=== PATIENT | female | born 1945 | race Caucasian/White ===

== ENCOUNTER 2016-12-23 10:34 | Outpatient (CLI) | payer MEDICARE, BC | END 2016-12-23 10:35 | disposition home or self-care (01) | DX: E03.9 Hypothyroidism, unspecified (principal) ==

== ENCOUNTER 2017-04-18 20:40 | Inpatient (IN) | payer MEDICARE, BC ==
[2017-04-18] MEDS ORDERED: SODIUM CHLORIDE 0.9% 1,000 ML IV ONE (21:04)
[2017-04-18] MEDS ORDERED: MORPHINE 2 MG/ML SYRINGE IVP STA ×2 (21:04→22:16)
[2017-04-18] MEDS ORDERED: ONDANSETRON 4 MG/2 ML VIAL IVP STA (21:04)
[2017-04-18 21:11] LABS: BASOPHILS % (AUTO) 0.2 %; EOSINOPHILS % (AUTO) 0.1 %; HCT - HEMATOCRIT 42.2 % (37.0-47.0); HGB - HEMOGLOBIN 14.3 g/dL (12.0-16.0); LYMPHOCYTES # (AUTO) 1.2 10^3/uL (1.5-3.5); LYMPHOCYTES % (AUTO) 11.3 %; MEAN CORPUSCULAR HEMOGLOBIN 30.5 pg (27.0-31.0); MEAN CORPUSCULAR HGB CONC 33.9 g/dL (32.0-36.0); MEAN PLATELET VOLUME 6.4 fL (7.9-10.8); MONOCYTES # (AUTO) 0.2 10^3/uL (0.0-1.0); MONOCYTES % (AUTO) 2.4 %; NEUTROPHILS # (AUTO) 8.8 10^3/uL (1.5-6.6); RED BLOOD COUNT 4.69 10^6/uL (4.20-5.40); RED CELL DISTRIBUTION WIDTH 13.2 % (12.0-15.0); UNCORRECTED WHITE BLOOD COUNT 10.2 x10^3/uL; WHITE BLOOD COUNT 10.2 x10^3/uL (4.8-10.8)
--- NOTE | 2017-04-18 21:13 | ED Physician Documentation ---
PD HPI ABD PAIN - Stated complaint Stated Complaint: AB PX/VOMITING - Chief complaint Chief Complaint: Abd Pain - History obtained from History obtained from: Patient, Family - History of Present Illness Timing - onset: Today Timing - details: Gradual onset, Still present Quality: Aching, Sharp Location: LUQ, RLQ, Suprapubic Worsened by: Position, Palpation Associated symptoms: Nausea, Vomiting. No: Fever, Hematemesis, Diarrhea, Constipation, Melena, Hematochezia Similar symptoms before: Work up / diagnostics, Treatment Recently seen: Not recently seen - Additional information Additional information: Patient is a 71 year old female status post partial bowel resection who is presenting to the emergency department for abdominal pain. Patient states that she had a dull pain and she thought that it was just gas and that it would go away on its own. Patient states that the pain got progressively worse throughout the day. Patient had a small bowel movement today. Patient had one episode of vomiting this evening. Review of Systems Constitutional: denies: Fever, Chills Eyes: denies: Decreased vision, Photophobia Ears: denies: Ear pain, Drainage/discharge Nose: denies: Rhinorrhea / runny nose Throat: denies: Sore throat Cardiac: denies: Palpitations PD PAST MEDICAL HISTORY - Past Medical History Past Medical History: Yes Cardiovascular: Hypertension Respiratory: None Neuro: Seizure disorder Endocrine/Autoimmune: HyPOthyroidism GI: GERD, Colon polyps, Diverticulitis, Other : Incontinence, Nocturia, Other HEENT: None Psych: None Musculoskeletal: Osteoarthritis Derm: Other - Past Surgical History Past Surgical History: Yes General: Bowel surgery, Colonoscopy HEENT: Tonsil/Adenoidectomy - Present Medications Home Medications: Ambulatory Orders Medication Instructions Recorded Confirmed Levothyroxine [Synthroid] 1.5 tab PO DAILY 06/13/13 02/16/17 Losartan [Cozaar] 25 mg PO BID 06/13/13 02/16/17 carBAMazepine ER [TEGretol XR] 400 mg PO BID 06/13/13 02/16/17 Atorvastatin Calcium [Lipitor] 20 mg PO DAILY 01/21/16 02/16/17 Calcium Carbonate/Vitamin D3 1 tab PO BID 01/21/16 02/16/17 [Calcium 600 + Vit D3 800 Tab] Cholecalciferol (Vitamin D3) 2,000 unit PO BID 01/21/16 02/16/17 [Vitamin D3] Multivitamin [Multi-Delyn] 1 tbs PO DAILY 02/18/16 02/16/17 Ondansetron Odt [Zofran Odt] 4 mg PO Q4H PRN 03/06/16 02/16/17 Prochlorperazine Maleate 10 mg PO Q6H PRN 03/06/16 02/16/17 [Compazine] Pantoprazole [Protonix] 40 mg PO DAILY 03/17/16 02/16/17 Saccharomyces Boulardii [Florastor] 250 mg PO BID 09/12/16 02/16/17 - Allergies Allergies/Adverse Reactions: Allergies Allergy/AdvReac Type Severity Reaction Status Date / Time No Known Drug Allergies Allergy Verified 04/18/17 20:50 - Social History Does the pt smoke?: No Smoking Status: Never smoker Does the pt drink ETOH?: No Does the pt have substance abuse?: No - Immunizations Immunizations are current?: Yes - POLST Patient has POLST: No PD ED PE NORMAL - Vitals Vital signs reviewed: Yes - General General: Alert and oriented X 3, Well developed/nourished - HEENT HEENT: Atraumatic, PERRL, Pharynx benign - Neck Neck: Supple, no meningeal sign, No JVD - Cardiac Cardiac: RRR, No murmur, No rub - Respiratory Respiratory: No respiratory distress, Clear bilaterally - Derm Derm: Normal color, Warm and dry, No rash - Extremities Extremities: No deformity, No edema - Neuro Neuro: Alert and oriented X 3, No motor deficit, No sensory deficit, Normal speech - Psych Psych: Normal mood, Normal affect PD ED PE EXPANDED - General General: Alert, In Pain - Abdomen Abdomen: Tender to palpation, RLQ, Suprapubic, LLQ. No: Rebound, Guarding Results - Vitals Vitals: Vital Signs - 24 hr 04/18/17 04/18/17 04/18/17 20:47 21:33 22:39 Temperature 36.7 C Heart Rate 79 81 85 Respiratory 18 18 16 Rate Blood Pressure 182/80 H 151/57 H O2 Saturation 99 100 95 04/19/17 00:30 Temperature Heart Rate 85 Respiratory 16 Rate Blood Pressure 145/71 H O2 Saturation 98 Oxygen O2 Source Room air - Labs Labs: Laboratory Tests 04/18/17 04/18/17 04/18/17 21:00 21:05 21:05 WBC 10.2 RBC 4.69 Hgb 14.3 Hct 42.2 MCV 90.0 MCH 30.5 MCHC 33.9 RDW 13.2 Plt Count 188 MPV 6.4 L Neut # 8.8 H Lymph # 1.2 L [place] # 0.2 Eos # 0.0 Baso # 0.0 Absolute Nucleated RBC 0.00 Nucleated RBCs 0.0 Sodium 134 L Potassium 4.0 Chloride 98 L Carbon Dioxide 26 Anion Gap 10.0 BUN 12 Creatinine 0.6 Estimated GFR (MDRD) 99 Glucose 138 H Lactic Acid Calcium 9.1 Phosphorus 3.5 Magnesium 1.8 Total Bilirubin 0.8 AST 43 H ALT 26 Alkaline Phosphatase 71 Total Protein 7.8 Albumin 4.8 Globulin 3.0 Albumin/Globulin Ratio 1.6 Lipase 19 L Urine Color YELLOW Urine Clarity HAZY Urine pH 7.5 Ur Specific [place] 1.015 Urine Protein TRACE Urine Glucose (UA) NEGATIVE Urine Ketones NEGATIVE Urine Occult Blood NEGATIVE Urine Nitrite NEGATIVE Urine Bilirubin NEGATIVE Urine Urobilinogen 0.2 (NORMAL) Ur Leukocyte Esterase NEGATIVE Urine RBC 0-5 Urine WBC 0-3 Ur Squamous Epith Cells RARE Squamous Amorphous Sediment Rare Urine Bacteria None Seen Ur Microscopic Review INDICATED Urine Culture Comments NOT INDICATED 04/18/17 21:20 WBC RBC Hgb Hct MCV MCH MCHC RDW Plt Count MPV Neut # Lymph # [place] # Eos # Baso # Absolute Nucleated RBC Nucleated RBCs Sodium Potassium Chloride Carbon Dioxide Anion Gap BUN Creatinine Estimated GFR (MDRD) Glucose Lactic Acid 1.2 Calcium Phosphorus Magnesium Total Bilirubin AST ALT Alkaline Phosphatase Total Protein Albumin Globulin Albumin/Globulin Ratio Lipase Urine Color Urine Clarity Urine pH Ur Specific [place] Urine Protein Urine Glucose (UA) Urine Ketones Urine Occult Blood Urine Nitrite Urine Bilirubin Urine Urobilinogen Ur Leukocyte Esterase Urine RBC Urine WBC Ur Squamous Epith Cells Amorphous Sediment Urine Bacteria Ur Microscopic Review Urine Culture Comments - Rads (name of study) ct abdomen/pelvis Radiology: Final report received (dilated loops of bowel and transition sight consistent with sbo) PD MEDICAL DECISION MAKING - ED course Complexity details: reviewed old records, reviewed results, re-evaluated patient , considered differential, d/w patient, d/w independent beauty consultant ED course: Patient was seen and examined at bedside. IV access was gained, labs were drawn. Patient was treated with a fluid bolus, morphine and zofran. Patient responded well to the therapy. When patient's labs came back she was sent for imaging. Imaging revealed a sbo. patient was treated with and additional 4mg of morphine. call box wirer surgeon, Dr. Galvez was contacted and he came to evaluate the patient. Hospitalist was contacted and the case was discussed with him. Patient was admitted under his service for further evaluation and care. Departure - Departure Disposition: ED Place in Observation Clinical Impression: Small bowel obstruction Condition: Good
[2017-04-18 21:14] LABS: BILIRUBIN,URINE NEGATIVE (NEGATIVE); PH,URINE 7.5 PH (5.0-7.5)
[2017-04-18] MEDS ORDERED: MORPHINE 2 MG/ML SYRINGE ONE ×2 (21:16→22:15)
[2017-04-18] MEDS ORDERED: ONDANSETRON 4 MG/2 ML VIAL ONE (21:16)
[2017-04-18 21:21] LABS: UA w/ MICROSCOPIC CHARGE YES
[2017-04-18 21:24] LABS: ALBUMIN/GLOBULIN RATIO 1.6 (1.0-2.2); BILIRUBIN,TOTAL 0.8 mg/dL (0.2-1.0); CALCIUM 9.1 mg/dL (8.5-10.3); CREATININE 0.6 mg/dL (0.4-1.0); MAGNESIUM 1.8 mg/dL (1.7-2.8); PHOSPHORUS 3.5 mg/dL (2.5-4.6); TOTAL PROTEIN 7.8 g/dL (6.7-8.2)
[2017-04-18 21:41] LABS: UR CULTURE IF IND NOT INDICATED; WBC,URINE 0-3 /HPF (0-5)
[2017-04-18] MEDS ORDERED: IOPAMIDOL-300 100 ML VIAL IVP ONE (22:39)
--- NOTE | 2017-04-18 23:09 | CT Report ---
EXAM: CT ABDOMEN AND PELVIS EXAM DATE: 04/18/2017 10:41 PM. CLINICAL HISTORY: Abdominal pain and vomiting. History of bowel resection. COMPARISONS: 09/12/2016. TECHNIQUE: Routine helical CT imaging was performed through the abdomen and pelvis. IV contrast: Danielle onic. Enteric contrast: No. Reconstructions: Coronal and sagittal. In accordance with CT protocol optimization, one or more of the following dose reduction techniques w ere utilized for this exam: automated exposure control, adjustment of mA and/or KV based on patient s ize, or use of iterative reconstructive technique. FINDINGS: Lung Bases: No focal consolidation. Small hiatal hernia. Liver: No focal abnormality seen. Possible fatty infiltration. Gallbladder/Bile Ducts: Unremarkable. Spleen: Normal. Pancreas: Normal. Adrenal Glands: Normal. Kidneys: Normal. No masses or hydronephrosis. Peritoneal Cavity/Bowel: Small amount of free fluid in the abdomen and pelvis. No free air. Dilated f luid-filled small bowel loops with air-fluid levels, consistent with small bowel obstruction. Segment al small bowel wall thickening proximal to the anastomosis in the right lower quadrant. This area of thickening and the adjacent anastomosis together constitute the transition zone. Rectosigmoid anastom osis also seen. No diverticulitis. No lymphadenopathy. Appendix is not seen. Pelvic Organs: Normal. The bladder and visualized pelvic organs are within normal limits. Vasculature: Moderate atherosclerosis. No aortic aneurysm. Bones: Degenerative changes in the spine. Moderate levoscoliosis. Other: Small ventral hernia containing fat to the right of midline. IMPRESSION: 1. Distal small bowel obstruction. There is wall thickening in the distal ileum and distal ileal anas tomosis. Together these appear to be the cause of obstruction. 2. Small amount of free fluid in the abdomen and pelvis. 3. Hiatal hernia. [facility] Referring Provider Line: [phone] SITE ID: [id number]
[2017-04-18] MEDS ORDERED: SODIUM CHLORIDE 0.9% 1,000 ML IV SCH (23:45)
[2017-04-18] MEDS ORDERED: PROCHLORPERAZINE 10 MG/2 ML VIAL IVP PRN (23:48)
[2017-04-18] MEDS ORDERED: ONDANSETRON 4 MG/2 ML VIAL IVP PRN (23:48)
[2017-04-18] MEDS ORDERED: oxyCODONE 5 MG TABLET PO PRN ×4 (23:48→23:59)
[2017-04-18] MEDS ORDERED: ACETAMINOPHEN 325 MG TABLET PO PRN ×2 (23:48→23:59)
[2017-04-18] MEDS ORDERED: MORPHINE 2 MG/ML SYRINGE IVP PRN ×2 (23:48→23:59)
[2017-04-18] MEDS ORDERED: ZOLPIDEM 5 MG TABLET PO PRN (23:48)
[2017-04-18] MEDS ORDERED: SODIUM CHLORIDE FLUSH 0.9% 10 ML SYRINGE IVP PRN (23:48)
[2017-04-19] MEDS ORDERED: MORPHINE 2 MG/ML SYRINGE ONE (00:28)
[2017-04-19] MEDS ORDERED: LIDOCAINE JELLY 2% 5 ML TUBE TOP ONE (00:36)
[2017-04-19] MEDS ORDERED: MORPHINE 2 MG/ML SYRINGE IVP STA (00:41)
[2017-04-19] MEDS ORDERED: MORPHINE 2 MG/ML SYRINGE IVP PRN ×2 (00:46→01:28)
[2017-04-19] MEDS ORDERED: ZOLPIDEM 5 MG TABLET PO PRN (01:28)
[2017-04-19] MEDS ORDERED: oxyCODONE 5 MG TABLET PO PRN ×4 (01:28)
[2017-04-19] MEDS ORDERED: ONDANSETRON 4 MG/2 ML VIAL IVP PRN (01:28)
[2017-04-19] MEDS ORDERED: ACETAMINOPHEN 325 MG TABLET PO PRN ×2 (01:28)
[2017-04-19] MEDS ORDERED: PROCHLORPERAZINE 10 MG/2 ML VIAL IVP PRN (01:28)
[2017-04-19] MEDS ORDERED: SODIUM CHLORIDE FLUSH 0.9% 10 ML SYRINGE IVP PRN (01:28)
[2017-04-19] MEDS ORDERED: PHENOL THROAT SPRAY 177 ML MM PRN (01:46)
[2017-04-19] MEDS: SODIUM CHLORIDE 0.9% 1,000 ML IV SCH ×3 (01:54→19:10)
[2017-04-19] MEDS: MORPHINE 2 MG/ML SYRINGE IVP PRN ×2 (02:51→04:50)
--- NOTE | 2017-04-19 03:36 | XRAY Preliminary Report ---
Exam: XR Chest 1 View IMPRESSION: 1. Small left lung base patchy airspace disease may be due to atelectasis, aspiration, and/or pneumon ia. Mild left perihilar atelectasis is likely present. 2. Orogastric tube is present, with the sidehole projecting above the gastroesophageal junction. Rec ommend advancing the tube 8 cm. [facility] SITE ID: [id number]
--- NOTE | 2017-04-19 03:39 | XRAY Report ---
EXAM: CHEST RADIOGRAPHY EXAM DATE: 04/19/2017 03:09 AM. CLINICAL HISTORY: NG tube placement COMPARISON: None. TECHNIQUE: 1 view. FINDINGS: Lungs/Pleura: Small patchy left lateral lung base opacity. Small lung volumes. No effusion or pneumot horax. Mediastinum: Within exam limitations, cardiomediastinal contour is normal. Other: Orogastric tube is present, with the sidehole projecting above the gastroesophageal junction. Recommend advancing the tube 8 cm. Moderate left Scoliosis of the lumbar spine. IMPRESSION: 1. Small left lung base patchy airspace disease may be due to atelectasis, aspiration, and/or pneumon ia. Mild left perihilar atelectasis is likely present. 2. Orogastric tube is present, with the sidehole projecting above the gastroesophageal junction. Rec ommend advancing the tube 8 cm. [facility] Referring Provider Line: [phone] SITE ID: [id number]
--- NOTE | 2017-04-19 04:46 | HISTORY & PHYSICAL EXAMINATION ---
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 The patient states that she was in her normal state of health until this morning when she states that she began to feel as though she was having a stomach ache. She thought it was secondary to eating a lot of fiber the day before. She states that the pain was located in the lower abdomen just below the umbilicus she states that the pain went across the midline and heard on both sides of the abdomen. She states that the pain was a cramping pain initially it was aching and then later in the day became severe up to 9/10. She states that she felt nauseated and did vomit but it was just clear fluid that came out. She states that she was feeling chills and when the chills broke she would get diaphoretic. She denied having had any fevers. She states that she did have a small bowel movement at around 4 PM today. She denies having had any constipation she states that her bowel movement was normal and there was no diarrhea. The patient denies any recent blood in her stools. She denies any headaches, blurred vision, runny nose, sore throat, chest pain, shortness of air , orthopnea, increased lower extremity swelling, urinary urgency frequency or dysuria, focal neurologic deficits. The patient states that she had similar symptoms about a year ago and came in to the ER at that time she was found to have enteritis and was placed on antibiotics with which the symptoms resolved. The patient states that the pain has remained constant. On presentation to the emergency department the patient was afebrile she is slightly hypertensive but vital signs were otherwise stable. Patient's lab work did not reveal any leukocytosis but there was elevated neutrophils and mild lymphopenia. The patient's electrolytes showed slight hyponatremia but otherwise were within normal limits. Patient's UA was negative. The patient underwent a CT of her abdomen and pelvis which showed distal small bowel obstruction with wall thickening in the distal ileum and distal ileum anastomosis. The emergency room physician contacted the surgeon environmental compliance officer Dr. Rosario who felt the patient likely had a small bowel obstruction and asked the patient to be admitted by the hospitalist service. He recommended NG tube to suction and medical management with pain control IV fluids and nothing by mouth. Review of Systems - Constitutional Constitutional: reports: Chills, Poor appetite. denies: Fatigue, Fever, Malaise , Weakness, Diaphoresis, Night sweats, Weight gain, Weight loss - Eyes Eyes: denies: Pain, Irritation, Amaurosis, Blurred vision, Spots in vision, Field loss, Vision loss, Dipolpia - Ears, Nose & Throat Ears, Nose & Throat: denies: Ear pain, Hearing loss, Hearing aids, Tinnitus, Vertigo, Nasal pain, Nasal discharge, Nasal obstruction, Nasal congestion, Sore throat, Hoarseness, Mouth lesions - Cardiovascular Cariovascular: denies: Irregular heart rate, Palpitations, Chest pain, Edema, Lightheadedness, Syncope, Exertional dyspnea, Decr. exercise tolerance, Orthopnea - Respiratory Respiratory: denies: Cough, Sputum production, Wheezing, Hemoptysis, Orthopnea, SOB at rest, SOB with exertion, Pleuritic pain - Gastrointestinal Gastrointestinal: reports: Abdominal pain, Abdominal distention, Nausea, Vomiting, Bloating, Poor appetite. denies: Constipation, Diarrhea, Change in bowel habits, Black stools, Bloody stools, Bile emesis, Coffee grounds emesis - Genitourinary Genitourinary: denies: Dysuria, Frequency, Urgency, Hematuria, Flank pain, Nocturia - Musculoskeletal Musculoskeletal: denies: Muscle pain, Back pain, Muscle aches, Stiffness, Limited range of motion, Muscle weakness, Joint pain, Joint swelling - Integumentary Integumentary: denies: Rash, Pruritis, Lesions, Dryness - Neurological Neurological: denies: General weakness, Focal weakness, Headache, Dizziness, Numbness, Abnormal gait, Seizures, Slurred speech - Psychiatric Psychiatric: denies: Depression, Anxiety - Endocrine Endocrine: denies: Polyuria, Polydypsia, Polyphagia, Intolerance to cold, Intolerance to heat - Hematologic/Lymphatic Hematologic/Lymphatic: denies: Anemia, Petechiae History - Past Medical History Cardiovascular: reports: Hypertension, High cholesterol Respiratory: reports: None Neuro: reports: Seizure disorder Endocrine/Autoimmune: reports: HyPOthyroidism GI: reports: GERD, Colon polyps, Diverticulitis (With divertiuclar perforation s /p hemicolectomy ), Other : reports: Incontinence, Nocturia, Other HEENT: reports: None Psych: reports: None Musculoskeletal: reports: Osteoarthritis Derm: reports: Other MRSA Hx?: No Other Past Medical History: Eneteritis, CML on Gleevac in cytological remission - Past Surgical History General: reports: Bowel surgery (Hemicolectomy ), Colonoscopy HEENT: reports: Tonsil/Adenoidectomy - Family & Social History Family History: Mother: Cancer (Colon Cancer) Family History Comment/Other: Brother had diverticulitis Living arrangement: At home Living Situation: With spouse/s.o. Social History Notes: The patient lives in [facility] with her . They have been living there for over 40 years. They do not have any children. 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 She has a history of tobacco use smoked one pack a day for about 10 years but quit over 30 years ago. She does not drink alcohol and denies any illicit drug use. - Substance History Use: Uses substance without health or social issues: NONE Abuse: Recurrent use of substance despite neg consequences: NONE Dependence: Experiences withdrawal or developed tolerances: NONE - POLST Patient has POLST: No POLST Status: Full Code Meds/Allgy - Home Medications Home Medications: Ambulatory Orders Medication Instructions Recorded Confirmed Levothyroxine [Synthroid] 1.5 tab PO DAILY 06/13/13 02/16/17 Losartan [Cozaar] 25 mg PO BID 06/13/13 02/16/17 carBAMazepine ER [TEGretol XR] 400 mg PO BID 06/13/13 02/16/17 Atorvastatin Calcium [Lipitor] 20 mg PO DAILY 01/21/16 02/16/17 Calcium Carbonate/Vitamin D3 1 tab PO BID 01/21/16 02/16/17 [Calcium 600 + Vit D3 800 Tab] Cholecalciferol (Vitamin D3) 2,000 unit PO BID 01/21/16 02/16/17 [Vitamin D3] Multivitamin [Multi-Delyn] 1 tbs PO DAILY 02/18/16 02/16/17 Ondansetron Odt [Zofran Odt] 4 mg PO Q4H PRN 03/06/16 02/16/17 Prochlorperazine Maleate 10 mg PO Q6H PRN 03/06/16 02/16/17 [Compazine] Pantoprazole [Protonix] 40 mg PO DAILY 03/17/16 02/16/17 Saccharomyces Boulardii [Florastor] 250 mg PO BID 09/12/16 02/16/17 - Allergies Allergies/Adverse Reactions: Allergies Allergy/AdvReac Type Severity Reaction Status Date / Time No Known Drug Allergies Allergy Verified 04/18/17 20:50 Exam - Vital Signs Reviewed Vital Signs: Yes Vital Signs: Vital Signs x48h Temp Pulse Pulse Resp BP BP Pulse Ox 04/19/17 02:23 36.7 C 79 16 141/78 H 95 04/19/17 01:45 36.7 C 73 16 141/78 H 95 04/19/17 00:54 77 16 127/79 97 04/19/17 00:45 36.4 C L 80 17 121/57 L 97 04/19/17 00:30 85 16 145/71 H 98 - Physical Exam General Appearance: positive: Alert, Moderate distress (Has waves of abdominal pain during exam as pain meds were wearing off) Eyes Bilateral: positive: Normal inspection, PERRL, EOMI, No lid inflammation, Conjunctivae nml, No scleral icterus ENT: positive: ENT inspection nml, Pharynx nml, Dry mucous membranes. negative : Purulent nasal drainage, Pharyngeal erythema, Oral lesions Neck: positive: Nml inspection, Thyroid nml, No JVD, Trachea midline. negative : Thyromegaly, Lymphadenopathy (R), Lymphadenopathy (L) Respiratory: positive: Chest non-tender, No respiratory distress, Breath sounds nml. negative: Wheezes, Rales, Rhonchi Cardiovascular: positive: Regular rate & rhythm, No murmur, No gallop Peripheral Pulses: positive: 2+ Abdomen: positive: Tenderness (Below the umbilicus patient has tenderness bilaterally but no guarding of peritoneal sign, Abd is distended slightly.), Abnml bowel sounds (decreased). negative: Guarding, Hepatomegaly, Splenomegaly , Mass Back: positive: Nml inspection. negative: CVA tenderness (R), CVA tenderness (L ) Skin: positive: Color nml, No rash, Warm. negative: Dry, Diaphoresis, Pallor, Skin rash Extremities: positive: Non-tender, Full ROM, Nml appearance, No pedal edema Neurologic/Psychiatric: positive: Oriented x3, CN's nml (2-12), Motor nml, Sensation nml, Other (Anxious) Conclusion/Plan - Problem List (1) Small bowel obstruction Conclusion/Plan: Patient presented to the emergency department with abdominal pain, nausea and vomiting since this morning. Patient has history of hemicolectomy for diverticular perforation. Patient's CT scan showed distal bowel obstruction. This is likely an early bowel obstruction given that she did have a normal bowel movement earlier in the day. The patient's pain was severe and difficult to control in the emergency department despite morphine every 2 hours. Patient had persistent nausea. Surgery was consult in the ER and asked that the hospitalist admit the patient for medical management of small bowel obstruction. Plan IV fluids Encourage mobility Pain control with IV morphine NG tube to low intermittent suction IV anti-emetics Monitor closely if symptoms persist may need surgical intervention Surgery on board (2) Hypertension Conclusion/Plan: Patient has history of hypertension Blood pressure elevated on presentation likely secondary to pain We'll control pain and monitor blood pressure If patient's obstruction persists may need IV antihypertensives when necessary Qualifiers: Hypertension type: essential hypertension Qualified Code(s): I10 - Essential (primary) hypertension (3) Hyperlipidemia Conclusion/Plan: On statin at home N.p.o. for small bowel obstruction (4) CML (chronic myelocytic leukemia) Conclusion/Plan: Patient on Gleevec daily cytological remission We'll continue Gleevec once patient is able to tolerate For now patient is n.p.o. for small bowel obstruction. (5) Hypothyroidism Conclusion/Plan: The patient on Synthroid at home Check TSH N.p.o. for small bowel obstruction Will restart Synthroid once able to tolerate by mouth intake otherwise we'll start IV Synthroid (6) Prophylactic use of low molecular weight heparin for venous thromboembolism Conclusion/Plan: placed on Lovenox while hospitalized - Lab Results Lab results reviewed: Yes Milton Bones: 04/18/17 21:05 04/18/17 21:05 - Diagnostic Imaging Results Diagnostic Imaging Results: positive: Final report reviewed - EKG Results EKG Interpreted Independently: Yes Issues/Core Measures - Anticipated LOS Anticipated Stay Length: 2 or more midnights - DVT/VTE - Prophylaxis VTE/DVT Prophylaxis med ordered at admit?: Yes
[2017-04-19 05:52] LABS: BASOPHILS % (AUTO) 0.4 %; EOSINOPHILS % (AUTO) 0.2 %; HGB - HEMOGLOBIN 13.1 g/dL (12.0-16.0); NEUTROPHILS # (AUTO) 7.7 10^3/uL (1.5-6.6)
[2017-04-19 05:56] LABS: HCT - HEMATOCRIT 37.7 % (37.0-47.0); LYMPHOCYTES # (AUTO) 1.3 10^3/uL (1.5-3.5); MEAN CORPUSCULAR HEMOGLOBIN 31.4 pg (27.0-31.0); MEAN CORPUSCULAR HGB CONC 34.8 g/dL (32.0-36.0); MEAN CORPUSCULAR VOLUME 90.2 fL (81.0-99.0); MEAN PLATELET VOLUME 6.3 fL (7.9-10.8); MONOCYTES # (AUTO) 0.6 10^3/uL (0.0-1.0); MONOCYTES % (AUTO) 6.1 %; NEUTROPHILS % (AUTO) 80.3 %; RED BLOOD COUNT 4.17 10^6/uL (4.20-5.40); RED CELL DISTRIBUTION WIDTH 13.4 % (12.0-15.0); UNCORRECTED WHITE BLOOD COUNT 9.6 x10^3/uL; WHITE BLOOD COUNT 9.6 x10^3/uL (4.8-10.8)
[2017-04-19] MEDS ORDERED: SODIUM CHLORIDE FLUSH 0.9% 10 ML SYRINGE IVP SCH (06:00)
[2017-04-19 06:02] LABS: INR 1.2 (0.8-1.2); PT - PROTHROMBIN TIME 13.2 secs (9.9-12.6)
[2017-04-19] MEDS: SODIUM CHLORIDE FLUSH 0.9% 10 ML SYRINGE IVP SCH ×3 (06:14→21:21)
[2017-04-19] MEDS: PANTOPRAZOLE 40 MG VIAL IVP SCH (06:14)
[2017-04-19 06:18] LABS: ALBUMIN/GLOBULIN RATIO 1.7 (1.0-2.2); BILIRUBIN,TOTAL 0.4 mg/dL (0.2-1.0); CALCIUM 8.3 mg/dL (8.5-10.3); CREATININE 0.5 mg/dL (0.4-1.0); MAGNESIUM 1.8 mg/dL (1.7-2.8); PHOSPHORUS 4.5 mg/dL (2.5-4.6); POTASSIUM 3.8 mmol/L (3.5-5.0); TOTAL PROTEIN 6.4 g/dL (6.7-8.2)
[2017-04-19] MEDS ORDERED: PANTOPRAZOLE 40 MG VIAL IVP SCH (07:00)
[2017-04-19] MEDS ORDERED: CHOLECALCIFEROL 1,000 UNIT TABLET PO SCH (09:00)
[2017-04-19] MEDS ORDERED: ENOXAPARIN 40 MG/0.4 ML SYRINGE SUBQ SCH (09:00)
[2017-04-19] MEDS ORDERED: VITAMIN D3 PO SCH (09:00)
[2017-04-19] MEDS ORDERED: MULTIVITAMIN PO SCH (09:00)
[2017-04-19] MEDS ORDERED: ATORVASTATIN CALCIUM 20 MG PO SCH (09:00)
[2017-04-19] MEDS ORDERED: CHOLECALCIFEROL 400 UNIT TABLET PO SCH (09:00)
[2017-04-19] MEDS ORDERED: POLYETHYLENE GLYCOL 3350 17 GM PACKET PO SCH (09:00)
[2017-04-19] MEDS ORDERED: carBAMazepine ER 200 MG TABLET PO SCH (09:00)
[2017-04-19] MEDS ORDERED: LOSARTAN 50 MG TABLET PO SCH (09:00)
[2017-04-19] MEDS ORDERED: CHOLECALCIFEROL 5,000 UNIT CAPSULE PO SCH (09:00)
[2017-04-19] MEDS ORDERED: SACCHAROMYCES BOULARDII 250 MG CAPSULE PO SCH (09:00)
[2017-04-19] MEDS ORDERED: CALCIUM CARBONATE CHEW 500 MG TABLET PO SCH (09:00)
[2017-04-19] MEDS ORDERED: ATORVASTATIN 10 MG TABLET PO SCH (09:00)
[2017-04-19] MEDS ORDERED: CALCIUM CARBONATE PO SCH (09:00)
[2017-04-19] MEDS: ENOXAPARIN 40 MG/0.4 ML SYRINGE SUBQ SCH (09:53)
[2017-04-19] MEDS: LEVOTHYROXINE 88 MCG TABLET PO SCH (11:20)
[2017-04-19] MEDS: carBAMazepine ER 200 MG TABLET PO SCH ×2 (11:25→21:14)
[2017-04-19] MEDS: MULTIVITAMIN TABLET PO SCH (11:26)
[2017-04-19] MEDS: LOSARTAN 50 MG TABLET PO SCH ×2 (11:26→21:15)
[2017-04-19] MEDS: SACCHAROMYCES BOULARDII 250 MG CAPSULE PO SCH ×2 (11:27→21:15)
--- NOTE | 2017-04-19 12:09 | PROVIDER PROGRESS NOTE ---
Assessment/Plan - Problem List (1) Small bowel obstruction Assessment/Plan: A/P 71 yo female with multiple medical problems including CML on Gleevec, now with presumed small bowel obstruction at anastamosis vs stool impaction, lactic acid/CMP/CBC normal, benign abdominal exam. Recommend continued NPO IV fluids Recommend advancing NGT 8 cm, the contunie with LWS Serial exams Encourage ambulation UGI follow through in am. Primary medical team to manage Surgery will follow - Current Meds Current Meds: Current Medications Generic Name Dose Route Start Last Admin Trade Name Freq PRN Reason Stop Dose Admin Carbamazepine 400 mg 04/19/17 09:00 04/19/17 11:25 Tegretol Xr PO 400 mg BID MICHELLE Administration Cholecalciferol 2,000 unit 04/19/17 09:00 04/19/17 11:27 Vitamin D3 PO 1,000 unit BID MICHELLE Administration Cholecalciferol 800 unit 04/19/17 09:00 04/19/17 11:27 Vitamin D3 PO 400 unit BID MICHELLE Administration Sodium Chloride 1,000 mls @ 125 mls/hr 04/19/17 01:00 04/19/17 01:54 Normal Saline 0.9% IV 125 mls/hr .Q8H MICHELLE Administration Levothyroxine Sodium 132 mcg 04/19/17 07:30 04/19/17 11:20 Synthroid PO 132 mcg QDAC MICHELLE Administration Losartan Potassium 25 mg 04/19/17 09:00 04/19/17 11:26 Cozaar PO 25 mg BID MICHELLE Administration Morphine Sulfate 2 mg 04/19/17 01:28 04/19/17 04:50 Morphine IVP 2 mg Q2HR PRN Administration Pain 8 to 10 Multivitamins 1 tab 04/19/17 09:00 04/19/17 11:26 Theragran PO 1 tab DAILY MICHELLE Administration Ondansetron HCl 4 mg 04/19/17 01:28 04/19/17 01:54 Zofran Inj IVP 4 mg Q6HR PRN Administration Nausea / Vomiting Pantoprazole Sodium 40 mg 04/19/17 07:00 04/19/17 06:14 Protonix IVP 40 mg QDAC MICHELLE Administration Saccharomyces Boulardii 250 mg 04/19/17 09:00 04/19/17 11:27 Florastor PO 250 mg BID MICHELLE Administration Sodium Chloride 10 ml 04/19/17 01:28 04/19/17 01:54 Normal Saline Flush 0.9% IVP 10 ml PRN PRN Administration NEEDED PER PROVIDER ORDERS Sodium Chloride 10 ml 04/19/17 06:00 04/19/17 06:14 Normal Saline Flush 0.9% IVP 10 ml Q8HR MICHELLE Administration - Lab Result Lab results reviewed: Yes Fish Bone Diagrams: 04/19/17 05:45 04/19/17 05:45 Subjective - Subjective Patient Reports: Feeling Better (Patient seen at bedside. She states she feels somewhat better with some mild pain. She denies any vomiting or Nausea. No BM or Flatus. She would like to start ambulating.) Nursing Reports: No Complaints Objective Vital Signs: Vital Signs - 24 hr 04/19/17 04/19/17 04/19/17 00:30 00:45 00:54 Temperature 36.4 C L Heart Rate 85 80 77 Heart Rate [ Brachial] Respiratory 16 17 16 Rate Blood Pressure 145/71 H 121/57 L 127/79 Blood Pressure [Left Brachial artery] O2 Saturation 98 97 97 04/19/17 04/19/17 04/19/17 01:45 02:23 08:45 Temperature 36.7 C 36.7 C 37.1 C Heart Rate Heart Rate [ 73 79 71 Brachial] Respiratory 16 16 18 Rate Blood Pressure Blood Pressure 141/78 H 141/78 H 108/64 [Left Brachial artery] O2 Saturation 95 95 94 Oxygen O2 Source Room air I&O (Last 24 Hrs): Intake and Output Totals x24h 04/17/17 04/18/17 04/19/17 23:59 23:59 23:59 Intake Total 535 Output Total 250 Balance 285 General: Alert, Oriented x3 HEENT: EOMI Neuro: Alert Cardiovascular: Regular rate Respiratory: Breath sounds nml Abdomen: Normal bowel sounds (+Bs, soft,ND, mild TTP right flank. No rebound or guarding.), Soft Extremities: No tenderness/swelling - Results Results: Laboratory Results WBC 9.6 x10^3/uL (4.8-10.8) 04/19/17 05:45 RBC 4.17 10^6/uL (4.20-5.40) L 04/19/17 05:45 Hgb 13.1 g/dL (12.0-16.0) 04/19/17 05:45 Hct 37.7 % (37.0-47.0) 04/19/17 05:45 MCV 90.2 fL (81.0-99.0) 04/19/17 05:45 MCH 31.4 pg (27.0-31.0) H 04/19/17 05:45 MCHC 34.8 g/dL (32.0-36.0) 04/19/17 05:45 RDW 13.4 % (12.0-15.0) 04/19/17 05:45 Plt Count 171 10^3/uL (130-450) 04/19/17 05:45 MPV 6.3 fL (7.9-10.8) L 04/19/17 05:45 Neut # 7.7 10^3/uL (1.5-6.6) H 04/19/17 05:45 Lymph # 1.3 10^3/uL (1.5-3.5) L 04/19/17 05:45 [place] # 0.6 10^3/uL (0.0-1.0) 04/19/17 05:45 Eos # 0.0 10^3/uL (0.0-0.7) 04/19/17 05:45 Baso # 0.0 10^3/uL (0.0-0.1) 04/19/17 05:45 Absolute Nucleated RBC 0.00 x10^3/uL 04/19/17 05:45 Nucleated RBCs 0.0 /100WBC 04/19/17 05:45 PT 13.2 secs (9.9-12.6) H 04/19/17 05:45 INR 1.2 (0.8-1.2) 04/19/17 05:45 Sodium 135 mmol/L (135-145) 04/19/17 05:45 Potassium 3.8 mmol/L (3.5-5.0) 04/19/17 05:45 Chloride 103 mmol/L (101-111) 04/19/17 05:45 Carbon Dioxide 25 mmol/L (21-32) 04/19/17 05:45 Anion Gap 7.0 (6-13) 04/19/17 05:45 BUN 10 mg/dL (6-20) 04/19/17 05:45 Creatinine 0.5 mg/dL (0.4-1.0) 04/19/17 05:45 Estimated GFR (MDRD) 122 (>89) 04/19/17 05:45 Glucose 118 mg/dL (70-100) H 04/19/17 05:45 Lactic Acid 0.8 mmol/L (0.5-2.2) 04/19/17 05:45 Calcium 8.3 mg/dL (8.5-10.3) L 04/19/17 05:45 Phosphorus 4.5 mg/dL (2.5-4.6) 04/19/17 05:45 Magnesium 1.8 mg/dL (1.7-2.8) 04/19/17 05:45 Total Bilirubin 0.4 mg/dL (0.2-1.0) 04/19/17 05:45 AST 32 IU/L (10-42) 04/19/17 05:45 ALT 21 IU/L (10-60) 04/19/17 05:45 Alkaline Phosphatase 57 IU/L (42-121) 04/19/17 05:45 Total Protein 6.4 g/dL (6.7-8.2) L 04/19/17 05:45 Albumin 4.0 g/dL (3.2-5.5) 04/19/17 05:45 Globulin 2.4 g/dL (2.1-4.2) 04/19/17 05:45 Albumin/Globulin Ratio 1.7 (1.0-2.2) 04/19/17 05:45 Lipase 19 U/L (22-51) L 04/18/17 21:05 Urine Color YELLOW 04/18/17 21:00 Urine Clarity HAZY (CLEAR) 04/18/17 21:00 Urine pH 7.5 PH (5.0-7.5) 04/18/17 21:00 Ur Specific Magnet 1.015 (1.002-1.030) 04/18/17 21:00 Urine Protein TRACE mg/dL (NEGATIVE) 04/18/17 21:00 Urine Glucose (UA) NEGATIVE mg/dL (NEGATIVE) 04/18/17 21:00 Urine Ketones NEGATIVE mg/dL (NEGATIVE) 04/18/17 21:00 Urine Occult Blood NEGATIVE (NEGATIVE) 04/18/17 21:00 Urine Nitrite NEGATIVE (NEGATIVE) 04/18/17 21:00 Urine Bilirubin NEGATIVE (NEGATIVE) 04/18/17 21:00 Urine Urobilinogen 0.2 (NORMAL) E.U./dL (NORMAL) 04/18/17 21:00 Ur Leukocyte Esterase NEGATIVE (NEGATIVE) 04/18/17 21:00 Urine RBC 0-5 /HPF (0-5) 04/18/17 21:00 Urine WBC 0-3 /HPF (0-5) 04/18/17 21:00 Ur Squamous Epith Cells RARE Squamous (<= Few) 04/18/17 21:00 Amorphous Sediment Rare /LPF 04/18/17 21:00 Urine Bacteria None Seen /HPF (None Seen) 04/18/17 21:00 Ur Microscopic Review INDICATED 04/18/17 21:00 Urine Culture Comments NOT INDICATED 04/18/17 21:00 - Procedures Procedures: Procedures CENTRAL VENOUS CATHETER PLACEMENT WITH GUIDANCE (06/13/13) 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) ILEOSTOMY NOS (06/13/13) LG-TO-LG BOWEL ANASTOM (06/13/13) OPEN AND OTHER SIGMOIDECTOMY (06/13/13) PACKED CELL TRANSFUSION (06/13/13) SM BOWEL STOMA CLOSURE (09/26/13) URETERAL CATHETERIZATION (06/13/13)
[2017-04-19] MEDS: POLYETHYLENE GLYCOL 3350 17 GM PACKET PO SCH (12:53)
--- NOTE | 2017-04-19 18:02 | PROVIDER PROGRESS NOTE ---
Subjective - Prog Note Date Prog Note Date: 04/19/17 Prog Note Time: 18:00 - Subjective Subjective: She's had the NG and hates it. General surgery will be taking it out. No emesis. Distention in her abdomen a little bit better. She has been diligently walking the hallways. So far no fever. Denies cp, cough. Current Medications - Current Medications Current Medications: Active Medications Acetaminophen (Tylenol) 650 mg PO Q4HR PRN PRN Reason: Pain 1 to 4 Acetaminophen (Tylenol) 650 mg PO Q4HR PRN PRN Reason: Pain 1 to 4 Atorvastatin Calcium (Lipitor) 20 mg PO QPM [facility] Calcium Carbonate/Glycine (Tums) 1,000 mg PO QPM [facility] Carbamazepine (Tegretol Xr) 400 mg PO BID [facility] Last Admin: 04/19/17 11:25 Dose: 400 mg Cholecalciferol (Vitamin D3) 1,000 unit PO BID [facility] Cholecalciferol (Vitamin D3) 400 unit PO BID [facility] Enoxaparin Sodium (Lovenox) 40 mg SUBQ DAILY [facility] Last Admin: 04/19/17 09:53 Dose: 40 mg Sodium Chloride (Normal Saline 0.9%) 1,000 mls @ 125 mls/hr IV .Q8H [facility] Last Admin: 04/19/17 17:57 Dose: 125 mls/hr Levothyroxine Sodium (Synthroid) 132 mcg PO QDAC [facility] Last Admin: 04/19/17 11:20 Dose: 132 mcg Losartan Potassium (Cozaar) 25 mg PO BID [facility] Last Admin: 04/19/17 11:26 Dose: 25 mg Morphine Sulfate (Morphine) 2 mg IVP Q2HR PRN PRN Reason: Pain 8 to 10 Last Admin: 04/19/17 04:50 Dose: 2 mg Morphine Sulfate (Morphine) 4 mg IVP Q2HR PRN PRN Reason: Pain 8 to 10 Multivitamins (Theragran) 1 tab PO DAILY [facility] Last Admin: 04/19/17 11:26 Dose: 1 tab Non-Formulary Medication (Imatinib Mesylate [Gleevec]) 400 mg PO 1730 [facility] Ondansetron HCl (Zofran Inj) 4 mg IVP Q6HR PRN PRN Reason: Nausea / Vomiting Last Admin: 04/19/17 01:54 Dose: 4 mg Oxycodone HCl (Roxicodone) 5 mg PO Q4HR PRN PRN Reason: Pain 5 to 7 Oxycodone HCl (Roxicodone) 10 mg PO Q4HR PRN PRN Reason: Pain 8 to 10 Pantoprazole Sodium (Protonix) 40 mg IVP QDAC [facility] Last Admin: 04/19/17 06:14 Dose: 40 mg Phenol/Menthol (Chloraseptic) 2 sprays MM Q2HR PRN PRN Reason: Throat Pain Polyethylene Glycol (Miralax) 17 gm PO DAILY [facility] Last Admin: 04/19/17 12:53 Dose: Not Given Prochlorperazine Edisylate (Compazine Inj) 10 mg IVP Q6HR PRN PRN Reason: Nausea / Vomiting Saccharomyces Boulardii (Florastor) 250 mg PO BID [facility] Last Admin: 04/19/17 11:27 Dose: 250 mg Sodium Chloride (Normal Saline Flush 0.9%) 10 ml IVP PRN PRN PRN Reason: NEEDED PER PROVIDER ORDERS Last Admin: 04/19/17 01:54 Dose: 10 ml Sodium Chloride (Normal Saline Flush 0.9%) 10 ml IVP Q8HR [facility] Last Admin: 04/19/17 14:51 Dose: Not Given Zolpidem Tartrate (Ambien) 5 mg PO QPM PRN PRN Reason: Insomnia Levothyroxine [Synthroid] 132 mcg PO DAILY 06/13/13 Losartan [Cozaar] 25 mg PO BID 06/13/13 Calcium Carbonate/Vitamin D3 [Calcium 600 + Vit D3 800 Tab] 1 tab PO BID Cholecalciferol (Vitamin D3) [Vitamin D3] 2,000 unit PO BID 01/21/16 Multivitamin [Multi-Delyn] 1 tbs PO DAILY 02/18/16 Ondansetron Odt [Zofran Odt] 4 mg PO Q4H PRN 03/06/16 Prochlorperazine Maleate [Compazine] 10 mg PO Q6H PRN 03/06/16 Pantoprazole [Protonix] 40 mg PO QDAC 03/17/16 Atorvastatin Calcium 20 mg PO QPM 04/19/17 Carbamazepine [Carbamazepine ER] 400 mg PO BID 04/19/17 Imatinib Mesylate [Gleevec] 400 mg PO 1730 04/19/17 Objective - Vital Signs/Intake & Output Reviewed Vital Signs: Yes Intake & Output: Intake & Output 04/16/17 04/17/17 04/18/17 04/19/17 23:59 23:59 23:59 23:59 Intake Total 1616 Output Total 250 Balance 1366 - Objective General Appearance: positive: No acute distress, Alert, Other (plesant white female looks stated age.) Eyes Bilateral: positive: PERRL, EOMI ENT: positive: Other (dry lips) Neck: positive: No JVD. negative: Lymphadenopathy (R), Lymphadenopathy (L), Stiff neck, Carotid bruit Respiratory: positive: Chest non-tender. negative: Wheezes, Rales, Rhonchi Cardiovascular: positive: Regular rate & rhythm. negative: Gallop/S4, Friction rub Abdomen: positive: Tenderness (mild), Abnml bowel sounds (faint, one tinkle), Other (distended). negative: Guarding, Rebound Skin: positive: Color nml, Warm, Dry. negative: Diaphoresis, Pallor Extremities: positive: Non-tender, No pedal edema Neurologic/Psychiatric: positive: Oriented x3, CN's nml (2-12), Motor nml - Lab Results Fish Bones: 04/19/17 05:45 04/19/17 05:45 Other Labs: Lab Results x24hrs 04/19/17 04/19/17 04/19/17 Range/Units 05:45 05:45 05:45 WBC (4.8-10.8) x10^3/uL RBC (4.20-5.40) 10^6/uL Hgb (12.0-16.0) g/dL Hct (37.0-47.0) % MCV (81.0-99.0) fL MCH (27.0-31.0) pg MCHC (32.0-36.0) g/dL RDW (12.0-15.0) % Plt Count (130-450) 10^3/uL MPV (7.9-10.8) fL Neut # (1.5-6.6) 10^3/uL Lymph # (1.5-3.5) 10^3/uL [place] # (0.0-1.0) 10^3/uL Eos # (0.0-0.7) 10^3/uL Baso # (0.0-0.1) 10^3/uL Absolute Nucleated RBC x10^3/uL Nucleated RBCs /100WBC PT 13.2 H (9.9-12.6) secs INR 1.2 (0.8-1.2) Sodium 135 (135-145) mmol/L Potassium 3.8 (3.5-5.0) mmol/L Chloride 103 (101-111) mmol/L Carbon Dioxide 25 (21-32) mmol/L Anion Gap 7.0 (6-13) BUN 10 (6-20) mg/dL Creatinine 0.5 (0.4-1.0) mg/dL Estimated GFR (MDRD) 122 (>89) Glucose 118 H (70-100) mg/dL Lactic Acid 0.8 (0.5-2.2) mmol/L Calcium 8.3 L (8.5-10.3) mg/dL Phosphorus 4.5 (2.5-4.6) mg/dL Magnesium 1.8 (1.7-2.8) mg/dL Total Bilirubin 0.4 (0.2-1.0) mg/dL AST 32 (10-42) IU/L ALT 21 (10-60) IU/L Alkaline Phosphatase 57 (42-121) IU/L Total Protein 6.4 L (6.7-8.2) g/dL Albumin 4.0 (3.2-5.5) g/dL Globulin 2.4 (2.1-4.2) g/dL Albumin/Globulin Ratio 1.7 (1.0-2.2) 04/19/17 Range/Units 05:45 WBC 9.6 (4.8-10.8) x10^3/uL RBC 4.17 L (4.20-5.40) 10^6/uL Hgb 13.1 (12.0-16.0) g/dL Hct 37.7 (37.0-47.0) % MCV 90.2 (81.0-99.0) fL MCH 31.4 H (27.0-31.0) pg MCHC 34.8 (32.0-36.0) g/dL RDW 13.4 (12.0-15.0) % Plt Count 171 (130-450) 10^3/uL MPV 6.3 L (7.9-10.8) fL Neut # 7.7 H (1.5-6.6) 10^3/uL Lymph # 1.3 L (1.5-3.5) 10^3/uL [place] # 0.6 (0.0-1.0) 10^3/uL Eos # 0.0 (0.0-0.7) 10^3/uL Baso # 0.0 (0.0-0.1) 10^3/uL Absolute Nucleated RBC 0.00 x10^3/uL Nucleated RBCs 0.0 /100WBC PT (9.9-12.6) secs INR (0.8-1.2) Sodium (135-145) mmol/L Potassium (3.5-5.0) mmol/L Chloride (101-111) mmol/L Carbon Dioxide (21-32) mmol/L Anion Gap (6-13) BUN (6-20) mg/dL Creatinine (0.4-1.0) mg/dL Estimated GFR (MDRD) (>89) Glucose (70-100) mg/dL Lactic Acid (0.5-2.2) mmol/L Calcium (8.5-10.3) mg/dL Phosphorus (2.5-4.6) mg/dL Magnesium (1.7-2.8) mg/dL Total Bilirubin (0.2-1.0) mg/dL AST (10-42) IU/L ALT (10-60) IU/L Alkaline Phosphatase (42-121) IU/L Total Protein (6.7-8.2) g/dL Albumin (3.2-5.5) g/dL Globulin (2.1-4.2) g/dL Albumin/Globulin Ratio (1.0-2.2) Assessment/Plan - Problem List (1) Small bowel obstruction Impression: Patient presented to the emergency department with abdominal pain, nausea and vomiting since morning of admission Patient has history of hemicolectomy for diverticular perforation. Patient's CT scan showed distal bowel obstruction. This is likely an early bowel obstruction given that she did have a normal bowel movement earlier in the day. The patient's pain was severe and difficult to control in the emergency department despite morphine every 2 hours. Patient had persistent nausea. Surgery was consult in the ER and asked that the hospitalist admit the patient for medical management of small bowel obstruction. Today, no emesis. Some output from NG. Less pain and it is controlled. Plan IV fluids Encouraged mobility Pain control with IV morphine NG tube to low intermittent suction IV anti-emetics Monitor closely if symptoms persist may need surgical intervention. So far none needed Surgery on board UGI with SBFT ordered for the am. (2) Hypertension Conclusion/Plan: Patient has history of hypertension Blood pressure elevated on presentation likely secondary to pain We'll control pain and monitor blood pressure and today systolic 120 to 140's. At goal If patient's obstruction persists may need IV antihypertensives when necessary Qualifiers: Hypertension type: essential hypertension Qualified Code(s): I10 - Essential (primary) hypertension (3) Hyperlipidemia Conclusion/Plan: On statin at home N.p.o. for small bowel obstruction (4) CML (chronic myelocytic leukemia) Conclusion/Plan: Patient on Gleevec daily cytological remission Gleevac resumed today. For now patient is n.p.o. for small bowel obstruction. (5) Hypothyroidism Conclusion/Plan: The patient on Synthroid at home Check TSH nd ordered for morning of 6 N.p.o. for small bowel obstruction Will restart Synthroid once able to tolerate by mouth intake otherwise we'll start IV Synthroid
[2017-04-19] MEDS ORDERED: CARBAMAZEPINE 400 MG PO SCH (21:00)
[2017-04-19] MEDS: CHOLECALCIFEROL 1,000 UNIT TABLET PO SCH (21:14)
[2017-04-19] MEDS: ATORVASTATIN 10 MG TABLET PO SCH (21:14)
[2017-04-19] MEDS: CHOLECALCIFEROL 400 UNIT TABLET PO SCH (21:15)
[2017-04-19] MEDS: CALCIUM CARBONATE CHEW 500 MG TABLET PO SCH (21:19)
[2017-04-20] MEDS: SODIUM CHLORIDE 0.9% 1,000 ML IV SCH ×3 (01:14→22:16)
[2017-04-20] MEDS: PANTOPRAZOLE 40 MG VIAL IVP SCH (06:19)
[2017-04-20] MEDS: SODIUM CHLORIDE FLUSH 0.9% 10 ML SYRINGE IVP SCH ×3 (06:19→22:16)
[2017-04-20 06:27] LABS: BASOPHILS % (AUTO) 0.5 %; EOSINOPHILS # (AUTO) 0.1 10^3/uL (0.0-0.7); EOSINOPHILS % (AUTO) 1.7 %; HCT - HEMATOCRIT 36.4 % (37.0-47.0); HGB - HEMOGLOBIN 12.4 g/dL (12.0-16.0); LYMPHOCYTES # (AUTO) 1.7 10^3/uL (1.5-3.5); LYMPHOCYTES % (AUTO) 24.5 %; MEAN CORPUSCULAR VOLUME 91.2 fL (81.0-99.0); MONOCYTES # (AUTO) 0.5 10^3/uL (0.0-1.0); NEUTROPHILS # (AUTO) 4.5 10^3/uL (1.5-6.6); NEUTROPHILS % (AUTO) 66.3 %; RED BLOOD COUNT 3.99 10^6/uL (4.20-5.40); RED CELL DISTRIBUTION WIDTH 13.3 % (12.0-15.0); UNCORRECTED WHITE BLOOD COUNT 6.8 x10^3/uL; WHITE BLOOD COUNT 6.8 x10^3/uL (4.8-10.8)
[2017-04-20 06:40] LABS: CALCIUM 8.1 mg/dL (8.5-10.3); CREATININE 0.5 mg/dL (0.4-1.0); POTASSIUM 3.3 mmol/L (3.5-5.0)
[2017-04-20] MEDS: MORPHINE 2 MG/ML SYRINGE IVP PRN ×2 (08:18→10:30)
[2017-04-20] MEDS ORDERED: BARIUM SULFATE 148 GM POWDER PO ONE (12:12)
--- NOTE | 2017-04-20 12:36 | XRAY Report ---
SMALL BOWEL FOLLOWTHROUGH: 04/20/2017 CLINICAL INDICATION: Small bowel obstruction. FINDINGS: Initial filter operator view of the abdomen demonstrates mildly prominent, gas-filled small bowel lo ops in the upper abdomen. The patient ingested barium. Oral contrast passes through normal caliber jejunum, dilated proximal a nd mid ileum, with an abrupt transition in the right mid abdomen at the level of the previous anastom osis warren to decompress distal and terminal ileal loops. No intraluminal filling defect is seen. IMPRESSION: PARTIAL SMALL BOWEL OBSTRUCTION, WITH THE LEVEL OF THE OBSTRUCTION AT THE PREVIOUS ANAST OMOSIS SITE IN THE RIGHT MID ABDOMEN. ORAL CONTRAST PASSED THROUGHOUT THE LEVEL OF PARTIAL OBSTRUCTI ON, AND REACHED THE COLON IN 30 MINUTES. FLUOROSCOPY TIME: 1 minute, 58 seconds; 6 spot images obtained. JOB #: [id number] EXT JOB #:[id number]
--- NOTE | 2017-04-20 12:46 | PROVIDER PROGRESS NOTE ---
Assessment/Plan - Problem List (1) Small bowel obstruction Assessment/Plan: Ros moved bowels several times. She was up and down all evening. Her small bowel follow through displayed open bowle with quick tansit time. narrowing was at the site of the ileostomy. She is having 8/10 pain now that she thinks is from the multriple movements. Will give IV tylenol. Long discussion with her and her about diet and issues around recurrence prevention. - Current Meds Current Meds: Current Medications Generic Name Dose Route Start Last Admin Trade Name Freq PRN Reason Stop Dose Admin Atorvastatin Calcium 20 mg 04/19/17 21:00 04/19/17 21:14 Lipitor PO 20 mg QPM MICHELLE Administration Calcium Carbonate/Glycine 1,000 mg 04/19/17 21:00 04/19/17 21:19 Tums PO 1,000 mg QPM MICHELLE Administration Carbamazepine 400 mg 04/19/17 09:00 04/19/17 21:14 Tegretol Xr PO 400 mg BID MICHELLE Administration Cholecalciferol 1,000 unit 04/19/17 21:00 04/19/17 21:14 Vitamin D3 PO 1,000 unit BID MICHELLE Administration Cholecalciferol 400 unit 04/19/17 21:00 04/19/17 21:15 Vitamin D3 PO 400 unit BID MICHELLE Administration Enoxaparin Sodium 40 mg 04/19/17 09:00 04/19/17 09:53 Lovenox SUBQ 40 mg DAILY MICHELLE Administration Sodium Chloride 1,000 mls @ 125 mls/hr 04/19/17 01:00 04/20/17 01:14 Normal Saline 0.9% IV 125 mls/hr .Q8H MICHELLE Administration Levothyroxine Sodium 132 mcg 04/19/17 07:30 04/19/17 11:20 Synthroid PO 132 mcg QDAC MICHELLE Administration Losartan Potassium 25 mg 04/19/17 09:00 04/19/17 21:15 Cozaar PO 25 mg BID MICHELLE Administration Morphine Sulfate 2 mg 04/19/17 01:28 04/20/17 10:30 Morphine IVP 2 mg Q2HR PRN Administration Pain 8 to 10 Multivitamins 1 tab 04/19/17 09:00 04/19/17 11:26 Theragran PO 1 tab DAILY MICHELLE Administration Ondansetron HCl 4 mg 04/19/17 01:28 04/19/17 01:54 Zofran Inj IVP 4 mg Q6HR PRN Administration Nausea / Vomiting Pantoprazole Sodium 40 mg 04/19/17 07:00 04/20/17 06:19 Protonix IVP 40 mg QDAC MICHELLE Administration Imatinib Mesylate [ 1 each 04/19/17 18:30 04/19/17 19:09 Gleevec] 400 Mg Tab PO 1 each 1730 MICHELLE Administration Polyethylene Glycol 17 gm 04/19/17 09:00 04/19/17 12:53 Miralax PO Not Given DAILY [facility]HELLE Saccharomyces Boulardii 250 mg 04/19/17 09:00 04/19/17 21:15 Florastor PO 250 mg BID MICHELLE Administration Sodium Chloride 10 ml 04/19/17 01:28 04/19/17 01:54 Normal Saline Flush 0.9% IVP 10 ml PRN PRN Administration NEEDED PER PROVIDER ORDERS Sodium Chloride 10 ml 04/19/17 06:00 04/20/17 06:19 Normal Saline Flush 0.9% IVP 10 ml Q8HR MICHELLE Administration - Lab Result Fish Bone Diagrams: 04/20/17 05:35 04/20/17 05:35 - Additional Planning My Orders: My Active Orders 04/20/17 13:00 Acetaminophen 1,000 mg/100 ml [Ofirmev] 100 ml IV Q6H 04/20/17 Lunch DIET [Soft (Low Fiber) Diet] [DIET] Subjective - Subjective Patient Reports: Abdominal Pain Nursing Reports: Pain Objective Vital Signs: Vital Signs - 24 hr 04/19/17 04/20/17 04/20/17 21:34 01:19 08:38 Temperature 37.3 C 37.3 C 37.2 C Heart Rate [ 72 78 72 Brachial] Respiratory 16 16 20 Rate Blood Pressure 136/70 H 135/80 H 158/80 H [Left Brachial artery] O2 Saturation 96 95 95 Oxygen O2 Source Room air I&O (Last 24 Hrs): Intake and Output Totals x24h 04/18/17 04/19/17 04/20/17 23:59 23:59 23:59 Intake Total 1616 630 Output Total 250 Balance 1366 630 General: Alert, Oriented x3, Cooperative HEENT: PERRLA, EOMI Neuro: Alert, Oriented Times 3 Cardiovascular: Regular rate, No murmurs Respiratory: No respiratory distress, Breath sounds nml Abdomen: Normal bowel sounds, Soft Extremities: No clubbing, No edema Skin: No rashes, No breakdown - Results Results: Laboratory Results WBC 6.8 x10^3/uL (4.8-10.8) 04/20/17 05:35 RBC 3.99 10^6/uL (4.20-5.40) L 04/20/17 05:35 Hgb 12.4 g/dL (12.0-16.0) 04/20/17 05:35 Hct 36.4 % (37.0-47.0) L 04/20/17 05:35 MCV 91.2 fL (81.0-99.0) 04/20/17 05:35 MCH 31.0 pg (27.0-31.0) 04/20/17 05:35 MCHC 34.0 g/dL (32.0-36.0) 04/20/17 05:35 RDW 13.3 % (12.0-15.0) 04/20/17 05:35 Plt Count 131 10^3/uL (130-450) 04/20/17 05:35 MPV 7.0 fL (7.9-10.8) L 04/20/17 05:35 Neut # 4.5 10^3/uL (1.5-6.6) 04/20/17 05:35 Lymph # 1.7 10^3/uL (1.5-3.5) 04/20/17 05:35 [place] # 0.5 10^3/uL (0.0-1.0) 04/20/17 05:35 Eos # 0.1 10^3/uL (0.0-0.7) 04/20/17 05:35 Baso # 0.0 10^3/uL (0.0-0.1) 04/20/17 05:35 Absolute Nucleated RBC 0.00 x10^3/uL 04/20/17 05:35 Nucleated RBCs 0.0 /100WBC 04/20/17 05:35 PT 13.2 secs (9.9-12.6) H 04/19/17 05:45 INR 1.2 (0.8-1.2) 04/19/17 05:45 Sodium 140 mmol/L (135-145) 04/20/17 05:35 Potassium 3.3 mmol/L (3.5-5.0) L 04/20/17 05:35 Chloride 109 mmol/L (101-111) 04/20/17 05:35 Carbon Dioxide 24 mmol/L (21-32) 04/20/17 05:35 Anion Gap 7.0 (6-13) 04/20/17 05:35 BUN 10 mg/dL (6-20) 04/20/17 05:35 Creatinine 0.5 mg/dL (0.4-1.0) 04/20/17 05:35 Estimated GFR (MDRD) 122 (>89) 04/20/17 05:35 Glucose 96 mg/dL (70-100) 04/20/17 05:35 Lactic Acid 0.8 mmol/L (0.5-2.2) 04/19/17 05:45 Calcium 8.1 mg/dL (8.5-10.3) L 04/20/17 05:35 Phosphorus 4.5 mg/dL (2.5-4.6) 04/19/17 05:45 Magnesium 1.8 mg/dL (1.7-2.8) 04/19/17 05:45 Total Bilirubin 0.4 mg/dL (0.2-1.0) 04/19/17 05:45 AST 32 IU/L (10-42) 04/19/17 05:45 ALT 21 IU/L (10-60) 04/19/17 05:45 Alkaline Phosphatase 57 IU/L (42-121) 04/19/17 05:45 Total Protein 6.4 g/dL (6.7-8.2) L 04/19/17 05:45 Albumin 4.0 g/dL (3.2-5.5) 04/19/17 05:45 Globulin 2.4 g/dL (2.1-4.2) 04/19/17 05:45 Albumin/Globulin Ratio 1.7 (1.0-2.2) 04/19/17 05:45 Lipase 19 U/L (22-51) L 04/18/17 21:05 TSH < 0.08 uIU/mL (0.34-5.60) L 04/20/17 05:35 Urine Color YELLOW 04/18/17 21:00 Urine Clarity HAZY (CLEAR) 04/18/17 21:00 Urine pH 7.5 PH (5.0-7.5) 04/18/17 21:00 Ur Specific [place] 1.015 (1.002-1.030) 04/18/17 21:00 Urine Protein TRACE mg/dL (NEGATIVE) 04/18/17 21:00 Urine Glucose (UA) NEGATIVE mg/dL (NEGATIVE) 04/18/17 21:00 Urine Ketones NEGATIVE mg/dL (NEGATIVE) 04/18/17 21:00 Urine Occult Blood NEGATIVE (NEGATIVE) 04/18/17 21:00 Urine Nitrite NEGATIVE (NEGATIVE) 04/18/17 21:00 Urine Bilirubin NEGATIVE (NEGATIVE) 04/18/17 21:00 Urine Urobilinogen 0.2 (NORMAL) E.U./dL (NORMAL) 04/18/17 21:00 Ur Leukocyte Esterase NEGATIVE (NEGATIVE) 04/18/17 21:00 Urine RBC 0-5 /HPF (0-5) 04/18/17 21:00 Urine WBC 0-3 /HPF (0-5) 04/18/17 21:00 Ur Squamous Epith Cells RARE Squamous (<= Few) 04/18/17 21:00 Amorphous Sediment Rare /LPF 04/18/17 21:00 Urine Bacteria None Seen /HPF (None Seen) 04/18/17 21:00 Ur Microscopic Review INDICATED 04/18/17 21:00 Urine Culture Comments NOT INDICATED 04/18/17 21:00 - Procedures Procedures: Procedures CENTRAL VENOUS CATHETER PLACEMENT WITH GUIDANCE (06/13/13) 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) ILEOSTOMY NOS (06/13/13) LG-TO-LG BOWEL ANASTOM (06/13/13) OPEN AND OTHER SIGMOIDECTOMY (06/13/13) PACKED CELL TRANSFUSION (06/13/13) SM BOWEL STOMA CLOSURE (09/26/13) URETERAL CATHETERIZATION (06/13/13)
[2017-04-20] MEDS: ACETAMINOPHEN 1,000 MG/100 ML 100 ML IV SCH ×2 (13:25→18:23)
[2017-04-20] MEDS: carBAMazepine ER 200 MG TABLET PO SCH ×3 (13:54→22:10)
[2017-04-20] MEDS: POLYETHYLENE GLYCOL 3350 17 GM PACKET PO SCH (13:57)
[2017-04-20] MEDS: CHOLECALCIFEROL 400 UNIT TABLET PO SCH ×2 (14:02→22:09)
[2017-04-20] MEDS: LEVOTHYROXINE 88 MCG TABLET PO SCH (14:02)
[2017-04-20] MEDS: LOSARTAN 50 MG TABLET PO SCH ×2 (14:02→22:09)
[2017-04-20] MEDS: SACCHAROMYCES BOULARDII 250 MG CAPSULE PO SCH ×2 (14:02→22:11)
[2017-04-20] MEDS: CHOLECALCIFEROL 1,000 UNIT TABLET PO SCH ×2 (14:02→22:11)
[2017-04-20] MEDS: MULTIVITAMIN TABLET PO SCH (14:03)
[2017-04-20] MEDS: ENOXAPARIN 40 MG/0.4 ML SYRINGE SUBQ SCH (14:03)
--- NOTE | 2017-04-20 17:02 | PROVIDER PROGRESS NOTE ---
Assessment/Plan - Problem List (1) Small bowel obstruction Assessment/Plan: 71 yo female with multiple medical problems Small bowel obstruction resolved - SBFT good transit time - Keep pt hydrated - replace electrolytes prn Primary medical team to manage - Can follow up in surgery clinic in two weeks with Dr. Garcia - Current Meds Current Meds: Current Medications Generic Name Dose Route Start Last Admin Trade Name Freq PRN Reason Stop Dose Admin Atorvastatin Calcium 20 mg 04/19/17 21:00 04/19/17 21:14 Lipitor PO 20 mg QPM MICHELLE Administration Calcium Carbonate/Glycine 1,000 mg 04/19/17 21:00 04/19/17 21:19 Tums PO 1,000 mg QPM MICHELLE Administration Carbamazepine 400 mg 04/19/17 09:00 04/20/17 14:03 Tegretol Xr PO 400 mg BID MICHELLE Administration Cholecalciferol 1,000 unit 04/19/17 21:00 04/20/17 14:02 Vitamin D3 PO 1,000 unit BID MICHELLE Administration Cholecalciferol 400 unit 04/19/17 21:00 04/20/17 14:02 Vitamin D3 PO 400 unit BID MICHELLE Administration Enoxaparin Sodium 40 mg 04/19/17 09:00 04/20/17 14:03 Lovenox SUBQ 40 mg DAILY MICHELLE Administration Sodium Chloride 1,000 mls @ 125 mls/hr 04/19/17 01:00 04/20/17 13:33 Normal Saline 0.9% IV 125 mls/hr .Q8H MICHELLE Administration Acetaminophen 100 mls @ 400 mls/hr 04/20/17 13:00 04/20/17 13:25 Ofirmev IV 400 mls/hr Q6H MICHELLE Administration Levothyroxine Sodium 132 mcg 04/19/17 07:30 04/20/17 14:02 Synthroid PO 132 mcg QDAC MICHELLE Administration Losartan Potassium 25 mg 04/19/17 09:00 04/20/17 14:02 Cozaar PO 25 mg BID MICHELLE Administration Morphine Sulfate 2 mg 04/19/17 01:28 04/20/17 10:30 Morphine IVP 2 mg Q2HR PRN Administration Pain 8 to 10 Multivitamins 1 tab 04/19/17 09:00 04/20/17 14:03 Theragran PO 1 tab DAILY MICHELLE Administration Ondansetron HCl 4 mg 04/19/17 01:28 04/19/17 01:54 Zofran Inj IVP 4 mg Q6HR PRN Administration Nausea / Vomiting Pantoprazole Sodium 40 mg 04/19/17 07:00 04/20/17 06:19 Protonix IVP 40 mg QDAC MICHELLE Administration Imatinib Mesylate [ 1 each 04/19/17 18:30 04/19/17 19:09 Gleevec] 400 Mg Tab PO 1 each 1730 MICHELLE Administration Polyethylene Glycol 17 gm 04/19/17 09:00 04/20/17 13:57 Miralax PO Not Given DAILY MICHELLE Saccharomyces Boulardii 250 mg 04/19/17 09:00 04/20/17 14:02 Florastor PO 250 mg BID MICHELLE Administration Sodium Chloride 10 ml 04/19/17 01:28 04/19/17 01:54 Normal Saline Flush 0.9% IVP 10 ml PRN PRN Administration NEEDED PER PROVIDER ORDERS Sodium Chloride 10 ml 04/19/17 06:00 04/20/17 13:58 Normal Saline Flush 0.9% IVP 10 ml Q8HR MICHELLE Administration - Lab Result Fish Bone Diagrams: 04/20/17 05:35 04/20/17 05:35 - Additional Planning Condition/Complexity: Stable Plan Discussed with:: Patient Subjective - Subjective Patient Reports: Feeling Better, Resting Comfortably (Pt states is having multiple bowel movements and feels good.) Nursing Reports: No Complaints Objective Vital Signs: Vital Signs - 24 hr 04/19/17 04/20/17 04/20/17 21:34 01:19 08:38 Temperature 37.3 C 37.3 C 37.2 C Heart Rate [ 72 78 72 Brachial] Respiratory 16 16 20 Rate Blood Pressure 136/70 H 135/80 H 158/80 H [Left Brachial artery] O2 Saturation 96 95 95 Oxygen O2 Source Room air I&O (Last 24 Hrs): Intake and Output Totals x24h 04/18/17 04/19/17 04/20/17 23:59 23:59 23:59 Intake Total 1616 1186 Output Total 250 Balance 1366 1186 General: Oriented x3 HEENT: EOMI Neuro: Alert Cardiovascular: Regular rate Respiratory: Breath sounds nml Abdomen: Normal bowel sounds - Results Results: Laboratory Results WBC 6.8 x10^3/uL (4.8-10.8) 04/20/17 05:35 RBC 3.99 10^6/uL (4.20-5.40) L 04/20/17 05:35 Hgb 12.4 g/dL (12.0-16.0) 04/20/17 05:35 Hct 36.4 % (37.0-47.0) L 04/20/17 05:35 MCV 91.2 fL (81.0-99.0) 04/20/17 05:35 MCH 31.0 pg (27.0-31.0) 04/20/17 05:35 MCHC 34.0 g/dL (32.0-36.0) 04/20/17 05:35 RDW 13.3 % (12.0-15.0) 04/20/17 05:35 Plt Count 131 10^3/uL (130-450) 04/20/17 05:35 MPV 7.0 fL (7.9-10.8) L 04/20/17 05:35 Neut # 4.5 10^3/uL (1.5-6.6) 04/20/17 05:35 Lymph # 1.7 10^3/uL (1.5-3.5) 04/20/17 05:35 Holmes # 0.5 10^3/uL (0.0-1.0) 04/20/17 05:35 Eos # 0.1 10^3/uL (0.0-0.7) 04/20/17 05:35 Baso # 0.0 10^3/uL (0.0-0.1) 04/20/17 05:35 Absolute Nucleated RBC 0.00 x10^3/uL 04/20/17 05:35 Nucleated RBCs 0.0 /100WBC 04/20/17 05:35 PT 13.2 secs (9.9-12.6) H 04/19/17 05:45 INR 1.2 (0.8-1.2) 04/19/17 05:45 Sodium 140 mmol/L (135-145) 04/20/17 05:35 Potassium 3.3 mmol/L (3.5-5.0) L 04/20/17 05:35 Chloride 109 mmol/L (101-111) 04/20/17 05:35 Carbon Dioxide 24 mmol/L (21-32) 04/20/17 05:35 Anion Gap 7.0 (6-13) 04/20/17 05:35 BUN 10 mg/dL (6-20) 04/20/17 05:35 Creatinine 0.5 mg/dL (0.4-1.0) 04/20/17 05:35 Estimated GFR (MDRD) 122 (>89) 04/20/17 05:35 Glucose 96 mg/dL (70-100) 04/20/17 05:35 Lactic Acid 0.8 mmol/L (0.5-2.2) 04/19/17 05:45 Calcium 8.1 mg/dL (8.5-10.3) L 04/20/17 05:35 Phosphorus 4.5 mg/dL (2.5-4.6) 04/19/17 05:45 Magnesium 1.8 mg/dL (1.7-2.8) 04/19/17 05:45 Total Bilirubin 0.4 mg/dL (0.2-1.0) 04/19/17 05:45 AST 32 IU/L (10-42) 04/19/17 05:45 ALT 21 IU/L (10-60) 04/19/17 05:45 Alkaline Phosphatase 57 IU/L (42-121) 04/19/17 05:45 Total Protein 6.4 g/dL (6.7-8.2) L 04/19/17 05:45 Albumin 4.0 g/dL (3.2-5.5) 04/19/17 05:45 Globulin 2.4 g/dL (2.1-4.2) 04/19/17 05:45 Albumin/Globulin Ratio 1.7 (1.0-2.2) 04/19/17 05:45 Lipase 19 U/L (22-51) L 04/18/17 21:05 TSH < 0.08 uIU/mL (0.34-5.60) L 04/20/17 05:35 Urine Color YELLOW 04/18/17 21:00 Urine Clarity HAZY (CLEAR) 04/18/17 21:00 Urine pH 7.5 PH (5.0-7.5) 04/18/17 21:00 Ur Specific [place] 1.015 (1.002-1.030) 04/18/17 21:00 Urine Protein TRACE mg/dL (NEGATIVE) 04/18/17 21:00 Urine Glucose (UA) NEGATIVE mg/dL (NEGATIVE) 04/18/17 21:00 Urine Ketones NEGATIVE mg/dL (NEGATIVE) 04/18/17 21:00 Urine Occult Blood NEGATIVE (NEGATIVE) 04/18/17 21:00 Urine Nitrite NEGATIVE (NEGATIVE) 04/18/17 21:00 Urine Bilirubin NEGATIVE (NEGATIVE) 04/18/17 21:00 Urine Urobilinogen 0.2 (NORMAL) E.U./dL (NORMAL) 04/18/17 21:00 Ur Leukocyte Esterase NEGATIVE (NEGATIVE) 04/18/17 21:00 Urine RBC 0-5 /HPF (0-5) 04/18/17 21:00 Urine WBC 0-3 /HPF (0-5) 04/18/17 21:00 Ur Squamous Epith Cells RARE Squamous (<= Few) 04/18/17 21:00 Amorphous Sediment Rare /LPF 04/18/17 21:00 Urine Bacteria None Seen /HPF (None Seen) 04/18/17 21:00 Ur Microscopic Review INDICATED 04/18/17 21:00 Urine Culture Comments NOT INDICATED 04/18/17 21:00 - Procedures Procedures: Procedures CENTRAL VENOUS CATHETER PLACEMENT WITH GUIDANCE (06/13/13) 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) ILEOSTOMY NOS (06/13/13) LG-TO-LG BOWEL ANASTOM (06/13/13) OPEN AND OTHER SIGMOIDECTOMY (06/13/13) PACKED CELL TRANSFUSION (06/13/13) SM BOWEL STOMA CLOSURE (09/26/13) URETERAL CATHETERIZATION (06/13/13)
[2017-04-20] MEDS: POTASSIUM CHLORIDE 20 MEQ TABLET PO SCH (22:10)
[2017-04-20] MEDS: ATORVASTATIN 10 MG TABLET PO SCH (22:10)
[2017-04-20] MEDS: CALCIUM CARBONATE CHEW 500 MG TABLET PO SCH (22:11)
[2017-04-21] MEDS: ACETAMINOPHEN 1,000 MG/100 ML 100 ML IV SCH ×2 (00:17→06:06)
[2017-04-21] MEDS: SODIUM CHLORIDE 0.9% 1,000 ML IV SCH (06:03)
[2017-04-21] MEDS: SODIUM CHLORIDE FLUSH 0.9% 10 ML SYRINGE IVP SCH (06:04)
[2017-04-21] MEDS: LEVOTHYROXINE 88 MCG TABLET PO SCH (06:04)
[2017-04-21] MEDS: PANTOPRAZOLE 40 MG VIAL IVP SCH (06:05)
[2017-04-21 08:41] VITALS: BP 155/81
[2017-04-21] MEDS: POLYETHYLENE GLYCOL 3350 17 GM PACKET PO SCH (08:43)
--- NOTE | 2017-04-21 09:11 | Discharge Plan ---
Discharge Plan Disposition: 01 Home, Self Care Condition: Good Diet: Soft Activity Restrictions: Activity as Tolerated Shower Restrictions: No Driving Restrictions: No Weight Bearing: Full Weight Additional Instructions or Follow Up instructions: Follow your low fiber diet. Follow up with your PCP Tiffany Vu in next 2 weeks Also make an appt with the Surgery clinic at [phone] No Smoking: If you smoke, Please STOP! Call for help. Follow-up with: Tiffany Vu PA-C [Primary Care Provider] - 1 Week
[2017-04-21] MEDS: LOSARTAN 50 MG TABLET PO SCH (10:00)
[2017-04-21] MEDS: POTASSIUM CHLORIDE 20 MEQ TABLET PO SCH (10:00)
[2017-04-21] MEDS: carBAMazepine ER 200 MG TABLET PO SCH (10:01)
[2017-04-21] MEDS: SACCHAROMYCES BOULARDII 250 MG CAPSULE PO SCH (10:02)
[2017-04-21] MEDS: CHOLECALCIFEROL 1,000 UNIT TABLET PO SCH (10:02)
[2017-04-21] MEDS: MULTIVITAMIN TABLET PO SCH (10:02)
[2017-04-21] MEDS: CHOLECALCIFEROL 400 UNIT TABLET PO SCH (10:02)
[2017-04-21] MEDS: ENOXAPARIN 40 MG/0.4 ML SYRINGE SUBQ SCH (10:02)
--- NOTE | 2017-04-22 07:39 | DISCHARGE SUMMARY ---
DATE OF ADMISSION: 04/18/2017 DATE OF DISCHARGE: 04/21/2017 PRIMARY CARE PHYSICIAN: Tiffany Vu PA-C ADMISSION DIAGNOSES 1. Small-bowel obstruction. 2. Hypertension. 3. Hyperlipidemia. 4. Chronic myelocytic leukemia (CML). 5. Hypothyroidism. DISCHARGE DIAGNOSES 1. Small-bowel obstruction, resolved. 2. Hypertension, controlled in hospital. 3. Hyperlipidemia, on statin. 4. Chronic myelocytic leukemia (CML). 5. Hypothyroidism, on thyroid medication. SPECIAL PROCEDURES 1. Abdominal pelvis CT, findings: 1) Distal small-bowel obstruction. There is wall thickening in the distal ileum and distal ileal anastomosis. I gather these appear to be the cause of obstruction. 2) S mall amount of free fluid in the abdomen and pelvis. 3) Hiatal hernia. 2. Small-bowel follow-through that showed transit through the area of narrowing. Impression: Partial small-bowel obstruction, with level of the obstruction at the previous anastomosis site of the right mid abdomen. Oral contrast passed through the area of the bowel obstruction and reached the colon in 30 minutes. HOSPITAL COURSE AND MANAGEMENT: Initial presentation, emergency department evaluation, and hospitalis t plan are well-described in history and physical by Dr. Benson, see copy of same. SUMMARY: The patient is a 71-year-old female with past history of CML diagnosed in 02/2016, hypertens ion, hyperlipidemia, hypothyroidism, and a perforated diverticulitis with a hemicolectomy and ileosto my status post reversal, who presented to the emergency department with chief complaint of abdominal pain. She was found on CT scan to have a small-bowel obstruction. She has had no fever or chills. The patient was placed in the hospital, NG tube n.p.o. The following night she had small bowel movement and repetitive bowel movements through the next day, which finally slowed that following night and th e next morning, on the day of discharge, she felt much improved, had some mild tenderness and pain in the abdomen, tolerated food without difficulty. PHYSICAL EXAMINATION VITAL SIGNS: On the day of discharge, she had a temperature of 36.8, pulse 67, blood pressure 135/81, respiratory rate 18, room air sat 96. EYES: EOMs within normal limits. PERRL, nonicteric. MOUTH AND THROAT: Moist mucous membranes. No other pathology. CONSTITUTIONAL: Well-developed, well-nourished female in no acute distress. NECK: Nontender. No lymphadenopathy. No thyromegaly. CHEST WALL: Nontender. Symmetric. No breast exam done. HEART: Sinus rhythm, no murmur, rubs, clicks. LUNGS: Clear, good air movement. ABDOMEN: All 4 quadrants palpated without tenderness. Bowel sounds present. EXTREMITIES: No edema, no cyanosis. VASCULAR: Capillary refill less than 2 seconds. NEUROLOGICAL: Cognitive intact. Cranial nerves intact. Motor intact. LABORATORY DATA: White count is 6.8, 12 and 36 hemoglobin and hematocrit, sodium 140, potassium 3.3, chloride 109, CO2 of 24, BUN 10, creatinine 0.5, glucose 96, and calcium 8.1. TSH is low at less than 0.08. Urine negative for infection. ALLERGIES: SHE HAS NO KNOWN DRUG ALLERGIES. MEDICATIONS TO GO HOME 1. Compazine 10 mg q.6h. p.r.n. 2. Zofran 4 mg q.4h. p.r.n. 3. Gleevec 400 mg once a day. 4. Multivitamin once a day. 5. Vitamin D3, 2000 units b.i.d. 6. Vitamin D3 and calcium 1 tab b.i.d. 7. Carbamazepine ER 400 mg b.i.d. 8. Cozaar 25 mg b.i.d. 9. Atorvastatin 20 mg in the evening. 10. Protonix 40 mg daily. 11. Levothyroxine 132 mg daily. 12. Tylenol 650 q.4h. p.r.n. DISCHARGE INSTRUCTIONS: Patient is to be on a low-fat diet. The patient is to follow up with her PC P , Tiffany Vu, and also Oncology. The patient's issues are the diet, activity, reducing the frequency of small-bowel obstructions, the patient's thyroid which needs a reduction in medication, and her bl ood pressure control chronically. The patient was examined on the day of discharge. Time spent in discharge activity with patient education, education of her , and collaboration with case management and nursing was 35 minutes. JOB #: [id number] EXT JOB #:[id number]
== END 2017-04-21 11:04 | disposition home or self-care (01) | DRG 389 ==
LOC: ED 20:40 → MS 23:49 → ED 04-19 00:55
PROVIDERS: ADMIT Internal Medicine; ATTEND Internal Medicine
DX: K56.60 Unspecified intestinal obstruction (principal); C92.10 Chronic myeloid leukemia, BCR/ABL-positive, not having achieved remission; E87.1 Hypo-osmolality and hyponatremia; I10 Essential (primary) hypertension; E78.5 Hyperlipidemia, unspecified; E03.9 Hypothyroidism, unspecified; K44.9 Diaphragmatic hernia without obstruction or gangrene; G40.909 Epilepsy, unspecified, not intractable, without status epilepticus; K21.9 Gastro-esophageal reflux disease without esophagitis; R26.9 Unspecified abnormalities of gait and mobility; R47.81 Slurred speech; Z90.49 Acquired absence of other specified parts of digestive tract; Z79.899 Other long term (current) drug therapy; Z87.891 Personal history of nicotine dependence; M19.90 Unspecified osteoarthritis, unspecified site
CPT/HCPCS: 36415; 71010; 74177; 74250; 80048; 80053; 81001; 81003; 83605; 83690; 83735; 84100; 84443; 85025; 85610; 87086; 96361; 96374; 96375; 96376; 99284

== ENCOUNTER 2017-05-31 08:52 | Outpatient (CLI) | payer MEDICARE, BC | END 2017-05-31 08:53 | disposition home or self-care (01) | LOC: LAB.F 08:52 | PROVIDERS: ATTEND Internal Medicine Hematology & Oncology | DX: R19.7 Diarrhea, unspecified (principal) | CPT/HCPCS: 87493 ==

== ENCOUNTER 2017-09-28 11:00 | Outpatient (CLI) | payer MEDICARE, BC | END 2017-09-28 11:01 | disposition critical access hospital (66) | LOC: EMS 11:00 | PROVIDERS: ATTEND Surgery | DX: R56.9 Unspecified convulsions (principal) | CPT/HCPCS: A0425; A0429 ==

== ENCOUNTER 2017-09-28 11:29 | Observation (INO) | payer MEDICARE, BC ==
[2017-09-28 12:13] LABS: BASOPHILS % (AUTO) 0.4 %; EOSINOPHILS # (AUTO) 0.1 10^3/uL (0.0-0.7); EOSINOPHILS % (AUTO) 1.1 %; HGB - HEMOGLOBIN 12.8 g/dL (12.0-16.0); LYMPHOCYTES # (AUTO) 0.9 10^3/uL (1.5-3.5); MEAN CORPUSCULAR HEMOGLOBIN 30.5 pg (27.0-31.0); MEAN CORPUSCULAR HGB CONC 34.7 g/dL (32.0-36.0); MEAN CORPUSCULAR VOLUME 88.1 fL (81.0-99.0); MEAN PLATELET VOLUME 6.3 fL (7.9-10.8); MONOCYTES # (AUTO) 0.2 10^3/uL (0.0-1.0); MONOCYTES % (AUTO) 4.2 %; NEUTROPHILS # (AUTO) 4.3 10^3/uL (1.5-6.6); NEUTROPHILS % (AUTO) 77.3 %; RED CELL DISTRIBUTION WIDTH 12.9 % (12.0-15.0); UNCORRECTED WHITE BLOOD COUNT 5.5 x10^3/uL; WHITE BLOOD COUNT 5.5 x10^3/uL (4.8-10.8)
[2017-09-28 12:26] LABS: ALBUMIN/GLOBULIN RATIO 1.4 (1.0-2.2); BILIRUBIN,TOTAL 0.6 mg/dL (0.2-1.0); CALCIUM 8.6 mg/dL (8.5-10.3); CREATININE 0.7 mg/dL (0.4-1.0); POTASSIUM 3.6 mmol/L (3.5-5.0); TOTAL PROTEIN 6.8 g/dL (6.7-8.2)
--- NOTE | 2017-09-28 12:57 | CT Preliminary Report ---
Exam: CT HEAD W/O IMPRESSION: Normal head CT for age. [facility] SITE ID: [id number]
--- NOTE | 2017-09-28 12:59 | CT Report ---
EXAM: CT HEAD EXAM DATE: 09/28/2017 12:30 PM. CLINICAL HISTORY: Seizure. COMPARISON: None. TECHNIQUE: Multiaxial CT images were obtained from the foramen magnum to the vertex. Reformats: Coron al. IV contrast: None. In accordance with CT protocol optimization, one or more of the following dose reduction techniques w ere utilized for this exam: automated exposure control, adjustment of mA and/or KV based on patient s ize, or use of iterative reconstructive technique. FINDINGS: Parenchyma: No intraparenchymal hemorrhage. No evidence of mass, midline shift, or CT findings of inf arction. Cook-white differentiation is distinct. Extraaxial Spaces: Normal for age. No subdural or epidural collections identified. Ventricles: Normal in size and position. Sinuses and Orbits: Imaged paranasal sinuses, orbits, and mastoids show no significant abnormality. Bones: No evidence of fracture or calvarial defect. Other: None. IMPRESSION: Normal head CT for age. [facility] Referring Provider Line: [phone] SITE ID: [id number]
[2017-09-28 13:12] LABS: BILIRUBIN,URINE NEGATIVE (NEGATIVE)
[2017-09-28 13:13] LABS: UA w/ MICROSCOPIC CHARGE YES
--- NOTE | 2017-09-28 13:22 | ED Physician Documentation ---
History of Present Illness - Stated complaint Stated Complaint: SYNCOPE - Chief complaint Chief Complaint: Neuro - Additonal information Additional information: hx from pt 72 f syncope today has been very fatigued for 2 weeks since increasing her oral chemo today was in her usual state of health, went for a 2 mile walk, worked on computer, made some calls, ate breakfast, was working in the kitchen she felt very hot and sweaty and diffusely weak sat down and had a syncopal episode witnessed by SO no seizure activity he is not sure if she was breathing or had a pulse but she did not change coor while he was with her - he had to leave room for a few min to call 911 though she recovered spont no post ictal period denies CP palp etc her LLE is swollen, not painful, has been for a few m Review of Systems Constitutional: denies: Fever, Chills Cardiac: denies: Chest pain / pressure, Palpitations Respiratory: denies: Dyspnea GI: denies: Abdominal Pain, Nausea, Vomiting, Diarrhea : denies: Dysuria Musculoskeletal: denies: Neck pain, Back pain Neurologic: reports: Syncope. denies: Focal weakness, Numbness, Seizure, Headache Endocrine: denies: Easy bruising / bleeding Immunocompromised: denies: Immunocompromised PD PAST MEDICAL HISTORY - Past Medical History Cardiovascular: Hypertension, High cholesterol Respiratory: None Neuro: Seizure disorder Endocrine/Autoimmune: HyPOthyroidism GI: GERD, Colon polyps, Diverticulitis, Other : Incontinence, Nocturia, Other HEENT: None Psych: None Musculoskeletal: Osteoarthritis Derm: Other Other Past Medical History: lukemia - Past Surgical History Past Surgical History: Yes General: Bowel surgery, Colonoscopy HEENT: Tonsil/Adenoidectomy - Present Medications Home Medications: Ambulatory Orders Medication Instructions Recorded Confirmed Levothyroxine [Synthroid] 132 mcg PO QDAC 06/13/13 09/28/17 Losartan [Cozaar] 25 mg PO BID 06/13/13 09/28/17 Pantoprazole [Protonix] 40 mg PO QPM 03/17/16 09/28/17 Atorvastatin Calcium 20 mg PO QPM 04/19/17 09/28/17 Carbamazepine [Carbamazepine ER] 400 mg PO BID 04/19/17 09/28/17 Imatinib Mesylate [Gleevec] 600 mg PO 1730 04/19/17 09/28/17 Calcium Carbonate/Vitamin D3 1 tab PO BID 09/28/17 09/28/17 [Calcium 600-Vit D3 400 Tablet] Cholecalciferol (Vitamin D3) 2,000 units PO DAILY 09/28/17 09/28/17 [Vitamin D3] Multivitamin [Theragran] 1 tab PO DAILY 09/28/17 09/28/17 - Allergies Allergies/Adverse Reactions: Allergies Allergy/AdvReac Type Severity Reaction Status Date / Time No Known Drug Allergies Allergy Verified 09/28/17 11:37 - Social History Does the pt smoke?: No Smoking Status: Never smoker Does the pt drink ETOH?: No Does the pt have substance abuse?: No - Immunizations Immunizations are current?: Yes - POLST Patient has POLST: No POLST Status: Full Code PD ED PE NORMAL - Vitals Vital signs reviewed: Yes - General General: Alert and oriented X 3 - HEENT HEENT: PERRL - Neck Neck: Supple, no meningeal sign - Cardiac Cardiac: RRR - Respiratory Respiratory: No respiratory distress, Clear bilaterally - Abdomen Abdomen: Soft, Non tender - Derm Derm: Normal color - Neuro Neuro: Alert and oriented X 3, chief informatics officer 2-12 intact, No motor deficit, No sensory deficit, Normal speech Results - Vitals Vitals: Vital Signs - 24 hr 09/28/17 09/28/17 09/28/17 11:28 13:04 13:06 Temperature 36.1 C L 36.3 C L 36.2 C L Heart Rate 62 72 69 Respiratory 15 14 14 Rate Blood Pressure 152/70 H 139/84 H 147/73 H O2 Saturation 96 100 09/28/17 09/28/17 14:15 15:15 Temperature 36.8 C Heart Rate 74 72 Respiratory 16 15 Rate Blood Pressure 127/78 147/71 H O2 Saturation 99 99 Oxygen O2 Source Room air - EKG (time done) 1141 Rate: Rate (enter#) Rhythm: NSR (59) Mills: LAD Intervals: Normal NH Ischemia: Normal ST segments - Labs Labs: Laboratory Tests 09/28/17 09/28/17 09/28/17 12:08 12:08 12:08 WBC 5.5 RBC 4.20 Hgb 12.8 Hct 37.0 MCV 88.1 MCH 30.5 MCHC 34.7 RDW 12.9 Plt Count 154 MPV 6.3 L Neut # 4.3 Lymph # 0.9 L Mccormick # 0.2 Eos # 0.1 Baso # 0.0 Absolute Nucleated RBC 0.00 Nucleated RBC % 0.0 Sodium 132 L Potassium 3.6 Chloride 96 L Carbon Dioxide 25 Anion Gap 11.0 BUN 7 Creatinine 0.7 Estimated GFR (MDRD) 83 L Glucose 109 H Lactic Acid Calcium 8.6 Total Bilirubin 0.6 AST 29 ALT 21 Alkaline Phosphatase 69 Troponin I < 0.04 Total Protein 6.8 Albumin 4.0 Globulin 2.8 Albumin/Globulin Ratio 1.4 Lipase 20 L Urine Color Urine Clarity Urine pH Ur Specific [place] Urine Protein Urine Glucose (UA) Urine Ketones Urine Occult Blood Urine Nitrite Urine Bilirubin Urine Urobilinogen Ur Leukocyte Esterase Urine RBC Urine WBC Ur Squamous Epith Cells Urine Bacteria Ur Microscopic Review Urine Culture Comments Last Dose Date Last Dose Time Carbamazepine 09/28/17 09/28/17 09/28/17 12:08 12:08 13:05 WBC RBC Hgb Hct MCV MCH MCHC RDW Plt Count MPV Neut # Lymph # Mccormick # Eos # Baso # Absolute Nucleated RBC Nucleated RBC % Sodium Potassium Chloride Carbon Dioxide Anion Gap BUN Creatinine Estimated GFR (MDRD) Glucose Lactic Acid 1.4 Calcium Total Bilirubin AST ALT Alkaline Phosphatase Troponin I Total Protein Albumin Globulin Albumin/Globulin Ratio Lipase Urine Color YELLOW Urine Clarity SL. CLOUDY Urine pH 7.0 Ur Specific [place] 1.015 Urine Protein NEGATIVE Urine Glucose (UA) NEGATIVE Urine Ketones NEGATIVE Urine Occult Blood NEGATIVE Urine Nitrite NEGATIVE Urine Bilirubin NEGATIVE Urine Urobilinogen 0.2 (NORMAL) Ur Leukocyte Esterase NEGATIVE Urine RBC 0-5 Urine WBC 0-3 Ur Squamous Epith Cells NONE SEEN Urine Bacteria Moderate H Ur Microscopic Review INDICATED Urine Culture Comments INDICATED Last Dose Date UNKNOWN Last Dose Time UNKNOWN Carbamazepine 10.5 - Rads (name of study) CTH Radiology: See rad report (neg) LLE doppler Radiology: See rad report (neg) PD MEDICAL DECISION MAKING - ED course ED course: does not sound like a seizure, more c/w full syncope, will admit for tele echo LLE doppler pending - if + need CTPA doppler neg u dip neg but micro later resulted showing bacteria Departure - Departure Disposition: ED Place in Observation Clinical Impression: UTI (urinary tract infection) Syncope Qualifiers: Syncope type: unspecified Qualified Code(s): R55 - Syncope and collapse Condition: Good Discharge Date/Time: 09/28/17 16:12
[2017-09-28 13:26] LABS: UR CULTURE IF IND INDICATED; WBC,URINE 0-3 /HPF (0-5)
[2017-09-28] MEDS ORDERED: ACETAMINOPHEN 325 MG TABLET PO PRN (15:55)
[2017-09-28] MEDS ORDERED: SODIUM CHLORIDE FLUSH 0.9% 10 ML SYRINGE IVP PRN (15:55)
[2017-09-28] MEDS ORDERED: ONDANSETRON 4 MG/2 ML VIAL IVP PRN (15:55)
--- NOTE | 2017-09-28 16:22 | HISTORY & PHYSICAL EXAMINATION ---
Chief Complaint - Chief Complaint Chief Complaint: syncope History of Present Illness - Admitted From Admitted From:: ER - History Obtained From History obtained from: pt - History of Present Illness HPI Comment/Other: This is 72-year-old female with a past medical history significance for HTN, HLP, seizure, hypothyroidism, diverticulitis, GERD, colon polyps, urinary incontinence, present ER for evaluation of one episode of syncope. Pt report when she was in the kitch, she felt very hot and prepared her food. After about two hours, she felt tired and attempted to remove to a chair. After she sit at the chair, she did lost of consciousness about 20 seconds, per pt's report. Pt was still sitting in the chair, no any fall, so there is no any injury. Pt report she always feel hot and frequently had hot flash. Pt denies fever, chill, cough, shortness of breathing, chest pain, headache, palpitation, abdominal pain, nausea, vomiting, diarrhea, vision changing. CT of head is unremarkable. The lab test was unremarkable at ER. Pt was admitted for evaluation of syncope. History - Past Medical History Cardiovascular: reports: Hypertension, High cholesterol Respiratory: reports: None Neuro: reports: Seizure disorder Endocrine/Autoimmune: reports: HyPOthyroidism GI: reports: GERD, Colon polyps, Diverticulitis, Other : reports: Incontinence, Nocturia, Other HEENT: reports: None Psych: reports: None Musculoskeletal: reports: Osteoarthritis Derm: reports: Other MRSA Hx?: No Other Past Medical History: lukemia - Past Surgical History General: reports: Bowel surgery, Colonoscopy HEENT: reports: Tonsil/Adenoidectomy - Family & Social History Social History Notes: The patient lives in [facility] with her . They have been living there for over 40 years. They do not have any children. 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 She has a history of tobacco use smoked one pack a day for about 10 years but quit over 30 years ago. She does not drink alcohol and denies any illicit drug use. - Substance History Use: Uses substance without health or social issues: NONE Abuse: Recurrent use of substance despite neg consequences: NONE - POLST Patient has POLST: No POLST Status: Full Code Meds/Allgy - Home Medications Home Medications: Ambulatory Orders Medication Instructions Recorded Confirmed Levothyroxine [Synthroid] 132 mcg PO QDAC 06/13/13 09/28/17 Losartan [Cozaar] 25 mg PO BID 06/13/13 09/28/17 Pantoprazole [Protonix] 40 mg PO QPM 03/17/16 09/28/17 Atorvastatin Calcium 20 mg PO QPM 04/19/17 09/28/17 Carbamazepine [Carbamazepine ER] 400 mg PO BID 04/19/17 09/28/17 Imatinib Mesylate [Gleevec] 600 mg PO 1730 04/19/17 09/28/17 Calcium Carbonate/Vitamin D3 1 tab PO BID 09/28/17 09/28/17 [Calcium 600-Vit D3 400 Tablet] Cholecalciferol (Vitamin D3) 2,000 units PO DAILY 09/28/17 09/28/17 [Vitamin D3] Multivitamin [Theragran] 1 tab PO DAILY 09/28/17 09/28/17 - Allergies Allergies/Adverse Reactions: Allergies Allergy/AdvReac Type Severity Reaction Status Date / Time No Known Drug Allergies Allergy Verified 09/28/17 11:37 Review of Systems - Constitutional Constitutional: reports: Diaphoresis. denies: Fatigue, Fever, Chills, Malaise, Weakness, Poor appetite, Night sweats, Weight gain, Weight loss - Eyes Eyes: denies: Pain, Irritation, Amaurosis, Blurred vision, Spots in vision, Field loss, Vision loss, Dipolpia - Ears, Nose & Throat Ears, Nose & Throat: denies: Ear pain, Hearing loss, Hearing aids, Tinnitus, Vertigo, Nasal pain, Nasal discharge, Nosebleeds, Nasal congestion, Postnasal drainage, Dentures, Sore throat, Hoarseness, Mouth lesions, Bleeding gums - Cardiovascular Cariovascular: reports: Syncope. denies: Irregular heart rate, Palpitations, Chest pain, Edema, Lightheadedness, Exertional dyspnea, Decr. exercise tolerance , Orthopnea - Respiratory Respiratory: denies: Cough, Sputum production, Wheezing, Snoring, Hemoptysis, Orthopnea, SOB at rest, SOB with exertion, Apnea - Gastrointestinal Gastrointestinal: denies: Abdominal pain, Abdominal distention, Constipation, Diarrhea, Change in bowel habits, Rectal bleeding, Black stools, Bloody stools, Nausea, Vomiting, Mark blood emesis, Coffee grounds emesis, Reflux/heartburn, Bloating, Poor appetite - Genitourinary Genitourinary: reports: Incontinence. denies: Dysuria, Frequency, Urgency, Hematuria, Flank pain, Nocturia, Urethral discharge - Musculoskeletal Musculoskeletal: denies: Muscle pain, Back pain, Muscle aches, Stiffness, Limited range of motion, Muscle weakness, Gout, Joint pain, Joint swelling - Integumentary Integumentary: denies: Rash, Pruritis, Lesions, Dryness, Lumps, Acne, Pigment changes, Nail changes, Hair changes - Neurological Neurological: denies: General weakness, Focal weakness, Headache, Dizziness, Numbness, Memory problems, Pre-existing deficit, Abnormal gait, Seizures, Incoordination, Slurred speech - Psychiatric Psychiatric: denies: Depression, Anxiety, Suicidal, Delusions, Hallucinations, Homicidal - Endocrine Endocrine: reports: Intolerance to heat. denies: Polyuria, Polydypsia, Polyphagia, Intolerance to cold - Hematologic/Lymphatic Hematologic/Lymphatic: denies: Anemia, Bruising, Petechiae, Blood clots, Lymphadenopathy, Bleeding tendencies, Recurrent infections Exam - Vital Signs Reviewed Vital Signs: Yes - Physical Exam General Appearance: positive: No acute distress, Alert. negative: Lethargic Eyes Bilateral: positive: Normal inspection, PERRL, No lid inflammation, Conjunctivae nml ENT: positive: ENT inspection nml, Pharynx nml, No signs of dehydration. negative: Purulent nasal drainage, Pharyngeal erythema, Oral lesions Neck: positive: Nml inspection, No JVD, Trachea midline. negative: Thyromegaly , Lymphadenopathy (R), Lymphadenopathy (L), Stiff neck, Carotid bruit, Swelling/ bruising, Tracheal deviation Respiratory: positive: Chest non-tender, No respiratory distress, Breath sounds nml. negative: Wheezes, Rales, Rhonchi Cardiovascular: positive: Regular rate & rhythm, No murmur, No gallop. negative : Irregularly irregular, Extrasystoles, Tachycardia, Bradycardia, Systolic murmur, Diastolic murmur Peripheral Pulses: positive: 2+ Abdomen: positive: Non-tender, No organomegaly, Nml bowel sounds, No distention. negative: Tenderness, Guarding, Rebound Back: positive: Nml inspection. negative: CVA tenderness (R), CVA tenderness (L ) Skin: positive: Color nml, No rash, Warm, Dry. negative: Cyanosis, Diaphoresis , Pallor, Skin rash Extremities: positive: Non-tender, Full ROM, Nml appearance. negative: Calf tenderness, Joint swelling, William's sign/cords Neurologic/Psychiatric: positive: Oriented x3, Motor nml, Sensation nml, Mood/ affect nml. negative: Weakness, Sensory loss, Facial droop, Slurred/abnml speech, Depressed mood/affect Conclusion/Plan - Problem List (1) Syncope Conclusion/Plan: evaluation of the reason for syncope, CT of head is unremarkable. pt does not have a significant cardiac history. pt is admitted for observation. ECHO, EKG, tele monitor vital monitor check TSH, pt took levothyoxine Qualifiers: Syncope type: unspecified Qualified Code(s): R55 - Syncope and collapse (2) Hypothyroid Conclusion/Plan: pt had a thyrorectomy since at her early age, and continue to take Levothyoxine but recently her PCP increase her dosage. chest TSH chest Free T3/T4, will follow tele, vital monitor (3) Hx of seizure disorder Conclusion/Plan: pt denies active seizure, and her family confirm pt did not have seizure at this time seizure precaution reconciliation of home seizure meds closely neuro monitor (4) HTN (hypertension) Conclusion/Plan: stable, resume of home meds vital monitor (5) DVT prophylaxis Conclusion/Plan: SCD and lovenox (6) Full code status Conclusion/Plan: pt state she need full code status - Lab Results Fish Bones: 09/29/17 05:57 09/29/17 05:57 Issues/Core Measures - Anticipated LOS Anticipated Stay Length: Less than 2 midnights (expected less than 2 midnights)
--- NOTE | 2017-09-28 19:36 | Ultrasound Report ---
LEFT LEG VENOUS DUPLEX: 09/28/2017 CLINICAL INDICATION: Pain, syncope. TECHNIQUE: Real-time sonographic vascular imaging was performed by the clinical tech through the left lower extremity utilizing both color flow and Doppler spectral analysis. Multiple medical billing representative sta tic images were saved for review. FINDINGS: A left lower extremity venous sonogram is performed revealing the common femoral, superfic ial femoral, profunda femoris, and popliteal veins to be adequately visualized without intraluminal d efects. There is normal venous compression, augmentation, phasicity, and spontaneity of venous flow. In the calf, the visualized more cephalad portions of posterior tibial and peroneal veins are gross ly compressible, without filling defects. IMPRESSION: NO EVIDENCE OF DEEP VENOUS THROMBOSIS. JOB #: [id number] EXT JOB #:[id number]
[2017-09-28] MEDS: CALCIUM CARBONATE CHEW 500 MG TABLET PO SCH (20:48)
[2017-09-28] MEDS: LOSARTAN 50 MG TABLET PO SCH (20:49)
[2017-09-28] MEDS: CHOLECALCIFEROL 400 UNIT TABLET PO SCH (20:49)
[2017-09-28] MEDS: SODIUM CHLORIDE FLUSH 0.9% 10 ML SYRINGE IVP SCH (20:50)
[2017-09-28] MEDS ORDERED: ATORVASTATIN 40 MG TABLET PO SCH (21:00)
[2017-09-29] MEDS: SODIUM CHLORIDE FLUSH 0.9% 10 ML SYRINGE IVP SCH (06:00)
[2017-09-29 06:10] LABS: BASOPHILS % (AUTO) 0.4 %; EOSINOPHILS # (AUTO) 0.1 10^3/uL (0.0-0.7); EOSINOPHILS % (AUTO) 1.4 %; HCT - HEMATOCRIT 37.8 % (37.0-47.0); HGB - HEMOGLOBIN 12.9 g/dL (12.0-16.0); LYMPHOCYTES # (AUTO) 1.5 10^3/uL (1.5-3.5); LYMPHOCYTES % (AUTO) 24.8 %; MEAN CORPUSCULAR HEMOGLOBIN 30.4 pg (27.0-31.0); MEAN CORPUSCULAR HGB CONC 34.2 g/dL (32.0-36.0); MEAN CORPUSCULAR VOLUME 88.7 fL (81.0-99.0); MEAN PLATELET VOLUME 6.2 fL (7.9-10.8); MONOCYTES # (AUTO) 0.4 10^3/uL (0.0-1.0); MONOCYTES % (AUTO) 6.8 %; NEUTROPHILS # (AUTO) 4.1 10^3/uL (1.5-6.6); NEUTROPHILS % (AUTO) 66.6 %; NUCLEATED RED BLOOD CELLS AUTO 0.1 /100WBC; RED BLOOD COUNT 4.25 10^6/uL (4.20-5.40); RED CELL DISTRIBUTION WIDTH 13.4 % (12.0-15.0); UNCORRECTED WHITE BLOOD COUNT 6.2 x10^3/uL; WHITE BLOOD COUNT 6.2 x10^3/uL (4.8-10.8)
[2017-09-29 06:25] LABS: ALBUMIN/GLOBULIN RATIO 1.4 (1.0-2.2); BILIRUBIN,TOTAL 0.6 mg/dL (0.2-1.0); CALCIUM 8.7 mg/dL (8.5-10.3); CREATININE 0.6 mg/dL (0.4-1.0); MAGNESIUM 1.8 mg/dL (1.7-2.8); POTASSIUM 3.7 mmol/L (3.5-5.0); TOTAL PROTEIN 6.6 g/dL (6.7-8.2)
[2017-09-29] MEDS ORDERED: LEVOTHYROXINE 88 MCG TABLET PO SCH (07:00)
[2017-09-29] MEDS: CALCIUM CARBONATE CHEW 500 MG TABLET PO SCH (08:47)
[2017-09-29] MEDS: LOSARTAN 50 MG TABLET PO SCH (08:48)
[2017-09-29] MEDS: CHOLECALCIFEROL 400 UNIT TABLET PO SCH (08:50)
[2017-09-29] MEDS ORDERED: POLYETHYLENE GLYCOL 3350 17 GM PACKET PO SCH (09:00)
[2017-09-29] MEDS ORDERED: ENOXAPARIN 40 MG/0.4 ML SYRINGE SUBQ SCH (09:00)
[2017-09-29] MEDS ORDERED: FAMOTIDINE 20 MG TABLET PO SCH (09:00)
[2017-09-29] MEDS ORDERED: CHOLECALCIFEROL 1,000 UNIT TABLET PO SCH (09:00)
[2017-09-29] MEDS ORDERED: MULTIVITAMIN TABLET PO SCH (09:00)
[2017-09-29] MEDS ORDERED: carBAMazepine ER 200 MG TABLET PO SCH (11:00)
[2017-09-29 11:20] VITALS: BP 129/59
--- NOTE | 2017-09-29 12:58 | Discharge Plan ---
Discharge Plan Disposition: 01 Home, Self Care Condition: Stable Diet: Regular Activity Restrictions: Activity as Tolerated Shower Restrictions: No Weight Bearing: Full Weight Additional Instructions or Follow Up instructions: May see PCP in one week. Patient's TSH level is less than 0.08 in the hospital. Patient's levothyroxine dosage is reduced. May recheck TSH level and adjust levothyroxine dosage as clinic needed. Follow-Up Care: [facility] [place] [facility] - Medical No Smoking: If you smoke, Please STOP! Call for help. Follow-up with: Tiffany Vu PA-C [Primary Care Provider] -
--- NOTE | 2017-09-29 13:29 | DISCHARGE SUMMARY ---
Discharge Summary Admit Date: 09/28/17 Discharge Date: 09/29/17 Discharging Provider: JACOBO Primary Care Provider: Tierra Shoemaker Condition at Discharge: Stable Discharge Disposition: 01 Home, Self Care Discharge Facility Name: home - DIAGNOSES Admission Diagnoses: (1) Syncope (2) Hypothyroid (3) Hx of seizure disorder (4) HTN (hypertension) Discharge Diagnoses with Status of Each Condition: (1) Syncope CT of head, ECHO, EKG reveals unremarkable. one episode of syncope may derive from pt standing too long, pt state she stand about 2 hours to make the food. pt also sweating, feel very hot. pt has hyperthyroid from her over therapeutic exogenic input of Levothyoxine. Test reveals pt's TSH is very lower but normal free T3/4 (2) Hypothyroid pt has hyperthyroid from her over taken levothyoxine (3) Hx of seizure disorder stable, continue home regime (4) HTN (hypertension) stable - HPI History of Present Illness: please refer from my HPI on 09/28/17 as the following: This is 72-year-old female with a past medical history significance for HTN, HLP, seizure, hypothyroidism, diverticulitis, GERD, colon polyps, urinary incontinence, present ER for evaluation of one episode of syncope. Pt report when she was in the kitch, she felt very hot and prepared her food. After about two hours, she felt tired and attempted to remove to a chair. After she sit at the chair, she did lost of consciousness about 20 seconds, per pt's report. Pt was still sitting in the chair, no any fall, so there is no any injury. Pt report she always feel hot and frequently had hot flash. Pt denies fever, chill, cough, shortness of breathing, chest pain, headache, palpitation, abdominal pain, nausea, vomiting, diarrhea, vision changing. CT of head is unremarkable. The lab test was unremarkable at ER. Pt was admitted for evaluation of syncope. - HOSPITAL COURSE Hospital Course: pt was admitted for evaluation of one episode of syncope. Ct of head, ECHO, EKG reveals unremarkable. But TSH test is very lower. Pt has symptoms feeling very hot, sweating before pt has syncope. It may be the cause the pt took significant over therapeutic level of levothyroxine. pt's Levothyroxine was cut to 50 mcg from previous 132 mcg to be discharged, follow up PCP closely - ALLERGIES Allergies/Adverse Reactions: Allergies Allergy/AdvReac Type Severity Reaction Status Date / Time No Known Drug Allergies Allergy Verified 09/28/17 11:37 - MEDICATIONS Home Medications: Ambulatory Orders Medication Instructions Recorded Confirmed Losartan [Cozaar] 25 mg PO BID 06/13/13 09/28/17 Pantoprazole [Protonix] 40 mg PO QPM 03/17/16 09/28/17 Atorvastatin Calcium 20 mg PO QPM 04/19/17 09/28/17 Carbamazepine [Carbamazepine ER] 400 mg PO BID 04/19/17 09/28/17 Imatinib Mesylate [Gleevec] 600 mg PO 1730 04/19/17 09/28/17 Calcium Carbonate/Vitamin D3 1 tab PO BID 09/28/17 09/28/17 [Calcium 600-Vit D3 400 Tablet] Cholecalciferol (Vitamin D3) 2,000 units PO DAILY 09/28/17 09/28/17 [Vitamin D3] Multivitamin [Theragran] 1 tab PO DAILY 09/28/17 09/28/17 Levothyroxine [Synthroid] 50 mcg PO QDAC #7 09/29/17 09/28/17 - PHYSICAL EXAM AT DISCHARGE General Appearance: positive: No acute distress, Alert. negative: Lethargic Eyes Bilateral: positive: Normal inspection, PERRL, EOMI, No lid inflammation, Conjunctivae nml ENT: positive: ENT inspection nml, Pharynx nml, No signs of dehydration. negative: Purulent nasal drainage, Pharyngeal erythema, Oral lesions Neck: positive: Nml inspection, Thyroid nml, Trachea midline. negative: Thyromegaly, Lymphadenopathy (R), Lymphadenopathy (L), Stiff neck, Carotid bruit , Swelling/bruising, Tracheal deviation Respiratory: positive: Chest non-tender, No respiratory distress, Breath sounds nml. negative: Wheezes, Rales, Rhonchi Cardiovascular: positive: Regular rate & rhythm, No murmur, No gallop. negative : Irregularly irregular, Extrasystoles, Tachycardia, Bradycardia, Systolic murmur, Diastolic murmur Peripheral Pulses: positive: 2+ Abdomen: positive: Non-tender, No organomegaly, Nml bowel sounds, No distention. negative: Tenderness, Guarding, Rebound Back: positive: Nml inspection. negative: CVA tenderness (R), CVA tenderness (L ) Skin: positive: Color nml, No rash, Warm, Dry. negative: Cyanosis, Diaphoresis , Pallor Extremities: positive: Non-tender, Full ROM, Nml appearance. negative: Pedal edema, Joint swelling, William's sign/cords Neurologic/Psychiatric: positive: Oriented x3, Motor nml, Sensation nml, Mood/ affect nml. negative: Weakness, Sensory loss, Facial droop, Slurred/abnml speech, Depressed mood/affect - LABS Result Diagrams: 09/29/17 05:57 09/29/17 05:57 - FOLLOW UP Follow Up: pt is advised to followup PCP in one week, have her oncologist schedule. Pt's levothyroxine is cut to 50 mcg. Pt is advised to follow up PCP closely to adjust the medication dosage.
== END 2017-09-29 14:08 | disposition home or self-care (01) ==
LOC: ED 11:29 → OBS 15:55
PROVIDERS: ADMIT Nurse Practitioner Gerontology; ATTEND Nurse Practitioner Gerontology
DX: R55 Syncope and collapse (principal); E05.80 Other thyrotoxicosis without thyrotoxic crisis or storm; T38.1X5A Adverse effect of thyroid hormones and substitutes, initial encounter; E89.0 Postprocedural hypothyroidism; G40.909 Epilepsy, unspecified, not intractable, without status epilepticus; I10 Essential (primary) hypertension; K21.9 Gastro-esophageal reflux disease without esophagitis; C95.90 Leukemia, unspecified not having achieved remission; E78.5 Hyperlipidemia, unspecified; Z79.899 Other long term (current) drug therapy; Z87.891 Personal history of nicotine dependence
CPT/HCPCS: 36415; 70450; 80053; 80156; 81001; 81003; 83605; 83690; 83735; 84439; 84443; 84481; 84484; 85025; 87086; 93005; 93306; 96372; 99284; 99285

== ENCOUNTER 2017-10-01 09:24 | Outpatient (CLI) | payer MEDICARE, BC ==
[2017-10-01 18:26] LABS: THYROID STIMULATING HORMONE < 0.08 uIU/mL (0.34-5.60)
== END 2017-10-01 09:25 | disposition home or self-care (01) ==
LOC: LAB.F 09:24
PROVIDERS: ATTEND Neurological Surgery
DX: E03.9 Hypothyroidism, unspecified (principal)
CPT/HCPCS: 36415; 84439; 84443; 84481

== ENCOUNTER 2017-10-18 10:52 | Outpatient (CLI) | payer MEDICARE, BC ==
--- NOTE | 2017-10-18 15:40 | XRAY Report ---
EXAM: ABDOMEN RADIOGRAPHY EXAM DATE: 10/18/2017 11:19 AM. CLINICAL HISTORY: CONSTIPATION. COMPARISON: None. TECHNIQUE: 2 views. FINDINGS: Lung Bases: Unremarkable. Bowel Gas Pattern: Nonspecific, nonobstructive bowel gas pattern. Staple anastomosis at the right low er quadrant. Free Air: None. Other: Moderate leftward convex mid lumbar scoliosis. Multilevel lumbar degeneration. IMPRESSION: Nonspecific, nonobstructive bowel gas pattern. [facility] Referring Provider Line: [phone] SITE ID: [id number]
== END 2017-10-18 10:53 | disposition home or self-care (01) ==
LOC: DI.S 10:52
PROVIDERS: ATTEND Nurse Practitioner Family
DX: K59.00 Constipation, unspecified (principal)
CPT/HCPCS: 74020

== ENCOUNTER 2017-10-18 10:57 | Outpatient (CLI) | payer MEDICARE, BC ==
--- NOTE | 2017-10-20 15:10 | Mammography Report ---
DIGITAL SCREENING MAMMOGRAM: 10/18/2017 COMPARISON: 09/24/2016, 08/05/2015, 05/01/2014, 04/28/2013, 11/25/2011, 07/15/2010. TECHNIQUE: Bilateral digital CC, exaggerated CC and MLO projections. FINDINGS: The breast tissue is heterogeneously dense. There is no dominant mass, architectural dist ortion, skin thickening, suspicious microcalcifications, or interval change. IMPRESSION: NEGATIVE. BIRADS CATEGORY: 1, NEGATIVE. SUGGEST RETURN TO ROUTINE SCREENING IN 12 MONTHS. STANDARD QUALIFYING STATEMENTS 1. This examination was reviewed with the aid of Computed-Aided Detection (CAD). 2. A negative or benign imaging report should not delay biopsy if clinically suspicious findings are present. Consider surgical consultation if warranted. More than 5% of cancers are not identified b y imaging. 3. Dense breasts may obscure an underlying neoplasm. JOB #: [id number] EXT JOB #:[id number]
== END 2017-10-18 10:58 | disposition home or self-care (01) ==
LOC: DI.S 10:57
PROVIDERS: ATTEND Nurse Practitioner Family
DX: Z12.31 Encounter for screening mammogram for malignant neoplasm of breast (principal)
CPT/HCPCS: 77067

== ENCOUNTER 2017-11-09 13:23 | Outpatient (CLI) | payer MEDICARE, BC ==
[2017-11-09 19:24] LABS: THYROID STIMULATING HORMONE 0.37 uIU/mL (0.34-5.60)
== END 2017-11-09 13:24 | disposition home or self-care (01) ==
LOC: LAB.F 13:23
PROVIDERS: ATTEND Nurse Practitioner Family
DX: E03.9 Hypothyroidism, unspecified (principal)
CPT/HCPCS: 84439; 84443

== ENCOUNTER 2018-10-10 10:58 | Outpatient (CLI) | payer MEDICARE, BC | END 2018-10-10 10:59 | disposition home or self-care (01) | LOC: LAB.F 10:58 | PROVIDERS: ATTEND Physician Assistant Medical | DX: E03.9 Hypothyroidism, unspecified (principal) | CPT/HCPCS: 36415; 84443 ==

== ENCOUNTER 2019-08-14 09:57 | Outpatient (CLI) | payer MEDICARE, BC ==
--- NOTE | 2019-08-15 14:27 | Mammography Report ---
Reason: SCREENING MAMMO Procedure Date: 08/14/2019 Accession Number: [id number] / [id number] Procedure: MGS - Screening Mammo Dig Bilat CPT Code: FULL RESULT: EXAM: Screening Mammo Dig Bilat DATE: 08/14/2019 10:20 AM CLINICAL HISTORY: Screening TECHNIQUE: (B) - Bilateral CC and MLO views were obtained. COMPARISON: 10/18/2017, 09/24/2016 PARENCHYMAL PATTERN: (D) - The breasts demonstrate heterogeneously dense fibroglandular parenchyma bilaterally. FINDINGS: Stable tiny left axillary tail intramammary lymph node of no significance. There are no suspicious masses, calcifications, or areas of distortion. IMPRESSION: Negative examination. BI-RADS category 1. RECOMMENDATION: (ANNUAL) - Recommend routine annual screening mammography. BI-RADS CATEGORY: (1) - Negative. STANDARD QUALIFYING STATEMENTS: 1. This examination was not reviewed with the aid of Computer-Aided Detection (CAD). 2. A negative or benign imaging report should not preclude biopsy if clinically suspicious findings are present. 3. Dense breasts may obscure an underlying neoplasm. 4. This examination was reviewed without the aid of 3D breast imaging (tomosynthesis).
== END 2019-08-14 09:58 | disposition home or self-care (01) ==
LOC: DI.S 09:57
DX: Z12.31 Encounter for screening mammogram for malignant neoplasm of breast (principal)
CPT/HCPCS: 77067

== ENCOUNTER 2019-10-23 09:03 | Outpatient (CLI) | payer MEDICARE, BC ==
[2019-10-23 18:04] LABS: CHOLESTEROL 156 mg/dL; HDL CHOLESTEROL 80 mg/dL; LDL CHOLESTEROL,CALCULATED 54 mg/dL; LDL/HDL RATIO 0.7 (<4.4); VLDL CHOLESTEROL 22 mg/dL
== END 2019-10-23 09:04 | disposition home or self-care (01) ==
LOC: LAB.S 09:03
PROVIDERS: ATTEND Physician Assistant Medical
DX: E78.1 Pure hyperglyceridemia (principal); E03.9 Hypothyroidism, unspecified; G40.909 Epilepsy, unspecified, not intractable, without status epilepticus; Z51.81 Encounter for therapeutic drug level monitoring; Z79.899 Other long term (current) drug therapy
CPT/HCPCS: 36415; 80061; 80156; 80157; 81599; 83721; 84443

== ENCOUNTER 2019-12-27 10:06 | Outpatient (CLI) | payer MEDICARE, BC ==
--- NOTE | 2020-01-02 12:29 | DEXA Report ---
Reason: MENOPAUSAL STATE Procedure Date: 12/27/2019 Accession Number: [id number] / [id number] Procedure: DEX - Dexa Spine and/or Hip CPT Code: Final Report FULL RESULT: EXAM: Dexa Spine and/or Hip DATE: 12/27/2019 4:11 PM CLINICAL HISTORY: MENOPAUSAL STATE TECHNIQUE: Dual energy x-ray absorptiometry (DXA) was performed on a Flaviar System. Regions measured are the AP Spine, femoral neck, and if needed forearm. COMPARISON: None. In accordance with the International Society for Clinical Densitometry (ISCD) guidelines, data from previous exams may be reanalyzed using current recommendations and techniques. This is done to allow a more accurate basis for comparison with the current study. FINDINGS: The data for the lumbar spine is as follows: BMD (g/cm/cm) T-SCORE Z-SCORE REGION L1 1.218 0.7 2.2 L2 1.059 -1.2 0.3 L3 1.174 -0.2 1.3 L4 1.208 0.1 1.6 TOTAL L2-4 1.152 -0.4 1.1 NOTE: All evaluable vertebrae are used for classification The data for the hip is as follows: BMD (g/cm/cm) T-SCORE Z-SCORE REGION Neck 0.854 -1.3 0.3 TOTAL 0.824 -1.5 0.0 NOTE: The femoral neck or total proximal femur, whichever is lowest, is used for classification. IMPRESSION: THE WHO CLASSIFICATION BASED ON THE INTERNATIONAL REFERENCE STANDARD IS OSTEOPENIA. THE FRACTURE RISK IS INCREASED. RECOMMENDATION: Patients with diagnosis of osteoporosis or osteopenia should have regular bone mineral density assessment. For those eligible for Medicare, routine testing is allowed once every 2 years. Testing frequency can be increased for patients who have rapidly progressing disease or for those who are receiving medical therapy to restore bone mass. COMMENT: World Health Organization (WHO) definitions for osteoporosis and osteopenia: NORMAL BMD: T-score at -1.0 or higher, fracture risk is low OSTEOPENIA BMD: T-score between -1.0 and -2.5, fracture risk is increased. OSTEOPOROSIS BMD: T-score at -2.5 or lower, fracture risk is high. National Osteoporosis Foundation recommends: 1. Obtain adequate dietary calcium (at least 1200 mg per day) and vitamin D (400-800 international units per day). 2. Participate, as appropriate, in regular weightbearing and muscle-strengthening exercise. 3. Avoid tobacco use and reduce alcohol and caffeine intake. 4. For more detailed information see the website at www.NOF.org.
== END 2019-12-27 10:07 | disposition home or self-care (01) ==
LOC: DI 10:06
PROVIDERS: ATTEND Physician Assistant Medical
DX: M85.88 Other specified disorders of bone density and structure, other site (principal)
CPT/HCPCS: 77080

== ENCOUNTER 2020-10-15 10:33 | Outpatient (CLI) | payer MEDICARE, BC ==
[2020-10-15 16:34] LABS: CHOL/HDL RATIO 2.4 (<4.4); CHOLESTEROL 160 mg/dL; HDL CHOLESTEROL 68 mg/dL; LDL CHOLESTEROL,CALCULATED 65 mg/dL; VLDL CHOLESTEROL 27 mg/dL
[2020-10-15 17:40] LABS: FREE T4 (FREE THYROXINE) 0.52 ng/dL (0.58-1.64)
== END 2020-10-15 10:34 | disposition home or self-care (01) ==
LOC: LAB.S 10:33
PROVIDERS: ATTEND Internal Medicine
DX: E78.1 Pure hyperglyceridemia (principal); E03.9 Hypothyroidism, unspecified; G40.909 Epilepsy, unspecified, not intractable, without status epilepticus
CPT/HCPCS: 36415; 80061; 80156; 81599; 83721; 84439; 84443

== ENCOUNTER 2020-12-05 09:52 | Inpatient (IN) | payer MEDICARE, BC ==
[2020-12-05] MEDS ORDERED: LACTATED RINGERS 1,000 ML IV ONE ×3 (09:59→15:14)
[2020-12-05] MEDS ORDERED: MIDAZOLAM 2 MG/2 ML VIAL ONE ×2 (11:49→11:51)
[2020-12-05] MEDS ORDERED: fentaNYL 250 MCG/5 ML VIAL ONE (11:49)
--- NOTE | 2020-12-05 12:27 | ANESTHESIA ---
Pre-Anesthesia VS, & Labs - Diagnosis Free air, fistula - Procedure diagnostic laparoscopy Height: 5 ft 3 in Weight (kg): 70.4 kg Body Mass Index: 27.5 BMI Classification: Overweight - NPO >8 hours - Is Patient ?: No Home Medications and Allergies Home Medications: Ambulatory Orders Cyanocobalamin (Vitamin B-12) [Vitamin B-12] 1,000 mcg PO DAILY 12/04/20 Lactobacillus Acidophilus [Probiotic Acidophilus] 1 each PO DAILY 12/04/20 Losartan [Cozaar] 25 mg PO BID 06/13/13 Pantoprazole [Protonix] 40 mg PO QPM 03/17/16 Atorvastatin Calcium 20 mg PO QPM 04/19/17 Carbamazepine [Carbamazepine ER] 400 mg PO BID 04/19/17 Imatinib Mesylate [Gleevec] 600 mg PO 1730 04/19/17 Calcium Carbonate/Vitamin D3 [Calcium 600-Vit D3 400 Tablet] 2 tab PO QPM 09/28/17 Cholecalciferol (Vitamin D3) [Vitamin D3] 1,000 units PO BID 09/28/17 Multivitamin [Theragran] 1 tab PO DAILY 09/28/17 Levothyroxine [Synthroid] 88 mcg PO DAILY 11/23/17 Cyanocobalamin (Vitamin B-12) [Vitamin B-12] 1,000 mcg PO DAILY 12/04/20 Lactobacillus Acidophilus [Probiotic Acidophilus] 1 each PO DAILY 12/04/20 Allergies/Adverse Reactions: Allergies Allergy/AdvReac Type Severity Reaction Status Date / Time tolterodine [From Detrol] Allergy Unknown Verified 12/05/20 10:34 Anes History & Medical History - Anesthetic History Anesthesia Complications: reports: No previous complications - Medical History Cardiovascular: reports: Hypertension, High cholesterol, Murmur Pulmonary: reports: Pneumonia Gastrointestinal: reports: GERD, Colon polyps, Diverticulitis Urinary: reports: Incontinence Musculoskeletal: reports: Osteoarthritis, Fatigue Endocrine/Autoimmune: reports: HyPOthyroidism Blood Disorders: reports: Anemia Skin: reports: None Smoking Status: Never smoker - Surgical History General: Bowel surgery Eyes Ears Nose Throat (EENT): Cataracts, Tonsil/Adenoidectomy Urologic: Bladder surgery Dermatologic: Skin cancer surgery Exam General: Oriented x3, Cooperative, Other (Patient sedated from colonoscopy. Had received 5mg versed and 150mcg fentanyl) Dental: WNL Mouth Openin Fingerbreadth Neck Mobility: Normal Mallampati classification: III Thyromental Distance: 4-6 cm Mental/Cognitive Status: Other (sedated) Plan Anesthesia Type: General (telephone consent obtained from patient's Ya Gorman) Consent for Procedure(s) Verified and Reviewed: Yes Code Status: Attempt Resuscitation ASA classification: 2-Mild systemic disease Is this case an emergency?: Yes
[2020-12-05] MEDS ORDERED: fentaNYL 100 MCG/2 ML VIAL ONE ×2 (12:45→15:32)
[2020-12-05] MEDS ORDERED: ePHEDrine 50 MG/ML VIAL IVP ONE (12:51)
[2020-12-05] MEDS ORDERED: ONDANSETRON 4 MG/2 ML VIAL ONE (12:51)
[2020-12-05] MEDS ORDERED: PROPOFOL 200 MG/20 ML VIAL IVP ONE (12:51)
[2020-12-05] MEDS ORDERED: SODIUM CHLORIDE 0.9% 10 ML ONE (12:51)
[2020-12-05] MEDS ORDERED: PHENYLEPHRINE 10 MG/ML VIAL ONE (12:51)
[2020-12-05] MEDS ORDERED: ROCURONIUM 50 MG/5 ML VIAL ONE (12:51)
[2020-12-05] MEDS ORDERED: LIDOCAINE-MPF 2% 5 ML VIAL ONE (12:51)
[2020-12-05] MEDS ORDERED: METOCLOPRAMIDE 10 MG/2 ML VIAL IVP PRN (12:53)
[2020-12-05] MEDS ORDERED: ePHEDrine 50 MG/ML VIAL IVP PRN (12:53)
[2020-12-05] MEDS ORDERED: NALOXONE 0.4 MG/ML VIAL IVP PRN (12:53)
[2020-12-05] MEDS ORDERED: MORPHINE 2 MG/ML CARPUJECT IVP PRN (12:53)
[2020-12-05] MEDS ORDERED: ONDANSETRON 4 MG/2 ML VIAL IVP PRN ×2 (12:53→14:50)
[2020-12-05] MEDS: fentaNYL 100 MCG/2 ML VIAL IVP PRN ×4 (12:57→15:40)
[2020-12-05] MEDS ORDERED: PIPERACILLIN/TAZOBACTAM 3.375 GM in SODIUM CHLORIDE 0.9% MINIBAG 100 ML IV SCH (13:00)
[2020-12-05] MEDS ORDERED: LACTATED RINGERS 1,000 ML IV SCH (13:00)
[2020-12-05] MEDS ORDERED: BUPIVACAINE 0.5% PF 30 ML VIAL ONE (13:04)
[2020-12-05] MEDS ORDERED: LIDOCAINE 2%-EPI 1:100000 20 ML MDV ONE (13:04)
[2020-12-05] MEDS ORDERED: LIDOCAINE 2%-EPI 1:100000 20 ML MDV SUBQ ONE ×2 (14:09)
[2020-12-05] MEDS ORDERED: BUPIVACAINE 0.5% PF 30 ML VIAL INFIL ONE ×2 (14:09)
[2020-12-05] MEDS ORDERED: DEXAMETHASONE 4 MG/ML VIAL ONE (14:29)
[2020-12-05] MEDS ORDERED: ROPIVACAINE 0.5% PF 20 ML AMPULE ONE (14:29)
[2020-12-05] MEDS ORDERED: SODIUM CHLORIDE 0.9% 20 ML ONE (14:31)
[2020-12-05] MEDS ORDERED: SUGAMMADEX 200 MG/2 ML VIAL IVP ONE (14:32)
[2020-12-05] MEDS ORDERED: SODIUM CHLORIDE FLUSH 0.9% 10 ML SYRINGE IVP PRN (14:45)
[2020-12-05] MEDS: HYDROmorphone 0.5 MG/0.5 ML SYRINGE IVP PRN ×5 (15:25→19:33)
[2020-12-05] MEDS ORDERED: HYDROmorphone 1 MG/ML CARPUJECT ONE (15:32)
[2020-12-05] MEDS: ACETAMINOPHEN 1,000 MG/100 ML 100 ML IV SCH ×3 (16:04→23:59)
[2020-12-05] MEDS ORDERED: ACETAMINOPHEN 1,000 MG/100 ML 100 ML IV ONE (16:05)
[2020-12-05] MEDS: KETOROLAC 15 MG/ML VIAL IVP SCH ×3 (16:46→23:59)
[2020-12-05] MEDS ORDERED: IMATINIB MESYLATE 400 MG PO SCH (17:30)
[2020-12-05] MEDS: SODIUM CHLORIDE 0.9% 1,000 ML IV SCH (17:34)
[2020-12-05] MEDS: SODIUM CHLORIDE FLUSH 0.9% 10 ML SYRINGE IVP SCH (17:35)
[2020-12-05] MEDS: PIPERACILLIN/TAZOBACTAM 3.375 GM in SODIUM CHLORIDE 0.9% MINIBAG 100 ML IV SCH (17:42)
--- NOTE | 2020-12-05 20:21 | OPERATIVE REPORT ---
Operative Report - General Admit Date: 12/05/20 Planned Procedure: Diagnostic laparoscopy with repair of perforated diverticulum Pre-Op Diagnosis: Perforated descending colon diverticulum Procedure Performed: Diagnostic laparoscopy converted to laparotomy with direct repair of perforated diverticulum Post Op Diagnosis: Perforated descending colon diverticulum - Procedure Note Primary Surgeon: Yosi Anesthesia Technique: General ET tube, Local, Regional block Pathology: None Estimated Blood Loss (mL): 50 Indications: Perforated diverticulum of the descending colon during colonoscopy Findings: 4-5 mm perforation distal to the splenic flexure in the descending colon. No gross spillage of intestinal contents. No associated bleeding or hematoma Complications: None apparent - Other Other Information/Narrative: After obtaining informed consent, the patient is brought to the operating room and placed in the supine position on the operating table. Following successful induction of general endotracheal anesthesia, appropriate padding of all bony prominences, and placement of appropriate monitors, the abdomen was prepped and draped in the standard surgical fashion. A timeout was held per scope protocol. All elements of the surgical safety checklist were followed before, during, and after the procedure. We began the procedure by infiltrating a mixture of local anesthetics superior to the umbilicus. An incision was created here and carried down through the skin and subcutaneous tissue to reveal the fascia below. 2-0 Vicryl retention sutures were placed on either side of the midline and the abdomen was entered under direct vision using a 15 blade scalpel. A 10 mm blunt Knox balloon trocar was placed in the abdominal cavity and it was insufflated to 15 mmHg pressure. The camera was placed in the abdominal cavity with visualization of fairly dense left upper and lower quadrant adhesions. A 5 mm trocar was placed in the lower midline and another in the left upper quadrant. Great pains were taken to divide the intra-abdominal adhesions and visualize the colon. Once this was done, I began at the sacral promontory and evaluated the colon in a retrograde fashion looking for the perforation. This was continued to the splenic flexure. I was unable to identify any injury. At this point the laparoscopic portion of the procedure was concluded and I elected to open the abdomen to get more complete and direct visualization of the colon. The existing healed incision in the midline was repeated to enter the abdomen directly. A large wound protector was placed in the incisions. The small bowel was gently packed into the right upper quadrant for better exposure and visualization of the colon. I once again began evaluating the colon in a circumferential fashion at the sacral promontory and proceeding toward the splenic flexure. Finally, a 4-5 mm injury was identified on the antimesenteric border of the descending colon midway between the splenic flexure and the descending-sigmoid junction. There was not bleeding, minimal bruised appearance, and no visible spillage. There was a well defined 1 cm diverticulum within which was the perforation. The remainder of the colon was evauated with no other injuries identified. It is notable that there was significant air remaining in the colon. As there was no evidence of ischemia, I elected to repair the perforation directly. This was done in two layers being sure to invaginate the edges of the diverticulum. The repair was check for water tightness and found to be without a leak. The abdomen was irrigated with warm saline solution and aspirated free of all fluid and particulate matter. The omentum was replaced over the bowel in preparation for closing. The incision was closed with a runn ing looped PDS suture and nylon sutures were placed in the skin. All sponge, needle and instrument counts were correct at the conclusion of the case. The patient was allowed to waken from anesthesia without difficulty and taken to the post anesthesia care unit in good condition.
[2020-12-05] MEDS: carBAMazepine ER 200 MG TABLET PO SCH (21:20)
[2020-12-05] MEDS: LOSARTAN 50 MG TABLET PO SCH (21:20)
[2020-12-05] MEDS: PANTOPRAZOLE 40 MG TABLET PO SCH (21:21)
[2020-12-05] MEDS: ATORVASTATIN 10 MG TABLET PO SCH (21:22)
[2020-12-06] MEDS: PIPERACILLIN/TAZOBACTAM 3.375 GM in SODIUM CHLORIDE 0.9% MINIBAG 100 ML IV SCH ×2 (00:31→06:34)
[2020-12-06] MEDS: SODIUM CHLORIDE FLUSH 0.9% 10 ML SYRINGE IVP SCH ×3 (02:03→15:38)
[2020-12-06 05:36] LABS: BASOPHILS % (AUTO) 0.4 %
[2020-12-06 05:38] LABS: EOSINOPHILS % (AUTO) 1.1 %; HGB - HEMOGLOBIN 10.9 g/dL (12.0-16.0); LYMPHOCYTES % (AUTO) 6.8 %; MEAN CORPUSCULAR HEMOGLOBIN 32.4 pg (27.0-31.0); MEAN CORPUSCULAR HGB CONC 32.8 g/dL (32.0-36.0); MEAN CORPUSCULAR VOLUME 98.8 fL (81.0-99.0); MEAN PLATELET VOLUME 8.9 fL (7.9-10.8); MONOCYTES % (AUTO) 4.6 %; PLT - PLATELET COUNT 119 10^3/uL (130-450); RED BLOOD COUNT 3.36 10^6/uL (4.20-5.40); RED CELL DISTRIBUTION WIDTH 13.3 % (12.0-15.0); WHITE BLOOD COUNT 7.5 x10^3/uL (4.8-10.8)
[2020-12-06 05:40] LABS: ABNORMAL LYMPHS % (MANUAL) 0 %
[2020-12-06 05:46] LABS: CALCIUM 7.8 mg/dL (8.5-10.3); CREATININE 0.9 mg/dL (0.4-1.0)
[2020-12-06 05:56] LABS: BAND NEUTROPHILS % (MANUAL) 10 %; DIFFERENTIAL COMMENT MANUAL DIFFERENTIAL; LYMPHOCYTES % (MANUAL) 13 %; METAMYELOCYTES % (MANUAL) 1 %; MONOCYTES # (MANUAL) 0.5 10^3/uL (0.0-1.0); PLATELET ESTIMATE, MANUAL DECREASED (<130,000) (NORMAL); PLATELET MORPHOLOGY NORMAL APPEARANCE (NORMAL); RBC MORPHOLOGY (MULTIPLE) NORMAL APPEARANCE (NORMAL)
[2020-12-06] MEDS: ACETAMINOPHEN 1,000 MG/100 ML 100 ML IV SCH ×2 (06:35→11:56)
[2020-12-06] MEDS: KETOROLAC 15 MG/ML VIAL IVP SCH ×2 (06:35→11:56)
[2020-12-06] MEDS: HYDROmorphone 0.5 MG/0.5 ML SYRINGE IVP PRN ×2 (07:26)
[2020-12-06] MEDS: SODIUM CHLORIDE 0.9% 1,000 ML IV SCH (07:27)
[2020-12-06] MEDS: SACCHAROMYCES BOULARDII 250 MG CAPSULE PO SCH (08:15)
[2020-12-06] MEDS: carBAMazepine ER 200 MG TABLET PO SCH ×2 (08:15→20:10)
[2020-12-06] MEDS: LOSARTAN 50 MG TABLET PO SCH ×2 (08:15→20:09)
[2020-12-06] MEDS ORDERED: LEVOTHYROXINE 88 MCG TABLET PO SCH (09:00)
[2020-12-06] MEDS: Imatinib Mesylate [Gleevec] 100 MG Tablet PO SCH (11:03)
[2020-12-06] MEDS: oxyCODONE 5 MG TABLET PO PRN ×2 (11:03→15:38)
[2020-12-06] MEDS ORDERED: ONDANSETRON ODT 4 MG TABLET TL PRN (11:18)
[2020-12-06] MEDS: AMOX/CLAV 875 MG/125 MG TABLET PO SCH ×2 (12:43→20:10)
--- NOTE | 2020-12-06 15:57 | PROVIDER PROGRESS NOTE ---
Subjective - General Admit Date: 12/05/20 Procedure Date: 12/05/20 Post Op Days: 1 Procedure Performed: Laparotomy with repair of diverticular perforation - Review of Systems Wound/Incisions: positive: Healing well General: positive: No symptoms, Fever, Weakness HEENT: positive: No symptoms Pulmonary: positive: No symptoms Cardiovascular: positive: No symptoms Gastrointestinal: positive: Other (Abdominal pain but no nausea or vomiting. Appropriately tender. Active bowel sounds) Genitourinary: positive: No symptoms Musculoskeletal: positive: No symptoms - Other Other Information/Narrative: Good spirits and feeling well considering the circumstances. Restarted [place]. Getting up and around to the bathroom without difficulty. Very much wants to plan to go home tomorrow. Objective - Patient Data Reviewed Vital Signs: Yes Vital Signs: Vital Signs x48h Temp Pulse Resp BP Pulse Ox 12/06/20 08:12 36.7 C 80 20 124/56 L 94 Weight: Weight 12/04/20 12/05/20 12/06/20 23:59 23:59 23:59 Weight (kg) 70.4 kg Intake & Output: Intake and Output Totals x24h 12/04/20 12/05/20 12/06/20 23:59 23:59 23:59 Intake Total 300 2241.25 Balance 300 2241.25 - Lab Results Lab Results: 12/06/20 05:27 12/06/20 05:27 Other Lab Results: Lab Results x24hrs 12/06/20 12/06/20 Range/Units 05:27 05:27 WBC 7.5 (4.8-10.8) x10^3/uL RBC 3.36 L (4.20-5.40) 10^6/uL Hgb 10.9 L (12.0-16.0) g/dL Hct 33.2 L (37.0-47.0) % MCV 98.8 (81.0-99.0) fL MCH 32.4 H (27.0-31.0) pg MCHC 32.8 (32.0-36.0) g/dL RDW 13.3 (12.0-15.0) % Plt Count 119 L (130-450) 10^3/uL MPV 8.9 (7.9-10.8) fL Neut # (Auto) Not Reportable Lymph # (Auto) Not Reportable [place] # (Auto) Not Reportable Eos # (Auto) Not Reportable Baso # (Auto) Not Reportable Absolute Nucleated RBC Not Reportable Total Counted 100 Band Neuts % (Manual) 10 (0 - 10) % Abnorm Lymph % (Manual) 0 % Metamyelocytes % 1 H ( - 0) % Nucleated RBC % Not Reportable Neutrophils # (Manual) 5.9 (1.5-6.6) 10^3/uL Lymphocytes # (Manual) 1.0 L (1.5-3.5) 10^3/uL Monocytes # (Manual) 0.5 (0.0-1.0) 10^3/uL Eosinophils # (Manual) 0.0 (0-0.7) 10^3/uL Basophils # (Manual) 0.0 (0-0.1) 10^3/uL Differential Comment MANUAL DIFFERENTIAL WBC Morphology NORMAL APPEARANCE (NORMAL) Platelet Estimate DECREASED (<130,000) (NORMAL) Platelet Morphology NORMAL APPEARANCE (NORMAL) RBC Morph Micro Appear NORMAL APPEARANCE (NORMAL) Sodium 138 (135-145) mmol/L Potassium 3.5 (3.5-5.0) mmol/L Chloride 106 (101-111) mmol/L Carbon Dioxide 21 (21-32) mmol/L Anion Gap 11.0 (6-13) BUN 13 (6-20) mg/dL Creatinine 0.9 (0.4-1.0) mg/dL Estimated GFR (MDRD) 61 L (>89) Glucose 131 H (70-100) mg/dL Calcium 7.8 L (8.5-10.3) mg/dL - Current Medications Current Medications: Current Medications Generic Name Dose Route Start Last Admin Trade Name Freq PRN Reason Stop Dose Admin Amoxicillin/Clavulanate Potassium 1 tab 12/06/20 12:00 12/06/20 12:43 Amox/Clav 875 Mg/125 Mg Tablet PO 1 tab BID MICHELLE Administration Atorvastatin Calcium 20 mg 12/05/20 21:00 12/05/20 21:22 Atorvastatin 10 Mg Tablet PO 20 mg QPM MICHELLE Administration Carbamazepine 400 mg 12/05/20 21:00 12/06/20 08:15 Carbamazepine Er 200 Mg Tablet PO 400 mg BID MICHELLE Administration Hydromorphone HCl 0.5 mg 12/05/20 14:50 12/06/20 07:26 Hydromorphone 0.5 Mg/0.5 Ml Syringe IVP 0.5 mg Q2H PRN Administration PAIN Acetaminophen 100 mls @ 400 mls/hr 12/05/20 15:00 12/06/20 15:28 Ofirmev IV Infused Q6HR MICHELLE Infusion Ketorolac Tromethamine 15 mg 12/05/20 15:00 12/06/20 11:56 Ketorolac 15 Mg/Ml Vial IVP 12/10/20 14:59 Not Given Q6HR [facility] Losartan Potassium 25 mg 12/05/20 21:00 12/06/20 08:15 Losartan 50 Mg Tablet PO 25 mg BID MICHELLE Administration Ondansetron HCl 4 mg 12/06/20 11:18 12/06/20 12:43 Ondansetron Odt 4 Mg Tablet TL 4 mg Q6HR PRN Administration Nausea / Vomiting Oxycodone HCl 5 mg 12/06/20 08:34 12/06/20 15:38 Oxycodone 5 Mg Tablet PO 5 mg Q4HR PRN Administration PAIN Pantoprazole Sodium 40 mg 12/05/20 21:00 12/05/20 21:21 Pantoprazole 40 Mg Tablet PO 40 mg QPM [facility] Administration Imatinib Mesylate [ 2 each 12/06/20 11:00 12/06/20 11:03 Gleevec] 100 Mg PO 2 each Tablet QDBREAKFAST [facility] Administration Saccharomyces Boulardii 250 mg 12/06/20 09:00 12/06/20 08:15 Saccharomyces Boulardii 250 Mg Capsule PO 250 mg DAILY MICHELLE Administration Sodium Chloride 10 ml 12/05/20 17:00 12/06/20 15:38 Sodium Chloride Flush 0.9% 10 Ml Syringe IVP Not Given 0100,0900,1700 [facility] - Physical Exam Wound/Incisions: positive: Healing well General Appearance: positive: No acute distress Eyes Bilateral: positive: Normal inspection ENT: positive: ENT inspection nml Neck: positive: Nml inspection Respiratory: positive: Chest non-tender Cardiovascular: positive: Regular rate & rhythm Abdomen: positive: Other (Appropriately tender to palpation. Active bowel sounds.) Neurologic/Psychiatric: positive: Oriented x3 Impression/Plan - Problem List Problem List: 1. IV is infiltrated so we will leave it out as long as she can take po 2. Will stop zosyn and give 2 more doses Augmentin. 3. Add oxycodone for pain 4. Change Zofran to PO. 5. Plan for home in the AM if all goes well.
[2020-12-06] MEDS ORDERED: ACETAMINOPHEN 325 MG TABLET PO PRN (17:59)
[2020-12-06] MEDS: IBUPROFEN 600 MG TABLET PO PRN (18:21)
[2020-12-06] MEDS: PANTOPRAZOLE 40 MG TABLET PO SCH (20:10)
[2020-12-06] MEDS: ATORVASTATIN 10 MG TABLET PO SCH (20:10)
[2020-12-07] MEDS ORDERED: SODIUM CHLORIDE 0.9% 500 ML IV ONE (01:37)
[2020-12-07] MEDS: IBUPROFEN 600 MG TABLET PO PRN (05:22)
[2020-12-07] MEDS: oxyCODONE 5 MG TABLET PO PRN (05:22)
[2020-12-07 05:29] LABS: BASOPHILS % (AUTO) 0.2 %; EOSINOPHILS % (AUTO) 0.1 %; HGB - HEMOGLOBIN 9.6 g/dL (12.0-16.0); LYMPHOCYTES # (AUTO) 0.9 10^3/uL (1.5-3.5); LYMPHOCYTES % (AUTO) 6.9 %; MEAN CORPUSCULAR HEMOGLOBIN 32.3 pg (27.0-31.0); MEAN CORPUSCULAR HGB CONC 32.5 g/dL (32.0-36.0); MEAN CORPUSCULAR VOLUME 99.3 fL (81.0-99.0); MEAN PLATELET VOLUME 9.2 fL (7.9-10.8); MONOCYTES # (AUTO) 0.4 10^3/uL (0.0-1.0); MONOCYTES % (AUTO) 3.3 %; NEUTROPHILS # (AUTO) 10.8 10^3/uL (1.5-6.6); NEUTROPHILS % (AUTO) 87.5 %; PLT - PLATELET COUNT 125 10^3/uL (130-450); RED BLOOD COUNT 2.97 10^6/uL (4.20-5.40); RED CELL DISTRIBUTION WIDTH 13.9 % (12.0-15.0); WHITE BLOOD COUNT 12.3 x10^3/uL (4.8-10.8)
[2020-12-07 05:34] LABS: CALCIUM 7.7 mg/dL (8.5-10.3); CREATININE 1.5 mg/dL (0.4-1.0)
[2020-12-07] MEDS ORDERED: LEVOTHYROXINE 100 MCG TABLET PO SCH (07:00)
[2020-12-07] MEDS: Imatinib Mesylate [Gleevec] 100 MG Tablet PO SCH (08:16)
[2020-12-07 08:23] VITALS: BP 112/64
[2020-12-07] MEDS: AMOX/CLAV 875 MG/125 MG TABLET PO SCH (08:42)
[2020-12-07] MEDS: LOSARTAN 50 MG TABLET PO SCH (08:43)
[2020-12-07] MEDS: SACCHAROMYCES BOULARDII 250 MG CAPSULE PO SCH (08:43)
[2020-12-07] MEDS: carBAMazepine ER 200 MG TABLET PO SCH (08:43)
[2020-12-07] MEDS ORDERED: polyethylene glycoL 3350 17 GM PACKET PO SCH (09:00)
--- NOTE | 2020-12-07 13:26 | Discharge Plan ---
Discharge Plan Problem Reviewed?: Yes Disposition: Home, Self Care Condition: Stable Prescriptions: oxyCODONE [Roxicodone] 5 mg PO Q4HR PRN #20 tablet PRN Reason: Pain Ondansetron HCl [Zofran] 4 mg PO Q6H PRN #20 tab PRN Reason: Nausea / Vomiting Diet: Regular Activity Restrictions: 5 pound lifting limit Shower Restrictions: No Driving Restrictions: Yes (Do not drive until after follow up) No Smoking: If you smoke, Please STOP! Call for help. Follow-up with: Ron Quigley MD [Primary Care Provider] - Ronaldo Deluca MD [Provider Admit Priv/Credential] -
--- NOTE | 2020-12-07 13:28 | DISCHARGE SUMMARY ---
"Discharge Summary Admit Date: 12/12/20 Discharge Date: 12/07/20 Discharging Provider: Yosi Primary Care Provider: Dann Code Status: Attempt Resuscitation Condition at Discharge: Stable Discharge Disposition: 01 Home, Self Care - DIAGNOSES Admission Diagnoses: Perforated diverticulum Discharge Diagnoses with Status of Each Condition: Resolved - HPI History of Present Illness: Ros is a pleasant lady well known to me from prior visits. She was admitted on for screening colonoscopy for significant history of diverticulitis and colon polyps. At the time of the procedure, she sustained a diverticular perforation and was taken immediately to the operating room for repair. - CONSULTS | PROCEDURES Consultations: None Procedures: Laparotomy with repair of perforated diverticulum - HOSPITAL COURSE Hospital Course: The operation was uneventful and the patient was taken to the [facility] surg floor for convalescence and supportive care. She was given 24 hours of antibiotics and restarted on her home medications. Today she is eating a regular diet and her pain is controlled with oral medications. She is discharged to her home in the care of her . She will follow up with me in 2-3 weeks. - ALLERGIES Allergies/Adverse Reactions: Allergies Allergy/AdvReac Type Severity Reaction Status Date / Time tolterodine [From Detrol] Allergy Unknown Verified 12/05/20 10:34 - MEDICATIONS Home Medications: Ambulatory Orders Medication Instructions Recorded Confirmed Losartan [Cozaar] 25 mg PO BID 06/13/13 12/05/20 Pantoprazole [Protonix] 40 mg PO QPM 03/17/16 12/04/20 Atorvastatin Calcium 20 mg PO QPM 04/19/17 12/04/20 Carbamazepine [Carbamazepine ER] 400 mg PO BID 04/19/17 12/04/20 Imatinib Mesylate [Gleevec] 600 mg PO 1730 04/19/17 12/04/20 Calcium Carbonate/Vitamin D3 2 tab PO QPM 09/28/17 12/04/20 [Calcium 600-Vit D3 400 Tablet] Cholecalciferol (Vitamin D3) 1,000 units PO BID 09/28/17 12/04/20 [Vitamin D3] Multivitamin [Theragran] 1 tab PO DAILY 09/28/17 12/04/20 Levothyroxine [Synthroid] 88 mcg PO DAILY 11/23/17 12/04/20 Cyanocobalamin (Vitamin B-12) 1,000 mcg PO DAILY 12/04/20 12/04/20 [Vitamin B-12] Lactobacillus Acidophilus 1 each PO DAILY 12/04/20 12/04/20 [Probiotic Acidophilus] Acetaminophen [Tylenol] 650 mg PO Q4HR PRN tablet 12/07/20 Ibuprofen [Motrin] 600 mg PO Q6HR PRN tablet 12/07/20 Levothyroxine [Synthroid] 100 mcg PO Sa tablet 12/07/20 Ondansetron HCl [Zofran] 4 mg PO Q6H PRN #20 tab 12/07/20 oxyCODONE [Roxicodone] 5 mg PO Q4HR PRN #20 tablet 12/07/20 - PHYSICAL EXAM AT DISCHARGE General Appearance: positive: No acute distress, Alert Eyes Bilateral: positive: Normal inspection, PERRL, EOMI ENT: positive: ENT inspection nml, Pharynx nml Neck: positive: Nml inspection, Thyroid nml, No JVD Respiratory: positive: Chest non-tender, No respiratory distress, Breath sounds nml Cardiovascular: positive: Regular rate & rhythm, No murmur Abdomen: positive: No distention, Tenderness, Other (Wound is clean and dry). negative: Guarding, Rebound Back: negative: CVA tenderness (R), CVA tenderness (L) Skin: positive: Color nml Neurologic/Psychiatric: positive: Oriented x3 - LABS Result Diagrams: 12/07/20 04:53 12/07/20 04:53 - QUALITY (Female Hip Fx Only) Was patient sent home on osteoporosis medication?: No - FOLLOW UP Follow Up: 2-[address] Deluca - TIME SPENT Time Spent in Discharge (Minutes): 20"
[2020-12-08] MEDS ORDERED: LEVOTHYROXINE 88 MCG TABLET PO SCH (07:00)
== END 2020-12-07 15:05 | disposition home or self-care (01) | DRG 392 ==
LOC: SDS 09:52 → MS3 14:45
PROVIDERS: ADMIT Surgery; ATTEND Surgery
PROC: 0DJD8ZZ Inspection of Lower Intestinal Tract, Via Natural or Artificial Opening Endoscopic (ICD-10-PCS; 2020-12-05)
PROC: 0DQM0ZZ Repair Descending Colon, Open Approach (ICD-10-PCS; principal; 2020-12-05 11:00)
DX: Z12.11 Encounter for screening for malignant neoplasm of colon (principal); K57.20 Diverticulitis of large intestine with perforation and abscess without bleeding; I10 Essential (primary) hypertension; E78.00 Pure hypercholesterolemia, unspecified; K21.9 Gastro-esophageal reflux disease without esophagitis; R32 Unspecified urinary incontinence; E89.0 Postprocedural hypothyroidism; E55.9 Vitamin D deficiency, unspecified; D64.9 Anemia, unspecified; R01.1 Cardiac murmur, unspecified; Z79.899 Other long term (current) drug therapy; Z87.01 Personal history of pneumonia (recurrent); Z86.010 Personal history of colon polyps; Z87.891 Personal history of nicotine dependence; Z98.0 Intestinal bypass and anastomosis status; Z90.49 Acquired absence of other specified parts of digestive tract
CPT/HCPCS: 36415; 44604; 45378; 80048; 85025; A9270; J0131; J1170; J3010; J7120; Q0162

== ENCOUNTER 2020-12-08 04:05 | Outpatient (CLI) | payer MEDICARE, BC | END 2020-12-08 04:06 | disposition critical access hospital (66) | LOC: EMS 04:05 | PROVIDERS: ATTEND Surgery | DX: R40.20 Unspecified coma (principal) | CPT/HCPCS: A0425; A0427 ==

== ENCOUNTER 2020-12-08 04:27 | Inpatient (IN) | payer MEDICARE, BC ==
--- NOTE | 2020-12-08 04:48 | ED Physician Documentation ---
PD HPI ALTERED MENTAL STATUS - Stated complaint Stated Complaint: ALOC - Chief complaint Chief Complaint: Neuro - History obtained from History obtained from: EMS - History of Present Illness Timing - onset: Today Timing - duration: Minutes Timing - details: Abrupt onset, Still present Quality / character: Less responsive, Unresponsive Associated symptoms: NVD, General weakness. No: Fever, Headache, Stiff neck, Dyspnea, Cough, Seizure activity Contributing factors: Recent illness, Other (surgery for perforated diverticula) Basline status: Alert and oriented X 3, Ambulatory, Independent Treatment CHIEF PHYSICAL THERAPIST: Accucheck (120) Similar symptoms before: Has not had sx before Recently seen: Admitted, Surgery - Additional information Additional information: 75-year-old female with a history of CML on Gleevec and extensive diverticular disease has recently had a colonoscopy and during the colonoscopy she had a perforation of a diverticulum which was repaired in the operating room. This apparently went well and the patient was discharged from the hospital yesterday afternoon. This evening she was laying next to her making sonorous respirations and she was not responsive. In route to the hospital patient has had undulating level of consciousness and she has vomited. Medics were concerned about the possibility of aspiration. She was 88% on room air at home. The patient is not able to provide history. Review of Systems Unable to obtain: Unresponsive PD PAST MEDICAL HISTORY - Past Medical History Cardiovascular: Hypertension, High cholesterol Respiratory: None Endocrine/Autoimmune: HyPOthyroidism GI: GERD, Colon polyps, Diverticulitis, Other : Incontinence, Nocturia, Other HEENT: None Psych: None Musculoskeletal: Osteoarthritis Derm: Other - Past Surgical History Past Surgical History: Yes General: Bowel surgery, Colonoscopy HEENT: Tonsil/Adenoidectomy Derm: Skin cancer surgery - Present Medications Home Medications: Ambulatory Orders Medication Instructions Recorded Confirmed Losartan [Cozaar] 25 mg PO BID 06/13/13 12/05/20 Pantoprazole [Protonix] 40 mg PO QPM 03/17/16 12/04/20 Atorvastatin Calcium 20 mg PO QPM 04/19/17 12/04/20 Carbamazepine [Carbamazepine ER] 400 mg PO BID 04/19/17 12/04/20 Imatinib Mesylate [Gleevec] 600 mg PO 1730 04/19/17 12/04/20 Calcium Carbonate/Vitamin D3 2 tab PO QPM 09/28/17 12/04/20 [Calcium 600-Vit D3 400 Tablet] Cholecalciferol (Vitamin D3) 1,000 units PO BID 09/28/17 12/04/20 [Vitamin D3] Multivitamin [Theragran] 1 tab PO DAILY 09/28/17 12/04/20 Levothyroxine [Synthroid] 88 mcg PO DAILY 11/23/17 12/04/20 Cyanocobalamin (Vitamin B-12) 1,000 mcg PO DAILY 12/04/20 12/04/20 [Vitamin B-12] Lactobacillus Acidophilus 1 each PO DAILY 12/04/20 12/04/20 [Probiotic Acidophilus] Acetaminophen [Tylenol] 650 mg PO Q4HR PRN tablet 12/07/20 Ibuprofen [Motrin] 600 mg PO Q6HR PRN tablet 12/07/20 Levothyroxine [Synthroid] 100 mcg PO Sa tablet 12/07/20 Ondansetron HCl [Zofran] 4 mg PO Q6H PRN #20 tab 12/07/20 oxyCODONE [Roxicodone] 5 mg PO Q4HR PRN #20 tablet 12/07/20 - Allergies Allergies/Adverse Reactions: Allergies Allergy/AdvReac Type Severity Reaction Status Date / Time tolterodine [From Detrol] Allergy Unknown Verified 12/05/20 10:34 - Social History Does the pt smoke?: No Smoking Status: Never smoker Does the pt drink ETOH?: No Does the pt have substance abuse?: No - Immunizations Immunizations are current?: Yes - POLST Patient has POLST: No POLST Status: Full Code PD ED PE NORMAL - Vitals Vital signs reviewed: Yes (tachy ) - General General: Other (wilcox appearing female with a blank stare is able to acknowledge that she is at the hospital. She is able to concentrate for about 30 seconds. She is able to indicate she has pain in her abdomen. ) - HEENT HEENT: Atraumatic, PERRL, EOMI, Other (dry mucous membranes ) - Neck Neck: Supple, no meningeal sign, No bony TTP - Cardiac Cardiac: Other (tachy with a 2/6 holosystolic murmer at LSB) - Respiratory Respiratory: No respiratory distress, Other (rhonchi at the left base is greater than the right. ) - Abdomen Abdomen: Soft, Other (There is a surgical dressing in place and the patient is able to indicate that palpation of the abdomen is painful. There is no localization of findings. ) - Derm Derm: Warm and dry, No rash, Other (poor color to the skin ) - Extremities Extremities: No deformity, Other (The extremities appear edematous) - Neuro Neuro: client account representative 2-12 intact, No motor deficit, No sensory deficit, Normal speech Eye Opening: Spontaneous Motor: Localizes to Pain Verbal: Confused GCS Score: 13 - Psych Psych: Other (mood is withdrawn and the affect is flat ) Results - Vitals Vitals: Vital Signs - 24 hr 12/08/20 12/08/20 04:27 05:00 Temperature 36.1 C L Heart Rate 102 H Respiratory 18 18 Rate Blood Pressure 133/58 H 139/82 H O2 Saturation 94 94 Oxygen O2 Source Nasal cannula Oxygen Flow Rate 4 - Labs Labs: Laboratory Tests 12/08/20 12/08/20 12/08/20 04:44 04:50 04:50 WBC 11.1 H RBC 3.08 L Hgb 10.1 L Hct 30.3 L MCV 98.4 MCH 32.8 H MCHC 33.3 RDW 13.9 Plt Count 143 MPV 9.7 Neut # (Auto) 9.9 H Lymph # (Auto) 0.7 L [place] # (Auto) 0.3 Eos # (Auto) 0.0 Baso # (Auto) 0.0 Absolute Nucleated RBC 0.00 Nucleated RBC % 0.0 VBG pH VBG pCO2 VBG pO2 VBG HCO3 VBG Total CO2 VBG O2 Saturation VBG Base Excess Sodium 139 Potassium 3.3 L Chloride 104 Carbon Dioxide 24 Anion Gap 11.0 BUN 35 H Creatinine 1.8 H Estimated GFR (MDRD) 28 L Glucose 136 H Lactic Acid Calcium 8.5 Total Bilirubin 1.7 H AST 38 ALT 25 Alkaline Phosphatase 55 B-Natriuretic Peptide Total Protein 6.2 L Albumin 3.3 Globulin 2.9 Albumin/Globulin Ratio 1.1 Lipase 21 L Nasal Adenovirus (PCR) NOT DETECTED Nasal B. parapertussis DNA (PCR) NOT DETECTED Nasal Coronavir 229E PCR NOT DETECTED Nasal Coronavir HKU1 PCR NOT DETECTED Nasal Coronavir NL63 PCR NOT DETECTED Nasal Coronavir OC43 PCR NOT DETECTED Nasal Enterovir/Rhinovir PCR NOT DETECTED Nasal Influenza B PCR NOT DETECTED Nasal Influenza A PCR NOT DETECTED Nasal Parainfluen 1 PCR NOT DETECTED Nasal Parainfluen 2 PCR NOT DETECTED Nasal Parainfluen 3 PCR NOT DETECTED Nasal Parainfluen 4 PCR NOT DETECTED Nasal RSV (PCR) NOT DETECTED Nasal B.pertussis DNA PCR NOT DETECTED Nasal C.pneumoniae (PCR) NOT DETECTED [place] Human Metapneumo PCR NOT DETECTED Nasal M.pneumoniae (PCR) NOT DETECTED Nasal SARS-CoV-2 (PCR) NOT DETECTED 12/08/20 12/08/20 12/08/20 04:50 04:50 05:30 WBC RBC Hgb Hct MCV MCH MCHC RDW Plt Count MPV Neut # (Auto) Lymph # (Auto) [place] # (Auto) Eos # (Auto) Baso # (Auto) Absolute Nucleated RBC Nucleated RBC % VBG pH 7.320 VBG pCO2 42.1 VBG pO2 43.2 VBG HCO3 21.2 L VBG Total CO2 22.5 L VBG O2 Saturation 83.8 H VBG Base Excess -4.6 L Sodium Potassium Chloride Carbon Dioxide Anion Gap BUN Creatinine Estimated GFR (MDRD) Glucose Lactic Acid 1.3 Calcium Total Bilirubin AST ALT Alkaline Phosphatase B-Natriuretic Peptide 89 Total Protein Albumin Globulin Albumin/Globulin Ratio Lipase Nasal Adenovirus (PCR) Nasal B. parapertussis DNA (PCR) Nasal Coronavir 229E PCR Nasal Coronavir HKU1 PCR Nasal Coronavir NL63 PCR Nasal Coronavir OC43 PCR Nasal Enterovir/Rhinovir PCR Nasal Influenza B PCR Nasal Influenza A PCR Nasal Parainfluen 1 PCR Nasal Parainfluen 2 PCR Nasal Parainfluen 3 PCR Nasal Parainfluen 4 PCR Nasal RSV (PCR) Nasal B.pertussis DNA PCR Nasal C.pneumoniae (PCR) [place] Human Metapneumo PCR Nasal M.pneumoniae (PCR) Nasal SARS-CoV-2 (PCR) - Rads (name of study) chest Radiology: Prelim report reviewed (Impression: Extensive bilateral infiltrates consistent with pneumonia or pneumonitis.), EMP read contemporaneously (bibasilar infiltrate worse on the left. ) CT head w/o Radiology: Prelim report reviewed (Impression: 1. No acute intracranial infarct or hemorrhage. 2. Ethmoid sinusitis.), EMP read indepedently, See rad report CT chest w Radiology: Prelim report reviewed (Impression: 1. No pulmonary embolism. 2. Multilobular pneumonia with dense consolidation in the lower lobes bilaterally. 3. Small bilateral pleural effusions. 4. Pneumoperitoneum.), EMP read indepedently, See rad report ab/pel w Radiology: Prelim report reviewed (Impression: 1. Multilobular pneumonia with small bilateral pleural effusions. No peritoneum with dense layering fluid in the pelvis. Given there is dense intramural luminal content within ileal small bowel loops, likely source of perforation of small b), EMP read indepedently, See rad report Procedures - IVC sono (time) 0455 Bedside IVC sono: IVC measures (cm) (1.09), Dehydration (est 1+ liter deficit) PD MEDICAL DECISION MAKING - ED course Complexity details: reviewed old records, reviewed results, re-evaluated patient, considered differential, d/w patient ED course: 75 y/o female with a recent surgical procedure appears to have pneumonia, extensive, on a plain film. She has altered mental status, appears dry despite peripheral edema and has abdominal pain. She is oriented to place. She is slow to respond. She appears septic. [address], she is administered saline one liter and cefepime, vanco, and flagyl area administered. Dr. Deluca is consulted in the case and recommends CT ab/pel but her suspicion is the change in status not likely related to the abdomen but to the pneumonia. Dr. Davis is consulted in the case and graciously agrees to admit the patient to the CCU. Studies are pending including CT head, chest and ab/pel. Results of the ab/pel scan are shared with Dr. Deluca probably residual blood from surgery, she will come in to see the patient. Departure - Departure Disposition: 66 [facility] DC/Xfer Clinical Impression: Altered mental status Qualifiers: Altered mental status type: stupor Qualified Code(s): R40.1 - Stupor Pneumonia Qualifiers: Pneumonia type: due to unspecified organism Laterality: bilateral Lung locatio n: lower lobe of lung Qualified Code(s): J18.9 - Pneumonia, unspecified organism Sepsis Qualifiers: Sepsis type: sepsis due to unspecified organism Sepsis acute organ dysfunction status: with acute organ dysfunction Severe sepsis acute organ dysfunction type: encephalopathy Severe sepsis shock status: without septic shock Qualified Code(s): A41.9 - Sepsis, unspecified organism Discharge Date/Time: 12/08/20 07:09
[2020-12-08] MEDS ORDERED: CEFEPIME 2 GM in SODIUM CHLORIDE 0.9% MINIBAG 100 ML IV STA (04:59)
[2020-12-08] MEDS ORDERED: metroNIDAZOLE 500 MG/100 ML 500 MG/100 ML BAG IV ONE (05:07)
[2020-12-08 05:08] LABS: BASOPHILS % (AUTO) 0.3 %; EOSINOPHILS % (AUTO) 0.4 %; HGB - HEMOGLOBIN 10.1 g/dL (12.0-16.0); LYMPHOCYTES # (AUTO) 0.7 10^3/uL (1.5-3.5); LYMPHOCYTES % (AUTO) 6.1 %; MEAN CORPUSCULAR HEMOGLOBIN 32.8 pg (27.0-31.0); MEAN CORPUSCULAR HGB CONC 33.3 g/dL (32.0-36.0); MEAN CORPUSCULAR VOLUME 98.4 fL (81.0-99.0); MEAN PLATELET VOLUME 9.7 fL (7.9-10.8); MONOCYTES # (AUTO) 0.3 10^3/uL (0.0-1.0); MONOCYTES % (AUTO) 2.9 %; NEUTROPHILS # (AUTO) 9.9 10^3/uL (1.5-6.6); NEUTROPHILS % (AUTO) 88.9 %; PLT - PLATELET COUNT 143 10^3/uL (130-450); RED BLOOD COUNT 3.08 10^6/uL (4.20-5.40); RED CELL DISTRIBUTION WIDTH 13.9 % (12.0-15.0); WHITE BLOOD COUNT 11.1 x10^3/uL (4.8-10.8)
[2020-12-08] MEDS ORDERED: VANCOMYCIN INJ 2 GM in SODIUM CHLORIDE 0.9% 500 ML IV STA (05:08)
[2020-12-08 05:20] LABS: ALBUMIN 3.3 g/dL (3.2-5.5); ALBUMIN/GLOBULIN RATIO 1.1 (1.0-2.2); BILIRUBIN,TOTAL 1.7 mg/dL (0.2-1.0); CALCIUM 8.5 mg/dL (8.5-10.3); CREATININE 1.8 mg/dL (0.4-1.0); TOTAL PROTEIN 6.2 g/dL (6.7-8.2)
[2020-12-08] MEDS ORDERED: IOVERSOL 320 100 ML VIAL IVP ONE ×2 (05:31→06:34)
[2020-12-08 05:36] LABS: VBG PCO2 42.1 mmHg (41-51); VBG PH 7.32 (7.31-7.41); VBG PO2 43.2 mmHg (25-47); VBG TOTAL CO2 22.5 mmol/L (24-29)
[2020-12-08 05:37] LABS: VBG BASE EXCESS -4.6 mmol/L (-2 - +2)
[2020-12-08 05:39] LABS: C. PNEUMONIAE- RESP PCR PANEL NOT DETECTED
[2020-12-08] MEDS ORDERED: ONDANSETRON ODT 4 MG TABLET TL PRN (05:44)
[2020-12-08] MEDS ORDERED: ACETAMINOPHEN 325 MG TABLET PO PRN (05:44)
--- NOTE | 2020-12-08 05:44 | HISTORY & PHYSICAL EXAMINATION ---
Chief Complaint - Chief Complaint Chief Complaint: altered mental status History of Present Illness - Admitted From Admitted From:: home via EMS - History Obtained From Records Reviewed: [facility] History obtained from: Dr. 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 Nursing notified surgery education dean and a bolus was given. She dropped her sats to 78% on room air. She was then on 4 L nasal cannula. Repeat blood work showed her to have a sodium to 134, potassium 3.4. BUN and creatinine did go up to 26 and 1.5 after being 13 and 0.9. White cell count had been 7.5 and increased to 12.3. At discharge she did not have abdominal distention. She has some tendern ess but no guarding and rebound on abdominal exam. Chest exam was clear. By discharge she was 95% on 2 L. At home, she had gone to bed, and was laying asleep makes her when he realized that her respiration patterns had changed. There were increasingly sonorous, and she was not responding to his voice. While in the ambulance, she had an episode of emesis. EMS feels that she may have possibly aspirated as well. O2 sat at home was 88%. She was evaluated by Dr. Glez where temperature is 36.1, pulse is 102. Blood pressure is 133/58. 18 respiratory rate, unlabored. 94% on 4 L nasal cannula. She is 92% on room air. He felt that she was a wilcox appearing female with a blank stare but she was able to tell them she was at the hospital. Took her 30 seconds to get to that. She is having some mild abdominal pain. She is tachycardic with a murmur. No respiratory distress but has a rhonchi left greater than right base. A surgical dressing is placed on her abdomen. It is uncomfortable to palpate but no peritoneal findings. Mood is withdrawn and flat. White cell count is 11.1. Hemoglobin 10.1. Potassium is 3.3. Lactic acid 1.3. Chest x-ray shows bibasilar infiltrates worse on the left. Because of her abdominal pain, Dr. Weldon, general surgery has been called. She is recommending CT of the abdomen pelvis. The patient is now placed in admission for inpatient status for pneumonia until that work-up comes back. History - Past Medical History Cardiovascular: reports: Hypertension, High cholesterol Respiratory: reports: None Neuro: reports: Fainting (Syncope September 2017. Echo, EKG, telemetry monitoring noncontributory. Echo was normal. Troponins normal. Head CT negative.) Endocrine/Autoimmune: reports: HyPOthyroidism GI: reports: GERD, Colon polyps, Diverticulitis (With right hemicolectomy.), Other (Bowel perforation December 05 with laparotomy and repair) : reports: Incontinence, Nocturia, Other HEENT: reports: None Psych: reports: None Musculoskeletal: reports: Osteoarthritis MRSA Hx?: No - Past Surgical History General: reports: Bowel surgery, Colonoscopy, Other (Hemicolectomy) HEENT: reports: Tonsil/Adenoidectomy Derm: reports: Skin cancer surgery - Family & Social History Family History Comment/Other: Mom had colon cancer. Brother had diverticulitis. Living arrangement: At home Living Situation: With spouse/s.o. Social History Notes: The patient lives in [facility] with her . They have been living there for over 40 years. They do not have any children. 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 She has a history of tobacco use smoked one pack a day for about 10 years but quit over 30 years ago. She does not drink alcohol and denies any illicit drug use. - Substance History Use: Uses substance without health or social issues: NONE - POLST Patient has POLST: No POLST Status: Full Code Meds/Allgy - Home Medications Home Medications: Ambulatory Orders Medication Instructions Recorded Confirmed Losartan [Cozaar] 25 mg PO BID 06/13/13 12/05/20 Pantoprazole [Protonix] 40 mg PO QPM 03/17/16 12/04/20 Atorvastatin Calcium 20 mg PO QPM 04/19/17 12/04/20 Carbamazepine [Carbamazepine ER] 400 mg PO BID 04/19/17 12/04/20 Imatinib Mesylate [Gleevec] 600 mg PO 1730 04/19/17 12/04/20 Calcium Carbonate/Vitamin D3 2 tab PO QPM 09/28/17 12/04/20 [Calcium 600-Vit D3 400 Tablet] Cholecalciferol (Vitamin D3) 1,000 units PO BID 09/28/17 12/04/20 [Vitamin D3] Multivitamin [Theragran] 1 tab PO DAILY 09/28/17 12/04/20 Levothyroxine [Synthroid] 88 mcg PO DAILY 11/23/17 12/04/20 Cyanocobalamin (Vitamin B-12) 1,000 mcg PO DAILY 12/04/20 12/04/20 [Vitamin B-12] Lactobacillus Acidophilus 1 each PO DAILY 12/04/20 12/04/20 [Probiotic Acidophilus] Acetaminophen [Tylenol] 650 mg PO Q4HR PRN tablet 12/07/20 Ibuprofen [Motrin] 600 mg PO Q6HR PRN tablet 12/07/20 Levothyroxine [Synthroid] 100 mcg PO Sa tablet 12/07/20 Ondansetron HCl [Zofran] 4 mg PO Q6H PRN #20 tab 12/07/20 oxyCODONE [Roxicodone] 5 mg PO Q4HR PRN #20 tablet 12/07/20 - Allergies Allergies/Adverse Reactions: Allergies Allergy/AdvReac Type Severity Reaction Status Date / Time tolterodine [From Detrol] Allergy Unknown Verified 12/05/20 10:34 Review of Systems - Other Findings Other Findings: Unable to assess in this lethargic woman who is barely able to open her eyes. Family not allowed in because of Covid. Prior Level of Functionality: Although she has CML, undergoing treatment, she is described as independent with activities of daily living. No use of durable medical equipment. Exam - Vital Signs Reviewed Vital Signs: Yes Vital Signs: Vital Signs x48h Temp Pulse Resp BP Pulse Ox 12/08/20 05:00 18 139/82 H 94 12/08/20 04:27 36.1 C L 102 H 18 133/58 H 94 - Physical Exam General Appearance: positive: Lethargic, Other (She is with a slight face, slightly open mouth breathing, unlabored, barely opens her eyes at my touch and is not really processing) Eyes Bilateral: positive: PERRL, EOMI ENT: positive: Dry mucous membranes Neck: positive: No JVD. negative: Stiff neck, Carotid bruit Respiratory: positive: No respiratory distress, Other (Diffusely diminished at bases). negative: Wheezes, Rales, Rhonchi Cardiovascular: positive: Regular rate & rhythm, Systolic murmur. negative: Gallop/S4, Friction rub Peripheral Pulses: positive: 1+ Abdomen: positive: Other (Very hypoactive bowel sounds, barely audible. Generalized obese abdomen. As I palpate she is not grimacing, she is not withdrawing from me. No distention. Soft belly.) Skin: positive: No rash, Warm, Pallor. negative: Diaphoresis Extremities: positive: Full ROM, No pedal edema Neurologic/Psychiatric: positive: CN's nml (2-12), Motor nml, Other (Because of her metabolic encephalopathy, unable to assess her orientation, she is not really speaking to me this morning. She did speak to the ER physician.) Conclusion/Plan - Problem List (1) Hospital-acquired pneumonia Conclusion/Plan: She is immunocompromised with Gleevec and just had surgery December 05. Patient has changes of pneumonia on chest x-ray. She is hypoxic. She does not have a fever, she is not tachypneic, but white cell count is elevated. Lactic acid is not. The pneumonia is associated with an episode of emesis so there is concern for aspiration. Although the emergency room physician has written down sepsis as part of her diagnosis, she does not meet criteria. Plan: Inpatient status Cefepime, vancomycin have already been given in the emergency room. Will order those medications per protocol. Flagyl was added as well by ER But Zosyn will cover aspiration. She has had blood cultures done. Urinalysis has been ordered but not done yet. We will review those results when they come in. (2) Abdominal pain Conclusion/Plan: This is in a patient who had a colonoscopy December 05. Unfortunately had complication of perforation. Then had diagnostic laparotomy converted to laparotomy with direct repair of perforated diverticulum. She progressed well postoperatively, bowel sounds present, was eating. Home less than 24 hours. Now with fever, abdominal pain. Metabolic encephalopathy. Plan: CT of the abdomen has been ordered and will be reviewed. Qualifiers: Abdominal location: generalized Qualified Code(s): R10.84 - Generalized abdominal pain (3) Metabolic encephalopathy Conclusion/Plan: Due to infection. At this time no suspicion of stroke, SD. Medications at home are her carbamazepine which could be sedated of but again, not felt to be the cause of current change in mental status. Head CT has been ordered, but again, it is pending And will need to be reviewed. (4) CML (chronic myelocytic leukemia) Conclusion/Plan: On Gleevec. That will be held at this time. (5) Hx of seizure disorder Conclusion/Plan: We will resume carbamazepine extended release 400 mg twice daily. (6) Hypokalemia Conclusion/Plan: supplement IV since not doing much po right now. - Lab Results Lab results reviewed: Yes Fish Bones: 12/08/20 04:50 12/08/20 04:50 - Diagnostic Imaging Results Diagnostic Imaging Results Comments: No reports available for review. Dr. Glez reports that her chest x-ray has bilateral pneumonia with the left greater than right. Core Measures - Anticipated LOS I expect patient to be DC'd or transferred within 96 hours.: Yes - DVT/VTE - Prophylaxis VTE/DVT Device ordered at admit?: Yes
[2020-12-08] MEDS ORDERED: VANCOMYCIN 1 GM VIAL ONE (06:13)
[2020-12-08] MEDS: ALBUTEROL NEB 2.5 MG/3 ML INH SCH ×4 (07:39→20:10)
[2020-12-08] MEDS: LACTATED RINGERS 1,000 ML IV SCH ×2 (08:19→18:47)
[2020-12-08] MEDS: SACCHAROMYCES BOULARDII 250 MG CAPSULE PO SCH ×2 (08:20→19:44)
--- NOTE | 2020-12-08 08:29 | PHARMACY PROGRESS NOTE ---
- Best Possible Medication History Admit Date and Time: 12/08/20 0544 Processed by: Pharmacy Medication History completed: Yes Secondary Source(s): Previous admit records As the person ultimately responsible for medication therapy, providers are able to order a medication from an existing home medication list in [facility] via the "Reconcile Routine" prior to Confirmation of that medication by manager support. Such practice is discouraged except when the physician, in their clinical judgment, deems that a medical need exists for a medication without regard to previous use.
[2020-12-08] MEDS ORDERED: ALBUTEROL NEB 2.5 MG/3 ML INH SCH (09:00)
--- NOTE | 2020-12-08 09:52 | CONSULTATION NOTE ---
Referring Provider Name of Referring Provider:: MD Ryan Consult Date: 12/08/20 Chief Complaint - Chief Complaint Chief Complaint: Hypoxia, change in mental status History of Present Illness - Admitted From Admitted From:: ED - History Obtained From Exam Limitations: Patient mental status - History of Present Illness HPI Comment/Other: Ros is a wonderful 75-year-old lady who is well-known to me. She presented on for a screening colonoscopy due to a history of severe diverticulosis and colon polyps. She sustained a diverticular perforation during the procedure and was admitted after having it repaired in the operating room. Yesterday she was feeling better sitting up in a chair and tolerating a regular diet. She was discharged to her home. Overnight, her noticed that her breathing pattern had changed and he had difficulty waking her. 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 In the emergency department she was found to be mildly hypoxicBut not hypotensive.Chest x-ray revealed bilateral lower lobe pneumonia.CT scan of the abdomen and pelvisRevealed some bubbles of free air in the abdomen along with some fluid in the pelvis. Was also noted that she had some distended loops of small bowel. This was read as a possible perforation. This is also an expected finding following laparotomy for repair of perforation.She has been admitted to the hospitalist service for treatment of pneumonia.She denied abdominal pain in the ER but reported that she was somewhat tender.. History - Past Medical History Cardiovascular: reports: Hypertension, High cholesterol Respiratory: reports: None Neuro: reports: Fainting (Syncope September 2017. Echo, EKG, telemetry monitoring noncontributory. Echo was normal. Troponins normal. Head CT negative.) Endocrine/Autoimmune: reports: HyPOthyroidism GI: reports: GERD, Colon polyps, Diverticulitis (With right hemicolectomy.), Other (Bowel perforation December 05 with laparotomy and repair) : reports: Incontinence, Nocturia, Other HEENT: reports: None Psych: reports: None Musculoskeletal: reports: Osteoarthritis Derm: reports: Other MRSA Hx?: No - Past Surgical History General: reports: Bowel surgery, Colonoscopy, Other (Hemicolectomy) HEENT: reports: Tonsil/Adenoidectomy Derm: reports: Skin cancer surgery - Family & Social History Family History Comment/Other: Mom had colon cancer. Brother had diverticulitis. Living arrangement: At home Living Situation: With spouse/s.o. Social History Notes: The patient lives in [facility] with her . They have been living there for over 40 years. They do not have any children. 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 She has a history of tobacco use smoked one pack a day for about 10 years but quit over 30 years ago. She does not drink alcohol and denies any illicit drug use. - Substance History Use: Uses substance without health or social issues: NONE - POLST Patient has POLST: No POLST Status: Full Code Meds/Allgy - Home Medications Home Medications: Ambulatory Orders Medication Instructions Recorded Confirmed Losartan [Cozaar] 25 mg PO BID 06/13/13 12/08/20 Pantoprazole [Protonix] 40 mg PO QPM 03/17/16 12/08/20 Atorvastatin Calcium 20 mg PO QPM 04/19/17 12/08/20 Carbamazepine [Carbamazepine ER] 400 mg PO BID 04/19/17 12/08/20 Imatinib Mesylate [Gleevec] 400 mg PO 1730 04/19/17 12/08/20 Calcium Carbonate/Vitamin D3 2 tab PO QPM 09/28/17 12/08/20 [Calcium 600-Vit D3 400 Tablet] Cholecalciferol (Vitamin D3) 1,000 units PO BID 09/28/17 12/08/20 [Vitamin D3] Multivitamin [Theragran] 1 tab PO DAILY 09/28/17 12/08/20 Levothyroxine [Synthroid] 88 mcg PO SUMOTUWETHFR 11/23/17 12/08/20 Cyanocobalamin (Vitamin B-12) 1,000 mcg PO DAILY 12/04/20 12/08/20 [Vitamin B-12] Lactobacillus Acidophilus 1 each PO DAILY 12/04/20 12/08/20 [Probiotic Acidophilus] Acetaminophen [Tylenol] 650 mg PO Q4HR PRN tablet 12/07/20 12/08/20 Ibuprofen [Motrin] 600 mg PO Q6HR PRN tablet 12/07/20 12/08/20 Levothyroxine [Synthroid] 100 mcg PO Sa tablet 12/07/20 12/08/20 Ondansetron HCl [Zofran] 4 mg PO Q6H PRN #20 tab 12/07/20 12/08/20 oxyCODONE [Roxicodone] 5 mg PO Q4HR PRN #20 tablet 12/07/20 12/08/20 Imatinib Mesylate [Gleevec] 200 mg PO QDBREAKFAST 12/08/20 12/08/20 - Allergies Allergies/Adverse Reactions: Allergies Allergy/AdvReac Type Severity Reaction Status Date / Time tolterodine [From Detrol] Allergy Unknown Verified 12/05/20 10:34 Review of Systems - Other Findings Other Findings: Unable to reliably obtain due to patient lethargy Exam - Vital Signs Reviewed Vital Signs: Yes Vital Signs: Vital Signs x48h Temp Pulse Pulse Resp BP BP Pulse Ox 12/08/20 08:27 36.5 C 78 14 95 12/08/20 08:00 83 21 137/72 H 96 12/08/20 07:41 78 14 12/08/20 07:20 36.5 C 96 20 140/72 H 95 12/08/20 06:00 91 14 142/72 H 96 12/08/20 05:00 18 139/82 H 94 12/08/20 04:27 36.1 C L 102 H 18 133/58 H 94 - Physical Exam General Appearance: positive: No acute distress, Lethargic Eyes Bilateral: positive: Normal inspection Abdomen: positive: Tenderness (Minimal tenderness to palpation. Active bowel sounds.Incision is clean and dry. Dressed.) Conclusion and Plan - Lab Results Laboratory Results 12/08/20 05:30: VBG pH 7.320, VBG pCO2 42.1, VBG pO2 43.2, VBG HCO3 21.2 L, VBG Total CO2 22.5 L, VBG O2 Saturation 83.8 H, VBG Base Excess -4.6 L 12/08/20 04:50: B-Natriuretic Peptide 89 12/08/20 04:50: Lactic Acid 1.3 12/08/20 04:50: Sodium 139, Potassium 3.3 L, Chloride 104, Carbon Dioxide 24, Anion Gap 11.0, BUN 35 H, Creatinine 1.8 H, Estimated GFR (MDRD) 28 L, Glucose 136 H, Calcium 8.5, Total Bilirubin 1.7 H, AST 38, ALT 25, Alkaline Phosphatase 55, Total Protein 6.2 L, Albumin 3.3, Globulin 2.9, Albumin/Globulin Ratio 1.1, Lipase 21 L 12/08/20 04:50: WBC 11.1 H, RBC 3.08 L, Hgb 10.1 L, Hct 30.3 L, MCV 98.4, MCH 32.8 H, MCHC 33.3, RDW 13.9, Plt Count 143, MPV 9.7, Neut # (Auto) 9.9 H, Lymph # (Auto) 0.7 L, Elk # (Auto) 0.3, Eos # (Auto) 0.0, Baso # (Auto) 0.0, Absolute Nucleated RBC 0.00, Nucleated RBC % 0.0 12/08/20 04:44: Nasal Adenovirus (PCR) NOT DETECTED, Nasal B. parapertussis DNA (PCR) NOT DETECTED, Nasal Coronavir 229E PCR NOT DETECTED, Nasal Coronavir HKU1 PCR NOT DETECTED, Nasal Coronavir NL63 PCR NOT DETECTED, Nasal Coronavir OC43 PCR NOT DETECTED, Nasal Enterovir/Rhinovir PCR NOT DETECTED, Nasal Influenza B PCR NOT DETECTED, Nasal Influenza A PCR NOT DETECTED, Nasal Parainfluen 1 PCR NOT DETECTED, Nasal Parainfluen 2 PCR NOT DETECTED, Nasal Parainfluen 3 PCR NOT DETECTED, Nasal Parainfluen 4 PCR NOT DETECTED, Nasal RSV (PCR) NOT DETECTED, Nasal B.pertussis DNA PCR NOT DETECTED, Nasal C.pneumoniae (PCR) NOT DETECTED, Russell Human Metapneumo PCR NOT DETECTED, Nasal M.pneumoniae (PCR) NOT DETECTED, Nasal SARS-CoV-2 (PCR) NOT DETECTED - Diagnostic Imaging Results Diagnostic Imaging Results: positive: Final report reviewed - Diagnosis Diagnosis: Pneumonia following short admission for perforated colon during colonoscopy. - Plan Plan: It certainly does not appear that her abdomen is a source of infection. I recommend repeat abdominal exams. I would agree with all excellent hospitalist care thus far. We will follow along with you.
--- NOTE | 2020-12-08 10:11 | XRAY Report ---
PROCEDURE: Chest 1 View X-Ray INDICATIONS: chest pain TECHNIQUE: One view of the chest was acquired. COMPARISON: None available at time of dictation. FINDINGS: Overlying EKG wires. Surgical changes and devices: None. Lungs and pleura: Left greater than right consolidations throughout the lungs worse at the left lung base. No pneumothorax. Small left pleural effusion is not excluded. Mediastinum: Heart size appears normal. Thoracic calcifications within the aortic arch. Bones and chest wall: No suspicious bony lesions. Overlying soft tissues appear unremarkable. IMPRESSION: Bilateral opacities concerning for multifocal pneumonia. Agree with preliminary report. Reviewed by: Titus Dumont DO on 12/08/2020 9:10 AM [facility] Approved by: Titus Dumont DO on 12/08/2020 9:10 AM [facility] Station ID: [id number]
[2020-12-08] MEDS: POTASSIUM CHLOR 10 MEQ/100 ML 10 MEQ/100 ML BAG IV SCH ×4 (10:15→13:56)
[2020-12-08] MEDS: SODIUM CHLORIDE FLUSH 0.9% 10 ML SYRINGE IVP SCH ×2 (10:16→17:00)
--- NOTE | 2020-12-08 10:44 | CT Report ---
PROCEDURE: HEAD WO INDICATIONS: altered LOC TECHNIQUE: Noncontrast 4.5 mm thick angled axial sections acquired from the foramen magnum to the vertex. For r adiation dose reduction, the following was used: automated exposure control, adjustment of mA and/or kV according to patient size. COMPARISON: None. FINDINGS: Image quality: Excellent. CSF spaces: Basal cisterns are patent. No extra-axial fluid collections. Ventricles are normal in size and shape. Brain: No midline shift. No intracranial masses or hemorrhage. Cook-white matter interface is norm al. Skull and face: Calvarium and visualized facial bones are intact, without suspicious lesions. Sinuses: Mild ethmoid sinus mucosal thickening. The paranasal sinuses are otherwise normal. IMPRESSION: No acute intracranial abnormality. Ethmoid sinus disease. Agree with preliminary report. Reviewed by: Titus Dumont DO on 12/08/2020 9:42 AM [facility] Approved by: Titus Dumont DO on 12/08/2020 9:42 AM [facility] Station ID: [id number]
[2020-12-08] MEDS: ENOXAPARIN 30 MG/0.3 ML SYRINGE SUBQ SCH (10:55)
--- NOTE | 2020-12-08 11:11 | CT Report ---
PROCEDURE: CHEST W INDICATIONS: pneumonia CONTRAST: IV CONTRAST: Optiray 320 ml: 100 PO CONTRAST: *NO PO CONTRAST TECHNIQUE: After the administration of intravenous contrast, 5 mm thick sections acquired from the pulmonary api davion to the posterior costophrenic angles. 7 mm thick coronal MIP reformats were acquired. For radia tion dose reduction, the following was used: automated exposure control, adjustment of mA and/or kV according to patient size. COMPARISON: None. FINDINGS: Image quality: Excellent. Lungs and pleura: Central tracheobronchial tree is patent. There are bilateral small pleural effusion s. There is atelectasis and consolidation of the lung bases. Additional groundglass opacities are not ed throughout the rest of the aerated lungs. Mediastinum: Heart size is normal. No pericardial effusion. Mild to moderate multivessel coronary vascular calcifications. No mediastinal or hilar adenopathy by size criteria. Thoracic aorta and danial tral pulmonary arteries are normal in size. Although not tailored for evaluation of pulmonary emboli sm. No central pulmonary embolus is identified. Esophagus is normal in caliber. Small hiatal hernia. Fluid is noted within the distal esophagus. Bones and chest wall: No suspicious bony lesions. No vertebral body compression fractures. No axil kami or supraclavicular adenopathy by size criteria. Thyroid gland unremarkable. Abdomen: Pneumoperitoneum. Please see same day CT abdomen and pelvis report for further findings. IMPRESSION: Findings consistent with multifocal pneumonia. Small bilateral pleural effusions. Pneumoperitoneum. Agree with preliminary report. Reviewed by: Titus Dumont DO on 12/08/2020 10:09 AM [facility] Approved by: Titus Dumont DO on 12/08/2020 10:09 AM [facility] Station ID: [id number]
--- NOTE | 2020-12-08 12:22 | CT Report ---
PROCEDURE: Abdomen/Pelvis W INDICATIONS: abdominal pain CONTRAST: IV CONTRAST: Optiray 320 ml: 100 PO CONTRAST: *NO PO CONTRAST TECHNIQUE: After the administration of nonionic contrast, 5 mm thick sections acquired from the diaphragms to th e symphysis. 5 mm thick coronal and sagittal reformats were acquired. For radiation dose reduction, the following was used: automated exposure control, adjustment of mA and/or kV according to patient size. COMPARISON: Same-day CT chest. FINDINGS: Image quality: Excellent. ABDOMEN: Lung bases: Small pleural effusions with adjacent atelectasis and dense consolidations as well as artur undglass opacities better depicted on same-day CT chest. Multivessel coronary vascular calcifications . Solid organs: Liver and spleen are normal in size and enhancement. Gallbladder unremarkable Biliar y system is non dilated. Pancreas enhances normally. No adrenal nodules. Kidneys demonstrate joaquim l size and enhancement, without hydronephrosis. Peritoneum and bowel: There is a small amount of pneumoperitoneum within the upper abdomen. Small marie unt of layering fluid is noted within the pelvis which measures greater than simple free fluid. Posts urgical changes with ileal ileal anastomosis within the right mid abdomen is intact. The rectosigmoid anastomosis appears intact. There is dense intraluminal contrast within the small bowel within the r ight mid to lower abdomen. There is fluid noted throughout the transverse colon to the level of the s plenic flexure. Nodes and vessels: No retroperitoneal or mesenteric adenopathy by size criteria. Aorta and inferior vena cava are normal in size. Miscellaneous: Postsurgical changes of the anterior abdominal wall including fat-containing ventral h ernia inferior to the umbilicus. Small amount of subcutaneous emphysema is noted within the subcutane ous soft tissues. Marked bilateral gynecomastia. PELVIS: Genitourinary: Bladder wall thickness is normal. Miscellaneous: No inguinal hernias or adenopathy. Bones: No suspicious bony lesions. Degenerative changes of the spine and hips. Unilateral left pars defect of L5. No vertebral body compression fractures. IMPRESSION: Multilobar pneumonia with bilateral small pleural effusions. Pneumoperitoneum with dense layering fluid in the pelvis. Given sequela of recent surgery, the pneumo peritoneum may be within normal limits, however given dense free fluid as well as contrast noted with in the small bowel, this is concerning for bowel perforation. The ileal anastomosis however appears i ntact. Agree with preliminary interpretation. Reviewed by: Titus Dumont DO on 12/08/2020 11:20 AM JOHANNE Approved by: Titus Dumont DO on 12/08/2020 11:20 AM JOHANNE Station ID: [id number]
[2020-12-08 12:32] LABS: ABG PCO2 38 mmHg (34-45); ABG PH 7.37 (7.35-7.45)
[2020-12-08 12:33] LABS: ABG BASE EXCESS -3.4 mmol/L (-2.0-3.0); ABG HCO3 21.5 mmol/L (22.0-26.0); ABG OXYGEN SATURATION 89 % (94-98); ABG TCO2 22.7 MMOL/L (21.0-29.0); ALLEN TEST POSITIVE
[2020-12-08 12:38] LABS: ABG PO2 54 mmHg (80-100)
[2020-12-08] MEDS: metroNIDAZOLE 500 MG/100 ML 500 MG/100 ML BAG IV SCH ×2 (12:52→20:16)
--- NOTE | 2020-12-08 12:57 | PROVIDER PROGRESS NOTE ---
Subjective - General Admit Date: 12/08/20 Procedure Date: 12/05/20 Post Op Days: 3 Procedure Performed: Exploratory lap with repair of perforation Objective - Patient Data Vital Signs: Vital Signs x48h Temp Pulse Pulse Resp BP BP Pulse Ox 12/08/20 11:00 86 17 124/83 H 100 12/08/20 10:55 98 12/08/20 08:27 36.5 C 78 14 95 12/08/20 08:00 83 21 137/72 H 96 12/08/20 07:41 78 14 12/08/20 07:20 36.5 C 96 20 140/72 H 95 12/08/20 06:00 91 14 142/72 H 96 12/08/20 05:00 18 139/82 H 94 Weight: Weight 12/06/20 12/07/20 12/08/20 23:59 23:59 23:59 Weight (kg) 76.657 kg Intake & Output: Intake and Output Totals x24h 12/06/20 12/07/20 12/08/20 23:59 23:59 23:59 Intake Total 905 Balance 905 - Lab Results Lab Results: 12/08/20 04:50 12/08/20 04:50 Other Lab Results: Lab Results x24hrs 12/08/20 12/08/20 12/08/20 Range/Units 12:23 05:30 04:50 WBC (4.8-10.8) x10^3/uL RBC (4.20-5.40) 10^6/uL Hgb (12.0-16.0) g/dL Hct (37.0-47.0) % MCV (81.0-99.0) fL MCH (27.0-31.0) pg MCHC (32.0-36.0) g/dL RDW (12.0-15.0) % Plt Count (130-450) 10^3/uL MPV (7.9-10.8) fL Neut # (Auto) (1.5-6.6) 10^3/uL Lymph # (Auto) (1.5-3.5) 10^3/uL [place] # (Auto) (0.0-1.0) 10^3/uL Eos # (Auto) (0.0-0.7) 10^3/uL Baso # (Auto) (0.0-0.1) 10^3/uL Absolute Nucleated RBC x10^3/uL Nucleated RBC % /100WBC Bld Gas Analysis Time 1228 Sample Site LEFT RADIAL ABG pH 7.37 (7.35-7.45) ABG pCO2 38 (34-45) mmHg ABG pO2 54 L* (80-100) mmHg ABG HCO3 21.5 L (22.0-26.0) mmol/L ABG Total CO2 22.7 (21.0-29.0) MMOL/L ABG O2 Saturation 89 L (94-98) % ABG Base Excess -3.4 L (-2.0-3.0) mmol/L Moses Test POSITIVE VBG pH 7.320 (7.31-7.41) VBG pCO2 42.1 (41-51) mmHg VBG pO2 43.2 (25-47) mmHg VBG HCO3 21.2 L (23-28) mmol/L VBG Total CO2 22.5 L (24-29) mmol/L VBG O2 Saturation 83.8 H (60-80) % VBG Base Excess -4.6 L (-2 - +2) mmol/L O2 Delivery Device NASAL CANNULA O2 Liters/Min 2.00 LPM Sodium (135-145) mmol/L Potassium (3.5-5.0) mmol/L Chloride (101-111) mmol/L Carbon Dioxide (21-32) mmol/L Anion Gap (6-13) BUN (6-20) mg/dL Creatinine (0.4-1.0) mg/dL Estimated GFR (MDRD) (>89) Glucose (70-100) mg/dL Lactic Acid (0.5-2.2) mmol/L Calcium (8.5-10.3) mg/dL Total Bilirubin (0.2-1.0) mg/dL AST (10-42) IU/L ALT (10-60) IU/L Alkaline Phosphatase (42-121) IU/L B-Natriuretic Peptide 89 (5-100) pg/mL Total Protein (6.7-8.2) g/dL Albumin (3.2-5.5) g/dL Globulin (2.1-4.2) g/dL Albumin/Globulin Ratio (1.0-2.2) Lipase (22-51) U/L Nasal Adenovirus (PCR) Nasal B. parapertussis DNA (PCR) Nasal Coronavir 229E PCR Nasal Coronavir HKU1 PCR Nasal Coronavir NL63 PCR Nasal Coronavir OC43 PCR Nasal Enterovir/Rhinovir PCR Nasal Influenza B PCR Nasal Influenza A PCR Nasal Parainfluen 1 PCR Nasal Parainfluen 2 PCR Nasal Parainfluen 3 PCR Nasal Parainfluen 4 PCR Nasal RSV (PCR) Nasal B.pertussis DNA PCR Nasal C.pneumoniae (PCR) Russell Human Metapneumo PCR Nasal M.pneumoniae (PCR) Nasal SARS-CoV-2 (PCR) 12/08/20 12/08/20 12/08/20 Range/Units 04:50 04:50 04:50 WBC 11.1 H (4.8-10.8) x10^3/uL RBC 3.08 L (4.20-5.40) 10^6/uL Hgb 10.1 L (12.0-16.0) g/dL Hct 30.3 L (37.0-47.0) % MCV 98.4 (81.0-99.0) fL MCH 32.8 H (27.0-31.0) pg MCHC 33.3 (32.0-36.0) g/dL RDW 13.9 (12.0-15.0) % Plt Count 143 (130-450) 10^3/uL MPV 9.7 (7.9-10.8) fL Neut # (Auto) 9.9 H (1.5-6.6) 10^3/uL Lymph # (Auto) 0.7 L (1.5-3.5) 10^3/uL [place] # (Auto) 0.3 (0.0-1.0) 10^3/uL Eos # (Auto) 0.0 (0.0-0.7) 10^3/uL Baso # (Auto) 0.0 (0.0-0.1) 10^3/uL Absolute Nucleated RBC 0.00 x10^3/uL Nucleated RBC % 0.0 /100WBC Bld Gas Analysis Time Sample Site ABG pH (7.35-7.45) ABG pCO2 (34-45) mmHg ABG pO2 (80-100) mmHg ABG HCO3 (22.0-26.0) mmol/L ABG Total CO2 (21.0-29.0) MMOL/L ABG O2 Saturation (94-98) % ABG Base Excess (-2.0-3.0) mmol/L Moses Test VBG pH (7.31-7.41) VBG pCO2 (41-51) mmHg VBG pO2 (25-47) mmHg VBG HCO3 (23-28) mmol/L VBG Total CO2 (24-29) mmol/L VBG O2 Saturation (60-80) % VBG Base Excess (-2 - +2) mmol/L O2 Delivery Device O2 Liters/Min LPM Sodium 139 (135-145) mmol/L Potassium 3.3 L (3.5-5.0) mmol/L Chloride 104 (101-111) mmol/L Carbon Dioxide 24 (21-32) mmol/L Anion Gap 11.0 (6-13) BUN 35 H (6-20) mg/dL Creatinine 1.8 H (0.4-1.0) mg/dL Estimated GFR (MDRD) 28 L (>89) Glucose 136 H (70-100) mg/dL Lactic Acid 1.3 (0.5-2.2) mmol/L Calcium 8.5 (8.5-10.3) mg/dL Total Bilirubin 1.7 H (0.2-1.0) mg/dL AST 38 (10-42) IU/L ALT 25 (10-60) IU/L Alkaline Phosphatase 55 (42-121) IU/L B-Natriuretic Peptide (5-100) pg/mL Total Protein 6.2 L (6.7-8.2) g/dL Albumin 3.3 (3.2-5.5) g/dL Globulin 2.9 (2.1-4.2) g/dL Albumin/Globulin Ratio 1.1 (1.0-2.2) Lipase 21 L (22-51) U/L Nasal Adenovirus (PCR) Nasal B. parapertussis DNA (PCR) Nasal Coronavir 229E PCR Nasal Coronavir HKU1 PCR Nasal Coronavir NL63 PCR Nasal Coronavir OC43 PCR Nasal Enterovir/Rhinovir PCR Nasal Influenza B PCR Nasal Influenza A PCR Nasal Parainfluen 1 PCR Nasal Parainfluen 2 PCR Nasal Parainfluen 3 PCR Nasal Parainfluen 4 PCR Nasal RSV (PCR) Nasal B.pertussis DNA PCR Nasal C.pneumoniae (PCR) Russell Human Metapneumo PCR Nasal M.pneumoniae (PCR) Nasal SARS-CoV-2 (PCR) 12/08/20 Range/Units 04:44 WBC (4.8-10.8) x10^3/uL RBC (4.20-5.40) 10^6/uL Hgb (12.0-16.0) g/dL Hct (37.0-47.0) % MCV (81.0-99.0) fL MCH (27.0-31.0) pg MCHC (32.0-36.0) g/dL RDW (12.0-15.0) % Plt Count (130-450) 10^3/uL MPV (7.9-10.8) fL Neut # (Auto) (1.5-6.6) 10^3/uL Lymph # (Auto) (1.5-3.5) 10^3/uL [place] # (Auto) (0.0-1.0) 10^3/uL Eos # (Auto) (0.0-0.7) 10^3/uL Baso # (Auto) (0.0-0.1) 10^3/uL Absolute Nucleated RBC x10^3/uL Nucleated RBC % /100WBC Bld Gas Analysis Time Sample Site ABG pH (7.35-7.45) ABG pCO2 (34-45) mmHg ABG pO2 (80-100) mmHg ABG HCO3 (22.0-26.0) mmol/L ABG Total CO2 (21.0-29.0) MMOL/L ABG O2 Saturation (94-98) % ABG Base Excess (-2.0-3.0) mmol/L Moses Test VBG pH (7.31-7.41) VBG pCO2 (41-51) mmHg VBG pO2 (25-47) mmHg VBG HCO3 (23-28) mmol/L VBG Total CO2 (24-29) mmol/L VBG O2 Saturation (60-80) % VBG Base Excess (-2 - +2) mmol/L O2 Delivery Device O2 Liters/Min LPM Sodium (135-145) mmol/L Potassium (3.5-5.0) mmol/L Chloride (101-111) mmol/L Carbon Dioxide (21-32) mmol/L Anion Gap (6-13) BUN (6-20) mg/dL Creatinine (0.4-1.0) mg/dL Estimated GFR (MDRD) (>89) Glucose (70-100) mg/dL Lactic Acid (0.5-2.2) mmol/L Calcium (8.5-10.3) mg/dL Total Bilirubin (0.2-1.0) mg/dL AST (10-42) IU/L ALT (10-60) IU/L Alkaline Phosphatase (42-121) IU/L B-Natriuretic Peptide (5-100) pg/mL Total Protein (6.7-8.2) g/dL Albumin (3.2-5.5) g/dL Globulin (2.1-4.2) g/dL Albumin/Globulin Ratio (1.0-2.2) Lipase (22-51) U/L Nasal Adenovirus (PCR) NOT DETECTED Nasal B. parapertussis DNA (PCR) NOT DETECTED Nasal Coronavir 229E PCR NOT DETECTED Nasal Coronavir HKU1 PCR NOT DETECTED Nasal Coronavir NL63 PCR NOT DETECTED Nasal Coronavir OC43 PCR NOT DETECTED Nasal Enterovir/Rhinovir PCR NOT DETECTED Nasal Influenza B PCR NOT DETECTED Nasal Influenza A PCR NOT DETECTED Nasal Parainfluen 1 PCR NOT DETECTED Nasal Parainfluen 2 PCR NOT DETECTED Nasal Parainfluen 3 PCR NOT DETECTED Nasal Parainfluen 4 PCR NOT DETECTED Nasal RSV (PCR) NOT DETECTED Nasal B.pertussis DNA PCR NOT DETECTED Nasal C.pneumoniae (PCR) NOT DETECTED Russell Human Metapneumo PCR NOT DETECTED Nasal M.pneumoniae (PCR) NOT DETECTED Nasal SARS-CoV-2 (PCR) NOT DETECTED - Current Medications Current Medications: Current Medications Generic Name Dose Route Start Last Admin Trade Name Freq PRN Reason Stop Dose Admin Albuterol 2.5 mg 12/08/20 08:00 12/08/20 11:28 Albuterol Neb 2.5 Mg/3 Ml INH 12/09/20 07:59 2.5 mg Q4H MICHELLE Administration Enoxaparin Sodium 30 mg 12/08/20 09:00 12/08/20 10:55 Enoxaparin 30 Mg/0.3 Ml Syringe SUBQ 30 mg DAILY MICHELLE Administration Lactated Ringer's 1,000 mls @ 100 mls/hr 12/08/20 06:00 12/08/20 08:19 Lr IV 100 mls/hr .Q10H MICHELLE Administration Metronidazole 500 mg in 100 mls @ 100 mls/hr 12/08/20 13:00 12/08/20 12:52 Flagyl 500 Mg/100 Ml IV 100 mls/hr Q8H MICHELLE Administration Potassium Chloride 10 meq in 100 mls @ 100 mls/hr 12/08/20 09:00 12/08/20 1 2:27 Potassium Chloride IV 12/08/20 12:59 100 mls/hr Q1H MICHELLE Administration Saccharomyces Boulardii 250 mg 12/08/20 08:00 12/08/20 08:20 Saccharomyces Boulardii 250 Mg Capsule PO Not Given BIDWM MICHELLE Sodium Chloride 10 ml 12/08/20 09:00 12/08/20 10:16 Sodium Chloride Flush 0.9% 10 Ml Syringe IVP 10 ml 0100,0900,1700 MICHELLE Administration - Physical Exam Abdomen: positive: Other (soft, wound clean and dry. Bowel sounds present) Comments/Other: Patient reports abdominal pain but denies nausea. Some burping noted. Impression/Plan - Problem List Problem List: Will add hydromorphone for pain control as well as tylenol Iv and protonix
[2020-12-08] MEDS: ACETAMINOPHEN 1,000 MG/100 ML 100 ML IV SCH ×2 (14:05→18:47)
[2020-12-08] MEDS: PANTOPRAZOLE 40 MG VIAL IVP SCH (14:17)
[2020-12-08 14:47] LABS: BILIRUBIN,URINE NEGATIVE (NEGATIVE); GLUCOSE, URINE (UA) NEGATIVE (NEGATIVE); KETONES,URINE (UA) NEGATIVE (NEGATIVE); LEUKOCYTE ESTERASE, URINE NEGATIVE (NEGATIVE); NITRITE,URINE NEGATIVE (NEGATIVE); OCCULT BLOOD,URINE MODERATE (NEGATIVE); PH,URINE 5.5 PH (5.0-7.5); PROTEIN,URINE 30 mg/dL (NEGATIVE); UROBILINOGEN,URINE 0.2 (NORMAL) E.U./dL (NORMAL)
[2020-12-08 14:48] LABS: CLARITY,URINE CLOUDY (CLEAR)
[2020-12-08 14:54] LABS: BACTERIA,URINE Few /HPF (None Seen); RBC,URINE 0-5 /HPF (0-5); SQUAMOUS EPITHELIAL CELL,UR FEW Squamous (<= Few)
[2020-12-08 15:23] LABS: CALCIUM 7.9 mg/dL (8.5-10.3)
[2020-12-08] MEDS: CEFEPIME 1 GM in SODIUM CHLORIDE 0.9% MINIBAG 100 ML IV SCH (17:00)
[2020-12-08] MEDS: SODIUM CHLORIDE FLUSH 0.9% 10 ML SYRINGE IVP PRN (17:23)
[2020-12-08] MEDS: ONDANSETRON 4 MG/2 ML VIAL IVP PRN (17:23)
[2020-12-09] MEDS: ACETAMINOPHEN 1,000 MG/100 ML 100 ML IV SCH ×4 (00:18→18:56)
[2020-12-09] MEDS: ALBUTEROL NEB 2.5 MG/3 ML INH SCH ×5 (00:32→19:40)
[2020-12-09] MEDS: SODIUM CHLORIDE FLUSH 0.9% 10 ML SYRINGE IVP SCH ×3 (03:23→16:50)
[2020-12-09] MEDS: metroNIDAZOLE 500 MG/100 ML 500 MG/100 ML BAG IV SCH (04:54)
[2020-12-09] MEDS ORDERED: CEFEPIME 2 GM in SODIUM CHLORIDE 0.9% MINIBAG 100 ML IV SCH (05:00)
[2020-12-09 05:19] LABS: BASOPHILS % (AUTO) 0.3 %; EOSINOPHILS # (AUTO) 0.1 10^3/uL (0.0-0.7); EOSINOPHILS % (AUTO) 1.2 %; LYMPHOCYTES # (AUTO) 0.6 10^3/uL (1.5-3.5); LYMPHOCYTES % (AUTO) 5.6 %; MEAN CORPUSCULAR HEMOGLOBIN 32.8 pg (27.0-31.0); MEAN CORPUSCULAR HGB CONC 33.3 g/dL (32.0-36.0); MEAN CORPUSCULAR VOLUME 98.5 fL (81.0-99.0); MONOCYTES # (AUTO) 0.4 10^3/uL (0.0-1.0); MONOCYTES % (AUTO) 3.8 %; NEUTROPHILS % (AUTO) 88.6 %; PLT - PLATELET COUNT 146 10^3/uL (130-450); RED BLOOD COUNT 2.74 10^6/uL (4.20-5.40); RED CELL DISTRIBUTION WIDTH 13.8 % (12.0-15.0); WHITE BLOOD COUNT 10.2 x10^3/uL (4.8-10.8)
[2020-12-09 05:30] LABS: CALCIUM 8.2 mg/dL (8.5-10.3); CREATININE 0.8 mg/dL (0.4-1.0)
[2020-12-09] MEDS: CEFEPIME 1 GM in SODIUM CHLORIDE 0.9% MINIBAG 100 ML IV SCH (06:33)
[2020-12-09] MEDS: PANTOPRAZOLE 40 MG VIAL IVP SCH (06:35)
[2020-12-09] MEDS ORDERED: ALBUTEROL NEB 2.5 MG/3 ML INH STA (08:54)
[2020-12-09] MEDS ORDERED: VANCOMYCIN INJ 1 GM in SODIUM CHLORIDE 0.9% 250 ML IV SCH ×2 (09:00→17:00)
--- NOTE | 2020-12-09 10:37 | PROVIDER PROGRESS NOTE ---
Subjective - Prog Note Date Prog Note Date: 12/09/20 - Subjective Subjective: She is more awake today. Feels tired and short of breath. Has a cough. Denies abdominal pain. Current Medications - Current Medications Current Medications: Active Medications Albuterol (Albuterol Neb 2.5 Mg/3 Ml) 2.5 mg INH Q4HR [facility] Enoxaparin Sodium (Enoxaparin 30 Mg/0.3 Ml Syringe) 30 mg SUBQ DAILY [facility] Last Admin: 12/08/20 10:55 Dose: 30 mg Documented by: Hydromorphone HCl (Hydromorphone 0.5 Mg/0.5 Ml Syringe) 0.5 mg IVP Q2H PRN PRN Reason: Breakthrough Pain Lactated Ringer's (Lr) 1,000 mls @ 100 mls/hr IV .Q10H [facility] Last Infusion: 12/09/20 05:30 Dose: 0 mls/hr Documented by: Metronidazole (Flagyl 500 Mg/100 Ml) 500 mg in 100 mls @ 100 mls/hr IV Q8H [facility] Last Infusion: 12/09/20 06:05 Dose: Infused Documented by: Cefepime HCl 1 gm/ Sodium (Chloride) 100 mls @ 200 mls/hr IV Q12H [facility] Last Admin: 12/09/20 06:33 Dose: 200 mls/hr Documented by: Acetaminophen (Ofirmev) 100 mls @ 400 mls/hr IV Q6H [facility] Last Admin: 12/09/20 07:07 Dose: 400 mls/hr Documented by: Vancomycin HCl 1 gm/Vancomycin HCl 500 mg/ Sodium Chloride 500 mls @ 250 mls/hr IV Q24H [facility] Ondansetron HCl (Ondansetron Odt 4 Mg Tablet) 4 mg TL Q6HR PRN PRN Reason: Nausea / Vomiting Ondansetron HCl (Ondansetron 4 Mg/2 Ml Vial) 4 mg IVP Q6HR PRN PRN Reason: Nausea / Vomiting Last Admin: 12/08/20 17:23 Dose: 4 mg Documented by: Oxycodone HCl (Oxycodone 5 Mg Tablet) 5 mg PO Q4HR PRN PRN Reason: Pain 5 to 7 Pantoprazole Sodium (Pantoprazole 40 Mg Vial) 40 mg IVP QDAC [facility] Last Admin: 12/09/20 06:35 Dose: 40 mg Documented by: Saccharomyces Boulardii (Saccharomyces Boulardii 250 Mg Capsule) 250 mg PO BIDWM [facility] Last Admin: 12/08/20 19:44 Dose: Not Given Documented by: Sodium Chloride (Sodium Chloride Flush 0.9% 10 Ml Syringe) 10 ml IVP PRN PRN PRN Reason: NEEDED PER PROVIDER ORDERS Last Admin: 12/08/20 17:23 Dose: 10 ml Documented by: Sodium Chloride (Sodium Chloride Flush 0.9% 10 Ml Syringe) 10 ml IVP 0100,0900,1700 [facility] Last Admin: 12/09/20 03:23 Dose: Not Given Documented by: Losartan [Cozaar] 25 mg PO BID 06/13/13 Pantoprazole [Protonix] 40 mg PO QPM 03/17/16 Atorvastatin Calcium 20 mg PO QPM 04/19/17 Carbamazepine [Carbamazepine ER] 400 mg PO BID 04/19/17 Imatinib Mesylate [Gleevec] 400 mg PO 1730 04/19/17 Calcium Carbonate/Vitamin D3 [Calcium 600-Vit D3 400 Tablet] 2 tab PO QPM 09/28/17 Cholecalciferol (Vitamin D3) [Vitamin D3] 1,000 units PO BID 09/28/17 Multivitamin [Theragran] 1 tab PO DAILY 09/28/17 Levothyroxine [Synthroid] 88 mcg PO SUMOTUWETHFR 11/23/17 Cyanocobalamin (Vitamin B-12) [Vitamin B-12] 1,000 mcg PO DAILY 12/04/20 Lactobacillus Acidophilus [Probiotic Acidophilus] 1 each PO DAILY 12/04/20 Imatinib Mesylate [Gleevec] 200 mg PO QDBREAKFAST 12/08/20 Objective - Vital Signs/Intake & Output Reviewed Vital Signs: Yes Vital Signs: Vital Signs x48h Temp Pulse Pulse Resp BP Pulse Ox 12/09/20 09:33 96 18 12/09/20 09:00 36.7 C 100 22 170/79 H 90 L 12/09/20 05:00 36.5 C 100 22 180/74 H 90 L Intake & Output: Intake & Output 12/06/20 12/07/20 12/08/20 12/09/20 23:59 23:59 23:59 23:59 Intake Total 2606.667 1021.667 Output Total 55 Balance 2551.667 1021.667 - Objective General Appearance: positive: Mild distress, Lethargic Eyes Bilateral: positive: Normal inspection, Conjunctivae nml ENT: positive: ENT inspection nml, Other (Nasal cannula in place.) Neck: positive: Nml inspection Respiratory: positive: No respiratory distress, Other (He is slightly tachypneic. Rhonchi throughout both lung acevedo. Faint expiratory wheezes) Cardiovascular: positive: Tachycardia. negative: Irregularly irregular, Systolic murmur Abdomen: positive: Non-tender, No distention, Other (Dressing is in place.). negative: Tenderness Skin: positive: Warm, Dry Extremities: positive: No pedal edema Neurologic/Psychiatric: negative: Disoriented to person, Disoriented to place - Lab Results Fish Bones: 12/09/20 05:10 12/09/20 05:10 Other Labs: Lab Results x24hrs 12/09/20 12/09/20 12/08/20 Range/Units 05:10 05:10 15:05 WBC 10.2 (4.8-10.8) x10^3/uL RBC 2.74 L (4.20-5.40) 10^6/uL Hgb 9.0 L (12.0-16.0) g/dL Hct 27.0 L (37.0-47.0) % MCV 98.5 (81.0-99.0) fL MCH 32.8 H (27.0-31.0) pg MCHC 33.3 (32.0-36.0) g/dL RDW 13.8 (12.0-15.0) % Plt Count 146 (130-450) 10^3/uL MPV 9.0 (7.9-10.8) fL Neut # (Auto) 9.0 H (1.5-6.6) 10^3/uL Lymph # (Auto) 0.6 L (1.5-3.5) 10^3/uL [place] # (Auto) 0.4 (0.0-1.0) 10^3/uL Eos # (Auto) 0.1 (0.0-0.7) 10^3/uL Baso # (Auto) 0.0 (0.0-0.1) 10^3/uL Absolute Nucleated RBC 0.00 x10^3/uL Nucleated RBC % 0.0 /100WBC Bld Gas Analysis Time Sample Site ABG pH (7.35-7.45) ABG pCO2 (34-45) mmHg ABG pO2 (80-100) mmHg ABG HCO3 (22.0-26.0) mmol/L ABG Total CO2 (21.0-29.0) MMOL/L ABG O2 Saturation (94-98) % ABG Base Excess (-2.0-3.0) mmol/L Moses Test O2 Delivery Device O2 Liters/Min LPM Sodium 142 140 (135-145) mmol/L Potassium 3.3 L 3.8 (3.5-5.0) mmol/L Chloride 112 H 108 (101-111) mmol/L Carbon Dioxide 23 20 L (21-32) mmol/L Anion Gap 7.0 12.0 (6-13) BUN 21 H 26 H (6-20) mg/dL Creatinine 0.8 1.0 (0.4-1.0) mg/dL Estimated GFR (MDRD) 70 L 54 L (>89) Glucose 133 H 141 H (70-100) mg/dL Lactic Acid (0.5-2.2) mmol/L Calcium 8.2 L 7.9 L (8.5-10.3) mg/dL Ammonia (7-35) umol/L Urine Color Urine Clarity (CLEAR) Urine pH (5.0-7.5) PH Ur Specific [place] (1.002-1.030) Urine Protein (NEGATIVE) mg/dL Urine Glucose (UA) (NEGATIVE) mg/dL Urine Ketones (NEGATIVE) mg/dL Urine Occult Blood (NEGATIVE) Urine Nitrite (NEGATIVE) Urine Bilirubin (NEGATIVE) Urine Urobilinogen (NORMAL) E.U./dL Ur Leukocyte Esterase (NEGATIVE) Urine RBC (0-5) /HPF Urine WBC (0-5) /HPF Ur Squamous Epith Cells (<= Few) Urine Bacteria (None Seen) /HPF Ur Microscopic Review Urine Culture Comments 12/08/20 12/08/20 12/08/20 Range/Units 15:05 14:42 12:38 WBC (4.8-10.8) x10^3/uL RBC (4.20-5.40) 10^6/uL Hgb (12.0-16.0) g/dL Hct (37.0-47.0) % MCV (81.0-99.0) fL MCH (27.0-31.0) pg MCHC (32.0-36.0) g/dL RDW (12.0-15.0) % Plt Count (130-450) 10^3/uL MPV (7.9-10.8) fL Neut # (Auto) (1.5-6.6) 10^3/uL Lymph # (Auto) (1.5-3.5) 10^3/uL [place] # (Auto) (0.0-1.0) 10^3/uL Eos # (Auto) (0.0-0.7) 10^3/uL Baso # (Auto) (0.0-0.1) 10^3/uL Absolute Nucleated RBC x10^3/uL Nucleated RBC % /100WBC Bld Gas Analysis Time Sample Site ABG pH (7.35-7.45) ABG pCO2 (34-45) mmHg ABG pO2 (80-100) mmHg ABG HCO3 (22.0-26.0) mmol/L ABG Total CO2 (21.0-29.0) MMOL/L ABG O2 Saturation (94-98) % ABG Base Excess (-2.0-3.0) mmol/L Moses Test O2 Delivery Device O2 Liters/Min LPM Sodium (135-145) mmol/L Potassium (3.5-5.0) mmol/L Chloride (101-111) mmol/L Carbon Dioxide (21-32) mmol/L Anion Gap (6-13) BUN (6-20) mg/dL Creatinine (0.4-1.0) mg/dL Estimated GFR (MDRD) (>89) Glucose (70-100) mg/dL Lactic Acid 1.5 (0.5-2.2) mmol/L Calcium (8.5-10.3) mg/dL Ammonia < 10.0 (7-35) umol/L Urine Color YELLOW Urine Clarity CLOUDY (CLEAR) Urine pH 5.5 (5.0-7.5) PH Ur Specific [place] 1.020 (1.002-1.030) Urine Protein 30 H (NEGATIVE) mg/dL Urine Glucose (UA) NEGATIVE (NEGATIVE) mg/dL Urine Ketones NEGATIVE (NEGATIVE) mg/dL Urine Occult Blood MODERATE H (NEGATIVE) Urine Nitrite NEGATIVE (NEGATIVE) Urine Bilirubin NEGATIVE (NEGATIVE) Urine Urobilinogen 0.2 (NORMAL) (NORMAL) E.U./dL Ur Leukocyte Esterase NEGATIVE (NEGATIVE) Urine RBC 0-5 (0-5) /HPF Urine WBC 0-3 (0-5) /HPF Ur Squamous Epith Cells FEW Squamous (<= Few) Urine Bacteria Few (None Seen) /HPF Ur Microscopic Review INDICATED Urine Culture Comments NOT INDICATED 12/08/20 Range/Units 12:23 WBC (4.8-10.8) x10^3/uL RBC (4.20-5.40) 10^6/uL Hgb (12.0-16.0) g/dL Hct (37.0-47.0) % MCV (81.0-99.0) fL MCH (27.0-31.0) pg MCHC (32.0-36.0) g/dL RDW (12.0-15.0) % Plt Count (130-450) 10^3/uL MPV (7.9-10.8) fL Neut # (Auto) (1.5-6.6) 10^3/uL Lymph # (Auto) (1.5-3.5) 10^3/uL [place] # (Auto) (0.0-1.0) 10^3/uL Eos # (Auto) (0.0-0.7) 10^3/uL Baso # (Auto) (0.0-0.1) 10^3/uL Absolute Nucleated RBC x10^3/uL Nucleated RBC % /100WBC Bld Gas Analysis Time 1228 Sample Site LEFT RADIAL ABG pH 7.37 (7.35-7.45) ABG pCO2 38 (34-45) mmHg ABG pO2 54 L* (80-100) mmHg ABG HCO3 21.5 L (22.0-26.0) mmol/L ABG Total CO2 22.7 (21.0-29.0) MMOL/L ABG O2 Saturation 89 L (94-98) % ABG Base Excess -3.4 L (-2.0-3.0) mmol/L Moses Test POSITIVE O2 Delivery Device NASAL CANNULA O2 Liters/Min 2.00 LPM Sodium (135-145) mmol/L Potassium (3.5-5.0) mmol/L Chloride (101-111) mmol/L Carbon Dioxide (21-32) mmol/L Anion Gap (6-13) BUN (6-20) mg/dL Creatinine (0.4-1.0) mg/dL Estimated GFR (MDRD) (>89) Glucose (70-100) mg/dL Lactic Acid (0.5-2.2) mmol/L Calcium (8.5-10.3) mg/dL Ammonia (7-35) umol/L Urine Color Urine Clarity (CLEAR) Urine pH (5.0-7.5) PH Ur Specific [place] (1.002-1.030) Urine Protein (NEGATIVE) mg/dL Urine Glucose (UA) (NEGATIVE) mg/dL Urine Ketones (NEGATIVE) mg/dL Urine Occult Blood (NEGATIVE) Urine Nitrite (NEGATIVE) Urine Bilirubin (NEGATIVE) Urine Urobilinogen (NORMAL) E.U./dL Ur Leukocyte Esterase (NEGATIVE) Urine RBC (0-5) /HPF Urine WBC (0-5) /HPF Ur Squamous Epith Cells (<= Few) Urine Bacteria (None Seen) /HPF Ur Microscopic Review Urine Culture Comments ABX Reporting Has patient been on IV antibiotics over the past 48 hours?: Yes Sepsis Event Note (H) - Evaluation Current Stage of Sepsis: Severe sepsis Possible source of Sepsis: positive: Pulmonary - Sepsis Criteria Sepsis Criteria: Recorded Heart Rate greater than 90 bpm, Recorded Respiratory Rate greater than 20, TACTICAL DEBRIEFER: altered consciousness (unrelated to primary neuro pathology), Renal: urine output less than 0.5ml/kg/hr for 2 hours or creatinine gr Assessment/Plan - Problem List (1) Severe sepsis Impression: This is secondary to the hospital-acquired pneumonia. She presented with altered mental status, renal failure, lactic acidosis, leukocytosis. She is improving. Has been on vancomycin, cefepime, Flagyl. We will switch her to Zosyn and vancomycin IV alone. Daily CBC. Follow-up blood cultures. (2) Hospital-acquired pneumonia Impression: This is the suspected source of her severe sepsis. This was evident on chest x- ray and CT of the chest. She has been on vancomycin, cefepime, Flagyl IV. There was concern for possible aspiration and so we will keep her on just Zosyn and vancomycin IV with today being day 2. She appears to be clinically improving. She does remain on oxygen at this time we will look to wean this over the next few days to a goal saturation over 92%. (3) Altered mental status Impression: This is secondary to her severe sepsis and infection. She is improving. CT the head was unremarkable. We will continue to treat underlying infection. Avoid sedatives. Qualifiers: Altered mental status type: stupor Qualified Code(s): R40.1 - Stupor (4) Acute kidney injury Impression: This is improved and nearly resolved. Her creatinine has come down nicely with IV fluids. We will continue to hold her olmesartan at this time. Continue with gentle IV hydration. (5) Large bowel perforation Impression: She just had a large bowel perforation after colonoscopy. Her abdominal exam is benign and although CT the abdomen and pelvis reveals pneumoperitoneum, this is likely due to recent surgical intervention. We will continue to monitor closely. Appreciate general surgery input. (6) CML (chronic myelocytic leukemia) Impression: Stable. We will resume Gleevec when appropriate. (7) Hypothyroidism Impression: We will resume her home Synthroid.
[2020-12-09] MEDS: LACTATED RINGERS 1,000 ML IV SCH ×3 (11:38→22:44)
[2020-12-09] MEDS: SACCHAROMYCES BOULARDII 250 MG CAPSULE PO SCH ×2 (11:42→16:42)
[2020-12-09] MEDS: LEVOTHYROXINE 88 MCG TABLET PO SCH (11:42)
[2020-12-09] MEDS: VANCOMYCIN INJ 1 GM, VANCOMYCIN INJ 500 MG in SODIUM CHLORIDE 0.9% 500 ML IV SCH (11:42)
[2020-12-09] MEDS: ENOXAPARIN 30 MG/0.3 ML SYRINGE SUBQ SCH (11:42)
[2020-12-09] MEDS ORDERED: PIPERACILLIN/TAZOBACTAM 3.375 GM in SODIUM CHLORIDE 0.9% MINIBAG 100 ML IV SCH (15:00)
[2020-12-09] MEDS: oxyCODONE 5 MG TABLET PO PRN (16:32)
[2020-12-09] MEDS: HYDROmorphone 0.5 MG/0.5 ML SYRINGE IVP PRN (18:59)
[2020-12-09] MEDS: ONDANSETRON 4 MG/2 ML VIAL IVP PRN (19:09)
[2020-12-09] MEDS: PIPERACILLIN/TAZOBACTAM 3.375 GM in SODIUM CHLORIDE 0.9% MINIBAG 100 ML IV SCH (19:10)
--- NOTE | 2020-12-09 19:33 | PROVIDER PROGRESS NOTE ---
Progress Note Subjective No bowel movement. No flatus. Persistent respiratory difficulty/dyspnea. Nausea. No emesis. In brief 75-year-old female status post colonoscopy complicated by perforation necessitating laparoscopic converted to open repair of defect. Readmitted with bilateral pneumonia. Objective General Appearance: positive: No acute distress Eyes Bilateral: positive: Normal inspection ENT: positive: ENT inspection nml Neck: positive: Nml inspection Respiratory: positive: Chest non-tender, No respiratory distress, Breath sounds nml. negative: Wheezes, Rales, Rhonchi Cardiovascular: positive: Regular rate & rhythm Abdomen: positive: mild distention, Other. negative: Guarding, Rebound; Wound dressed, clean dry and intact. Extremities: positive: Non-tender, Full ROM, Nml appearance Neurologic/Psychiatric: positive: Oriented x3, CN's nml (2-12) Impression/Plan Postop day #4 status post laparotomy converted from laparoscopy for evaluation of a colonoscopic perforation. Continues with antibiotics for bilateral pneumonia. (1) GI - IVF, bowel regimen, advance diet as tolerated. GI ppx. Opiate sparring analgesia. (2) SURGERY - Continue local wound care. (3) Renal/Lytes - continue IVF. Renal indices stable. (4) Respiratory - O2 as necessary. Continue IS. (5) Heme - Will continue with DVT ppx. H/H stable. (6) Cardiovascular - HD acceptable. (7) Neuro - Opiate sparring analgesia. Antispasmodics with Robaxin. Neuropathic agents.
[2020-12-09] MEDS ORDERED: POTASSIUM CHLORIDE 20 MEQ TABLET PO ONE (19:55)
[2020-12-09] MEDS: guaiFENesin 600 MG TABLET PO SCH (20:31)
[2020-12-09] MEDS: DOCUSATE SODIUM 250 MG CAPSULE PO SCH (20:40)
[2020-12-10] MEDS: ACETAMINOPHEN 1,000 MG/100 ML 100 ML IV SCH ×2 (00:55→06:34)
[2020-12-10] MEDS: SODIUM CHLORIDE FLUSH 0.9% 10 ML SYRINGE IVP SCH ×4 (00:55→23:34)
[2020-12-10] MEDS: PIPERACILLIN/TAZOBACTAM 3.375 GM in SODIUM CHLORIDE 0.9% MINIBAG 100 ML IV SCH ×3 (03:01→19:37)
[2020-12-10] MEDS: BENZOCAINE/MENTHOL LOZENGE MM PRN (03:22)
[2020-12-10] MEDS: oxyCODONE 5 MG TABLET PO PRN ×2 (03:22→13:55)
[2020-12-10 05:00] LABS: BASOPHILS % (AUTO) 0.2 %; EOSINOPHILS % (AUTO) 0.4 %; HGB - HEMOGLOBIN 8.9 g/dL (12.0-16.0); LYMPHOCYTES # (AUTO) 0.8 10^3/uL (1.5-3.5); LYMPHOCYTES % (AUTO) 8.9 %; MEAN CORPUSCULAR HEMOGLOBIN 32.5 pg (27.0-31.0); MEAN CORPUSCULAR VOLUME 98.5 fL (81.0-99.0); MONOCYTES # (AUTO) 0.6 10^3/uL (0.0-1.0); NEUTROPHILS # (AUTO) 7.3 10^3/uL (1.5-6.6); NEUTROPHILS % (AUTO) 82.5 %; PLT - PLATELET COUNT 145 10^3/uL (130-450); RED BLOOD COUNT 2.74 10^6/uL (4.20-5.40); RED CELL DISTRIBUTION WIDTH 14.2 % (12.0-15.0); WHITE BLOOD COUNT 8.9 x10^3/uL (4.8-10.8)
[2020-12-10 05:09] LABS: CALCIUM 8.3 mg/dL (8.5-10.3); CREATININE 0.8 mg/dL (0.4-1.0)
[2020-12-10] MEDS: PANTOPRAZOLE 40 MG VIAL IVP SCH (06:34)
[2020-12-10] MEDS: SODIUM CHLORIDE FLUSH 0.9% 10 ML SYRINGE IVP PRN ×2 (06:34→11:10)
[2020-12-10] MEDS: ALBUTEROL NEB 2.5 MG/3 ML INH SCH ×4 (07:30→20:26)
--- NOTE | 2020-12-10 08:23 | PROVIDER PROGRESS NOTE ---
Assessment/Plan - Problem List (1) Hospital-acquired pneumonia Assessment/Plan: This is the suspected source of her severe sepsis. This was evident on chest x- ray and CT of the chest. She had been on vancomycin, cefepime, Flagyl IV. There was concern for possible aspiration and so she was changed to just Zosyn and vancomycin IV with today being day 3. She appears to be clinically improving. She does remain on oxygen at this time we will look to wean this over the next few days to a goal saturation over 92%. (2) Large bowel perforation She had a large bowel perforation after colonoscopy 5 days ago. Her abdominal exam is benign and although CT the abdomen and pelvis revealed pneumoperitoneum, this was likely due to recent surgical intervention. Will start to advance her diet from clear liquids to pureed. She is tolerating po meds; will resume some of her home meds at this time Appreciate general surgery following along with us. (3) CML (chronic myelocytic leukemia) Stable. We will resume Gleevec when appropriate. (4) Hypothyroidism We resumed her home po Synthroid dose. (5) HTN BP was normal until today, when BP mariola to 170 systolic. Will resume her home dose of Olmesartan at this time. (6) Anemia Hgb was 10 at admission, 9 yesterday and is 8.9 today. This is presumably from CML plus hemodilution and there may have been blood loss with the recent abdominal surgery. Will follow CBC daily, transfuse if under 7. Will check Iron stores, B12 and Folate levels and replace if low. (7) Severe sepsis Resolved, it was secondary to the hospital-acquired pneumonia. She presented with altered mental status, renal failure, lactic acidosis, leukocytosis. These have all improved. (8) Altered mental status Resolved. This was secondary to her severe sepsis and infection. She is improving. CT the head was unremarkable. We will continue to treat underlying infection. Avoid sedatives. (9) Acute kidney injury Resolved. Her creatinine has come down nicely with IV fluids. Continue with gentle IV hydration. - Current Meds Current Meds: Current Medications Generic Name Dose Route Start Last Admin Trade Name Freq PRN Reason Stop Dose Admin Albuterol 2.5 mg 12/09/20 11:00 12/10/20 07:30 Albuterol Neb 2.5 Mg/3 Ml INH 2.5 mg RTQ4H MICHELLE Administration Docusate Sodium 250 - 500 mg 12/09/20 21:00 12/09/20 20:40 Docusate Sodium 250 Mg Capsule PO 250 mg DAILY MICHELLE Administration Enoxaparin Sodium 30 mg 12/08/20 09:00 12/09/20 11:42 Enoxaparin 30 Mg/0.3 Ml Syringe SUBQ 30 mg DAILY MICHELLE Administration Guaifenesin 600 mg 12/09/20 21:00 12/09/20 20:31 Guaifenesin 600 Mg Tablet PO 600 mg BID MICHELLE Administration Hydromorphone HCl 0.5 mg 12/08/20 12:55 12/09/20 18:59 Hydromorphone 0.5 Mg/0.5 Ml Syringe IVP 0.5 mg Q2H PRN Administration Breakthrough Pain Lactated Ringer's 1,000 mls @ 100 mls/hr 12/08/20 06:00 12/09/20 22:44 Lr IV 100 mls/hr .Q10H MICHELLE Administration Acetaminophen 100 mls @ 400 mls/hr 12/08/20 13:00 12/10/20 06:59 Ofirmev IV Infused Q6H MICHELLE Infusion Vancomycin HCl 1 gm/ 500 mls @ 250 mls/hr 12/09/20 11:00 12/09/20 14:33 Vancomycin HCl 500 mg/ Sodium IV Infused Chloride Q24H MICHELLE Infusion Piperacillin Sod/Tazobactam 100 mls @ 25 mls/hr 12/09/20 19:00 12/10/20 07:03 Sod 3.375 gm/ Sodium Chloride IV Infused Q8H MICHELLE Infusion Levothyroxine Sodium 88 mcg 12/09/20 11:00 12/09/20 11:42 Levothyroxine 88 Mcg Tablet PO 88 mcg SUMOTUWETHFR MICHELLE Administration Ondansetron HCl 4 mg 12/08/20 05:44 12/09/20 19:09 Ondansetron 4 Mg/2 Ml Vial IVP 4 mg Q6HR PRN Administration Nausea / Vomiting Oxycodone HCl 5 mg 12/08/20 05:44 12/10/20 03:22 Oxycodone 5 Mg Tablet PO 5 mg Q4HR PRN Administration Pain 5 to 7 Pantoprazole Sodium 40 mg 12/08/20 13:00 12/10/20 06:34 Pantoprazole 40 Mg Vial IVP 40 mg QDAC MICHELLE Administration Imatinib Mesylate [ 1 each 12/09/20 17:30 12/09/20 17:29 Gleevec] 400 Mg PO 1 each Tablet 1730 MICHELLE Administration Saccharomyces Boulardii 250 mg 12/08/20 08:00 12/09/20 16:42 Saccharomyces Boulardii 250 Mg Capsule PO 250 mg BIDWM MICHELLE Administration Sodium Chloride 10 ml 12/08/20 05:44 12/10/20 06:34 Sodium Chloride Flush 0.9% 10 Ml Syringe IVP 10 ml PRN PRN Administration NEEDED PER PROVIDER ORDERS Sodium Chloride 10 ml 12/08/20 09:00 12/10/20 00:55 Sodium Chloride Flush 0.9% 10 Ml Syringe IVP 10 ml 0100,0900,1700 MICHELLE Administration Throat Lozenges 1 lozenge 12/10/20 03:03 12/10/20 03:22 Benzocaine/Menthol Lozenge MM 1 lozenge Q2HR PRN Administration Throat pain - Lab Result Fish Bone Diagrams: 12/10/20 04:45 12/10/20 04:45 - Additional Planning My Orders: My Active Orders 12/10/20 Lunch Dysphagia Puree Diet [DIET] Subjective - Subjective Patient Reports: Feeling Better, Resting Comfortably, No Complaints Objective Vital Signs: Vital Signs - 24 hr 12/09/20 12/09/20 12/09/20 09:00 09:33 12:00 Temperature 36.7 C 36.9 C Heart Rate 96 Heart Rate [ 100 99 Brachial] Respiratory 22 18 20 Rate Blood Pressure 170/79 H 165/81 H [Right Brachial artery] O2 Saturation 90 L 94 12/09/20 12/09/20 12/09/20 15:07 16:30 19:40 Temperature 36.9 C Heart Rate 99 97 Heart Rate [ 105 H Brachial] Respiratory 18 18 18 Rate Blood Pressure 152/70 H [Right Brachial artery] O2 Saturation 95 12/09/20 12/09/20 12/09/20 20:07 22:00 23:45 Temperature 37.4 C 37.3 C 36.9 C Heart Rate Heart Rate [ 96 95 Brachial] Respiratory 18 20 Rate Blood Pressure 161/65 H 130/67 [Right Brachial artery] O2 Saturation 95 93 12/10/20 12/10/20 04:44 07:31 Temperature 37.1 C Heart Rate 80 Heart Rate [ 86 Brachial] Respiratory 20 18 Rate Blood Pressure 139/81 H [Right Brachial artery] O2 Saturation 96 Oxygen O2 Source Nasal cannula Oxygen Flow Rate 4 I&O (Last 24 Hrs): Intake and Output Totals x24h 12/08/20 12/09/20 12/10/20 23:59 23:59 23:59 Intake Total 2606.667 3180.667 300 Output Total 55 1000 Balance 2551.667 2180.667 300 General: Alert, Oriented x3 HEENT: Mucous membr. moist/pink Neck: Supple Neuro: Alert, Non Focal Cardiovascular: Regular rate Respiratory: No respiratory distress, Other (Diminished breath sounds in R base) Abdomen: Normal bowel sounds, Soft, No tenderness Extremities: No edema - Results Results: Laboratory Results WBC 8.9 x10^3/uL (4.8-10.8) 12/10/20 04:45 RBC 2.74 10^6/uL (4.20-5.40) L 12/10/20 04:45 Hgb 8.9 g/dL (12.0-16.0) L 12/10/20 04:45 Hct 27.0 % (37.0-47.0) L 12/10/20 04:45 MCV 98.5 fL (81.0-99.0) 12/10/20 04:45 MCH 32.5 pg (27.0-31.0) H 12/10/20 04:45 MCHC 33.0 g/dL (32.0-36.0) 12/10/20 04:45 RDW 14.2 % (12.0-15.0) 12/10/20 04:45 Plt Count 145 10^3/uL (130-450) 12/10/20 04:45 MPV 9.0 fL (7.9-10.8) 12/10/20 04:45 Neut # (Auto) 7.3 10^3/uL (1.5-6.6) H 12/10/20 04:45 Lymph # (Auto) 0.8 10^3/uL (1.5-3.5) L 12/10/20 04:45 Delta # (Auto) 0.6 10^3/uL (0.0-1.0) 12/10/20 04:45 Eos # (Auto) 0.0 10^3/uL (0.0-0.7) 12/10/20 04:45 Baso # (Auto) 0.0 10^3/uL (0.0-0.1) 12/10/20 04:45 Absolute Nucleated RBC 0.00 x10^3/uL 12/10/20 04:45 Nucleated RBC % 0.0 /100WBC 12/10/20 04:45 Bld Gas Analysis Time 1228 12/08/20 12:23 Sample Site LEFT RADIAL 12/08/20 12:23 ABG pH 7.37 (7.35-7.45) 12/08/20 12:23 ABG pCO2 38 mmHg (34-45) 12/08/20 12:23 ABG pO2 54 mmHg (80-100) L* 12/08/20 12:23 ABG HCO3 21.5 mmol/L (22.0-26.0) L 12/08/20 12:23 ABG Total CO2 22.7 MMOL/L (21.0-29.0) 12/08/20 12:23 ABG O2 Saturation 89 % (94-98) L 12/08/20 12:23 ABG Base Excess -3.4 mmol/L (-2.0-3.0) L 12/08/20 12:23 Moses Test POSITIVE 12/08/20 12:23 VBG pH 7.320 (7.31-7.41) 12/08/20 05:30 VBG pCO2 42.1 mmHg (41-51) 12/08/20 05:30 VBG pO2 43.2 mmHg (25-47) 12/08/20 05:30 VBG HCO3 21.2 mmol/L (23-28) L 12/08/20 05:30 VBG Total CO2 22.5 mmol/L (24-29) L 12/08/20 05:30 VBG O2 Saturation 83.8 % (60-80) H 12/08/20 05:30 VBG Base Excess -4.6 mmol/L (-2 - +2) L 12/08/20 05:30 O2 Delivery Device NASAL CANNULA 12/08/20 12:23 O2 Liters/Min 2.00 LPM 12/08/20 12:23 Sodium 140 mmol/L (135-145) 12/10/20 04:45 Potassium 3.5 mmol/L (3.5-5.0) 12/10/20 04:45 Chloride 109 mmol/L (101-111) 12/10/20 04:45 Carbon Dioxide 23 mmol/L (21-32) 12/10/20 04:45 Anion Gap 8.0 (6-13) 12/10/20 04:45 BUN 14 mg/dL (6-20) 12/10/20 04:45 Creatinine 0.8 mg/dL (0.4-1.0) 12/10/20 04:45 Estimated GFR (MDRD) 70 (>89) L 12/10/20 04:45 Glucose 121 mg/dL (70-100) H 12/10/20 04:45 Lactic Acid 1.5 mmol/L (0.5-2.2) 12/08/20 15:05 Calcium 8.3 mg/dL (8.5-10.3) L 12/10/20 04:45 Total Bilirubin 1.7 mg/dL (0.2-1.0) H 12/08/20 04:50 AST 38 IU/L (10-42) 12/08/20 04:50 ALT 25 IU/L (10-60) 12/08/20 04:50 Alkaline Phosphatase 55 IU/L (42-121) 12/08/20 04:50 Ammonia < 10.0 umol/L (7-35) 12/08/20 12:38 B-Natriuretic Peptide 89 pg/mL (5-100) 12/08/20 04:50 Total Protein 6.2 g/dL (6.7-8.2) L 12/08/20 04:50 Albumin 3.3 g/dL (3.2-5.5) 12/08/20 04:50 Globulin 2.9 g/dL (2.1-4.2) 12/08/20 04:50 Albumin/Globulin Ratio 1.1 (1.0-2.2) 12/08/20 04:50 Lipase 21 U/L (22-51) L 12/08/20 04:50 Urine Color YELLOW 12/08/20 14:42 Urine Clarity CLOUDY (CLEAR) 12/08/20 14:42 Urine pH 5.5 PH (5.0-7.5) 12/08/20 14:42 Ur Specific [place] 1.020 (1.002-1.030) 12/08/20 14:42 Urine Protein 30 mg/dL (NEGATIVE) H 12/08/20 14:42 Urine Glucose (UA) NEGATIVE mg/dL (NEGATIVE) 12/08/20 14:42 Urine Ketones NEGATIVE mg/dL (NEGATIVE) 12/08/20 14:42 Urine Occult Blood MODERATE (NEGATIVE) H 12/08/20 14:42 Urine Nitrite NEGATIVE (NEGATIVE) 12/08/20 14:42 Urine Bilirubin NEGATIVE (NEGATIVE) 12/08/20 14:42 Urine Urobilinogen 0.2 (NORMAL) E.U./dL (NORMAL) 12/08/20 14:42 Ur Leukocyte Esterase NEGATIVE (NEGATIVE) 12/08/20 14:42 Urine RBC 0-5 /HPF (0-5) 12/08/20 14:42 Urine WBC 0-3 /HPF (0-5) 12/08/20 14:42 Ur Squamous Epith Cells FEW Squamous (<= Few) 12/08/20 14:42 Urine Bacteria Few /HPF (None Seen) 12/08/20 14:42 Ur Microscopic Review INDICATED 12/08/20 14:42 Urine Culture Comments NOT INDICATED 12/08/20 14:42 Nasal Adenovirus (PCR) NOT DETECTED 12/08/20 04:44 Nasal B. parapertussis DNA (PCR) NOT DETECTED 12/08/20 04:44 Nasal Coronavir 229E PCR NOT DETECTED 12/08/20 04:44 Nasal Coronavir HKU1 PCR NOT DETECTED 12/08/20 04:44 Nasal Coronavir NL63 PCR NOT DETECTED 12/08/20 04:44 Nasal Coronavir OC43 PCR NOT DETECTED 12/08/20 04:44 Nasal Enterovir/Rhinovir PCR NOT DETECTED 12/08/20 04:44 Nasal Influenza B PCR NOT DETECTED 12/08/20 04:44 Nasal Influenza A PCR NOT DETECTED 12/08/20 04:44 Nasal Parainfluen 1 PCR NOT DETECTED 12/08/20 04:44 Nasal Parainfluen 2 PCR NOT DETECTED 12/08/20 04:44 Nasal Parainfluen 3 PCR NOT DETECTED 12/08/20 04:44 Nasal Parainfluen 4 PCR NOT DETECTED 12/08/20 04:44 Nasal RSV (PCR) NOT DETECTED 12/08/20 04:44 Nasal B.pertussis DNA PCR NOT DETECTED 12/08/20 04:44 Nasal C.pneumoniae (PCR) NOT DETECTED 12/08/20 04:44 Russell Human Metapneumo PCR NOT DETECTED 12/08/20 04:44 Nasal M.pneumoniae (PCR) NOT DETECTED 12/08/20 04:44 Nasal SARS-CoV-2 (PCR) NOT DETECTED 12/08/20 04:44 - Procedures Procedures: Procedures CENTRAL VENOUS CATHETER PLACEMENT WITH GUIDANCE (06/13/13) 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) ILEOSTOMY NOS (06/13/13) LG-TO-LG BOWEL ANASTOM (06/13/13) OPEN AND OTHER SIGMOIDECTOMY (06/13/13) PACKED CELL TRANSFUSION (06/13/13) SM BOWEL STOMA CLOSURE (09/26/13) URETERAL CATHETERIZATION (06/13/13) Sepsis Event Note (H) - Evaluation Current Stage of Sepsis: Severe sepsis Possible source of Sepsis: positive: Pulmonary - Sepsis Criteria Sepsis Criteria: Recorded Heart Rate greater than 90 bpm, Recorded Respiratory Rate greater than 20, 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
[2020-12-10] MEDS: guaiFENesin 600 MG TABLET PO SCH ×2 (08:38→21:26)
[2020-12-10] MEDS: SACCHAROMYCES BOULARDII 250 MG CAPSULE PO SCH ×2 (08:39→17:58)
[2020-12-10] MEDS: DOCUSATE SODIUM 250 MG CAPSULE PO SCH (08:40)
[2020-12-10] MEDS: Imatinib Mesylate [Gleevec] 100 MG Tablet PO SCH (08:40)
[2020-12-10] MEDS: polyethylene glycoL 3350 17 GM PACKET PO SCH (08:40)
[2020-12-10] MEDS: LACTATED RINGERS 1,000 ML IV SCH ×2 (08:40→21:26)
[2020-12-10] MEDS: ENOXAPARIN 30 MG/0.3 ML SYRINGE SUBQ SCH (08:41)
[2020-12-10] MEDS: HYDROmorphone 0.5 MG/0.5 ML SYRINGE IVP PRN (08:51)
[2020-12-10] MEDS ORDERED: DOCUSATE SODIUM 250 MG CAPSULE PO SCH (09:00)
[2020-12-10] MEDS: LEVOTHYROXINE 88 MCG TABLET PO SCH (11:04)
[2020-12-10] MEDS: VANCOMYCIN INJ 1 GM, VANCOMYCIN INJ 500 MG in SODIUM CHLORIDE 0.9% 500 ML IV SCH (11:12)
[2020-12-10] MEDS: LOSARTAN 50 MG TABLET PO SCH ×2 (12:20→21:26)
[2020-12-10] MEDS: ACETAMINOPHEN 500 MG TABLET PO PRN ×2 (13:55→17:58)
[2020-12-11] MEDS: PIPERACILLIN/TAZOBACTAM 3.375 GM in SODIUM CHLORIDE 0.9% MINIBAG 100 ML IV SCH ×3 (03:06→19:44)
[2020-12-11] MEDS: ACETAMINOPHEN 500 MG TABLET PO PRN ×4 (03:25→20:20)
[2020-12-11 05:47] LABS: BASOPHILS % (AUTO) 0.4 %; EOSINOPHILS # (AUTO) 0.1 10^3/uL (0.0-0.7); EOSINOPHILS % (AUTO) 1.2 %; HGB - HEMOGLOBIN 9.5 g/dL (12.0-16.0); LYMPHOCYTES # (AUTO) 1.1 10^3/uL (1.5-3.5); LYMPHOCYTES % (AUTO) 9.9 %; MEAN CORPUSCULAR HEMOGLOBIN 32.5 pg (27.0-31.0); MEAN CORPUSCULAR HGB CONC 32.6 g/dL (32.0-36.0); MEAN CORPUSCULAR VOLUME 99.7 fL (81.0-99.0); MEAN PLATELET VOLUME 9.2 fL (7.9-10.8); MONOCYTES # (AUTO) 0.7 10^3/uL (0.0-1.0); MONOCYTES % (AUTO) 5.8 %; NEUTROPHILS # (AUTO) 9.1 10^3/uL (1.5-6.6); NEUTROPHILS % (AUTO) 80.9 %; PLT - PLATELET COUNT 166 10^3/uL (130-450); RED BLOOD COUNT 2.92 10^6/uL (4.20-5.40); RED CELL DISTRIBUTION WIDTH 14.2 % (12.0-15.0); WHITE BLOOD COUNT 11.2 x10^3/uL (4.8-10.8)
[2020-12-11] MEDS: PANTOPRAZOLE 40 MG VIAL IVP SCH (05:48)
[2020-12-11] MEDS: SODIUM CHLORIDE FLUSH 0.9% 10 ML SYRINGE IVP PRN (05:48)
[2020-12-11 06:02] LABS: CREATININE 0.6 mg/dL (0.4-1.0)
[2020-12-11 06:23] LABS: FOLATE 20.65 ng/mL (5.90 - >24.8)
[2020-12-11] MEDS: ALBUTEROL NEB 2.5 MG/3 ML INH SCH ×4 (07:00→19:45)
[2020-12-11] MEDS ORDERED: LACTATED RINGERS 1,000 ML IV SCH (08:12)
[2020-12-11] MEDS: SACCHAROMYCES BOULARDII 250 MG CAPSULE PO SCH ×2 (08:28→16:17)
[2020-12-11] MEDS: LOSARTAN 50 MG TABLET PO SCH ×2 (08:29→20:20)
[2020-12-11] MEDS: guaiFENesin 600 MG TABLET PO SCH ×2 (08:29→20:20)
[2020-12-11] MEDS: polyethylene glycoL 3350 17 GM PACKET PO SCH (08:37)
[2020-12-11] MEDS: DOCUSATE SODIUM 250 MG CAPSULE PO SCH (08:37)
[2020-12-11] MEDS: ENOXAPARIN 30 MG/0.3 ML SYRINGE SUBQ SCH (08:38)
[2020-12-11] MEDS: SODIUM CHLORIDE FLUSH 0.9% 10 ML SYRINGE IVP SCH ×2 (08:38→16:17)
[2020-12-11] MEDS: Imatinib Mesylate [Gleevec] 100 MG Tablet PO SCH (08:50)
[2020-12-11 10:09] LABS: VANCOMYCIN,TROUGH 8.3 ug/mL (10.0-20.0)
[2020-12-11] MEDS: ONDANSETRON 4 MG/2 ML VIAL IVP PRN ×2 (11:12→16:58)
[2020-12-11] MEDS: LEVOTHYROXINE 88 MCG TABLET PO SCH (11:55)
[2020-12-11] MEDS: FERROUS GLUCONATE 324 MG TABLET PO SCH (12:09)
[2020-12-11] MEDS: oxyCODONE 5 MG TABLET PO PRN (17:42)
[2020-12-11] MEDS: POTASSIUM CHLOR 10 MEQ/100 ML 10 MEQ/100 ML BAG IV SCH ×4 (17:56→22:20)
--- NOTE | 2020-12-11 19:01 | PROVIDER PROGRESS NOTE ---
Assessment/Plan - Problem List (1) Hospital-acquired pneumonia Assessment/Plan: She notices marked improvement, there is no more cough, she is not winded with walking around in her room. Will transition to p.o. antibiotics starting tomorrow. We will try to wean down her supplemental oxygen to room air. Possible discharge in 24 to 48 hours (2) Abdominal pain Qualifiers: Abdominal location: lower abdomen, unspecified Qualified Code(s): R10.30 - Lower abdominal pain, unspecified Assessment/Plan: Today she is having more pain at the surgical site, and needing narcotics for pain control. General surgery okayed the advancement of her diet. Today she eating pured foods, will advance to soft diet as tolerated. Continue with medications for pain control as needed. (3) Large bowel perforation Assessment/Plan: She had a large bowel perforation after colonoscopy several days ago. Her abdominal exam is benign and although CT the abdomen and pelvis revealed pneum operitoneum, this was likely due to recent surgical intervention. She is tolerating po diet; will resume some of her home meds Appreciate general surgery input (4) CML (chronic myelocytic leukemia) Assessment/Plan: Stable. We will resume Gleevec when appropriate. (5) Hypothyroidism Assessment/Plan: We resumed her home po Synthroid dose. (6) HTN (hypertension) Assessment/Plan: Will resumed her home dose of Olmesartan when BP became hypertensive yesterday. (7) Anemia Qualifiers: Anemia type: iron deficiency Assessment/Plan: Hgb was 10 at admission, dropped to 8.9 range and plateaued. Her anemia is presumably from her CML plus hemodilution and there may have been blood loss with the recent abdominal surgery. She has low Iron stores, but adequate B12 and Folate levels. Will start oral Iron replacement. (8) Hypokalemia Assessment/Plan: Related to inadequate intake. Replace. Follow BMP daily. (9) Severe sepsis Assessment/Plan: Resolved, it was secondary to the hospital-acquired pneumonia. She presented with altered mental status, renal failure, lactic acidosis, leukocytosis. These have all improved. (10) Altered mental status Qualifiers: Altered mental status type: stupor Qualified Code(s): R40.1 - Stupor Assessment/Plan: Resolved. This was secondary to her severe sepsis and infection. CT the head was unremarkable. We will continue to treat underlying infection. (11) Acute kidney injury Assessment/Plan: Resolved with IV fluids. IV fluids are being tapered down as her po intake increases. - Current Meds Current Meds: Current Medications Generic Name Dose Route Start Last Admin Trade Name Freq PRN Reason Stop Dose Admin Acetaminophen 500 mg 12/10/20 11:09 12/11/20 16:17 Acetaminophen 500 Mg Tablet PO 500 mg Q4HR PRN Administration Pain or Fever > 38C (100.4F) Albuterol 2.5 mg 12/09/20 11:00 12/11/20 16:00 Albuterol Neb 2.5 Mg/3 Ml INH 2.5 mg RTQ4H MICHELLE Administration Docusate Sodium 250 - 500 mg 12/09/20 21:00 12/11/20 08:37 Docusate Sodium 250 Mg Capsule PO Not Given DAILY MICHELLE Ferrous Gluconate 324 mg 12/11/20 08:11 12/11/20 12:09 Ferrous Gluconate 324 Mg Tablet PO 324 mg DAILYWM MICHELLE Administration Guaifenesin 600 mg 12/09/20 21:00 12/11/20 08:29 Guaifenesin 600 Mg Tablet PO 600 mg BID MICHELLE Administration Hydromorphone HCl 0.5 mg 12/08/20 12:55 12/10/20 08:51 Hydromorphone 0.5 Mg/0.5 Ml Syringe IVP 0.5 mg Q2H PRN Administration Breakthrough Pain Piperacillin Sod/Tazobactam 100 mls @ 25 mls/hr 12/09/20 19:00 12/11/20 16:21 Sod 3.375 gm/ Sodium Chloride IV 12/12/20 00:01 Infused Q8H MICHELLE Infusion Lactated Ringer's 1,000 mls @ 40 mls/hr 12/11/20 08:12 12/11/20 10:07 Lr IV 12/12/20 00:01 40 mls/hr .Q25H MICHELLE Administration Potassium Chloride 10 meq in 100 mls @ 100 mls/hr 12/11/20 18:00 12/11/20 18:00 Potassium Chloride IV 12/11/20 21:59 70 mls/hr Q1H MICHELLE Infusion Levothyroxine Sodium 88 mcg 12/09/20 11:00 12/11/20 11:55 Levothyroxine 88 Mcg Tablet PO 88 mcg SUMOTUWETHFR MICHELLE Administration Losartan Potassium 25 mg 12/10/20 11:04 12/11/20 08:29 Losartan 50 Mg Tablet PO 25 mg BID MICHELLE Administration Ondansetron HCl 4 mg 12/08/20 05:44 12/11/20 16:58 Ondansetron 4 Mg/2 Ml Vial IVP 4 mg Q6HR PRN Administration Nausea / Vomiting Oxycodone HCl 5 mg 12/08/20 05:44 12/11/20 17:42 Oxycodone 5 Mg Tablet PO 5 mg Q4HR PRN Administration Pain 5 to 7 Pantoprazole Sodium 40 mg 12/08/20 13:00 12/11/20 05:48 Pantoprazole 40 Mg Vial IVP 40 mg QDAC MICHELLE Administration Imatinib Mesylate [ 2 each 12/10/20 08:00 12/11/20 08:50 Gleevec] 100 Mg PO 2 each Tablet QDBREAKFAST MICHELLE Administration Imatinib Mesylate [ 1 each 12/09/20 17:30 12/11/20 17:32 Gleevec] 400 Mg PO 1 each Tablet 1730 MICHELLE Administration Polyethylene Glycol 17 gm 12/10/20 09:00 12/11/20 08:37 Polyethylene Glycol 3350 17 Gm Packet PO Not Given DAILY MICHELLE Saccharomyces Boulardii 250 mg 12/08/20 08:00 12/11/20 16:17 Saccharomyces Boulardii 250 Mg Capsule PO 250 mg BIDWM MICHELLE Administration Sodium Chloride 10 ml 12/08/20 05:44 12/11/20 05:48 Sodium Chloride Flush 0.9% 10 Ml Syringe IVP 10 ml PRN PRN Administration NEEDED PER PROVIDER ORDERS Sodium Chloride 10 ml 12/08/20 09:00 12/11/20 16:17 Sodium Chloride Flush 0.9% 10 Ml Syringe IVP 10 ml 0100,0900,1700 MICHELLE Administration Throat Lozenges 1 lozenge 12/10/20 03:03 12/10/20 03:22 Benzocaine/Menthol Lozenge MM 1 lozenge Q2HR PRN Administration Throat pain - Lab Result Fish Bone Diagrams: 12/11/20 04:49 12/11/20 04:49 - Additional Planning My Orders: My Active Orders 12/11/20 08:11 Ferrous Gluconate [Fergon] 324 mg PO DAILYWM 12/11/20 08:12 Lactated Ringers [Lr] 1,000 ml IV 40 mls/hr 12/11/20 15:44 SCDs [RC] QSHIFT 12/11/20 18:00 Potassium Chlor 10 Meq/100 ml [Potassium Chloride] 10 meq in 100 ml IV Q1H 12/12/20 Breakfast DIET [Soft (Low Fiber) Diet] [DIET] 12/12/20 09:00 Amox/Clav 875/125 [Augmentin 875/125] 1 tab PO BID Subjective - Subjective Patient Reports: Pain (She needed more oxycodone today for pain in the abdomen at the incision site. She is tolerating her pured diet but is interested in advancing it, there has been no N/V.) Objective Vital Signs: Vital Signs - 24 hr 12/10/20 12/10/20 12/11/20 20:02 20:24 00:00 Temperature 37.5 C 37.1 C Heart Rate 92 Heart Rate [ 92 90 Brachial] Respiratory 18 18 20 Rate Blood Pressure 153/78 H 158/78 H [Right Brachial artery] O2 Saturation 95 92 12/11/20 12/11/20 12/11/20 03:12 08:53 12:40 Temperature 37.2 C 37.2 C Heart Rate 82 Heart Rate [ 94 80 Brachial] Respiratory 22 16 18 Rate Blood Pressure 169/78 H 161/68 H [Right Brachial artery] O2 Saturation 94 96 12/11/20 12/11/20 12/11/20 13:00 15:54 16:00 Temperature 36.9 C 37.3 C Heart Rate 81 Heart Rate [ 89 87 Brachial] Respiratory 14 18 18 Rate Blood Pressure 143/67 H 156/61 H [Right Brachial artery] O2 Saturation 99 97 Oxygen O2 Source Nasal cannula Oxygen Flow Rate 4 I&O (Last 24 Hrs): Intake and Output Totals x24h 12/09/20 12/10/20 12/11/20 23:59 23:59 23:59 Intake Total 3180.667 3993.333 1326.667 Output Total 1000 375 Balance 2180.667 3618.333 1326.667 General: Alert, Oriented x3 HEENT: Mucous membr. moist/pink Neck: Supple, No JVD Neuro: Alert, Non Focal Cardiovascular: Regular rate Respiratory: No respiratory distress Abdomen: Soft Extremities: No edema - Results Results: Laboratory Results WBC 11.2 x10^3/uL (4.8-10.8) H 12/11/20 04:49 RBC 2.92 10^6/uL (4.20-5.40) L 12/11/20 04:49 Hgb 9.5 g/dL (12.0-16.0) L 12/11/20 04:49 Hct 29.1 % (37.0-47.0) L 12/11/20 04:49 MCV 99.7 fL (81.0-99.0) H 12/11/20 04:49 MCH 32.5 pg (27.0-31.0) H 12/11/20 04:49 MCHC 32.6 g/dL (32.0-36.0) 12/11/20 04:49 RDW 14.2 % (12.0-15.0) 12/11/20 04:49 Plt Count 166 10^3/uL (130-450) 12/11/20 04:49 MPV 9.2 fL (7.9-10.8) 12/11/20 04:49 Neut # (Auto) 9.1 10^3/uL (1.5-6.6) H 12/11/20 04:49 Lymph # (Auto) 1.1 10^3/uL (1.5-3.5) L 12/11/20 04:49 Parmer # (Auto) 0.7 10^3/uL (0.0-1.0) 12/11/20 04:49 Eos # (Auto) 0.1 10^3/uL (0.0-0.7) 12/11/20 04:49 Baso # (Auto) 0.0 10^3/uL (0.0-0.1) 12/11/20 04:49 Absolute Nucleated RBC 0.02 x10^3/uL 12/11/20 04:49 Nucleated RBC % 0.2 /100WBC 12/11/20 04:49 Bld Gas Analysis Time 1228 12/08/20 12:23 Sample Site LEFT RADIAL 12/08/20 12:23 ABG pH 7.37 (7.35-7.45) 12/08/20 12:23 ABG pCO2 38 mmHg (34-45) 12/08/20 12:23 ABG pO2 54 mmHg (80-100) L* 12/08/20 12:23 ABG HCO3 21.5 mmol/L (22.0-26.0) L 12/08/20 12:23 ABG Total CO2 22.7 MMOL/L (21.0-29.0) 12/08/20 12:23 ABG O2 Saturation 89 % (94-98) L 12/08/20 12:23 ABG Base Excess -3.4 mmol/L (-2.0-3.0) L 12/08/20 12:23 Moses Test POSITIVE 12/08/20 12:23 VBG pH 7.320 (7.31-7.41) 12/08/20 05:30 VBG pCO2 42.1 mmHg (41-51) 12/08/20 05:30 VBG pO2 43.2 mmHg (25-47) 12/08/20 05:30 VBG HCO3 21.2 mmol/L (23-28) L 12/08/20 05:30 VBG Total CO2 22.5 mmol/L (24-29) L 12/08/20 05:30 VBG O2 Saturation 83.8 % (60-80) H 12/08/20 05:30 VBG Base Excess -4.6 mmol/L (-2 - +2) L 12/08/20 05:30 O2 Delivery Device NASAL CANNULA 12/08/20 12:23 O2 Liters/Min 2.00 LPM 12/08/20 12:23 Sodium 140 mmol/L (135-145) 12/11/20 04:49 Potassium 3.2 mmol/L (3.5-5.0) L 12/11/20 04:49 Chloride 108 mmol/L (101-111) 12/11/20 04:49 Carbon Dioxide 26 mmol/L (21-32) 12/11/20 04:49 Anion Gap 6.0 (6-13) 12/11/20 04:49 BUN 9 mg/dL (6-20) 12/11/20 04:49 Creatinine 0.6 mg/dL (0.4-1.0) 12/11/20 04:49 Estimated GFR (MDRD) 98 (>89) 12/11/20 04:49 Glucose 108 mg/dL (70-100) H 12/11/20 04:49 Lactic Acid 1.5 mmol/L (0.5-2.2) 12/08/20 15:05 Calcium 8.0 mg/dL (8.5-10.3) L 12/11/20 04:49 Iron 22 ug/dL (28-170) L 12/11/20 04:49 TIBC 213 ug/dL (250-450) L 12/11/20 04:49 % Saturation 10 % (20-50) L 12/11/20 04:49 Transferrin 152 mg/dL (192-382) L 12/11/20 04:49 Total Bilirubin 1.7 mg/dL (0.2-1.0) H 12/08/20 04:50 AST 38 IU/L (10-42) 12/08/20 04:50 ALT 25 IU/L (10-60) 12/08/20 04:50 Alkaline Phosphatase 55 IU/L (42-121) 12/08/20 04:50 Ammonia < 10.0 umol/L (7-35) 12/08/20 12:38 B-Natriuretic Peptide 89 pg/mL (5-100) 12/08/20 04:50 Total Protein 6.2 g/dL (6.7-8.2) L 12/08/20 04:50 Albumin 3.3 g/dL (3.2-5.5) 12/08/20 04:50 Globulin 2.9 g/dL (2.1-4.2) 12/08/20 04:50 Albumin/Globulin Ratio 1.1 (1.0-2.2) 12/08/20 04:50 Lipase 21 U/L (22-51) L 12/08/20 04:50 Vitamin B12 1162 pg/mL (180-914) H 12/11/20 04:49 Folate 20.65 ng/mL (5.90 - >24.8) 12/11/20 04:49 Urine Color YELLOW 12/08/20 14:42 Urine Clarity CLOUDY (CLEAR) 12/08/20 14:42 Urine pH 5.5 PH (5.0-7.5) 12/08/20 14:42 Ur Specific [place] 1.020 (1.002-1.030) 12/08/20 14:42 Urine Protein 30 mg/dL (NEGATIVE) H 12/08/20 14:42 Urine Glucose (UA) NEGATIVE mg/dL (NEGATIVE) 12/08/20 14:42 Urine Ketones NEGATIVE mg/dL (NEGATIVE) 12/08/20 14:42 Urine Occult Blood MODERATE (NEGATIVE) H 12/08/20 14:42 Urine Nitrite NEGATIVE (NEGATIVE) 12/08/20 14:42 Urine Bilirubin NEGATIVE (NEGATIVE) 12/08/20 14:42 Urine Urobilinogen 0.2 (NORMAL) E.U./dL (NORMAL) 12/08/20 14:42 Ur Leukocyte Esterase NEGATIVE (NEGATIVE) 12/08/20 14:42 Urine RBC 0-5 /HPF (0-5) 12/08/20 14:42 Urine WBC 0-3 /HPF (0-5) 12/08/20 14:42 Ur Squamous Epith Cells FEW Squamous (<= Few) 12/08/20 14:42 Urine Bacteria Few /HPF (None Seen) 12/08/20 14:42 Ur Microscopic Review INDICATED 12/08/20 14:42 Urine Culture Comments NOT INDICATED 12/08/20 14:42 Nasal Adenovirus (PCR) NOT DETECTED 12/08/20 04:44 Nasal B. parapertussis DNA (PCR) NOT DETECTED 12/08/20 04:44 Nasal Coronavir 229E PCR NOT DETECTED 12/08/20 04:44 Nasal Coronavir HKU1 PCR NOT DETECTED 12/08/20 04:44 Nasal Coronavir NL63 PCR NOT DETECTED 12/08/20 04:44 Nasal Coronavir OC43 PCR NOT DETECTED 12/08/20 04:44 Nasal Enterovir/Rhinovir PCR NOT DETECTED 12/08/20 04:44 Nasal Influenza B PCR NOT DETECTED 12/08/20 04:44 Nasal Influenza A PCR NOT DETECTED 12/08/20 04:44 Nasal Parainfluen 1 PCR NOT DETECTED 12/08/20 04:44 Nasal Parainfluen 2 PCR NOT DETECTED 12/08/20 04:44 Nasal Parainfluen 3 PCR NOT DETECTED 12/08/20 04:44 Nasal Parainfluen 4 PCR NOT DETECTED 12/08/20 04:44 Nasal RSV (PCR) NOT DETECTED 12/08/20 04:44 Nasal Screen MRSA (PCR) NEGATIVE (NEGATIVE) 12/10/20 11:22 Nasal B.pertussis DNA PCR NOT DETECTED 12/08/20 04:44 Nasal C.pneumoniae (PCR) NOT DETECTED 12/08/20 04:44 Russell Human Metapneumo PCR NOT DETECTED 12/08/20 04:44 Nasal M.pneumoniae (PCR) NOT DETECTED 12/08/20 04:44 Nasal SARS-CoV-2 (PCR) NOT DETECTED 12/08/20 04:44 Last Dose Date 12/10/20 12/11/20 09:52 Last Dose Time 1354 12/11/20 09:52 Vancomycin Trough 8.3 ug/mL (10.0-20.0) L 12/11/20 09:52 - Procedures Procedures: Procedures CENTRAL VENOUS CATHETER PLACEMENT WITH GUIDANCE (06/13/13) 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) ILEOSTOMY NOS (06/13/13) INSPECTION OF LOWER INTESTINAL TRACT, ENDO (12/05/20) LG-TO-LG BOWEL ANASTOM (06/13/13) OPEN AND OTHER SIGMOIDECTOMY (06/13/13) PACKED CELL TRANSFUSION (06/13/13) REPAIR DESCENDING COLON, OPEN APPROACH (12/05/20) SM BOWEL STOMA CLOSURE (09/26/13) URETERAL CATHETERIZATION (06/13/13) Sepsis Event Note (H) - Evaluation Current Stage of Sepsis: Severe sepsis Possible source of Sepsis: positive: Pulmonary - Sepsis Criteria Sepsis Criteria: Recorded Heart Rate greater than 90 bpm, Recorded Respiratory Rate greater than 20, [employer]: altered consciousness (unrelated to primary neuro pathology), Renal: urine output less than 0.5ml/kg/hr for 2 hours or creatinine gr
[2020-12-12] MEDS: SODIUM CHLORIDE FLUSH 0.9% 10 ML SYRINGE IVP SCH ×3 (01:08→15:56)
[2020-12-12] MEDS: PANTOPRAZOLE 40 MG VIAL IVP SCH (06:37)
[2020-12-12] MEDS: SODIUM CHLORIDE FLUSH 0.9% 10 ML SYRINGE IVP PRN ×2 (06:37→17:16)
[2020-12-12] MEDS: oxyCODONE 5 MG TABLET PO PRN ×2 (06:43→20:19)
[2020-12-12] MEDS: ALBUTEROL NEB 2.5 MG/3 ML INH SCH ×4 (07:43→18:15)
[2020-12-12] MEDS: Imatinib Mesylate [Gleevec] 100 MG Tablet PO SCH (08:10)
[2020-12-12] MEDS: ONDANSETRON 4 MG/2 ML VIAL IVP PRN ×2 (08:14→17:16)
[2020-12-12] MEDS: SACCHAROMYCES BOULARDII 250 MG CAPSULE PO SCH ×2 (08:15→17:16)
[2020-12-12] MEDS: LOSARTAN 50 MG TABLET PO SCH ×2 (08:15→20:20)
[2020-12-12] MEDS: DOCUSATE SODIUM 250 MG CAPSULE PO SCH (08:15)
[2020-12-12] MEDS: guaiFENesin 600 MG TABLET PO SCH ×2 (08:16→20:20)
[2020-12-12] MEDS: polyethylene glycoL 3350 17 GM PACKET PO SCH (08:16)
[2020-12-12] MEDS: FERROUS GLUCONATE 324 MG TABLET PO SCH (08:17)
[2020-12-12] MEDS: ACETAMINOPHEN 500 MG TABLET PO PRN ×2 (08:31→15:55)
[2020-12-12] MEDS ORDERED: AMOX/CLAV 875 MG/125 MG TABLET PO SCH (09:00)
[2020-12-12] MEDS: HYDROmorphone 0.5 MG/0.5 ML SYRINGE IVP PRN (09:50)
[2020-12-12 10:06] LABS: BASOPHILS # (AUTO) 0.1 10^3/uL (0.0-0.1); BASOPHILS % (AUTO) 0.4 %; EOSINOPHILS # (AUTO) 0.3 10^3/uL (0.0-0.7); EOSINOPHILS % (AUTO) 2.4 %; HGB - HEMOGLOBIN 9.9 g/dL (12.0-16.0); LYMPHOCYTES # (AUTO) 1.4 10^3/uL (1.5-3.5); LYMPHOCYTES % (AUTO) 11.1 %; MEAN CORPUSCULAR HEMOGLOBIN 32.7 pg (27.0-31.0); MEAN CORPUSCULAR HGB CONC 32.5 g/dL (32.0-36.0); MEAN CORPUSCULAR VOLUME 100.7 fL (81.0-99.0); MEAN PLATELET VOLUME 9.1 fL (7.9-10.8); MONOCYTES # (AUTO) 0.7 10^3/uL (0.0-1.0); NEUTROPHILS # (AUTO) 10.2 10^3/uL (1.5-6.6); NEUTROPHILS % (AUTO) 78.6 %; PLT - PLATELET COUNT 227 10^3/uL (130-450); RED BLOOD COUNT 3.03 10^6/uL (4.20-5.40); RED CELL DISTRIBUTION WIDTH 14.5 % (12.0-15.0)
[2020-12-12 10:15] LABS: CALCIUM 8.5 mg/dL (8.5-10.3); CREATININE 0.7 mg/dL (0.4-1.0); MAGNESIUM 1.6 mg/dL (1.7-2.8)
[2020-12-12] MEDS: LEVOTHYROXINE 88 MCG TABLET PO SCH (11:56)
[2020-12-12] MEDS: POTASSIUM CHLOR 10 MEQ/100 ML 10 MEQ/100 ML BAG IV SCH ×4 (12:00→21:10)
[2020-12-12] MEDS ORDERED: IOVERSOL 320 100 ML VIAL IVP ONE ×3 (12:43→15:53)
[2020-12-12] MEDS ORDERED: IOPAMIDOL-300 50 ML VIAL ONE (12:54)
[2020-12-12] MEDS ORDERED: IOPAMIDOL-300 50 ML VIAL PO ONE (15:53)
--- NOTE | 2020-12-12 16:04 | PROVIDER PROGRESS NOTE ---
Assessment/Plan - Problem List (1) N&V (nausea and vomiting) Assessment/Plan: This is a new symptom for her. Her diet was being advanced as tolerated, this morning a soft diet. Now will de-escalate it again to pured Give antiemetics as needed Her morning CBC shows a rising white count from normal 2 days ago to 11 yesterday and today 13. We will obtain abdominal CT since the suspected cause is GI tract especially with her recent repaired colonic perforation. Will request general surgery to continue following along with us for any recommendations (2) Hospital-acquired pneumonia Assessment/Plan: Clinically she is much improved with no cough, no dyspnea. She is finishing her course of empiric and IV antibiotics for this and Mucinex. Plan to titrate the supplemental oxygen down to room air as she can tolerate it, keeping O2 sats > 90%. (3) Abdominal pain Qualifiers: Abdominal location: lower abdomen, unspecified Qualified Code(s): R10.30 - Lower abdominal pain, unspecified Assessment/Plan: This has been minimal but she still intermittently needs narcotics for pain control. We will evaluate with a CT abdomen as described in #1 (4) Large bowel perforation Assessment/Plan: As described in #1 and #3 above. This was a complication of her colonoscopy on December 05 which required an open lap for repair and she was discharged on Dec 07 (5) CML (chronic myelocytic leukemia) Assessment/Plan: We are still holding her Gleevec immunotherapy because of infections (6) Hypothyroidism Assessment/Plan: We resumed her home po Synthroid dose. (7) HTN (hypertension) Assessment/Plan: Her BP meds will be resumed in a staggered fashion as needed for hypertension management (8) Anemia Qualifiers: Anemia type: iron deficiency Assessment/Plan: She was started on oral iron replacement several days ago. Follow CBC daily both for the white count and hemoglobin (9) Hypokalemia Assessment/Plan: Replace, follow BMP daily (10) Severe sepsis Assessment/Plan: Resolved (11) Altered mental status Qualifiers: Altered mental status type: stupor Qualified Code(s): R40.1 - Stupor Assessment/Plan: Resolved by Day #2 - Current Meds Current Meds: Current Medications Generic Name Dose Route Start Last Admin Trade Name Freq PRN Reason Stop Dose Admin Acetaminophen 500 mg 12/10/20 11:09 12/12/20 15:55 Acetaminophen 500 Mg Tablet PO 500 mg Q4HR PRN Administration Pain or Fever > 38C (100.4F) Albuterol 2.5 mg 12/09/20 11:00 12/12/20 15:00 Albuterol Neb 2.5 Mg/3 Ml INH 2.5 mg RTQ4H MICHELLE Administration Amoxicillin/Clavulanate Potassium 1 tab 12/12/20 09:00 12/12/20 08:15 Amox/Clav 875 Mg/125 Mg Tablet PO 1 tab BID MICHELLE Administration Docusate Sodium 250 - 500 mg 12/09/20 21:00 12/12/20 08:15 Docusate Sodium 250 Mg Capsule PO 250 mg DAILY MICHELLE Administration Ferrous Gluconate 324 mg 12/11/20 08:11 12/12/20 08:17 Ferrous Gluconate 324 Mg Tablet PO 324 mg DAILYWM MICHELLE Administration Guaifenesin 600 mg 12/09/20 21:00 12/12/20 08:16 Guaifenesin 600 Mg Tablet PO 600 mg BID MICHELLE Administration Hydromorphone HCl 0.5 mg 12/08/20 12:55 12/12/20 09:50 Hydromorphone 0.5 Mg/0.5 Ml Syringe IVP 0.5 mg Q2H PRN Administration Breakthrough Pain Levothyroxine Sodium 88 mcg 12/09/20 11:00 12/12/20 11:56 Levothyroxine 88 Mcg Tablet PO 88 mcg SUMOTUWETHFR MICHELLE Administration Losartan Potassium 25 mg 12/10/20 11:04 12/12/20 08:15 Losartan 50 Mg Tablet PO 25 mg BID MICHELLE Administration Ondansetron HCl 4 mg 12/08/20 05:44 12/12/20 08:14 Ondansetron 4 Mg/2 Ml Vial IVP 4 mg Q6HR PRN Administration Nausea / Vomiting Oxycodone HCl 5 mg 12/08/20 05:44 12/12/20 06:43 Oxycodone 5 Mg Tablet PO 5 mg Q4HR PRN Administration Pain 5 to 7 Pantoprazole Sodium 40 mg 12/08/20 13:00 12/12/20 06:37 Pantoprazole 40 Mg Vial IVP 40 mg QDAC MICHELLE Administration Imatinib Mesylate [ 2 each 12/10/20 08:00 12/12/20 08:10 Gleevec] 100 Mg PO 2 each Tablet QDBREAKFAST MICHELLE Administration Imatinib Mesylate [ 1 each 12/09/20 17:30 12/11/20 17:32 Gleevec] 400 Mg PO 1 each Tablet 1730 MICHELLE Administration Saccharomyces Boulardii 250 mg 12/08/20 08:00 12/12/20 08:15 Saccharomyces Boulardii 250 Mg Capsule PO 250 mg BIDWM MICHELLE Administration Sodium Chloride 10 ml 12/08/20 05:44 12/12/20 06:37 Sodium Chloride Flush 0.9% 10 Ml Syringe IVP 10 ml PRN PRN Administration NEEDED PER PROVIDER ORDERS Sodium Chloride 10 ml 12/08/20 09:00 12/12/20 15:56 Sodium Chloride Flush 0.9% 10 Ml Syringe IVP 10 ml 0100,0900,1700 MICHELLE Administration Throat Lozenges 1 lozenge 12/10/20 03:03 12/10/20 03:22 Benzocaine/Menthol Lozenge MM 1 lozenge Q2HR PRN Administration Throat pain - Lab Result Fish Bone Diagrams: 12/12/20 09:52 12/12/20 09:52 - Additional Planning My Orders: My Active Orders 12/11/20 15:44 SCDs [RC] QSARFT 12/12/20 Breakfast DIET [Soft (Low Fiber) Diet] [DIET] 12/12/20 09:00 Amox/Clav 875/125 [Augmentin 875/125] 1 tab PO BID 12/12/20 11:43 Miscellaenous Nursing Order [RC] QSHIFT 12/12/20 11:44 ABDOMEN/PELVIS W [CT] Routine Subjective - Subjective Patient Reports: Nausea (She awoke with nausea vomiting and felt like she had a low-grade temp. There is still slight abd pain, needing narcotics for pain.), Other (Has edema to thighs) Objective Vital Signs: Vital Signs - 24 hr 12/11/20 12/12/20 12/12/20 20:18 00:07 01:24 Temperature 37.3 C 36.9 C Heart Rate Heart Rate [ 82 81 Brachial] Respiratory 19 18 Rate Blood Pressure [Left Brachial artery] Blood Pressure 154/70 H 132/67 H [Right Brachial artery] O2 Saturation 94 95 93 12/12/20 12/12/20 12/12/20 05:00 05:44 07:45 Temperature 37.4 C Heart Rate 81 Heart Rate [ 90 Brachial] Respiratory 18 20 Rate Blood Pressure [Left Brachial artery] Blood Pressure 163/70 H [Right Brachial artery] O2 Saturation 86 L 94 12/12/20 12/12/20 12/12/20 07:46 11:13 13:00 Temperature 37.4 C 37.1 C Heart Rate 77 Heart Rate [ 86 88 Brachial] Respiratory 20 16 18 Rate Blood Pressure 165/68 H [Left Brachial artery] Blood Pressure 148/68 H [Right Brachial artery] O2 Saturation 92 96 12/12/20 15:03 Temperature Heart Rate 75 Heart Rate [ Brachial] Respiratory 20 Rate Blood Pressure [Left Brachial artery] Blood Pressure [Right Brachial artery] O2 Saturation Oxygen O2 Source Nasal cannula Oxygen Flow Rate 4 I&O (Last 24 Hrs): Intake and Output Totals x24h 12/10/20 12/11/20 12/12/20 23:59 23:59 23:59 Intake Total 3993.333 2207.667 1347.333 Output Total 375 Balance 3618.333 2207.667 1347.333 General: Alert, Oriented x3 HEENT: Mucous membr. moist/pink Neck: Supple Neuro: Alert, Non Focal Cardiovascular: Regular rate Respiratory: No respiratory distress, Breath sounds nml Abdomen: Normal bowel sounds, Soft, No tenderness, Other (Obese) Extremities: No tenderness/swelling, Other (2+ edema to mid-thighs) - Results Results: Laboratory Results WBC 13.0 x10^3/uL (4.8-10.8) H 12/12/20 09:52 RBC 3.03 10^6/uL (4.20-5.40) L 12/12/20 09:52 Hgb 9.9 g/dL (12.0-16.0) L 12/12/20 09:52 Hct 30.5 % (37.0-47.0) L 12/12/20 09:52 MCV 100.7 fL (81.0-99.0) H 12/12/20 09:52 MCH 32.7 pg (27.0-31.0) H 12/12/20 09:52 MCHC 32.5 g/dL (32.0-36.0) 12/12/20 09:52 RDW 14.5 % (12.0-15.0) 12/12/20 09:52 Plt Count 227 10^3/uL (130-450) 12/12/20 09:52 MPV 9.1 fL (7.9-10.8) 12/12/20 09:52 Neut # (Auto) 10.2 10^3/uL (1.5-6.6) H 12/12/20 09:52 Lymph # (Auto) 1.4 10^3/uL (1.5-3.5) L 12/12/20 09:52 [place] # (Auto) 0.7 10^3/uL (0.0-1.0) 12/12/20 09:52 Eos # (Auto) 0.3 10^3/uL (0.0-0.7) 12/12/20 09:52 Baso # (Auto) 0.1 10^3/uL (0.0-0.1) 12/12/20 09:52 Absolute Nucleated RBC 0.00 x10^3/uL 12/12/20 09:52 Nucleated RBC % 0.0 /100WBC 12/12/20 09:52 Bld Gas Analysis Time 1228 12/08/20 12:23 Sample Site LEFT RADIAL 12/08/20 12:23 ABG pH 7.37 (7.35-7.45) 12/08/20 12:23 ABG pCO2 38 mmHg (34-45) 12/08/20 12:23 ABG pO2 54 mmHg (80-100) L* 12/08/20 12:23 ABG HCO3 21.5 mmol/L (22.0-26.0) L 12/08/20 12:23 ABG Total CO2 22.7 MMOL/L (21.0-29.0) 12/08/20 12:23 ABG O2 Saturation 89 % (94-98) L 12/08/20 12:23 ABG Base Excess -3.4 mmol/L (-2.0-3.0) L 12/08/20 12:23 Moses Test POSITIVE 12/08/20 12:23 VBG pH 7.320 (7.31-7.41) 12/08/20 05:30 VBG pCO2 42.1 mmHg (41-51) 12/08/20 05:30 VBG pO2 43.2 mmHg (25-47) 12/08/20 05:30 VBG HCO3 21.2 mmol/L (23-28) L 12/08/20 05:30 VBG Total CO2 22.5 mmol/L (24-29) L 12/08/20 05:30 VBG O2 Saturation 83.8 % (60-80) H 12/08/20 05:30 VBG Base Excess -4.6 mmol/L (-2 - +2) L 12/08/20 05:30 O2 Delivery Device NASAL CANNULA 12/08/20 12:23 O2 Liters/Min 2.00 LPM 12/08/20 12:23 Sodium 143 mmol/L (135-145) 12/12/20 09:52 Potassium 3.2 mmol/L (3.5-5.0) L 12/12/20 09:52 Chloride 106 mmol/L (101-111) 12/12/20 09:52 Carbon Dioxide 25 mmol/L (21-32) 12/12/20 09:52 Anion Gap 12.0 (6-13) 12/12/20 09:52 BUN 11 mg/dL (6-20) 12/12/20 09:52 Creatinine 0.7 mg/dL (0.4-1.0) 12/12/20 09:52 Estimated GFR (MDRD) 82 (>89) L 12/12/20 09:52 Glucose 114 mg/dL (70-100) H 12/12/20 09:52 Lactic Acid 1.5 mmol/L (0.5-2.2) 12/08/20 15:05 Calcium 8.5 mg/dL (8.5-10.3) 12/12/20 09:52 Magnesium 1.6 mg/dL (1.7-2.8) L 12/12/20 09:52 Iron 22 ug/dL (28-170) L 12/11/20 04:49 TIBC 213 ug/dL (250-450) L 12/11/20 04:49 % Saturation 10 % (20-50) L 12/11/20 04:49 Transferrin 152 mg/dL (192-382) L 12/11/20 04:49 Total Bilirubin 1.7 mg/dL (0.2-1.0) H 12/08/20 04:50 AST 38 IU/L (10-42) 12/08/20 04:50 ALT 25 IU/L (10-60) 12/08/20 04:50 Alkaline Phosphatase 55 IU/L (42-121) 12/08/20 04:50 Ammonia < 10.0 umol/L (7-35) 12/08/20 12:38 B-Natriuretic Peptide 89 pg/mL (5-100) 12/08/20 04:50 Total Protein 6.2 g/dL (6.7-8.2) L 12/08/20 04:50 Albumin 3.3 g/dL (3.2-5.5) 12/08/20 04:50 Globulin 2.9 g/dL (2.1-4.2) 12/08/20 04:50 Albumin/Globulin Ratio 1.1 (1.0-2.2) 12/08/20 04:50 Lipase 21 U/L (22-51) L 12/08/20 04:50 Vitamin B12 1162 pg/mL (180-914) H 12/11/20 04:49 Folate 20.65 ng/mL (5.90 - >24.8) 12/11/20 04:49 Urine Color YELLOW 12/08/20 14:42 Urine Clarity CLOUDY (CLEAR) 12/08/20 14:42 Urine pH 5.5 PH (5.0-7.5) 12/08/20 14:42 Ur Specific [place] 1.020 (1.002-1.030) 12/08/20 14:42 Urine Protein 30 mg/dL (NEGATIVE) H 12/08/20 14:42 Urine Glucose (UA) NEGATIVE mg/dL (NEGATIVE) 12/08/20 14:42 Urine Ketones NEGATIVE mg/dL (NEGATIVE) 12/08/20 14:42 Urine Occult Blood MODERATE (NEGATIVE) H 12/08/20 14:42 Urine Nitrite NEGATIVE (NEGATIVE) 12/08/20 14:42 Urine Bilirubin NEGATIVE (NEGATIVE) 12/08/20 14:42 Urine Urobilinogen 0.2 (NORMAL) E.U./dL (NORMAL) 12/08/20 14:42 Ur Leukocyte Esterase NEGATIVE (NEGATIVE) 12/08/20 14:42 Urine RBC 0-5 /HPF (0-5) 12/08/20 14:42 Urine WBC 0-3 /HPF (0-5) 12/08/20 14:42 Ur Squamous Epith Cells FEW Squamous (<= Few) 12/08/20 14:42 Urine Bacteria Few /HPF (None Seen) 12/08/20 14:42 Ur Microscopic Review INDICATED 12/08/20 14:42 Urine Culture Comments NOT INDICATED 12/08/20 14:42 Nasal Adenovirus (PCR) NOT DETECTED 12/08/20 04:44 Nasal B. parapertussis DNA (PCR) NOT DETECTED 12/08/20 04:44 Nasal Coronavir 229E PCR NOT DETECTED 12/08/20 04:44 Nasal Coronavir HKU1 PCR NOT DETECTED 12/08/20 04:44 Nasal Coronavir NL63 PCR NOT DETECTED 12/08/20 04:44 Nasal Coronavir OC43 PCR NOT DETECTED 12/08/20 04:44 Nasal Enterovir/Rhinovir PCR NOT DETECTED 12/08/20 04:44 Nasal Influenza B PCR NOT DETECTED 12/08/20 04:44 Nasal Influenza A PCR NOT DETECTED 12/08/20 04:44 Nasal Parainfluen 1 PCR NOT DETECTED 12/08/20 04:44 Nasal Parainfluen 2 PCR NOT DETECTED 12/08/20 04:44 Nasal Parainfluen 3 PCR NOT DETECTED 12/08/20 04:44 Nasal Parainfluen 4 PCR NOT DETECTED 12/08/20 04:44 Nasal RSV (PCR) NOT DETECTED 12/08/20 04:44 Nasal Screen MRSA (PCR) NEGATIVE (NEGATIVE) 12/10/20 11:22 Nasal B.pertussis DNA PCR NOT DETECTED 12/08/20 04:44 Nasal C.pneumoniae (PCR) NOT DETECTED 12/08/20 04:44 Russell Human Metapneumo PCR NOT DETECTED 12/08/20 04:44 Nasal M.pneumoniae (PCR) NOT DETECTED 12/08/20 04:44 Nasal SARS-CoV-2 (PCR) NOT DETECTED 12/08/20 04:44 Last Dose Date 12/10/20 12/11/20 09:52 Last Dose Time 1354 12/11/20 09:52 Vancomycin Trough 8.3 ug/mL (10.0-20.0) L 12/11/20 09:52 - Procedures Procedures: Procedures CENTRAL VENOUS CATHETER PLACEMENT WITH GUIDANCE (06/13/13) 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) ILEOSTOMY NOS (06/13/13) INSPECTION OF LOWER INTESTINAL TRACT, ENDO (12/05/20) LG-TO-LG BOWEL ANASTOM (06/13/13) OPEN AND OTHER SIGMOIDECTOMY (06/13/13) PACKED CELL TRANSFUSION (06/13/13) REPAIR DESCENDING COLON, OPEN APPROACH (12/05/20) SM BOWEL STOMA CLOSURE (09/26/13) URETERAL CATHETERIZATION (06/13/13) Sepsis Event Note (H) - Evaluation Current Stage of Sepsis: Severe sepsis Possible source of Sepsis: positive: Pulmonary - Sepsis Criteria Sepsis Criteria: Recorded Heart Rate greater than 90 bpm, Recorded Respiratory Rate greater than 20, [employer]: altered consciousness (unrelated to primary neuro pathology), Renal: urine output less than 0.5ml/kg/hr for 2 hours or creatinine gr
--- NOTE | 2020-12-12 16:11 | CT Report ---
PROCEDURE: Abdomen/Pelvis W INDICATIONS: Abdominal pain and rising WBC count. Concern for perforated bowel. CONTRAST: IV CONTRAST: Optiray 320 ml: 100 PO CONTRAST: Isovue 300 ml50 TECHNIQUE: After the administration of intravenous and oral contrast, 5 mm thick sections acquired from the diap hragms to the symphysis. 5 mm thick coronal and sagittal reformats were acquired. For radiation dos e reduction, the following was used: automated exposure control, adjustment of mA and/or kV accordin g to patient size. COMPARISON: CT abdomen pelvis 12/08/2020, CT chest, 12/08/2020, CT abdomen pelvis 04/18/2017. FINDINGS: Image quality: Diagnostic. ABDOMEN: Lung bases: There are persistent bilateral pleural effusions, [id number] on the left and small on the right, with associated posterior consolidation in the lower lobes as well as bibasilar atelec tasis. Heart size is normal. There is a small hiatal hernia. Mild concentric wall thickening is demo nstrated within the visualized distal esophagus. Solid organs: Evaluation of the liver demonstrates no focal hepatic lesions. Gallbladder is nondiste nded. Mild gallbladder wall thickening and enhancement are demonstrated. No calcified gallstones. No intra or extrahepatic biliary ductal dilatation. The pancreas demonstrates no discrete mass lesions o r pancreatic duct dilatation. No peripancreatic fluid collections. The spleen is normal in size. Ther e is a small subcapsular fluid collection along the spleen which appears similar to the prior study. This demonstrates attenuation values slightly higher than expected for simple fluid. There are linear hypoattenuating regions within the spleen inferiorly likely representing splenic clefts but a small laceration cannot be excluded. No adrenal nodules. Kidneys demonstrate no hydronephrosis. Peritoneum and bowel: Postsurgical changes are redemonstrated with surgical sutures in the small jackeline l in the right mid abdomen as well as the sigmoid colon. There is mild gastric wall thickening in the antrum as well as mild wall thickening within the descending portion of the duodenum. Remaining of t he small bowel loops are normal in caliber. There is segmental mild colonic wall thickening within th e mid ascending colon. Mild distention of the ascending, transverse, and descending colon are also de monstrated with air-fluid levels. The sigmoid colon is nondistended distally. A small amount of free fluid is redemonstrated in the pelvis, decreased compared to the prior study. There is also interval decrease in density of the fluid. No intraperitoneal free air. No loculated fluid collections to sugg est an abscess. Nodes and vessels: No retroperitoneal or mesenteric adenopathy by size criteria. Aorta and inferior vena cava are normal in size. Miscellaneous: Postsurgical changes are demonstrated within the ventral abdominal wall. No ventral h ernias. PELVIS: Genitourinary: Bladder wall thickness is normal. Miscellaneous: No inguinal hernias or adenopathy. Bones: No suspicious bony lesions. There is a levoscoliosis of the thoracolumbar spine centered at L1-L2. No vertebral body compression fractures. IMPRESSION: 1. Persistent bilateral pleural effusions, left greater than right, with associated bibasilar consoli dation likely reflecting pneumonia with parapneumonic effusions. 2. No definite evidence of perforation. There is interval decrease in free fluid within the pelvis as well as decrease in fluid density. No intraperitoneal free air or abscess collections. 3. Small subcapsular fluid collection along the spleen appears similar to the prior study. The findin gs may represent sequelae of a prior subcapsular hematoma from a mild splenic laceration. 4. Mild segmental wall thickening within the mid ascending colon compatible with a nonspecific mild c olitis. Mild fluid distention of the proximal colon with air-fluid levels likely reflects a gastroent eritis. 5. Mild wall thickening in the gastric antrum and proximal duodenum also likely represent a mild infe ctious or inflammatory gastritis and enteritis. Reviewed by: Tobias Geiger MD on 12/12/2020 4:10 PM PST Approved by: Tobias Geiger MD on 12/12/2020 4:10 PM PST Station ID: [id number]
[2020-12-12] MEDS: CIPROFLOXACIN 200 MG/100 ML 200 MG/100 ML BAG IV SCH (17:16)
[2020-12-12] MEDS: metroNIDAZOLE 500 MG/100 ML 500 MG/100 ML BAG IV SCH (18:20)
[2020-12-13] MEDS: metroNIDAZOLE 500 MG/100 ML 500 MG/100 ML BAG IV SCH ×3 (00:22→17:49)
[2020-12-13] MEDS: SODIUM CHLORIDE FLUSH 0.9% 10 ML SYRINGE IVP SCH ×4 (00:27→08:12)
[2020-12-13] MEDS: ACETAMINOPHEN 500 MG TABLET PO PRN (04:08)
[2020-12-13] MEDS: CIPROFLOXACIN 200 MG/100 ML 200 MG/100 ML BAG IV SCH ×2 (04:34→16:37)
[2020-12-13] MEDS: PANTOPRAZOLE 40 MG VIAL IVP SCH (06:26)
[2020-12-13] MEDS: SODIUM CHLORIDE FLUSH 0.9% 10 ML SYRINGE IVP PRN ×2 (06:26→08:16)
[2020-12-13] MEDS: LOSARTAN 50 MG TABLET PO SCH ×2 (07:55→20:37)
[2020-12-13] MEDS: SACCHAROMYCES BOULARDII 250 MG CAPSULE PO SCH ×2 (07:55→16:37)
[2020-12-13] MEDS: guaiFENesin 600 MG TABLET PO SCH ×2 (07:56→20:37)
[2020-12-13] MEDS: FERROUS GLUCONATE 324 MG TABLET PO SCH (07:56)
[2020-12-13] MEDS ORDERED: POTASSIUM CHLOR 10 MEQ/100 ML 10 MEQ/100 ML BAG IV STA (08:04)
[2020-12-13] MEDS: ALBUTEROL NEB 2.5 MG/3 ML INH SCH ×4 (08:07→18:17)
[2020-12-13] MEDS: ONDANSETRON 4 MG/2 ML VIAL IVP PRN ×2 (08:11→16:39)
[2020-12-13] MEDS: Imatinib Mesylate [Gleevec] 100 MG Tablet PO SCH (08:15)
[2020-12-13 08:26] LABS: BASOPHILS % (AUTO) 0.3 %; EOSINOPHILS # (AUTO) 0.6 10^3/uL (0.0-0.7); EOSINOPHILS % (AUTO) 5.3 %; HGB - HEMOGLOBIN 9.5 g/dL (12.0-16.0); LYMPHOCYTES # (AUTO) 1.4 10^3/uL (1.5-3.5); MEAN CORPUSCULAR HEMOGLOBIN 33.6 pg (27.0-31.0); MEAN CORPUSCULAR HGB CONC 33.1 g/dL (32.0-36.0); MEAN CORPUSCULAR VOLUME 101.4 fL (81.0-99.0); MONOCYTES # (AUTO) 0.5 10^3/uL (0.0-1.0); MONOCYTES % (AUTO) 3.9 %; NEUTROPHILS # (AUTO) 9.1 10^3/uL (1.5-6.6); NEUTROPHILS % (AUTO) 76.7 %; PLT - PLATELET COUNT 257 10^3/uL (130-450); RED BLOOD COUNT 2.83 10^6/uL (4.20-5.40); RED CELL DISTRIBUTION WIDTH 14.7 % (12.0-15.0); WHITE BLOOD COUNT 11.9 x10^3/uL (4.8-10.8)
[2020-12-13] MEDS: oxyCODONE 5 MG TABLET PO PRN ×3 (08:26→22:39)
[2020-12-13 08:34] LABS: CREATININE 0.6 mg/dL (0.4-1.0); MAGNESIUM 1.6 mg/dL (1.7-2.8)
[2020-12-13] MEDS: LEVOTHYROXINE 88 MCG TABLET PO SCH (11:46)
--- NOTE | 2020-12-13 15:33 | PROVIDER PROGRESS NOTE ---
Assessment/Plan - Problem List (1) Colitis Assessment/Plan: She had more abdominal pain yesterday, and white blood count went up to 13 and she had nausea and vomiting. Abdominal CT imaging was done yesterday that showed colitis. This was a new finding yesterday. Her diet was deescalated to clear liquids yesterday, prn pain meds and prn iv antiemetics continue and she had her IV antibiotics adjusted with the addition of Flagyl to Zosyn. Continue with gentle hydration (low rate, since she already has leg edema from receiving IV hydration this whole admission), continue IV antibiotics, bowel rest, slow advancement of her diet, follow WBC daily. (2) N&V (nausea and vomiting) Assessment/Plan: Yesterday nausea and vomiting occurred and she underwent abdominal imaging which showed gastroenteritis. N/V has improved when her diet was deescalated to clear liquids and received antiemetics. We will slowly advance it again to pured diet and continue as needed ant iemetics and IV fluids. (3) Hospital-acquired pneumonia Assessment/Plan: Yesterday's CT of the abdomen saw the lower chest and there were still bilateral consolidations visualized. Continue with IV antibiotic management, Mucinex and probiotics. (4) Large bowel perforation Assessment/Plan: This was a complication of her colonoscopy done December 05 which required an open lap for repair and she was discharged on Dec 07. She still gets incisional pain slightly. (5) CML (chronic myelocytic leukemia) Assessment/Plan: She was on Gleevac for this (6) Hypothyroidism Assessment/Plan: We resumed her home po Synthroid dose. (7) HTN (hypertension) Assessment/Plan: Her BP meds will be resumed in a staggered fashion as needed for hypertension management (8) Anemia Qualifiers: Anemia type: iron deficiency Assessment/Plan: She was started on oral iron replacement several days ago. (9) Hypokalemia Assessment/Plan: Replace with iv riders. Follow BMP daily. (10) Severe sepsis Assessment/Plan: Resolved (11) Altered mental status Qualifiers: Altered mental status type: stupor Qualified Code(s): R40.1 - Stupor Assessment/Plan: Resolved (12) Acute kidney injury Assessment/Plan: Resolved - Current Meds Current Meds: Current Medications Generic Name Dose Route Start Last Admin Trade Name Freq PRN Reason Stop Dose Admin Acetaminophen 500 mg 12/10/20 11:09 12/13/20 04:08 Acetaminophen 500 Mg Tablet PO 500 mg Q4HR PRN Administration Pain or Fever > 38C (100.4F) Albuterol 2.5 mg 12/09/20 11:00 12/13/20 14:59 Albuterol Neb 2.5 Mg/3 Ml INH 2.5 mg RTQ4H MICHELLE Administration Ferrous Gluconate 324 mg 12/11/20 08:11 12/13/20 07:56 Ferrous Gluconate 324 Mg Tablet PO 324 mg DAILYWM MICHELLE Administration Guaifenesin 600 mg 12/09/20 21:00 12/13/20 07:56 Guaifenesin 600 Mg Tablet PO 600 mg BID MICHELLE Administration Hydromorphone HCl 0.5 mg 12/08/20 12:55 12/12/20 09:50 Hydromorphone 0.5 Mg/0.5 Ml Syringe IVP 0.5 mg Q2H PRN Administration Breakthrough Pain Ciprofloxacin 200 mg in 100 mls @ 100 mls/hr 12/12/20 17:00 12/13/20 05:34 Cipro 200 Mg/100 Ml IV Infused Q12H MICHELLE Infusion Metronidazole 500 mg in 100 mls @ 100 mls/hr 12/12/20 17:00 12/13/20 09:20 Flagyl 500 Mg/100 Ml IV Infused Q8H MICHELLE Infusion Levothyroxine Sodium 88 mcg 12/09/20 11:00 12/13/20 11:46 Levothyroxine 88 Mcg Tablet PO 88 mcg SUMOTUWETHFR MICHELLE Administration Losartan Potassium 25 mg 12/10/20 11:04 12/13/20 07:55 Losartan 50 Mg Tablet PO 25 mg BID MICHELLE Administration Ondansetron HCl 4 mg 12/08/20 05:44 12/13/20 08:11 Ondansetron 4 Mg/2 Ml Vial IVP 4 mg Q6HR PRN Administration Nausea / Vomiting Oxycodone HCl 5 mg 12/08/20 05:44 12/13/20 14:36 Oxycodone 5 Mg Tablet PO 5 mg Q4HR PRN Administration Pain 5 to 7 Pantoprazole Sodium 40 mg 12/08/20 13:00 12/13/20 06:26 Pantoprazole 40 Mg Vial IVP 40 mg QDAC MICHELLE Administration Imatinib Mesylate [ 2 each 12/10/20 08:00 12/13/20 08:15 Gleevec] 100 Mg PO 2 each Tablet QDBREAKFAST MICHELLE Administration Imatinib Mesylate [ 1 each 12/09/20 17:30 12/12/20 17:30 Gleevec] 400 Mg PO 1 each Tablet 1730 MICHELLE Administration Saccharomyces Boulardii 250 mg 12/08/20 08:00 12/13/20 07:55 Saccharomyces Boulardii 250 Mg Capsule PO 250 mg BIDWM MICHELLE Administration Sodium Chloride 10 ml 12/08/20 05:44 12/13/20 08:16 Sodium Chloride Flush 0.9% 10 Ml Syringe IVP 10 ml PRN PRN Administration NEEDED PER PROVIDER ORDERS Sodium Chloride 10 ml 12/08/20 09:00 12/13/20 08:12 Sodium Chloride Flush 0.9% 10 Ml Syringe IVP 10 ml 0100,0900,1700 MICHELLE Administration Throat Lozenges 1 lozenge 12/10/20 03:03 12/10/20 03:22 Benzocaine/Menthol Lozenge MM 1 lozenge Q2HR PRN Administration Throat pain - Lab Result Fish Bone Diagrams: 12/13/20 08:20 12/13/20 08:20 - Additional Planning My Orders: My Active Orders 12/12/20 Dinner Clear Liquid Diet [DIET] 12/12/20 17:00 Ciprofloxacin 200 mg/100 ml [Cipro 200 mg/100 ml] 200 mg in 100 ml IV Q12H metroNIDAZOLE 500 MG/100 ML [Flagyl 500 mg/100 ml] 500 mg in 100 ml IV Q8H 12/12/20 18:05 MISC TEST QUEST AMBIENT [REFLAB] Routine 12/14/20 05:00 BMP - BASIC METABOLIC PANEL [CHEM] DAILYLAB CBC - COMP BLD CT W/AUTO DIFF [HEME] DAILYLAB MAGNESIUM [CHEM] DAILYLAB 12/15/20 05:00 BMP - BASIC METABOLIC PANEL [CHEM] DAILYLAB CBC - COMP BLD CT W/AUTO DIFF [HEME] DAILYLAB 12/16/20 05:00 BMP - BASIC METABOLIC PANEL [CHEM] DAILYLAB CBC - COMP BLD CT W/AUTO DIFF [HEME] DAILYLAB Subjective - Subjective Patient Reports: Feeling Better, Other (Is hungry. No nausea) Objective Vital Signs: Vital Signs - 24 hr 0112/12/20 12/12/20 17:00 18:24 18:32 Temperature 36.9 C Heart Rate 74 Heart Rate [ 86 Brachial] Respiratory 18 16 Rate Blood Pressure 165/70 H 141/59 H [Left Brachial artery] Blood Pressure 165/70 H [Right Brachial artery] O2 Saturation 99 12/12/20 12/13/20 12/13/20 20:19 00:52 04:12 Temperature 37.4 C 37.2 C 37.5 C Heart Rate Heart Rate [ 87 83 79 Brachial] Respiratory 18 17 18 Rate Blood Pressure 149/65 H 147/72 H [Left Brachial artery] Blood Pressure 147/57 H [Right Brachial artery] O2 Saturation 95 94 95 12/13/20 12/13/20 12/13/20 07:57 08:07 11:30 Temperature 36.8 C 37.2 C Heart Rate 75 Heart Rate [ 72 83 Brachial] Respiratory 18 16 Rate Blood Pressure [Left Brachial artery] Blood Pressure 144/65 H 152/56 H [Right Brachial artery] O2 Saturation 96 94 12/13/20 12/13/20 11:32 14:59 Temperature Heart Rate 77 101 H Heart Rate [ Brachial] Respiratory 16 18 Rate Blood Pressure [Left Brachial artery] Blood Pressure [Right Brachial artery] O2 Saturation Oxygen O2 Source Nasal cannula Oxygen Flow Rate 4 I&O (Last 24 Hrs): Intake and Output Totals x24h 12/11/20 12/12/20 12/13/20 23:59 23:59 23:59 Intake Total 2207.667 2227.333 540 Balance 2207.667 2227.333 540 General: Alert, Oriented x3 HEENT: Mucous membr. moist/pink Neck: Supple, No JVD Neuro: Alert, Non Focal Cardiovascular: Regular rate Respiratory: No respiratory distress, Breath sounds nml (anteriorly) Abdomen: Normal bowel sounds, Soft, No tenderness Extremities: Other (edema 2+ of posterior shins and thighs) - Results Results: Laboratory Results WBC 11.9 x10^3/uL (4.8-10.8) H 12/13/20 08:20 RBC 2.83 10^6/uL (4.20-5.40) L 12/13/20 08:20 Hgb 9.5 g/dL (12.0-16.0) L 12/13/20 08:20 Hct 28.7 % (37.0-47.0) L 12/13/20 08:20 MCV 101.4 fL (81.0-99.0) H 12/13/20 08:20 MCH 33.6 pg (27.0-31.0) H 12/13/20 08:20 MCHC 33.1 g/dL (32.0-36.0) 12/13/20 08:20 RDW 14.7 % (12.0-15.0) 12/13/20 08:20 Plt Count 257 10^3/uL (130-450) 12/13/20 08:20 MPV 9.0 fL (7.9-10.8) 12/13/20 08:20 Neut # (Auto) 9.1 10^3/uL (1.5-6.6) H 12/13/20 08:20 Lymph # (Auto) 1.4 10^3/uL (1.5-3.5) L 12/13/20 08:20 Ellis # (Auto) 0.5 10^3/uL (0.0-1.0) 12/13/20 08:20 Eos # (Auto) 0.6 10^3/uL (0.0-0.7) 12/13/20 08:20 Baso # (Auto) 0.0 10^3/uL (0.0-0.1) 12/13/20 08:20 Absolute Nucleated RBC 0.00 x10^3/uL 12/13/20 08:20 Nucleated RBC % 0.0 /100WBC 12/13/20 08:20 Bld Gas Analysis Time 1228 12/08/20 12:23 Sample Site LEFT RADIAL 12/08/20 12:23 ABG pH 7.37 (7.35-7.45) 12/08/20 12:23 ABG pCO2 38 mmHg (34-45) 12/08/20 12:23 ABG pO2 54 mmHg (80-100) L* 12/08/20 12:23 ABG HCO3 21.5 mmol/L (22.0-26.0) L 12/08/20 12:23 ABG Total CO2 22.7 MMOL/L (21.0-29.0) 12/08/20 12:23 ABG O2 Saturation 89 % (94-98) L 12/08/20 12:23 ABG Base Excess -3.4 mmol/L (-2.0-3.0) L 12/08/20 12:23 Moses Test POSITIVE 12/08/20 12:23 VBG pH 7.320 (7.31-7.41) 12/08/20 05:30 VBG pCO2 42.1 mmHg (41-51) 12/08/20 05:30 VBG pO2 43.2 mmHg (25-47) 12/08/20 05:30 VBG HCO3 21.2 mmol/L (23-28) L 12/08/20 05:30 VBG Total CO2 22.5 mmol/L (24-29) L 12/08/20 05:30 VBG O2 Saturation 83.8 % (60-80) H 12/08/20 05:30 VBG Base Excess -4.6 mmol/L (-2 - +2) L 12/08/20 05:30 O2 Delivery Device NASAL CANNULA 12/08/20 12:23 O2 Liters/Min 2.00 LPM 12/08/20 12:23 Sodium 141 mmol/L (135-145) 12/13/20 08:20 Potassium 3.5 mmol/L (3.5-5.0) 12/13/20 08:20 Chloride 105 mmol/L (101-111) 12/13/20 08:20 Carbon Dioxide 26 mmol/L (21-32) 12/13/20 08:20 Anion Gap 10.0 (6-13) 12/13/20 08:20 BUN 8 mg/dL (6-20) 12/13/20 08:20 Creatinine 0.6 mg/dL (0.4-1.0) 12/13/20 08:20 Estimated GFR (MDRD) 98 (>89) 12/13/20 08:20 Glucose 97 mg/dL (70-100) 12/13/20 08:20 Lactic Acid 1.5 mmol/L (0.5-2.2) 12/08/20 15:05 Calcium 8.0 mg/dL (8.5-10.3) L 12/13/20 08:20 Magnesium 1.6 mg/dL (1.7-2.8) L 12/13/20 08:20 Iron 22 ug/dL (28-170) L 12/11/20 04:49 TIBC 213 ug/dL (250-450) L 12/11/20 04:49 % Saturation 10 % (20-50) L 12/11/20 04:49 Transferrin 152 mg/dL (192-382) L 12/11/20 04:49 Total Bilirubin 1.7 mg/dL (0.2-1.0) H 12/08/20 04:50 AST 38 IU/L (10-42) 12/08/20 04:50 ALT 25 IU/L (10-60) 12/08/20 04:50 Alkaline Phosphatase 55 IU/L (42-121) 12/08/20 04:50 Ammonia < 10.0 umol/L (7-35) 12/08/20 12:38 B-Natriuretic Peptide 89 pg/mL (5-100) 12/08/20 04:50 Total Protein 6.2 g/dL (6.7-8.2) L 12/08/20 04:50 Albumin 3.3 g/dL (3.2-5.5) 12/08/20 04:50 Globulin 2.9 g/dL (2.1-4.2) 12/08/20 04:50 Albumin/Globulin Ratio 1.1 (1.0-2.2) 12/08/20 04:50 Lipase 21 U/L (22-51) L 12/08/20 04:50 Vitamin B12 1162 pg/mL (180-914) H 12/11/20 04:49 Folate 20.65 ng/mL (5.90 - >24.8) 12/11/20 04:49 Urine Color YELLOW 12/08/20 14:42 Urine Clarity CLOUDY (CLEAR) 12/08/20 14:42 Urine pH 5.5 PH (5.0-7.5) 12/08/20 14:42 Ur Specific [place] 1.020 (1.002-1.030) 12/08/20 14:42 Urine Protein 30 mg/dL (NEGATIVE) H 12/08/20 14:42 Urine Glucose (UA) NEGATIVE mg/dL (NEGATIVE) 12/08/20 14:42 Urine Ketones NEGATIVE mg/dL (NEGATIVE) 12/08/20 14:42 Urine Occult Blood MODERATE (NEGATIVE) H 12/08/20 14:42 Urine Nitrite NEGATIVE (NEGATIVE) 12/08/20 14:42 Urine Bilirubin NEGATIVE (NEGATIVE) 12/08/20 14:42 Urine Urobilinogen 0.2 (NORMAL) E.U./dL (NORMAL) 12/08/20 14:42 Ur Leukocyte Esterase NEGATIVE (NEGATIVE) 12/08/20 14:42 Urine RBC 0-5 /HPF (0-5) 12/08/20 14:42 Urine WBC 0-3 /HPF (0-5) 12/08/20 14:42 Ur Squamous Epith Cells FEW Squamous (<= Few) 12/08/20 14:42 Urine Bacteria Few /HPF (None Seen) 12/08/20 14:42 Ur Microscopic Review INDICATED 12/08/20 14:42 Urine Culture Comments NOT INDICATED 12/08/20 14:42 Nasal Adenovirus (PCR) NOT DETECTED 12/08/20 04:44 Nasal B. parapertussis DNA (PCR) NOT DETECTED 12/08/20 04:44 Nasal Coronavir 229E PCR NOT DETECTED 12/08/20 04:44 Nasal Coronavir HKU1 PCR NOT DETECTED 12/08/20 04:44 Nasal Coronavir NL63 PCR NOT DETECTED 12/08/20 04:44 Nasal Coronavir OC43 PCR NOT DETECTED 12/08/20 04:44 Nasal Enterovir/Rhinovir PCR NOT DETECTED 12/08/20 04:44 Nasal Influenza B PCR NOT DETECTED 12/08/20 04:44 Nasal Influenza A PCR NOT DETECTED 12/08/20 04:44 Nasal Parainfluen 1 PCR NOT DETECTED 12/08/20 04:44 Nasal Parainfluen 2 PCR NOT DETECTED 12/08/20 04:44 Nasal Parainfluen 3 PCR NOT DETECTED 12/08/20 04:44 Nasal Parainfluen 4 PCR NOT DETECTED 12/08/20 04:44 Nasal RSV (PCR) NOT DETECTED 12/08/20 04:44 Nasal Screen MRSA (PCR) NEGATIVE (NEGATIVE) 12/10/20 11:22 Nasal B.pertussis DNA PCR NOT DETECTED 12/08/20 04:44 Nasal C.pneumoniae (PCR) NOT DETECTED 12/08/20 04:44 Urssell Human Metapneumo PCR NOT DETECTED 12/08/20 04:44 Nasal M.pneumoniae (PCR) NOT DETECTED 12/08/20 04:44 Nasal SARS-CoV-2 (PCR) NOT DETECTED 12/08/20 04:44 Stool Leukocytes, Qual NEGATIVE (Negative) 12/12/20 18:05 Stl C. 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) ILEOSTOMY NOS (06/13/13) INSPECTION OF LOWER INTESTINAL TRACT, ENDO (12/05/20) LG-TO-LG BOWEL ANASTOM (06/13/13) OPEN AND OTHER SIGMOIDECTOMY (06/13/13) PACKED CELL TRANSFUSION (06/13/13) REPAIR DESCENDING COLON, OPEN APPROACH (12/05/20) SM BOWEL STOMA CLOSURE (09/26/13) URETERAL CATHETERIZATION (06/13/13) Sepsis Event Note (H) - Evaluation Current Stage of Sepsis: Severe sepsis Possible source of Sepsis: positive: Pulmonary - Sepsis Criteria Sepsis Criteria: Recorded Heart Rate greater than 90 bpm, Recorded Respiratory Rate greater than 20, BROTH SETTER: altered consciousness (unrelated to primary neuro pathology), Renal: urine output less than 0.5ml/kg/hr for 2 hours or creatinine gr
[2020-12-14] MEDS: SODIUM CHLORIDE FLUSH 0.9% 10 ML SYRINGE IVP SCH ×2 (00:49→05:51)
[2020-12-14] MEDS: metroNIDAZOLE 500 MG/100 ML 500 MG/100 ML BAG IV SCH ×3 (00:49→17:08)
[2020-12-14] MEDS: CIPROFLOXACIN 200 MG/100 ML 200 MG/100 ML BAG IV SCH ×2 (04:30→17:08)
[2020-12-14 05:22] LABS: BASOPHILS # (AUTO) 0.1 10^3/uL (0.0-0.1); BASOPHILS % (AUTO) 0.4 %; EOSINOPHILS # (AUTO) 0.4 10^3/uL (0.0-0.7); EOSINOPHILS % (AUTO) 2.7 %; HGB - HEMOGLOBIN 9.1 g/dL (12.0-16.0); LYMPHOCYTES # (AUTO) 1.3 10^3/uL (1.5-3.5); LYMPHOCYTES % (AUTO) 9.6 %; MEAN CORPUSCULAR HEMOGLOBIN 32.5 pg (27.0-31.0); MEAN CORPUSCULAR HGB CONC 31.8 g/dL (32.0-36.0); MEAN CORPUSCULAR VOLUME 102.1 fL (81.0-99.0); MEAN PLATELET VOLUME 9.3 fL (7.9-10.8); MONOCYTES # (AUTO) 0.5 10^3/uL (0.0-1.0); MONOCYTES % (AUTO) 3.6 %; NEUTROPHILS # (AUTO) 11.3 10^3/uL (1.5-6.6); NEUTROPHILS % (AUTO) 82.5 %; PLT - PLATELET COUNT 313 10^3/uL (130-450); WHITE BLOOD COUNT 13.7 x10^3/uL (4.8-10.8)
[2020-12-14 05:36] LABS: CALCIUM 7.8 mg/dL (8.5-10.3); CREATININE 0.6 mg/dL (0.4-1.0); MAGNESIUM 1.6 mg/dL (1.7-2.8)
[2020-12-14] MEDS: PANTOPRAZOLE 40 MG VIAL IVP SCH (05:51)
[2020-12-14] MEDS: ACETAMINOPHEN 500 MG TABLET PO PRN ×2 (05:52→12:50)
[2020-12-14] MEDS: ALBUTEROL NEB 2.5 MG/3 ML INH SCH ×4 (07:25→19:30)
[2020-12-14] MEDS ORDERED: LEVOTHYROXINE 100 MCG TABLET PO SCH (08:00)
[2020-12-14] MEDS: SACCHAROMYCES BOULARDII 250 MG CAPSULE PO SCH ×2 (08:49→17:06)
[2020-12-14] MEDS: ONDANSETRON 4 MG/2 ML VIAL IVP PRN ×2 (08:49→17:03)
[2020-12-14] MEDS: LOSARTAN 50 MG TABLET PO SCH ×2 (08:50→20:24)
[2020-12-14] MEDS: FERROUS GLUCONATE 324 MG TABLET PO SCH (08:52)
[2020-12-14] MEDS: Imatinib Mesylate [Gleevec] 100 MG Tablet PO SCH (08:54)
[2020-12-14] MEDS: guaiFENesin 600 MG TABLET PO SCH ×2 (08:58→20:24)
[2020-12-14] MEDS: SODIUM CHLORIDE FLUSH 0.9% 10 ML SYRINGE IVP PRN (17:03)
--- NOTE | 2020-12-14 18:25 | PROVIDER PROGRESS NOTE ---
Progress Note Subjective Overall feels much better. Positive stool. Positive flatus. Tolerating diet. No nausea. No vomiting. No significant pain. Respiratory significantly improved. Objective Afebrile hemodynamically acceptable General Appearance: positive: No acute distress Eyes Bilateral: positive: Normal inspection ENT: positive: ENT inspection nml Neck: positive: Nml inspection Respiratory: positive: Chest non-tender, No respiratory distress, Breath sounds nml. negative: Wheezes, Rales, Rhonchi Cardiovascular: positive: Regular rate & rhythm Abdomen: positive: No distention, Other. negative: Guarding, Rebound Extremities: positive: Non-tender, Full ROM, Nml appearance Neurologic/Psychiatric: positive: Oriented x3, CN's nml (2-12) Stool leukocytes negative Stool C. difficile toxin negative CT abdomen pelvis December 12, 2020: 1. Persistent bilateral pleural effusions, left greater than right, with associated bibasilar validation likely reflecting pneumonia with parapneumonic effusions. 2. No definite evidence for perforation. There is interval decrease in free fluid within the pelvis as well as decrease in fluid density. No intraperitoneal free air or abscess collections. 3. Small subscapular fluid collection along the spleen appears similar to the prior study. The findings may represent sequelae of a prior subcapsular hematoma from his mild splenic laceration. 4. Mild segmental wall thickening within the mid ascending colon compatible with a nonspecific mild colitis mild fluid distention of the proximal colon with air-fluid levels might likely reflect a gastroenteritis. 5. Mild wall thickening in the gastric antrum and proximal duodenum also likely represents a mild infectious or inflammatory gastritis or enteritis. Impression/Plan Postop day #9 status post diagnostic laparoscopy converted to open mini laparotomy for repair of perforation following attempted colonoscopy. Patient returned to hospital with bilateral pneumonia. Leukocytosis with interval ileus now with gastroenteritis and segmental colitis. Abdominal exam benign. Positive bowel function. Stool studies thus far negative. Would recommend the additional studies for ova and parasite, as we await stool culture as well. Wound clean dry and intact. No signs of occult source of leukocytosis. Afebrile hemodynamically acceptable. No tachycardia to which we could attribute pulmonary embolism. Inflammatory response likely secondary to recent surgery with subsequent pneumonia. We will continue to follow. If continues to have leukocytosis will consider proceeding with repeat imaging. Continue antibiotics at this time. See below for additional concerns as relates to vancomycin and her GleeVAC. (1) GI - IVF, HOLD bowel regimen given loose stooling, slowly advance diet. GI ppx. Opiate sparring analgesia. Can consider cholestyramine as a slowing agent. (2) SURGERY - Wound clean/dry/intact. No signs of any complications. No abscess. No significant fluid collections. (3) Renal/Lytes - continue IVF. Renal indices within normal limits. (4) Respiratory - O2 as necessary. Continue IS. (5) Heme - Will continue with DVT ppx. H/H stable. (6) Cardiovascular - HD acceptable. (7) Neuro - Opiate sparring analgesia. Antispasmodics with Robaxin. Neuropathic agents. (8) Immune/Infectious Disease - Continue Cipro and Flagyl intravenously; for leukocytosis will consider repeating CT imaging chest abdomen pelvis on Wednesday. Continue to trend white count. There is additional question as it relates to the patient's vancomycin which she had been taking earlier in her course which appear to be helping and she was last dosed on the . The white count profile thereafter increased. This may be indicative of a resistant organism. I would recommend resuming i (9) ONCOLOGY - we will hold Gleevec at this time and discussed with oncology the implications as this carries with it a risk of infectious stigmata. This patient who has ongoing pneumonias as well as history of recent surgical intervention as the additional risk of developing neutropenia/pancytopenia although this was not the case at this time. Please note that voice recognition software was used to transcribe this note and inadvertent errors might persist in spite of review and editing. I am obliged to you for your attention. I am thankful to you for allowing me to participate with you in this care of this patient.
--- NOTE | 2020-12-14 20:31 | PROVIDER PROGRESS NOTE ---
Assessment/Plan - Problem List (1) Colitis Assessment/Plan: Patient's abdominal pain seems to have improved. She reported nausea but no vomiting today White blood cell count was 13.6. She is on Flagyl and Cipro. Will continue. To study was negative for C. difficile Her diet was advanced from clear liquids to dysphagia/pured diet today. General surgery Dr. Duran also following. (2) N&V (nausea and vomiting) Assessment/Plan: Patient still has some mild nausea but was able to tolerate a dysphagia diet. Continue Zofran as needed (3) Hospital-acquired pneumonia Assessment/Plan: On Cipro and Flagyl.Prior to this the patient had been on Zosyn. (4) Large bowel perforation Assessment/Plan: This was a complication of colonoscopy done 12/05/2020. It required an open lab for repair. Patient has been stable since repair. We will continue to monitor. General surgery Dr. Hicks also following. (5) CML (chronic myelocytic leukemia) Assessment/Plan: Patient is on Gleevec (6) Hypertension Qualifiers: Hypertension type: essential hypertension Qualified Code(s): I10 - Essential (primary) hypertension Assessment/Plan: Currently normotensive. On losartan 25 mg p.o. twice daily. (7) Hypothyroidism Assessment/Plan: Patient takes Synthroid 100 mcg p.o. on Wednesday and 88 mcg p.o. daily for the rest of the week (8) Anemia Qualifiers: Anemia type: iron deficiency Assessment/Plan: Stable patient's hemoglobin today is 9.1. Patient is on iron supplements. Will continue. (9) Hypokalemia Assessment/Plan: Potassium today was 3.4. Will replace and recheck. We will also check magnesium. - Current Meds Current Meds: Current Medications Generic Name Dose Route Start Last Admin Trade Name Freq PRN Reason Stop Dose Admin Acetaminophen 500 mg 12/10/20 11:09 12/14/20 12:50 Acetaminophen 500 Mg Tablet PO 500 mg Q4HR PRN Administration Pain or Fever > 38C (100.4F) Albuterol 2.5 mg 12/09/20 11:00 12/14/20 19:30 Albuterol Neb 2.5 Mg/3 Ml INH 2.5 mg RTQ4H MICHELLE Administration Ferrous Gluconate 324 mg 12/11/20 08:11 12/14/20 08:52 Ferrous Gluconate 324 Mg Tablet PO 324 mg DAILYWM MICHELLE Administration Guaifenesin 600 mg 12/09/20 21:00 12/14/20 20:24 Guaifenesin 600 Mg Tablet PO 600 mg BID MICHELLE Administration Hydromorphone HCl 0.5 mg 12/08/20 12:55 12/12/20 09:50 Hydromorphone 0.5 Mg/0.5 Ml Syringe IVP 0.5 mg Q2H PRN Administration Breakthrough Pain Ciprofloxacin 200 mg in 100 mls @ 100 mls/hr 12/12/20 17:00 12/14/20 18:08 Cipro 200 Mg/100 Ml IV Infused Q12H MICHELLE Infusion Metronidazole 500 mg in 100 mls @ 100 mls/hr 12/12/20 17:00 12/14/20 18:08 Flagyl 500 Mg/100 Ml IV Infused Q8H MICHELLE Infusion Levothyroxine Sodium 100 mcg 12/14/20 08:00 12/14/20 08:57 Levothyroxine 100 Mcg Tablet PO 100 mcg Sa MICHELLE Administration Levothyroxine Sodium 88 mcg 12/09/20 11:00 12/13/20 11:46 Levothyroxine 88 Mcg Tablet PO 88 mcg SUMOTUWETHFR MICHELLE Administration Losartan Potassium 25 mg 12/10/20 11:04 12/14/20 20:24 Losartan 50 Mg Tablet PO 25 mg BID MICHELLE Administration Ondansetron HCl 4 mg 12/08/20 05:44 12/14/20 17:03 Ondansetron 4 Mg/2 Ml Vial IVP 4 mg Q6HR PRN Administration Nausea / Vomiting Oxycodone HCl 5 mg 12/08/20 05:44 12/13/20 22:39 Oxycodone 5 Mg Tablet PO 5 mg Q4HR PRN Administration Pain 5 to 7 Pantoprazole Sodium 40 mg 12/08/20 13:00 12/14/20 05:51 Pantoprazole 40 Mg Vial IVP 40 mg QDAC MICHELLE Administration Imatinib Mesylate [ 2 each 12/10/20 08:00 12/14/20 08:54 Gleevec] 100 Mg PO 2 each Tablet QDBREAKFAST MICHELLE Administration Imatinib Mesylate [ 1 each 12/09/20 17:30 12/14/20 17:06 Gleevec] 400 Mg PO 1 each Tablet 1730 MICHELLE Administration Saccharomyces Boulardii 250 mg 12/08/20 08:00 12/14/20 17:06 Zachary [place] 250 Mg Capsule PO 250 mg BIDWM MICHELLE Administration Sodium Chloride 10 ml 12/08/20 05:44 12/14/20 17:03 Sodium Chloride Flush 0.9% 10 Ml Syringe IVP 10 ml PRN PRN Administration NEEDED PER PROVIDER ORDERS Sodium Chloride 10 ml 12/08/20 09:00 12/14/20 05:51 Sodium Chloride Flush 0.9% 10 Ml Syringe IVP 10 ml 0100,0900,1700 MICHELLE Administration Throat Lozenges 1 lozenge 12/10/20 03:03 12/10/20 03:22 Benzocaine/Menthol Lozenge MM 1 lozenge Q2HR PRN Administration Throat pain - Lab Result Fish Bone Diagrams: 12/14/20 04:28 12/14/20 04:28 Subjective - Subjective Patient Reports: Other (Seated comfortably in the bedside chair at time of exam. She reported an episode of significant diarrhea chest before this visit. This was her second episode of diarrhea today. She denied chest pain but reported pleuritic pain. She also has been nauseous with no vomiting. She is currently not e) Objective Vital Signs: Vital Signs - 24 hr 12/13/20 12/14/20 12/14/20 22:50 00:06 06:13 Temperature 36.4 C L 37.1 C Heart Rate 98 Heart Rate [ 77 76 Brachial] Respiratory 18 16 18 Rate Blood Pressure 153/73 H [Left Brachial artery] Blood Pressure 145/61 H [Right Brachial artery] O2 Saturation 95 94 12/14/20 12/14/20 12/14/20 07:25 08:30 11:57 Temperature 37.1 C Heart Rate 79 74 Heart Rate [ 82 Brachial] Respiratory 18 16 18 Rate Blood Pressure [Left Brachial artery] Blood Pressure 142/60 H [Right Brachial artery] O2 Saturation 98 12/14/20 12/14/20 12/14/20 13:00 15:47 16:32 Temperature 36.7 C 37.3 C Heart Rate 72 Heart Rate [ 91 96 Brachial] Respiratory 18 16 18 Rate Blood Pressure [Left Brachial artery] Blood Pressure 156/82 H 149/65 H [Right Brachial artery] O2 Saturation 95 93 12/14/20 12/14/20 19:45 19:53 Temperature 37.4 C Heart Rate 74 Heart Rate [ 79 Brachial] Respiratory 18 18 Rate Blood Pressure [Left Brachial artery] Blood Pressure 136/70 H [Right Brachial artery] O2 Saturation 93 Oxygen O2 Source Room air Oxygen Flow Rate 4 I&O (Last 24 Hrs): Intake and Output Totals x24h 12/12/20 12/13/20 12/14/20 23:59 23:59 23:59 Intake Total 2227.333 1220 1420 Balance 2227.333 1220 1420 General: Alert, Oriented x3, No acute distress HEENT: PERRLA, EOMI Neck: Supple, No JVD Neuro: Alert, Oriented Times 3 Cardiovascular: Regular rate, Normal S1, Normal S2 Respiratory: Chest non-tender, No respiratory distress, Breath sounds nml Abdomen: Normal bowel sounds, Soft, No tenderness Extremities: Other (2+ edema up to her thighs) Skin: No rashes - Results Results: Laboratory Results WBC 13.7 x10^3/uL (4.8-10.8) H 12/14/20 04:28 RBC 2.80 10^6/uL (4.20-5.40) L 12/14/20 04:28 Hgb 9.1 g/dL (12.0-16.0) L 12/14/20 04:28 Hct 28.6 % (37.0-47.0) L 12/14/20 04:28 MCV 102.1 fL (81.0-99.0) H 12/14/20 04:28 MCH 32.5 pg (27.0-31.0) H 12/14/20 04:28 MCHC 31.8 g/dL (32.0-36.0) L 12/14/20 04:28 RDW 15.0 % (12.0-15.0) 12/14/20 04:28 Plt Count 313 10^3/uL (130-450) 12/14/20 04:28 MPV 9.3 fL (7.9-10.8) 12/14/20 04:28 Neut # (Auto) 11.3 10^3/uL (1.5-6.6) H 12/14/20 04:28 Lymph # (Auto) 1.3 10^3/uL (1.5-3.5) L 12/14/20 04:28 [place] # (Auto) 0.5 10^3/uL (0.0-1.0) 12/14/20 04:28 Eos # (Auto) 0.4 10^3/uL (0.0-0.7) 12/14/20 04:28 Baso # (Auto) 0.1 10^3/uL (0.0-0.1) 12/14/20 04:28 Absolute Nucleated RBC 0.00 x10^3/uL 12/14/20 04:28 Nucleated RBC % 0.0 /100WBC 12/14/20 04:28 Bld Gas Analysis Time 1228 12/08/20 12:23 Sample Site LEFT RADIAL 12/08/20 12:23 ABG pH 7.37 (7.35-7.45) 12/08/20 12:23 ABG pCO2 38 mmHg (34-45) 12/08/20 12:23 ABG pO2 54 mmHg (80-100) L* 12/08/20 12:23 ABG HCO3 21.5 mmol/L (22.0-26.0) L 12/08/20 12:23 ABG Total CO2 22.7 MMOL/L (21.0-29.0) 12/08/20 12:23 ABG O2 Saturation 89 % (94-98) L 12/08/20 12:23 ABG Base Excess -3.4 mmol/L (-2.0-3.0) L 12/08/20 12:23 Moses Test POSITIVE 12/08/20 12:23 VBG pH 7.320 (7.31-7.41) 12/08/20 05:30 VBG pCO2 42.1 mmHg (41-51) 12/08/20 05:30 VBG pO2 43.2 mmHg (25-47) 12/08/20 05:30 VBG HCO3 21.2 mmol/L (23-28) L 12/08/20 05:30 VBG Total CO2 22.5 mmol/L (24-29) L 12/08/20 05:30 VBG O2 Saturation 83.8 % (60-80) H 12/08/20 05:30 VBG Base Excess -4.6 mmol/L (-2 - +2) L 12/08/20 05:30 O2 Delivery Device NASAL CANNULA 12/08/20 12:23 O2 Liters/Min 2.00 LPM 12/08/20 12:23 Sodium 139 mmol/L (135-145) 12/14/20 04:28 Potassium 3.4 mmol/L (3.5-5.0) L 12/14/20 04:28 Chloride 104 mmol/L (101-111) 12/14/20 04:28 Carbon Dioxide 26 mmol/L (21-32) 12/14/20 04:28 Anion Gap 9.0 (6-13) 12/14/20 04:28 BUN 8 mg/dL (6-20) 12/14/20 04:28 Creatinine 0.6 mg/dL (0.4-1.0) 12/14/20 04:28 Estimated GFR (MDRD) 98 (>89) 12/14/20 04:28 Glucose 96 mg/dL (70-100) 12/14/20 04:28 Lactic Acid 1.5 mmol/L (0.5-2.2) 12/08/20 15:05 Calcium 7.8 mg/dL (8.5-10.3) L 12/14/20 04:28 Magnesium 1.6 mg/dL (1.7-2.8) L 12/14/20 04:28 Iron 22 ug/dL (28-170) L 12/11/20 04:49 TIBC 213 ug/dL (250-450) L 12/11/20 04:49 % Saturation 10 % (20-50) L 12/11/20 04:49 Transferrin 152 mg/dL (192-382) L 12/11/20 04:49 Total Bilirubin 1.7 mg/dL (0.2-1.0) H 12/08/20 04:50 AST 38 IU/L (10-42) 12/08/20 04:50 ALT 25 IU/L (10-60) 12/08/20 04:50 Alkaline Phosphatase 55 IU/L (42-121) 12/08/20 04:50 Ammonia < 10.0 umol/L (7-35) 12/08/20 12:38 B-Natriuretic Peptide 89 pg/mL (5-100) 12/08/20 04:50 Total Protein 6.2 g/dL (6.7-8.2) L 12/08/20 04:50 Albumin 3.3 g/dL (3.2-5.5) 12/08/20 04:50 Globulin 2.9 g/dL (2.1-4.2) 12/08/20 04:50 Albumin/Globulin Ratio 1.1 (1.0-2.2) 12/08/20 04:50 Lipase 21 U/L (22-51) L 12/08/20 04:50 Vitamin B12 1162 pg/mL (180-914) H 12/11/20 04:49 Folate 20.65 ng/mL (5.90 - >24.8) 12/11/20 04:49 Urine Color YELLOW 12/08/20 14:42 Urine Clarity CLOUDY (CLEAR) 12/08/20 14:42 Urine pH 5.5 PH (5.0-7.5) 12/08/20 14:42 Ur Specific [place] 1.020 (1.002-1.030) 12/08/20 14:42 Urine Protein 30 mg/dL (NEGATIVE) H 12/08/20 14:42 Urine Glucose (UA) NEGATIVE mg/dL (NEGATIVE) 12/08/20 14:42 Urine Ketones NEGATIVE mg/dL (NEGATIVE) 12/08/20 14:42 Urine Occult Blood MODERATE (NEGATIVE) H 12/08/20 14:42 Urine Nitrite NEGATIVE (NEGATIVE) 12/08/20 14:42 Urine Bilirubin NEGATIVE (NEGATIVE) 12/08/20 14:42 Urine Urobilinogen 0.2 (NORMAL) E.U./dL (NORMAL) 12/08/20 14:42 Ur Leukocyte Esterase NEGATIVE (NEGATIVE) 12/08/20 14:42 Urine RBC 0-5 /HPF (0-5) 12/08/20 14:42 Urine WBC 0-3 /HPF (0-5) 12/08/20 14:42 Ur Squamous Epith Cells FEW Squamous (<= Few) 12/08/20 14:42 Urine Bacteria Few /HPF (None Seen) 12/08/20 14:42 Ur Microscopic Review INDICATED 12/08/20 14:42 Urine Culture Comments NOT INDICATED 12/08/20 14:42 Nasal Adenovirus (PCR) NOT DETECTED 12/08/20 04:44 Nasal B. parapertussis DNA (PCR) NOT DETECTED 12/08/20 04:44 Nasal Coronavir 229E PCR NOT DETECTED 12/08/20 04:44 Nasal Coronavir HKU1 PCR NOT DETECTED 12/08/20 04:44 Nasal Coronavir NL63 PCR NOT DETECTED 12/08/20 04:44 Nasal Coronavir OC43 PCR NOT DETECTED 12/08/20 04:44 Nasal Enterovir/Rhinovir PCR NOT DETECTED 12/08/20 04:44 Nasal Influenza B PCR NOT DETECTED 12/08/20 04:44 Nasal Influenza A PCR NOT DETECTED 12/08/20 04:44 Nasal Parainfluen 1 PCR NOT DETECTED 12/08/20 04:44 Nasal Parainfluen 2 PCR NOT DETECTED 12/08/20 04:44 Nasal Parainfluen 3 PCR NOT DETECTED 12/08/20 04:44 Nasal Parainfluen 4 PCR NOT DETECTED 12/08/20 04:44 Nasal RSV (PCR) NOT DETECTED 12/08/20 04:44 Nasal Screen MRSA (PCR) NEGATIVE (NEGATIVE) 12/10/20 11:22 Nasal B.pertussis DNA PCR NOT DETECTED 12/08/20 04:44 Nasal C.pneumoniae (PCR) NOT DETECTED 12/08/20 04:44 Russell Human Metapneumo PCR NOT DETECTED 12/08/20 04:44 Nasal M.pneumoniae (PCR) NOT DETECTED 12/08/20 04:44 Nasal SARS-CoV-2 (PCR) NOT DETECTED 12/08/20 04:44 Stool Leukocytes, Qual NEGATIVE (Negative) 12/12/20 18:05 Stl C. 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) ILEOSTOMY NOS (06/13/13) INSPECTION OF LOWER INTESTINAL TRACT, ENDO (12/05/20) LG-TO-LG BOWEL ANASTOM (06/13/13) OPEN AND OTHER SIGMOIDECTOMY (06/13/13) PACKED CELL TRANSFUSION (06/13/13) REPAIR DESCENDING COLON, OPEN APPROACH (12/05/20) SM BOWEL STOMA CLOSURE (09/26/13) URETERAL CATHETERIZATION (06/13/13) Sepsis Event Note (H) - Evaluation Current Stage of Sepsis: Severe sepsis Possible source of Sepsis: positive: Pulmonary - Sepsis Criteria Sepsis Criteria: Recorded Heart Rate greater than 90 bpm, Recorded Respiratory Rate greater than 20, REAL ESTATE SUBAGENT: altered consciousness (unrelated to primary neuro pathology), Renal: urine output less than 0.5ml/kg/hr for 2 hours or creatinine gr ABX Reporting Has patient been on IV antibiotics over the past 48 hours?: Yes
[2020-12-14] MEDS ORDERED: POTASSIUM CHLORIDE 20 MEQ TABLET PO ONE (21:19)
[2020-12-15] MEDS: SODIUM CHLORIDE FLUSH 0.9% 10 ML SYRINGE IVP SCH ×3 (01:18→16:28)
[2020-12-15] MEDS: metroNIDAZOLE 500 MG/100 ML 500 MG/100 ML BAG IV SCH ×3 (01:18→16:24)
[2020-12-15] MEDS: ONDANSETRON 4 MG/2 ML VIAL IVP PRN ×3 (01:28→17:31)
[2020-12-15] MEDS: CIPROFLOXACIN 200 MG/100 ML 200 MG/100 ML BAG IV SCH ×3 (04:32→17:28)
[2020-12-15] MEDS: ACETAMINOPHEN 500 MG TABLET PO PRN (05:06)
[2020-12-15 05:08] LABS: BASOPHILS # (AUTO) 0.1 10^3/uL (0.0-0.1); BASOPHILS % (AUTO) 0.4 %; EOSINOPHILS # (AUTO) 0.4 10^3/uL (0.0-0.7); EOSINOPHILS % (AUTO) 3.1 %; HGB - HEMOGLOBIN 9.8 g/dL (12.0-16.0); LYMPHOCYTES # (AUTO) 1.4 10^3/uL (1.5-3.5); LYMPHOCYTES % (AUTO) 10.3 %; MEAN CORPUSCULAR HEMOGLOBIN 32.2 pg (27.0-31.0); MEAN CORPUSCULAR VOLUME 100.7 fL (81.0-99.0); MEAN PLATELET VOLUME 9.2 fL (7.9-10.8); MONOCYTES # (AUTO) 0.5 10^3/uL (0.0-1.0); MONOCYTES % (AUTO) 3.8 %; NEUTROPHILS # (AUTO) 11.1 10^3/uL (1.5-6.6); PLT - PLATELET COUNT 406 10^3/uL (130-450); RED BLOOD COUNT 3.04 10^6/uL (4.20-5.40); RED CELL DISTRIBUTION WIDTH 15.4 % (12.0-15.0); WHITE BLOOD COUNT 13.7 x10^3/uL (4.8-10.8)
[2020-12-15 05:16] LABS: CALCIUM 8.1 mg/dL (8.5-10.3); CREATININE 0.6 mg/dL (0.4-1.0); MAGNESIUM 1.6 mg/dL (1.7-2.8)
[2020-12-15] MEDS: PANTOPRAZOLE 40 MG VIAL IVP SCH (06:45)
[2020-12-15] MEDS: SODIUM CHLORIDE FLUSH 0.9% 10 ML SYRINGE IVP PRN (06:45)
[2020-12-15] MEDS: ALBUTEROL NEB 2.5 MG/3 ML INH SCH ×4 (07:18→20:05)
[2020-12-15] MEDS: Imatinib Mesylate [Gleevec] 100 MG Tablet PO SCH (08:50)
[2020-12-15] MEDS: FERROUS GLUCONATE 324 MG TABLET PO SCH (08:50)
[2020-12-15] MEDS: LOSARTAN 50 MG TABLET PO SCH ×2 (08:51→20:25)
[2020-12-15] MEDS: guaiFENesin 600 MG TABLET PO SCH ×2 (08:51→20:25)
[2020-12-15] MEDS: SACCHAROMYCES BOULARDII 250 MG CAPSULE PO SCH ×2 (08:51→16:28)
[2020-12-15] MEDS: LEVOTHYROXINE 88 MCG TABLET PO SCH (15:28)
[2020-12-15] MEDS ORDERED: MAGNESIUM SULFATE 2 GRAM 2 GM/50 ML BAG IV ONE (19:23)
--- NOTE | 2020-12-15 19:23 | PROVIDER PROGRESS NOTE ---
Assessment/Plan - Problem List (1) Colitis Assessment/Plan: Overall patient is clinically improved today. Patient denied abdominal pain or nausea today. Tolerated mashed potatoes well. White blood cell count was unchanged at 13.6. She is on Flagyl and Cipro. Will continue. Stool study was negative for C. difficile General surgery Dr. Duran also following. If patient continues to tolerate and advance diet, white blood cell count further improves and if cleared from a surgical point, then will consider discharging patient home. Anticipated discharge in 1 to 2 days. We will plan to switch antibiotics from IV to oral for a total duration of 10 days (2) N&V (nausea and vomiting) Assessment/Plan: Improved. Tolerated advanced diet. Continue Zofran as needed. (3) Hospital-acquired pneumonia Assessment/Plan: On Cipro and Flagyl.Prior to this the patient had been on Zosyn. (4) Large bowel perforation Assessment/Plan: This was a complication of colonoscopy done 12/05/2020. It required an open lab for repair. Patient has been stable since repair. We will continue to monitor. General surgery Dr. Hicks also following. Patient is on Gleevec (6) Hypertension Qualifiers: Hypertension type: essential hypertension Qualified Code(s): I10 - Essential (primary) hypertension Assessment/Plan: Currently normotensive. On losartan 25 mg p.o. twice daily. (7) Hypothyroidism Assessment/Plan: Patient takes Synthroid 100 mcg p.o. on Wednesday and 88 mcg p.o. daily for the rest of the week (8) Anemia Qualifiers: Anemia type: iron deficiency Assessment/Plan: Stable patient's hemoglobin today is 9.8. Patient is on iron supplements. Will continue. (9) Hypokalemia Assessment/Plan: Potassium today is 3.5. Magnesium was 1.6. Patient received 2 g IV of magnesium sulfate. We will continue to monitor and replace accordingly. - Current Meds Current Meds: Current Medications Generic Name Dose Route Start Last Admin Trade Name Freq PRN Reason Stop Dose Admin Acetaminophen 500 mg 12/10/20 11:09 12/15/20 05:06 Acetaminophen 500 Mg Tablet PO 500 mg Q4HR PRN Administration Pain or Fever > 38C (100.4F) Albuterol 2.5 mg 12/09/20 11:00 12/15/20 15:41 Albuterol Neb 2.5 Mg/3 Ml INH 2.5 mg RTQ4H MICHELLE Administration Ferrous Gluconate 324 mg 12/11/20 08:11 12/15/20 08:50 Ferrous Gluconate 324 Mg Tablet PO 324 mg DAILYWM MICHELLE Administration Guaifenesin 600 mg 12/09/20 21:00 12/15/20 08:51 Guaifenesin 600 Mg Tablet PO 600 mg BID MICHELLE Administration Hydromorphone HCl 0.5 mg 12/08/20 12:55 12/12/20 09:50 Hydromorphone 0.5 Mg/0.5 Ml Syringe IVP 0.5 mg Q2H PRN Administration Breakthrough Pain Ciprofloxacin 200 mg in 100 mls @ 100 mls/hr 12/12/20 17:00 12/15/20 18:28 Cipro 200 Mg/100 Ml IV Infused Q12H MICHELLE Infusion Metronidazole 500 mg in 100 mls @ 100 mls/hr 12/12/20 17:00 12/15/20 17:24 Flagyl 500 Mg/100 Ml IV Infused Q8H MICHELLE Infusion Levothyroxine Sodium 100 mcg 12/14/20 08:00 12/14/20 08:57 Levothyroxine 100 Mcg Tablet PO 100 mcg Sa MICHELLE Administration Levothyroxine Sodium 88 mcg 12/09/20 11:00 12/15/20 15:28 Levothyroxine 88 Mcg Tablet PO 88 mcg SUMOTUWETHFR MICHELLE Administration Losartan Potassium 25 mg 12/10/20 11:04 12/15/20 08:51 Losartan 50 Mg Tablet PO 25 mg BID MICHELLE Administration Ondansetron HCl 4 mg 12/08/20 05:44 12/15/20 17:31 Ondansetron 4 Mg/2 Ml Vial IVP 4 mg Q6HR PRN Administration Nausea / Vomiting Oxycodone HCl 5 mg 12/08/20 05:44 12/13/20 22:39 Oxycodone 5 Mg Tablet PO 5 mg Q4HR PRN Administration Pain 5 to 7 Pantoprazole Sodium 40 mg 12/08/20 13:00 12/15/20 06:45 Pantoprazole 40 Mg Vial IVP 40 mg QDAC MICHELLE Administration Imatinib Mesylate [ 2 each 12/10/20 08:00 12/15/20 08:50 Gleevec] 100 Mg PO 2 each Tablet QDBREAKFAST MICHELLE Administration Imatinib Mesylate [ 1 each 12/09/20 17:30 12/15/20 17:29 Gleevec] 400 Mg PO 1 each Tablet 1730 MICHELLE Administration Saccharomyces Boulardii 250 mg 12/08/20 08:00 12/15/20 16:28 Saccharomyces Boulardii 250 Mg Capsule PO 250 mg BIDWM MICHELLE Administration Sodium Chloride 10 ml 12/08/20 05:44 12/15/20 06:45 Sodium Chloride Flush 0.9% 10 Ml Syringe IVP 10 ml PRN PRN Administration NEEDED PER PROVIDER ORDERS Sodium Chloride 10 ml 12/08/20 09:00 12/15/20 16:28 Sodium Chloride Flush 0.9% 10 Ml Syringe IVP 10 ml 0100,0900,1700 MICHELLE Administration Throat Lozenges 1 lozenge 12/10/20 03:03 12/10/20 03:22 Benzocaine/Menthol Lozenge MM 1 lozenge Q2HR PRN Administration Throat pain - Lab Result Fish Bone Diagrams: 12/15/20 04:24 12/15/20 04:24 Subjective - Subjective Patient Reports: Other (She reports feeling clinically better today. She has not had any more diarrhea. She tolerated mashed potatoes well today. She denied abdominal pain, nausea or vomiting. She denied fever or chills.) Objective Vital Signs: Vital Signs - 24 hr 12/14/20 12/14/20 12/15/20 19:45 19:53 00:00 Temperature 37.4 C 37.4 C Heart Rate 74 Heart Rate [ 79 73 Brachial] Respiratory 18 18 18 Rate Blood Pressure [Left Brachial artery] Blood Pressure 136/70 H 139/82 H [Right Brachial artery] O2 Saturation 93 93 12/15/20 12/15/20 12/15/20 05:00 07:18 08:00 Temperature 36.7 C 37.1 C Heart Rate 74 Heart Rate [ 73 77 Brachial] Respiratory 18 16 16 Rate Blood Pressure 146/62 H [Left Brachial artery] Blood Pressure 146/46 H [Right Brachial artery] O2 Saturation 94 94 12/15/20 12/15/20 12/15/20 10:59 13:00 15:41 Temperature 37.2 C Heart Rate 74 79 Heart Rate [ 80 Brachial] Respiratory 16 18 18 Rate Blood Pressure 137/62 H [Left Brachial artery] Blood Pressure [Right Brachial artery] O2 Saturation 94 12/15/20 16:14 Temperature 37.1 C Heart Rate Heart Rate [ 76 Brachial] Respiratory 18 Rate Blood Pressure 126/65 [Left Brachial artery] Blood Pressure [Right Brachial artery] O2 Saturation 92 Oxygen O2 Source Room air Oxygen Flow Rate 4 I&O (Last 24 Hrs): Intake and Output Totals x24h 12/13/20 12/14/20 12/15/20 23:59 23:59 23:59 Intake Total 1220 1570 1520 Balance 1220 1570 1520 General: Alert, Oriented x3, No acute distress HEENT: PERRLA, EOMI Neck: Supple, No JVD Neuro: Alert, Non Focal, Oriented Times 3 Cardiovascular: Regular rate, Normal S1, Normal S2 Respiratory: Chest non-tender, No respiratory distress, Breath sounds nml Abdomen: Normal bowel sounds, Soft Extremities: No clubbing, No cyanosis, Other (2+ nonpitting edema) Skin: No rashes - Results Results: Laboratory Results WBC 13.7 x10^3/uL (4.8-10.8) H 12/15/20 04:24 RBC 3.04 10^6/uL (4.20-5.40) L 12/15/20 04:24 Hgb 9.8 g/dL (12.0-16.0) L 12/15/20 04:24 Hct 30.6 % (37.0-47.0) L 12/15/20 04:24 MCV 100.7 fL (81.0-99.0) H 12/15/20 04:24 MCH 32.2 pg (27.0-31.0) H 12/15/20 04:24 MCHC 32.0 g/dL (32.0-36.0) 12/15/20 04:24 RDW 15.4 % (12.0-15.0) H 12/15/20 04:24 Plt Count 406 10^3/uL (130-450) 12/15/20 04:24 MPV 9.2 fL (7.9-10.8) 12/15/20 04:24 Neut # (Auto) 11.1 10^3/uL (1.5-6.6) H 12/15/20 04:24 Lymph # (Auto) 1.4 10^3/uL (1.5-3.5) L 12/15/20 04:24 Atkinson # (Auto) 0.5 10^3/uL (0.0-1.0) 12/15/20 04:24 Eos # (Auto) 0.4 10^3/uL (0.0-0.7) 12/15/20 04:24 Baso # (Auto) 0.1 10^3/uL (0.0-0.1) 12/15/20 04:24 Absolute Nucleated RBC 0.00 x10^3/uL 12/15/20 04:24 Nucleated RBC % 0.0 /100WBC 12/15/20 04:24 Bld Gas Analysis Time 1228 12/08/20 12:23 Sample Site LEFT RADIAL 12/08/20 12:23 ABG pH 7.37 (7.35-7.45) 12/08/20 12:23 ABG pCO2 38 mmHg (34-45) 12/08/20 12:23 ABG pO2 54 mmHg (80-100) L* 12/08/20 12:23 ABG HCO3 21.5 mmol/L (22.0-26.0) L 12/08/20 12:23 ABG Total CO2 22.7 MMOL/L (21.0-29.0) 12/08/20 12:23 ABG O2 Saturation 89 % (94-98) L 12/08/20 12:23 ABG Base Excess -3.4 mmol/L (-2.0-3.0) L 12/08/20 12:23 Moses Test POSITIVE 12/08/20 12:23 VBG pH 7.320 (7.31-7.41) 12/08/20 05:30 VBG pCO2 42.1 mmHg (41-51) 12/08/20 05:30 VBG pO2 43.2 mmHg (25-47) 12/08/20 05:30 VBG HCO3 21.2 mmol/L (23-28) L 12/08/20 05:30 VBG Total CO2 22.5 mmol/L (24-29) L 12/08/20 05:30 VBG O2 Saturation 83.8 % (60-80) H 12/08/20 05:30 VBG Base Excess -4.6 mmol/L (-2 - +2) L 12/08/20 05:30 O2 Delivery Device NASAL CANNULA 12/08/20 12:23 O2 Liters/Min 2.00 LPM 12/08/20 12:23 Sodium 140 mmol/L (135-145) 12/15/20 04:24 Potassium 3.5 mmol/L (3.5-5.0) 12/15/20 04:24 Chloride 103 mmol/L (101-111) 12/15/20 04:24 Carbon Dioxide 28 mmol/L (21-32) 12/15/20 04:24 Anion Gap 9.0 (6-13) 12/15/20 04:24 BUN 6 mg/dL (6-20) 12/15/20 04:24 Creatinine 0.6 mg/dL (0.4-1.0) 12/15/20 04:24 Estimated GFR (MDRD) 98 (>89) 12/15/20 04:24 Glucose 105 mg/dL (70-100) H 12/15/20 04:24 Lactic Acid 1.5 mmol/L (0.5-2.2) 12/08/20 15:05 Calcium 8.1 mg/dL (8.5-10.3) L 12/15/20 04:24 Magnesium 1.6 mg/dL (1.7-2.8) L 12/15/20 04:24 Iron 22 ug/dL (28-170) L 12/11/20 04:49 TIBC 213 ug/dL (250-450) L 12/11/20 04:49 % Saturation 10 % (20-50) L 12/11/20 04:49 Transferrin 152 mg/dL (192-382) L 12/11/20 04:49 Total Bilirubin 1.7 mg/dL (0.2-1.0) H 12/08/20 04:50 AST 38 IU/L (10-42) 12/08/20 04:50 ALT 25 IU/L (10-60) 12/08/20 04:50 Alkaline Phosphatase 55 IU/L (42-121) 12/08/20 04:50 Ammonia < 10.0 umol/L (7-35) 12/08/20 12:38 B-Natriuretic Peptide 89 pg/mL (5-100) 12/08/20 04:50 Total Protein 6.2 g/dL (6.7-8.2) L 12/08/20 04:50 Albumin 3.3 g/dL (3.2-5.5) 12/08/20 04:50 Globulin 2.9 g/dL (2.1-4.2) 12/08/20 04:50 Albumin/Globulin Ratio 1.1 (1.0-2.2) 12/08/20 04:50 Lipase 21 U/L (22-51) L 12/08/20 04:50 Vitamin B12 1162 pg/mL (180-914) H 12/11/20 04:49 Folate 20.65 ng/mL (5.90 - >24.8) 12/11/20 04:49 Urine Color YELLOW 12/08/20 14:42 Urine Clarity CLOUDY (CLEAR) 12/08/20 14:42 Urine pH 5.5 PH (5.0-7.5) 12/08/20 14:42 Ur Specific Geary 1.020 (1.002-1.030) 12/08/20 14:42 Urine Protein 30 mg/dL (NEGATIVE) H 12/08/20 14:42 Urine Glucose (UA) NEGATIVE mg/dL (NEGATIVE) 12/08/20 14:42 Urine Ketones NEGATIVE mg/dL (NEGATIVE) 12/08/20 14:42 Urine Occult Blood MODERATE (NEGATIVE) H 12/08/20 14:42 Urine Nitrite NEGATIVE (NEGATIVE) 12/08/20 14:42 Urine Bilirubin NEGATIVE (NEGATIVE) 12/08/20 14:42 Urine Urobilinogen 0.2 (NORMAL) E.U./dL (NORMAL) 12/08/20 14:42 Ur Leukocyte Esterase NEGATIVE (NEGATIVE) 12/08/20 14:42 Urine RBC 0-5 /HPF (0-5) 12/08/20 14:42 Urine WBC 0-3 /HPF (0-5) 12/08/20 14:42 Ur Squamous Epith Cells FEW Squamous (<= Few) 12/08/20 14:42 Urine Bacteria Few /HPF (None Seen) 12/08/20 14:42 Ur Microscopic Review INDICATED 12/08/20 14:42 Urine Culture Comments NOT INDICATED 12/08/20 14:42 Nasal Adenovirus (PCR) NOT DETECTED 12/08/20 04:44 Nasal B. parapertussis DNA (PCR) NOT DETECTED 12/08/20 04:44 Nasal Coronavir 229E PCR NOT DETECTED 12/08/20 04:44 Nasal Coronavir HKU1 PCR NOT DETECTED 12/08/20 04:44 Nasal Coronavir NL63 PCR NOT DETECTED 12/08/20 04:44 Nasal Coronavir OC43 PCR NOT DETECTED 12/08/20 04:44 Nasal Enterovir/Rhinovir PCR NOT DETECTED 12/08/20 04:44 Nasal Influenza B PCR NOT DETECTED 12/08/20 04:44 Nasal Influenza A PCR NOT DETECTED 12/08/20 04:44 Nasal Parainfluen 1 PCR NOT DETECTED 12/08/20 04:44 Nasal Parainfluen 2 PCR NOT DETECTED 12/08/20 04:44 Nasal Parainfluen 3 PCR NOT DETECTED 12/08/20 04:44 Nasal Parainfluen 4 PCR NOT DETECTED 12/08/20 04:44 Nasal RSV (PCR) NOT DETECTED 12/08/20 04:44 Nasal Screen MRSA (PCR) NEGATIVE (NEGATIVE) 12/10/20 11:22 Nasal B.pertussis DNA PCR NOT DETECTED 12/08/20 04:44 Nasal C.pneumoniae (PCR) NOT DETECTED 12/08/20 04:44 Russell Human Metapneumo PCR NOT DETECTED 12/08/20 04:44 Nasal M.pneumoniae (PCR) NOT DETECTED 12/08/20 04:44 Nasal SARS-CoV-2 (PCR) NOT DETECTED 12/08/20 04:44 Stool Leukocytes, Qual NEGATIVE (Negative) 12/12/20 18:05 Stl C. 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) ILEOSTOMY NOS (06/13/13) INSPECTION OF LOWER INTESTINAL TRACT, ENDO (12/05/20) LG-TO-LG BOWEL ANASTOM (06/13/13) OPEN AND OTHER SIGMOIDECTOMY (06/13/13) PACKED CELL TRANSFUSION (06/13/13) REPAIR DESCENDING COLON, OPEN APPROACH (12/05/20) SM BOWEL STOMA CLOSURE (09/26/13) URETERAL CATHETERIZATION (06/13/13) Sepsis Event Note (H) - Evaluation Current Stage of Sepsis: Severe sepsis Possible source of Sepsis: positive: Pulmonary - Sepsis Criteria Sepsis Criteria: Recorded Heart Rate greater than 90 bpm, Recorded Respiratory Rate greater than 20, [employer]: altered consciousness (unrelated to primary neuro pathology), Renal: urine output less than 0.5ml/kg/hr for 2 hours or creatinine gr ABX Reporting Has patient been on IV antibiotics over the past 48 hours?: Yes
[2020-12-16] MEDS: metroNIDAZOLE 500 MG/100 ML 500 MG/100 ML BAG IV SCH ×3 (00:28→16:25)
[2020-12-16] MEDS: SODIUM CHLORIDE FLUSH 0.9% 10 ML SYRINGE IVP SCH ×3 (00:28→16:31)
[2020-12-16 04:58] LABS: BASOPHILS # (AUTO) 0.1 10^3/uL (0.0-0.1); BASOPHILS % (AUTO) 0.5 %; EOSINOPHILS # (AUTO) 0.2 10^3/uL (0.0-0.7); EOSINOPHILS % (AUTO) 1.8 %; LYMPHOCYTES # (AUTO) 1.5 10^3/uL (1.5-3.5); LYMPHOCYTES % (AUTO) 11.9 %; MEAN CORPUSCULAR HGB CONC 32.9 g/dL (32.0-36.0); MEAN CORPUSCULAR VOLUME 100.3 fL (81.0-99.0); MEAN PLATELET VOLUME 8.7 fL (7.9-10.8); MONOCYTES # (AUTO) 0.5 10^3/uL (0.0-1.0); MONOCYTES % (AUTO) 3.8 %; NEUTROPHILS # (AUTO) 10.3 10^3/uL (1.5-6.6); NEUTROPHILS % (AUTO) 81.1 %; PLT - PLATELET COUNT 431 10^3/uL (130-450); RED BLOOD COUNT 3.03 10^6/uL (4.20-5.40); RED CELL DISTRIBUTION WIDTH 15.4 % (12.0-15.0); WHITE BLOOD COUNT 12.7 x10^3/uL (4.8-10.8)
[2020-12-16 05:07] LABS: CALCIUM 7.6 mg/dL (8.5-10.3); CREATININE 0.6 mg/dL (0.4-1.0)
[2020-12-16] MEDS: CIPROFLOXACIN 200 MG/100 ML 200 MG/100 ML BAG IV SCH ×2 (05:18→17:32)
[2020-12-16] MEDS: PANTOPRAZOLE 40 MG VIAL IVP SCH (06:46)
[2020-12-16] MEDS: SODIUM CHLORIDE FLUSH 0.9% 10 ML SYRINGE IVP PRN (06:47)
[2020-12-16] MEDS: ALBUTEROL NEB 2.5 MG/3 ML INH SCH ×4 (07:46→20:44)
[2020-12-16] MEDS: ONDANSETRON 4 MG/2 ML VIAL IVP PRN ×2 (08:40→17:06)
[2020-12-16] MEDS: LOSARTAN 50 MG TABLET PO SCH ×2 (08:41→21:22)
[2020-12-16] MEDS: guaiFENesin 600 MG TABLET PO SCH ×2 (08:42→21:22)
[2020-12-16] MEDS: FERROUS GLUCONATE 324 MG TABLET PO SCH (08:42)
[2020-12-16] MEDS: SACCHAROMYCES BOULARDII 250 MG CAPSULE PO SCH ×2 (08:42→16:30)
[2020-12-16] MEDS: Imatinib Mesylate [Gleevec] 100 MG Tablet PO SCH (09:00)
[2020-12-16] MEDS: LEVOTHYROXINE 88 MCG TABLET PO SCH (11:03)
[2020-12-16 13:24] LABS: FREE T4 (FREE THYROXINE) 0.66 ng/dL (0.58-1.64)
--- NOTE | 2020-12-16 18:32 | PROVIDER PROGRESS NOTE ---
Assessment/Plan - Problem List (1) Colitis Assessment/Plan: She has slowly improving diarrhea, it is not explosive and incontinent now. Continue to advance her diet slowly. Continue with empiric IV antibiotics. Continue with gentle IV hydration (2) N&V (nausea and vomiting) Assessment/Plan: This resolved as of yesterday. Slowly increasing her diet is planned (3) Hospital-acquired pneumonia Assessment/Plan: She is getting empiric IV antibiotics for this. Does require some supplemental oxygen. The cough has resolved (4) Large bowel perforation Assessment/Plan: It was a complication of the colonoscopy done on 12/05/2020, she needed to be admitted and have repair and was discharged on 12/07/2020. Because of this general surgery is intermittently following along with us. (5) CML (chronic myelocytic leukemia) Assessment/Plan: She is on an immune O therapy for this, Making her healing more slowly (6) Hypothyroidism Assessment/Plan: She is getting her home thyroid dose continue (7) HTN (hypertension) Assessment/Plan: She was initially hypotensive, after managing the infection and fluids, her BP meds have not been resumed (8) Anemia Qualifiers: Anemia type: iron deficiency Assessment/Plan: Oral iron replacement has been started during this admission (9) Hypokalemia Assessment/Plan: Replace. Follow BMP daily (10) Severe sepsis Assessment/Plan: Resolved (11) Acute kidney injury Assessment/Plan: Resolved (12) Altered mental status Qualifiers: Altered mental status type: stupor Qualified Code(s): R40.1 - Stupor Assessment/Plan: Resolved by day 2 - Current Meds Current Meds: Current Medications Generic Name Dose Route Start Last Admin Trade Name Freq PRN Reason Stop Dose Admin Acetaminophen 500 mg 12/10/20 11:09 12/15/20 05:06 Acetaminophen 500 Mg Tablet PO 500 mg Q4HR PRN Administration Pain or Fever > 38C (100.4F) Albuterol 2.5 mg 12/09/20 11:00 12/16/20 11:07 Albuterol Neb 2.5 Mg/3 Ml INH 2.5 mg RTQ4H MICHELLE Administration Ferrous Gluconate 324 mg 12/11/20 08:11 12/16/20 08:42 Ferrous Gluconate 324 Mg Tablet PO 324 mg DAILYWM MICHELLE Administration Guaifenesin 600 mg 12/09/20 21:00 12/16/20 08:42 Guaifenesin 600 Mg Tablet PO 600 mg BID MICHELLE Administration Hydromorphone HCl 0.5 mg 12/08/20 12:55 12/12/20 09:50 Hydromorphone 0.5 Mg/0.5 Ml Syringe IVP 0.5 mg Q2H PRN Administration Breakthrough Pain Ciprofloxacin 200 mg in 100 mls @ 100 mls/hr 12/12/20 17:00 12/16/20 17:32 Cipro 200 Mg/100 Ml IV 100 mls/hr Q12H MICHELLE Administration Metronidazole 500 mg in 100 mls @ 100 mls/hr 12/12/20 17:00 12/16/20 17:25 Flagyl 500 Mg/100 Ml IV Infused Q8H MICHELLE Infusion Levothyroxine Sodium 100 mcg 12/14/20 08:00 12/14/20 08:57 Levothyroxine 100 Mcg Tablet PO 100 mcg Sa MICHELLE Administration Levothyroxine Sodium 88 mcg 12/09/20 11:00 12/16/20 11:03 Levothyroxine 88 Mcg Tablet PO 88 mcg SUMOTUWETHFR MICHELLE Administration Losartan Potassium 25 mg 12/10/20 11:04 12/16/20 08:41 Losartan 50 Mg Tablet PO 25 mg BID MICHELLE Administration Ondansetron HCl 4 mg 12/08/20 05:44 12/16/20 17:06 Ondansetron 4 Mg/2 Ml Vial IVP 4 mg Q6HR PRN Administration Nausea / Vomiting Oxycodone HCl 5 mg 12/08/20 05:44 12/13/20 22:39 Oxycodone 5 Mg Tablet PO 5 mg Q4HR PRN Administration Pain 5 to 7 Pantoprazole Sodium 40 mg 12/08/20 13:00 12/16/20 06:46 Pantoprazole 40 Mg Vial IVP 40 mg QDAC MICHELLE Administration Imatinib Mesylate [ 2 each 12/10/20 08:00 12/16/20 09:00 Gleevec] 100 Mg PO 2 each Tablet QDBREAKFAST MICHELLE Administration Imatinib Mesylate [ 1 each 12/09/20 17:30 12/16/20 17:10 Gleevec] 400 Mg PO 1 each Tablet 1730 MICHELLE Administration Saccharomyces Boulardii 250 mg 12/08/20 08:00 12/16/20 16:30 Saccharomyces Boulardii 250 Mg Capsule PO 250 mg BIDWM MICHELLE Administration Sodium Chloride 10 ml 12/08/20 05:44 12/16/20 06:47 Sodium Chloride Flush 0.9% 10 Ml Syringe IVP 10 ml PRN PRN Administration NEEDED PER PROVIDER ORDERS Sodium Chloride 10 ml 12/08/20 09:00 12/16/20 16:31 Sodium Chloride Flush 0.9% 10 Ml Syringe IVP 10 ml 0100,0900,1700 MICHELLE Administration Throat Lozenges 1 lozenge 12/10/20 03:03 12/10/20 03:22 Benzocaine/Menthol Lozenge MM 1 lozenge Q2HR PRN Administration Throat pain - Lab Result Fish Bone Diagrams: 12/16/20 04:46 12/16/20 04:46 - Additional Planning My Orders: My Active Orders 12/16/20 Dinner DIET [Soft (Low Fiber) Diet] [DIET] Subjective - Subjective Patient Reports: Feeling Better, Resting Comfortably Objective Vital Signs: Vital Signs - 24 hr 12/15/20 12/15/20 12/16/20 19:39 20:06 00:07 Temperature 36.5 C 37.1 C Heart Rate 67 Heart Rate [ 81 82 Brachial] Respiratory 18 18 18 Rate Blood Pressure 141/62 H [Left Brachial artery] Blood Pressure 153/63 H [Right Brachial artery] O2 Saturation 96 92 12/16/20 12/16/20 12/16/20 05:00 07:48 08:31 Temperature 36.9 C 37 C Heart Rate 72 Heart Rate [ 71 72 Brachial] Respiratory 20 16 18 Rate Blood Pressure [Left Brachial artery] Blood Pressure 164/70 H 136/57 H [Right Brachial artery] O2 Saturation 94 94 12/16/20 12/16/20 12/16/20 11:08 13:00 15:08 Temperature 37.1 C Heart Rate 72 70 Heart Rate [ 73 Brachial] Respiratory 16 19 18 Rate Blood Pressure [Left Brachial artery] Blood Pressure 138/60 H [Right Brachial artery] O2 Saturation 93 12/16/20 16:08 Temperature 36.7 C Heart Rate Heart Rate [ 80 Brachial] Respiratory 18 Rate Blood Pressure [Left Brachial artery] Blood Pressure 130/64 [Right Brachial artery] O2 Saturation 95 Oxygen O2 Source Room air Oxygen Flow Rate 4 I&O (Last 24 Hrs): Intake and Output Totals x24h 12/14/20 12/15/20 12/16/20 23:59 23:59 23:59 Intake Total 1570 1770 1080 Balance 1570 1770 1080 General: Alert, Oriented x3 HEENT: Mucous membr. moist/pink Neck: Supple, No JVD Neuro: Alert, Non Focal Cardiovascular: Regular rate, No murmurs Respiratory: No respiratory distress, Breath sounds nml Abdomen: Normal bowel sounds, Soft, No tenderness Extremities: Other (1+ edema of the back of the shins and thighs) - Results Results: Laboratory Results WBC 12.7 x10^3/uL (4.8-10.8) H 12/16/20 04:46 RBC 3.03 10^6/uL (4.20-5.40) L 12/16/20 04:46 Hgb 10.0 g/dL (12.0-16.0) L 12/16/20 04:46 Hct 30.4 % (37.0-47.0) L 12/16/20 04:46 MCV 100.3 fL (81.0-99.0) H 12/16/20 04:46 MCH 33.0 pg (27.0-31.0) H 12/16/20 04:46 MCHC 32.9 g/dL (32.0-36.0) 12/16/20 04:46 RDW 15.4 % (12.0-15.0) H 12/16/20 04:46 Plt Count 431 10^3/uL (130-450) 12/16/20 04:46 MPV 8.7 fL (7.9-10.8) 12/16/20 04:46 Neut # (Auto) 10.3 10^3/uL (1.5-6.6) H 12/16/20 04:46 Lymph # (Auto) 1.5 10^3/uL (1.5-3.5) 12/16/20 04:46 [place] # (Auto) 0.5 10^3/uL (0.0-1.0) 12/16/20 04:46 Eos # (Auto) 0.2 10^3/uL (0.0-0.7) 12/16/20 04:46 Baso # (Auto) 0.1 10^3/uL (0.0-0.1) 12/16/20 04:46 Absolute Nucleated RBC 0.00 x10^3/uL 12/16/20 04:46 Nucleated RBC % 0.0 /100WBC 12/16/20 04:46 Bld Gas Analysis Time 1228 12/08/20 12:23 Sample Site LEFT RADIAL 12/08/20 12:23 ABG pH 7.37 (7.35-7.45) 12/08/20 12:23 ABG pCO2 38 mmHg (34-45) 12/08/20 12:23 ABG pO2 54 mmHg (80-100) L* 12/08/20 12:23 ABG HCO3 21.5 mmol/L (22.0-26.0) L 12/08/20 12:23 ABG Total CO2 22.7 MMOL/L (21.0-29.0) 12/08/20 12:23 ABG O2 Saturation 89 % (94-98) L 12/08/20 12:23 ABG Base Excess -3.4 mmol/L (-2.0-3.0) L 12/08/20 12:23 Moses Test POSITIVE 12/08/20 12:23 VBG pH 7.320 (7.31-7.41) 12/08/20 05:30 VBG pCO2 42.1 mmHg (41-51) 12/08/20 05:30 VBG pO2 43.2 mmHg (25-47) 12/08/20 05:30 VBG HCO3 21.2 mmol/L (23-28) L 12/08/20 05:30 VBG Total CO2 22.5 mmol/L (24-29) L 12/08/20 05:30 VBG O2 Saturation 83.8 % (60-80) H 12/08/20 05:30 VBG Base Excess -4.6 mmol/L (-2 - +2) L 12/08/20 05:30 O2 Delivery Device NASAL CANNULA 12/08/20 12:23 O2 Liters/Min 2.00 LPM 12/08/20 12:23 Sodium 139 mmol/L (135-145) 12/16/20 04:46 Potassium 3.4 mmol/L (3.5-5.0) L 12/16/20 04:46 Chloride 105 mmol/L (101-111) 12/16/20 04:46 Carbon Dioxide 25 mmol/L (21-32) 12/16/20 04:46 Anion Gap 9.0 (6-13) 12/16/20 04:46 BUN 5 mg/dL (6-20) L 12/16/20 04:46 Creatinine 0.6 mg/dL (0.4-1.0) 12/16/20 04:46 Estimated GFR (MDRD) 98 (>89) 12/16/20 04:46 Glucose 105 mg/dL (70-100) H 12/16/20 04:46 Lactic Acid 1.5 mmol/L (0.5-2.2) 12/08/20 15:05 Calcium 7.6 mg/dL (8.5-10.3) L 12/16/20 04:46 Magnesium 1.6 mg/dL (1.7-2.8) L 12/15/20 04:24 Iron 22 ug/dL (28-170) L 12/11/20 04:49 TIBC 213 ug/dL (250-450) L 12/11/20 04:49 % Saturation 10 % (20-50) L 12/11/20 04:49 Transferrin 152 mg/dL (192-382) L 12/11/20 04:49 Total Bilirubin 1.7 mg/dL (0.2-1.0) H 12/08/20 04:50 AST 38 IU/L (10-42) 12/08/20 04:50 ALT 25 IU/L (10-60) 12/08/20 04:50 Alkaline Phosphatase 55 IU/L (42-121) 12/08/20 04:50 Ammonia < 10.0 umol/L (7-35) 12/08/20 12:38 B-Natriuretic Peptide 89 pg/mL (5-100) 12/08/20 04:50 Total Protein 6.2 g/dL (6.7-8.2) L 12/08/20 04:50 Albumin 3.3 g/dL (3.2-5.5) 12/08/20 04:50 Globulin 2.9 g/dL (2.1-4.2) 12/08/20 04:50 Albumin/Globulin Ratio 1.1 (1.0-2.2) 12/08/20 04:50 Lipase 21 U/L (22-51) L 12/08/20 04:50 Vitamin B12 1162 pg/mL (180-914) H 12/11/20 04:49 Folate 20.65 ng/mL (5.90 - >24.8) 12/11/20 04:49 TSH 23.44 uIU/mL (0.34-5.60) H 12/16/20 04:46 Free T4 0.66 ng/dL (0.58-1.64) 12/16/20 04:46 Urine Color YELLOW 12/08/20 14:42 Urine Clarity CLOUDY (CLEAR) 12/08/20 14:42 Urine pH 5.5 PH (5.0-7.5) 12/08/20 14:42 Ur Specific [place] 1.020 (1.002-1.030) 12/08/20 14:42 Urine Protein 30 mg/dL (NEGATIVE) H 12/08/20 14:42 Urine Glucose (UA) NEGATIVE mg/dL (NEGATIVE) 12/08/20 14:42 Urine Ketones NEGATIVE mg/dL (NEGATIVE) 12/08/20 14:42 Urine Occult Blood MODERATE (NEGATIVE) H 12/08/20 14:42 Urine Nitrite NEGATIVE (NEGATIVE) 12/08/20 14:42 Urine Bilirubin NEGATIVE (NEGATIVE) 12/08/20 14:42 Urine Urobilinogen 0.2 (NORMAL) E.U./dL (NORMAL) 12/08/20 14:42 Ur Leukocyte Esterase NEGATIVE (NEGATIVE) 12/08/20 14:42 Urine RBC 0-5 /HPF (0-5) 12/08/20 14:42 Urine WBC 0-3 /HPF (0-5) 12/08/20 14:42 Ur Squamous Epith Cells FEW Squamous (<= Few) 12/08/20 14:42 Urine Bacteria Few /HPF (None Seen) 12/08/20 14:42 Ur Microscopic Review INDICATED 12/08/20 14:42 Urine Culture Comments NOT INDICATED 12/08/20 14:42 Nasal Adenovirus (PCR) NOT DETECTED 12/08/20 04:44 Nasal B. parapertussis DNA (PCR) NOT DETECTED 12/08/20 04:44 Nasal Coronavir 229E PCR NOT DETECTED 12/08/20 04:44 Nasal Coronavir HKU1 PCR NOT DETECTED 12/08/20 04:44 Nasal Coronavir NL63 PCR NOT DETECTED 12/08/20 04:44 Nasal Coronavir OC43 PCR NOT DETECTED 12/08/20 04:44 Nasal Enterovir/Rhinovir PCR NOT DETECTED 12/08/20 04:44 Nasal Influenza B PCR NOT DETECTED 12/08/20 04:44 Nasal Influenza A PCR NOT DETECTED 12/08/20 04:44 Nasal Parainfluen 1 PCR NOT DETECTED 12/08/20 04:44 Nasal Parainfluen 2 PCR NOT DETECTED 12/08/20 04:44 Nasal Parainfluen 3 PCR NOT DETECTED 12/08/20 04:44 Nasal Parainfluen 4 PCR NOT DETECTED 12/08/20 04:44 Nasal RSV (PCR) NOT DETECTED 12/08/20 04:44 Nasal Screen MRSA (PCR) NEGATIVE (NEGATIVE) 12/10/20 11:22 Nasal B.pertussis DNA PCR NOT DETECTED 12/08/20 04:44 Nasal C.pneumoniae (PCR) NOT DETECTED 12/08/20 04:44 Russell Human Metapneumo PCR NOT DETECTED 12/08/20 04:44 Nasal M.pneumoniae (PCR) NOT DETECTED 12/08/20 04:44 Nasal SARS-CoV-2 (PCR) NOT DETECTED 12/08/20 04:44 Stool Leukocytes, Qual NEGATIVE (Negative) 12/12/20 18:05 Stl C. 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) ILEOSTOMY NOS (06/13/13) INSPECTION OF LOWER INTESTINAL TRACT, ENDO (12/05/20) LG-TO-LG BOWEL ANASTOM (06/13/13) OPEN AND OTHER SIGMOIDECTOMY (06/13/13) PACKED CELL TRANSFUSION (06/13/13) REPAIR DESCENDING COLON, OPEN APPROACH (12/05/20) SM BOWEL STOMA CLOSURE (09/26/13) URETERAL CATHETERIZATION (06/13/13) Sepsis Event Note (H) - Evaluation Current Stage of Sepsis: Severe sepsis Possible source of Sepsis: positive: Pulmonary - Sepsis Criteria Sepsis Criteria: Recorded Heart Rate greater than 90 bpm, Recorded Respiratory Rate greater than 20, VISITOR SERVICES ASSISTANT: altered consciousness (unrelated to primary neuro pathology), Renal: urine output less than 0.5ml/kg/hr for 2 hours or creatinine gr
[2020-12-16] MEDS: BENZOCAINE/MENTHOL LOZENGE MM PRN (18:44)
[2020-12-17] MEDS: SODIUM CHLORIDE FLUSH 0.9% 10 ML SYRINGE IVP SCH ×3 (01:09→16:35)
[2020-12-17] MEDS: metroNIDAZOLE 500 MG/100 ML 500 MG/100 ML BAG IV SCH ×4 (01:09→08:47)
[2020-12-17] MEDS: SODIUM CHLORIDE FLUSH 0.9% 10 ML SYRINGE IVP PRN ×2 (02:15→06:21)
[2020-12-17] MEDS: CIPROFLOXACIN 200 MG/100 ML 200 MG/100 ML BAG IV SCH ×2 (05:08→16:34)
[2020-12-17] MEDS: PANTOPRAZOLE 40 MG VIAL IVP SCH (06:21)
[2020-12-17] MEDS: guaiFENesin 600 MG TABLET PO SCH ×2 (08:41→20:44)
[2020-12-17] MEDS: FERROUS GLUCONATE 324 MG TABLET PO SCH (08:41)
[2020-12-17] MEDS: SACCHAROMYCES BOULARDII 250 MG CAPSULE PO SCH ×2 (08:41→16:34)
[2020-12-17] MEDS: LOSARTAN 50 MG TABLET PO SCH ×2 (08:41→20:44)
[2020-12-17] MEDS: Imatinib Mesylate [Gleevec] 100 MG Tablet PO SCH (08:42)
[2020-12-17] MEDS: ONDANSETRON 4 MG/2 ML VIAL IVP PRN ×2 (08:47→16:34)
[2020-12-17] MEDS: ALBUTEROL NEB 2.5 MG/3 ML INH SCH ×4 (09:15→21:05)
--- NOTE | 2020-12-17 09:15 | PROVIDER PROGRESS NOTE ---
Subjective - Prog Note Date Prog Note Date: 12/17/20 - Subjective Pt reports feeling: Improved Subjective: Pt reports feeling overall improved with generalized weakness and fatigue. Feels like she is slowly getting stronger. Has noticed increased bilateral lower extremity swelling and redness and swelling in her right forearm after an IV infiltration overnight. Has a dry cough, non-productive. Denies n/v, SOB, fevers or chills. Remaining ROS negative. Objective - Vital Signs/Intake & Output Reviewed Vital Signs: Yes Vital Signs: Vital Signs x48h Temp Pulse Resp BP Pulse Ox 12/17/20 07:45 37.2 C 74 16 138/58 H 93 Intake & Output: Intake & Output 12/14/20 12/15/20 12/16/20 12/17/20 23:59 23:59 23:59 23:59 Intake Total 1570 1770 1430 300 Balance 1570 1770 1430 300 - Objective General Appearance: positive: No acute distress, Alert Eyes Bilateral: positive: Normal inspection, PERRL, Conjunctivae nml, No scleral icterus ENT: positive: ENT inspection nml, No signs of dehydration Neck: positive: Nml inspection Respiratory: positive: Chest non-tender, No respiratory distress, Breath sounds nml Cardiovascular: positive: Regular rate & rhythm Peripheral Pulses: 2+ Radial (R), 2+ Radial (L), 2+ Dorsalis pedis (R), 2+ Dorsalis pedis (L) Abdomen: positive: Non-tender, Nml bowel sounds, No distention, Other (Incision well approximated, without signs of dehiscence or wound infection) Skin: positive: Color nml, Other (Right forearm erythematous from IV in filtration. Small puncture site from previous IV, no open wounds or skin necrosis.) Extremities: positive: Non-tender, Full ROM, Pedal edema, Other (BLE non-pitting edema) Neurologic/Psychiatric: positive: Oriented x3 - Lab Results Fish Bones: 12/16/20 04:46 12/16/20 04:46 Other Labs: Lab Results x24hrs 12/16/20 Range/Units 04:46 TSH 23.44 H (0.34-5.60) uIU/mL Free T4 0.66 (0.58-1.64) ng/dL ABX Reporting Has patient been on IV antibiotics over the past 48 hours?: Yes Sepsis Event Note (H) - Evaluation Current Stage of Sepsis: Resolved (HR 70s, RR<20, alert and oriented) Possible source of Sepsis: positive: Pulmonary - Sepsis Criteria Sepsis Criteria: Recorded Heart Rate greater than 90 bpm, Recorded Respiratory Rate greater than 20, ED MANAGER: altered consciousness (unrelated to primary neuro pathology), Renal: urine output less than 0.5ml/kg/hr for 2 hours or creatinine gr Assessment/Plan - Problem List (1) Hospital-acquired pneumonia Impression: Improved. Continues on antibiotics, will transition to oral. Tolerating room air since yesterday. Dry cough, slightly hoarse speaking voice but overall feels "much better". Getting up to the 1000s on IS, goal 2500. 1. Monitor oxygen saturations on room air. 2. Continue antibiotics, transition to orals for total 7 day course, end 12/18. 3. Continue IS 10x/hr while awake. (2) Colitis Impression: Improving. Pt is continent and stool is no longer explosive. Still with loose stools. Continues with empiric antibiotics, will transition to po. Tolerating a regular diet. 1. Transition to oral antibiotics. Continue for a 10 day total course. 2. Continue regular diet. 3. Stop IV fluids, encourage oral hydration. (3) Large bowel perforation Impression: This was a complication of her colonoscopy procedure, which was transitioned to an open lap for bowel repair. Her incision is clean and dry without signs of infection or dehiscence. She denies pain other than gas pains. She has had no recent complications and is followed intermittently by General Surgery. 1. Ambulate in the hallway TID and PRN gas pains. 2. Analgesics PRN pain. 3. Monitor healing of incision. (4) N&V (nausea and vomiting) Impression: Resolved, no n/v x 2 days. Tolerating general diet. 1. Continue regular diet. 2. PRN antiemetics as needed for n/v (has not required in 2 days other than the scheduled doses she takes with her Gleevec). (5) Abdominal pain Impression: Improved, reports this is related to gas pain. Has not required IV analgesics recently. 1. Ambulate in hallway TID and PRN gas pains. 2. Oral analgesics PRN pain. Qualifiers: Abdominal location: lower abdomen, unspecified Qualified Code(s): R10.30 - Lower abdominal pain, unspecified (6) IV infiltration Impression: Occurred overnight, Pt believes only maintenance fluids were running. The right forearm is red, warm and slightly swollen without signs of skin necrosis. Will continue to monitor. 1. Elevate for swelling management. 2. Alternate heat and ice topical applications periodically throughout the day. 3. Monitor for increased erythema, swelling, pain and skin necrosis. (7) Acute kidney injury Impression: Resolved. Creatinine 0.6 for the last few days, BUN now low at 5. 1. Stop IV fluids. Encourage oral intake/hydration. (8) Hypokalemia Impression: 3.4 yesterday, waiting on labs today. Will replace if needed. 1. Monitor CMP. Replete as needed. (9) CML (chronic myelocytic leukemia) Impression: Stable. On immunotherapy at home, continue home dose. 1. Continue Gleevec at home dose. (10) Altered mental status Impression: Resolved. Alert and oriented x3. Qualifiers: Altered mental status type: stupor Qualified Code(s): R40.1 - Stupor (11) Hypothyroid Impression: Has been receiving home dose of Levothyroxine. Thyroid panel obtained yesterday with labs, TSH high at 23.44 and Free T4 normal at 0.66. 1. Continue home dose of Levothyroxine. (12) Hypertension Impression: Has been receiving home dose of Losartan. SBPs 130-140s. 1. Continue home medications. Qualifiers: Hypertension type: essential hypertension Qualified Code(s): I10 - Ess ential (primary) hypertension
[2020-12-17] MEDS: LEVOTHYROXINE 88 MCG TABLET PO SCH (12:00)
[2020-12-17] MEDS: metroNIDAZOLE 250 MG TABLET PO SCH (16:56)
[2020-12-18] MEDS: metroNIDAZOLE 250 MG TABLET PO SCH ×2 (01:06→08:55)
[2020-12-18] MEDS: SODIUM CHLORIDE FLUSH 0.9% 10 ML SYRINGE IVP SCH ×2 (01:06→08:58)
[2020-12-18] MEDS: PANTOPRAZOLE 40 MG VIAL IVP SCH (06:24)
[2020-12-18] MEDS: ALBUTEROL NEB 2.5 MG/3 ML INH SCH ×2 (07:14→11:11)
[2020-12-18] MEDS ORDERED: POTASSIUM CHLORIDE 20 MEQ TABLET PO SCH (08:00)
--- NOTE | 2020-12-18 08:27 | DISCHARGE SUMMARY ---
"Discharge Summary Admit Date: 12/08/20 Discharge Date: 12/18/20 Discharging Provider: Alexandria Davis Primary Care Provider: Tiffany Vu Code Status: Attempt Resuscitation Condition at Discharge: Good Discharge Disposition: 01 Home, Self Care - DIAGNOSES Discharge Diagnoses with Status of Each Condition: (1) Hospital-acquired pneumonia Impression: Improved. Transitioned to oral antibiotics 2/2, tolerating well. Last doses of antibiotics today. Getting up to the 1000s on IS, goal 2500. 1. Continue antibiotics, last dose evening 2/3. 2. Continue IS 10x/hr while awake. (2) Colitis Impression: Improved. Pt is continent and stools are starting to bulk up. CDIFF negative. Tolerating a regular diet. 1. Last dose antibiotics 2/3 evening. 2. Continue regular diet. 3. Encourage oral hydration. (3) Large bowel perforation Impression: Resolved. This was a complication of her colonoscopy procedure 09/04 during her previous admission, which was transitioned to an open lap for bowel repair. Her incision is clean and dry without signs of infection or dehiscence. She denies pain other than gas pains. She has had no recent complications and is followed intermittently by General Surgery. 1. Ambulate in the hallway TID and PRN gas pains. 2. Analgesics PRN pain. 3. Monitor healing of incision. (4) N&V (nausea and vomiting) Impression: Resolved, no n/v x 3 days. Tolerating general diet. 1. Continue regular diet. 2. PRN antiemetics as needed for Gleevec. (5) Abdominal pain Impression: Improved, reports this is related to gas pain. Has not required IV analgesics recently. 1. Ambulate in hallway TID and PRN gas pains. 2. Oral analgesics PRN pain. Qualifiers: Abdominal location: lower abdomen, unspecified Qualified Code(s): R10.30 - Lower abdominal pain, unspecified (6) IV infiltration Impression: Improving. Right forearm. Occurred overnight 2/, Pt believes only maintenance fluids were running. She has been alternating heat and cold to the site, which is improving but remains slightly swollen and erythematous but without signs of skin necrosis. 1. Elevate for swelling management. 2. Alternate heat and ice topical applications periodically throughout the day. 3. Monitor for increased erythema, swelling, pain and skin necrosis. (7) Acute kidney injury Impression: Resolved. 1. Encourage oral intake/hydration. (8) Hypokalemia Impression: Improved. Has been receiving oral potassium BID. (9) CML (chronic myelocytic leukemia) Impression: Stable. On immunotherapy at home, continue home dose. 1. Continue Gleevec at home dose. (10) Altered mental status Impression: Resolved. Alert and oriented x3. Qualifiers: Altered mental status type: stupor Qualified Code(s): R40.1 - Stupor (11) Hypothyroid Impression: Stable. Has been receiving home dose of Levothyroxine. Thyroid panel obtained 12/17, TSH high at 23.44 and Free T4 normal at 0.66. 1. Continue home dose of Levothyroxine. 2. Follow up with PCP. (12) Hypertension Impression: Stable. Has been receiving home dose of Losartan. SBPs 130-140s. 1. Continue home medications. Qualifiers: Hypertension type: essential hypertension Qualified Code(s): I10 - Essential (primary) hypertension - HPI History of Present Illness: 75-year-old white female who has CML and is on Gleevec, and also just suffered a bowel perforation with colonoscopy, status post repair on December 05 with discharge December 07 but now returns with increasing lethargy. On the day of discharge her blood pressure started at 89/43 in the regulatory coordinator hours. Nursing notified surgery concrete vibrator operator and a bolus was given. She dropped her sats to 78% on room air. She was then on 4 L nasal cannula. Repeat blood work showed her to have a sodium to 134, potassium 3.4. BUN and creatinine did go up to 26 and 1.5 after being 13 and 0.9. White cell count had been 7.5 and increased to 12.3. At discharge she did not have abdominal distention. She has some tenderness but no guarding and rebound on abdominal exam. Chest exam was clear. By discharge she was 95% on 2 L. At home, she had gone to bed, and was laying asleep makes her when he realized that her respiration patterns had ch anged. There were increasingly sonorous, and she was not responding to his voice. While in the ambulance, she had an episode of emesis. EMS feels that she may have possibly aspirated as well. O2 sat at home was 88%. She was evaluated by Dr. Glez where temperature is 36.1, pulse is 102. Blo od pressure is 133/58. 18 respiratory rate, unlabored. 94% on 4 L nasal cannula. She is 92% on room air. He felt that she was a wilcox appearing female with a blank stare but she was able to tell them she was at the hospital. Took her 30 seconds to get to that. She is having some mild abdominal pain. She is tachycardic with a murmur. No respiratory distress but has a rhonchi left greater than right base. A surgical dressing is placed on her abdomen. It is uncomfortable to palpate but no peritoneal findings. Mood is withdrawn and flat. White cell count is 11.1. Hemoglobin 10.1. Potassium is 3.3. Lactic acid 1.3. Chest x-ray shows bibasilar infiltrates worse on the left. Because of her abdominal pain, Dr. Weldon, general surgery has been called. She is recommending CT of the abdomen pelvis. The patient is now placed in admission for inpatient status for pneumonia until that work-up comes back. - CONSULTS | PROCEDURES Consultations: General Surgery Procedures: 12/08 Blood cultures x2 NGTD 12/08 CXR Bilateral opacities concerning for multifocal pneumonia 12/[address]: No acute intracranial abnormality. 12/[address]: Small bilateral pleural effusions, multifocal pneumonia 12/08 CT abdomen/pelvis: Multilobar pneumonia with bilateral small pleural effusions. Pneumoperitoneum with dense layering fluid in the pelvis. Given sequel of recent surgery, the pneumoperitoneum may be within normal limits 12/12 CT abdomen/pelvis: persistent bilateral pleural effusions. No evidence of perforation. Interval decrease in free fluid within the pelvis. Mild colitis and gastroenteritis. - HOSPITAL COURSE Hospital Course: Pt admitted on HD 1 with severe sepsis related to HAP seen on chest x-ray and chest CT. Found to have tachycardia with a murmur, newly requiring oxygen supplementation, AMS, and acute kidney injury. She was started on Vancomycin and Zosyn as well as IVF. Given recent hx of surgery a CT abdomen and pelvis was done and showed pneumoperitoneum. Followed by General Surgery who reported the CT findings were likely related to recent surgery. Head CT unremarkable. By HD 2 her AMS was improved. Still requiring oxygen supplementation. Home dose of Synthroid was restarted for hypothyroidism. HD3 diet was increased from clear liquids to pureed diet. She was anemic with hgb 8.9 likely related to CML and hemodilution. Losartan was restarted for HTN as her SBP was 170. On HD 4 she no longer was coughing and was able to ambulate in her room without getting winded. Oxgen requirements were lower but continued. Diet was advanced to soft foods as tolerated and iron and potassium supplements were started. Vancomycin and Zosyn were stopped and transitioned to Cipro due to concerns of interactions with the Gleevec she takes for CML. She started to have diarrhea on HD 5, with new nausea and vomiting requiring antiemetics and increased WBC. CT abdomen was obtained which showed continued bilateral infiltrates in the lower lung acevedo as well as new gastroenteritis and mild colitis. Flagyl was added to her abx regimen for anaerobic coverage. CDIFF and COVID negative. Diet de-escalated to clear liquids. On HD 6 her n/v had improved and her diet was slowly advanced back to pureed foods and then dysphagia pureed on HD 7. By HD 8 she was eating a regular diet, WBC was improving as was her n/v. She no longer required antiemetics. Her right forearm IV was found to have infiltrated overnight on HD 9, with erythema, warmth and swelling noted. She has been alternating heat and cold to the area to help improve. No signs of skin necrosis. She has been ambulating in the hallway with a walker and tolerating a regular diet. She discharged to home with her on HD 11. At discharge, her lower extremities were slightly edematous. Her forearm remained lightly swollen and erythematous. Her abdominal incision was healing well with no dehiscence or signs of wound infection. Bruising noted on her arms from blood draws. No other skin breakdown visible. - ALLERGIES Allergies/Adverse Reactions: Allergies Allergy/AdvReac Type Severity Reaction Status Date / Time tolterodine [From Detrol] Allergy Unknown Verified 12/05/20 10:34 - MEDICATIONS Home Medications: Ambulatory Orders Medication Instructions Recorded Confirmed Losartan [Cozaar] 25 mg PO BID 06/13/13 12/08/20 Pantoprazole [Protonix] 40 mg PO QPM 03/17/16 12/08/20 Atorvastatin Calcium 20 mg PO QPM 04/19/17 12/08/20 Carbamazepine [Carbamazepine ER] 400 mg PO BID 04/19/17 12/08/20 Imatinib Mesylate [Gleevec] 400 mg PO 1730 04/19/17 12/08/20 Calcium Carbonate/Vitamin D3 2 tab PO QPM 09/28/17 12/08/20 [Calcium 600-Vit D3 400 Tablet] Cholecalciferol (Vitamin D3) 1,000 units PO BID 09/28/17 12/08/20 [Vitamin D3] Multivitamin [Theragran] 1 tab PO DAILY 09/28/17 12/08/20 Levothyroxine [Synthroid] 88 mcg PO SUMOTUWETHFR 11/23/17 12/08/20 Cyanocobalamin (Vitamin B-12) 1,000 mcg PO DAILY 12/04/20 12/08/20 [Vitamin B-12] Lactobacillus Acidophilus 1 each PO DAILY 12/04/20 12/08/20 [Probiotic Acidophilus] Acetaminophen [Tylenol] 650 mg PO Q4HR PRN tablet 12/07/20 12/08/20 Ibuprofen [Motrin] 600 mg PO Q6HR PRN tablet 12/07/20 12/08/20 Levothyroxine [Synthroid] 100 mcg PO Sa tablet 12/07/20 12/08/20 Ondansetron HCl [Zofran] 4 mg PO Q6H PRN #20 tab 12/07/20 12/08/20 oxyCODONE [Roxicodone] 5 mg PO Q4HR PRN #20 tablet 12/07/20 12/08/20 Imatinib Mesylate [Gleevec] 200 mg PO QDBREAKFAST 12/08/20 12/08/20 - PHYSICAL EXAM AT DISCHARGE General Appearance: positive: No acute distress, Alert Eyes Bilateral: positive: Normal inspection, PERRL ENT: positive: ENT inspection nml Neck: positive: Nml inspection, No JVD Respiratory: positive: Chest non-tender, No respiratory distress, Breath sounds nml Cardiovascular: positive: Regular rate & rhythm, No murmur, No gallop Peripheral Pulses: positive: 2+ Abdomen: positive: Non-tender, Nml bowel sounds, No distention Skin: positive: Other (right forearm IV infiltration site is red and swollen, improved from 2/2) Extremities: positive: Full ROM, Pedal edema, Other (bilateral lower extremity pitting edema) Neurologic/Psychiatric: positive: Oriented x3, Motor nml, Sensation nml - LABS Result Diagrams: 12/16/20 04:46 12/16/20 04:46 - DIAGNOSTIC IMAGING Diagnostic Imaging Results: Final report reviewed - SEPSIS Current Stage of Sepsis: Resolved (HR 70s, RR<20, alert and oriented) Possible source of Sepsis: Pulmonary Sepsis Criteria: Recorded Heart Rate greater than 90 bpm, Recorded Respiratory Rate greater than 20, DIGITAL SALES DIRECTOR: altered consciousness (unrelated to primary neuro pathology), Renal: urine output less than 0.5ml/kg/hr for 2 hours or creatinine gr - TIME SPENT Time Spent in Discharge (Minutes): 35"
--- NOTE | 2020-12-18 08:46 | Discharge Plan ---
Discharge Plan Problem Reviewed?: Yes Disposition: Home, Self Care Condition: Good Diet: Regular (small frequent low residue/fiber meals) Activity Restrictions: Activity as Tolerated (and as per previous instructions from Dr. Deluca) Shower Restrictions: Yes (as per Dr. Deluca) Driving Restrictions: Yes (as per Dr. Deluca) Health Concerns: You had a routine colonoscopy December 05 unfortunately had a complication of a bowel perforation. You had an exploratory laparotomy to repair this, and was discharged December 07. However you return to us December 08 with severe let hargy, almost unconscious. We found you to have bilateral pneumonia, dehydration. It is taken you a few days to get better, but with antibiotics you are now stable. You are still weak and tired but will feel much better going home to recuperate there. You no longer have a fever, your oxygen level is normal. You are tolerating a relatively normal diet. Plan of Treatment: 1. Please see your primary care provider, Tiffany Vu, in follow-up in the next 1 to 2 weeks. It would be a routine follow-up with regards to making sure your oxygen is okay, and that your CBC and BMP are stable. 2. Please see Dr. Deluca in follow-up at your regularly scheduled time that you and she have already discussed. 3. Please make sure you take probiotics twice a day for bowel health for the next 2 to 3 weeks. You state that you already have some pills at home and will follow up on those. 4. Make sure you eat small, frequent low residue/low fiber diets to help you regain bowel health. Care Goals: To regain your strength and be back to baseline normal for you with regards to activities of daily living, and to have normal bowel movements again Assessment: Patient is fatigued but able to complete her activities of daily living without assist. She promises to follow through with appropriate providers. No Smoking: If you smoke, Please STOP! Call for help. Follow-up with: Ron Quigley MD [Primary Care Provider] - Ronaldo Deluca MD [Provider Admit Priv/Credential] -
[2020-12-18] MEDS: FERROUS GLUCONATE 324 MG TABLET PO SCH (08:54)
[2020-12-18] MEDS: SACCHAROMYCES BOULARDII 250 MG CAPSULE PO SCH (08:55)
[2020-12-18] MEDS: guaiFENesin 600 MG TABLET PO SCH (08:55)
[2020-12-18] MEDS: ONDANSETRON 4 MG/2 ML VIAL IVP PRN (08:57)
[2020-12-18] MEDS: Imatinib Mesylate [Gleevec] 100 MG Tablet PO SCH (08:57)
[2020-12-18] MEDS: LOSARTAN 50 MG TABLET PO SCH (08:57)
[2020-12-18] MEDS ORDERED: CIPROFLOXACIN 250 MG TABLET PO SCH (09:00)
[2020-12-18] MEDS: LEVOTHYROXINE 88 MCG TABLET PO SCH (10:47)
[2020-12-18 11:43] VITALS: BP 126/54
== END 2020-12-18 11:00 | disposition home or self-care (01) | DRG 871 ==
LOC: EDUNIT# → ED 04:27 → SUPCPDRO 04:27 → MS3 05:44
PROVIDERS: ADMIT Specialist; ATTEND Specialist
DX: A41.9 Sepsis, unspecified organism (principal); J18.9 Pneumonia, unspecified organism; G93.41 Metabolic encephalopathy; C92.10 Chronic myeloid leukemia, BCR/ABL-positive, not having achieved remission; N17.9 Acute kidney failure, unspecified; E87.2 Acidosis; A09 Infectious gastroenteritis and colitis, unspecified; R65.20 Severe sepsis without septic shock; Y95 Nosocomial condition; K57.30 Diverticulosis of large intestine without perforation or abscess without bleeding; I10 Essential (primary) hypertension; E03.9 Hypothyroidism, unspecified; T80.89XA Other complications following infusion, transfusion and therapeutic injection, initial encounter; R22.31 Localized swelling, mass and lump, right upper limb; E87.6 Hypokalemia; E86.0 Dehydration; D63.0 Anemia in neoplastic disease; G40.909 Epilepsy, unspecified, not intractable, without status epilepticus; E78.00 Pure hypercholesterolemia, unspecified; K21.9 Gastro-esophageal reflux disease without esophagitis; R32 Unspecified urinary incontinence; R35.1 Nocturia; M19.90 Unspecified osteoarthritis, unspecified site; Z98.890 Other specified postprocedural states; Z20.822 Contact with and (suspected) exposure to COVID-19; Z79.1 Long term (current) use of non-steroidal anti-inflammatories (NSAID); Z79.891 Long term (current) use of opiate analgesic; Z87.891 Personal history of nicotine dependence; Z79.899 Other long term (current) drug therapy
CPT/HCPCS: 36415; 36600; 70450; 71045; 71260; 74177; 80048; 80053; 80202; 81001; 81599; 82140; 82607; 82746; 82803; 83540; 83605; 83630; 83690; 83735; 83880; 84439; 84443; 84466; 85025; 87040; 87493; 87631; 87640; 94640; 99285; A9270; J0131; J1170; J1650; J3370; J7120; Q9967; 0202U; 81003; 87045; 87046; 87086

== ENCOUNTER 2020-12-25 17:51 | Emergency (ER) | payer MEDICARE, BC ==
[2020-12-25 18:38] LABS: BASOPHILS # (AUTO) 0.1 10^3/uL (0.0-0.1); BASOPHILS % (AUTO) 1.2 %; EOSINOPHILS # (AUTO) 0.2 10^3/uL (0.0-0.7); EOSINOPHILS % (AUTO) 2.3 %; HGB - HEMOGLOBIN 11.6 g/dL (12.0-16.0); LYMPHOCYTES # (AUTO) 1.3 10^3/uL (1.5-3.5); LYMPHOCYTES % (AUTO) 18.5 %; MEAN CORPUSCULAR HEMOGLOBIN 32.5 pg (27.0-31.0); MEAN CORPUSCULAR VOLUME 101.7 fL (81.0-99.0); MEAN PLATELET VOLUME 8.1 fL (7.9-10.8); MONOCYTES # (AUTO) 0.3 10^3/uL (0.0-1.0); MONOCYTES % (AUTO) 4.5 %; NEUTROPHILS # (AUTO) 5.1 10^3/uL (1.5-6.6); NEUTROPHILS % (AUTO) 73.2 %; PLT - PLATELET COUNT 388 10^3/uL (130-450); RED BLOOD COUNT 3.57 10^6/uL (4.20-5.40); RED CELL DISTRIBUTION WIDTH 15.3 % (12.0-15.0); WHITE BLOOD COUNT 6.9 x10^3/uL (4.8-10.8)
[2020-12-25 19:00] LABS: ALBUMIN 2.9 g/dL (3.2-5.5); BILIRUBIN,TOTAL 0.6 mg/dL (0.2-1.0); CALCIUM 8.2 mg/dL (8.5-10.3); CREATININE 0.7 mg/dL (0.4-1.0); TOTAL PROTEIN 5.9 g/dL (6.7-8.2)
--- NOTE | 2020-12-25 20:11 | ED Physician Documentation ---
History of Present Illness - Stated complaint Stated Complaint: SWOLLEN LEGS - Chief complaint Chief Complaint: General - Additonal information Additional information: 75-year-old female presents the emergency department for evaluation of her bilateral lower extremity swelling. She was recently hospitalized for evaluation after a bowel obstruction that was secondary to a colonoscopy. While hospitalized she noted lower leg swelling. She was assured that the swelling would improve but it has not. However she denies that it is worse since discharge. She did go to urgent care and they recommended further follow-up here in the emergency department. Patient reports that she has gained about 20 to 25 pounds over the last month. She denies chest pain or shortness of breath. No cough or fevers. Past medical history most significant for hypertension, seizure disorder, chronic myeloid leukemia. Meds: Levothyroxine, pantoprazole, carbamazepine, atorvastatin, losartan, probiotic. Review of Systems Constitutional: reports: Reviewed and negative Nose: reports: Reviewed and negative Throat: reports: Dental pain / toothache Cardiac: reports: Reviewed and negative Respiratory: reports: Reviewed and negative GI: reports: Abdominal Pain, Nausea, Vomiting. denies: Constipation, Diarrhea, Hematemesis, Bloody / black stool : reports: Reviewed and negative Skin: reports: Reviewed and negative Musculoskeletal: reports: Extremity swelling Neurologic: reports: Reviewed and negative Psychiatric: reports: Reviewed and negative PD PAST MEDICAL HISTORY - Past Medical History Past Medical History: Yes Cardiovascular: Hypertension, High cholesterol Respiratory: None Neuro: Fainting Endocrine/Autoimmune: HyPOthyroidism GI: GERD, Colon polyps, Diverticulitis, Other : Incontinence, Nocturia, Other HEENT: None Psych: None Musculoskeletal: Osteoarthritis Derm: Other - Past Surgical History Past Surgical History: Yes General: Bowel surgery, Colonoscopy, Other HEENT: Tonsil/Adenoidectomy Derm: Skin cancer surgery - Present Medications Home Medications: Ambulatory Orders Medication Instructions Recorded Confirmed Losartan [Cozaar] 25 mg PO BID 06/13/13 12/08/20 Pantoprazole [Protonix] 40 mg PO QPM 03/17/16 12/08/20 Atorvastatin Calcium 20 mg PO QPM 04/19/17 12/08/20 Carbamazepine [Carbamazepine ER] 400 mg PO BID 04/19/17 12/08/20 Imatinib Mesylate [Gleevec] 400 mg PO 1730 04/19/17 12/08/20 Calcium Carbonate/Vitamin D3 2 tab PO QPM 09/28/17 12/08/20 [Calcium 600-Vit D3 400 Tablet] Cholecalciferol (Vitamin D3) 1,000 units PO BID 09/28/17 12/08/20 [Vitamin D3] Multivitamin [Theragran] 1 tab PO DAILY 09/28/17 12/08/20 Levothyroxine [Synthroid] 88 mcg PO SUMOTUWETHFR 11/23/17 12/08/20 Cyanocobalamin (Vitamin B-12) 1,000 mcg PO DAILY 12/04/20 12/08/20 [Vitamin B-12] Lactobacillus Acidophilus 1 each PO DAILY 12/04/20 12/08/20 [Probiotic Acidophilus] Acetaminophen [Tylenol] 650 mg PO Q4HR PRN tablet 12/07/20 12/08/20 Ibuprofen [Motrin] 600 mg PO Q6HR PRN tablet 12/07/20 12/08/20 Levothyroxine [Synthroid] 100 mcg PO Sa tablet 12/07/20 12/08/20 Ondansetron HCl [Zofran] 4 mg PO Q6H PRN #20 tab 12/07/20 12/08/20 oxyCODONE [Roxicodone] 5 mg PO Q4HR PRN #20 tablet 12/07/20 12/08/20 Imatinib Mesylate [Gleevec] 200 mg PO QDBREAKFAST 12/08/20 12/08/20 Hydrochlorothiazide 25 mg PO DAILY #28 12/25/20 Potassium Chloride [Micro-K] 10 meq PO DAILY #7 12/25/20 - Allergies Allergies/Adverse Reactions: Allergies Allergy/AdvReac Type Severity Reaction Status Date / Time tolterodine [From Detrol] Allergy Unknown Verified 12/25/20 17:59 - Social History Does the pt smoke?: No Smoking Status: Never smoker Does the pt drink ETOH?: No Does the pt have substance abuse?: No - Immunizations Immunizations are current?: Yes - POLST Patient has POLST: No POLST Status: Full Code PD ED PE EXPANDED - General General: Alert, No acute distress, Well developed/nourished - Neck Neck: Supple w/out meningeal sx. No: Adenopathy - Cardiac Cardiac: Regular Rate, Regular Rhythm, Pedal strong equal, Cap refill < 2 sec - Respiratory Respiratory: Clear to ausultation tiffani. No: Distress, Labored - Abdomen Abdomen: Normal Bowel sounds, Other (Midline vertical incision well approximated without drainage or erythema. Sutures remain intact. incision extends from just below the xiphoid process to the periumbilical area). No: Tender to palpation - Derm Derm: Normal color, Warm and dry. No: Rash - Extremities Extremities: Normal, Deformity, Swelling (BLE), Pedal edema bilateral (Generalized pedal edema extending from the feet to mid thigh bilaterally). No: Right calf TTP/cord, Left calf TTP/cord - Neuro Neuro: Alert and Oriented X 3, CNII-XII intact - GCS Eye Opening: Spontaneous Motor: Obeys Commands Verbal: Oriented Total: 15 Results - Vitals Vitals: Vital Signs - 24 hr 12/25/20 12/25/20 12/25/20 17:59 18:30 20:09 Temperature 36.8 C 36.5 C Heart Rate 76 75 75 Respiratory 19 16 21 Rate Blood Pressure 168/59 H 153/67 H 152/74 H O2 Saturation 98 96 97 Oxygen O2 Source Room air - EKG (time done) 1837 Rate: Rate (enter#) (73) Rhythm: NSR Reynolds: LAD (borderline) Intervals: Normal AK. No: Prolonged QT QRS: Low voltage (precordial leads) Ischemia: Normal ST segments Compare to prior EKG: Unchanged from prior EKG Computer interpretation: Agree with computer - Labs Labs: Laboratory Tests 12/25/20 12/25/20 12/25/20 18:33 18:33 18:33 WBC 6.9 RBC 3.57 L Hgb 11.6 L Hct 36.3 L MCV 101.7 H MCH 32.5 H MCHC 32.0 RDW 15.3 H Plt Count 388 MPV 8.1 Neut # (Auto) 5.1 Lymph # (Auto) 1.3 L Beadle # (Auto) 0.3 Eos # (Auto) 0.2 Baso # (Auto) 0.1 Absolute Nucleated RBC 0.00 Nucleated RBC % 0.0 Sodium 139 Potassium 2.9 L Chloride 100 L Carbon Dioxide 28 Anion Gap 11.0 BUN 8 Creatinine 0.7 Estimated GFR (MDRD) 82 L Glucose 96 Calcium 8.2 L Total Bilirubin 0.6 AST 24 ALT 11 Alkaline Phosphatase 55 Troponin I High Sens 8.2 B-Natriuretic Peptide Total Protein 5.9 L Albumin 2.9 L Globulin 3.0 Albumin/Globulin Ratio 1.0 Lipase 26 12/25/20 18:33 WBC RBC Hgb Hct MCV MCH MCHC RDW Plt Count MPV Neut # (Auto) Lymph # (Auto) Beadle # (Auto) Eos # (Auto) Baso # (Auto) Absolute Nucleated RBC Nucleated RBC % Sodium Potassium Chloride Carbon Dioxide Anion Gap BUN Creatinine Estimated GFR (MDRD) Glucose Calcium Total Bilirubin AST ALT Alkaline Phosphatase Troponin I High Sens B-Natriuretic Peptide 32 Total Protein Albumin Globulin Albumin/Globulin Ratio Lipase - Rads (name of study) US DVT Radiology: See rad report, Other (Per technologist no DVT T seen in bilateral ultrasound imaging.) PD MEDICAL DECISION MAKING - ED course Complexity details: reviewed results, re-evaluated patient, considered differential, d/w patient ED course: 75-year-old female who has a history of chronic myelomaComes to the emergency department for evaluation of bilateral lower extremity swelling. This has been an ongoing problem for about 1 month. She was recently admitted to the hospital after a large bowel perforation which was a complication of a colonoscopy in September 2020. During this last admission she was seen by both medicine and surgery. Since discharge from the hospital she denies that she has had any abdominal pain. She has been persistently vomiting which she attributes to her oral chemotherapy. She denies that the swelling is any worse than when she left the hospital but it has not improved thus she seeks treatment today. Here in the emergency department chest x-ray without any focal findings concerning for heart failure. High-sensitivity and troponin also negative. EKG nonischemic. Screening labs show a mild unchanged anemia. Renal and liver function tests are essentially normal. Given recent hospitalizations and her history of leukemia we did do ultrasound of her lower extremities to rule out DVT and no clots were found. She does have moderate hypokalemia. Potassium was 2.9 and she was repleted with 40 of potassium orally. I will discharge her with 1 week of oral potassium supplementation 10 mEq daily. I will also prescribe her hydrochlorothiazide 25 mg once daily to help with the leg swelling. She reports that she will schedule follow-up with Dr. Quigley upcoming to have her labs repeated. She is advised to weigh herself daily and to elevate her legs especially at night. Emergent return precautions were discussed for fevers, leg swelling chest pain or shortness of breath. Departure - Departure Disposition: Home, Self Care Clinical Impression: Swelling of lower extremity, CML (chronic myeloid leukemia), Hypokalemia Condition: Stable Record reviewed to determine appropriate education?: Yes Follow-Up: Ron Quigley MD [Primary Care Provider] - Within 1 week Prescriptions: Hydrochlorothiazide 25 mg PO DAILY #28 Potassium Chloride [Micro-K] 10 meq PO DAILY #7 Comments: You were seen in the emergency department today for lower extremity swelling. Your labs showed a normal liver and kidney function. The ultrasound of your legs did not show any blood clots. I would like you to start taking the hydrochlorothiazide once daily for the next 2 weeks this is a water pill that should help you pee. Because that you have a low potassium level here in the emergency department I would also like you to take the oral potassium once daily for the next week. Please schedule close follow-up with Dr. Quigley for reevaluation of your leg swelling and to have your labs redrawn. I do recommend that you elevate your legs above the level of your heart especially at night. Increasing your ambulation at home will also help with venous return and improving leg swelling. If at any point you develop chest pain, high fevers, have shortness of breath any concerns of infection please return immediately to the ER
[2020-12-25] MEDS ORDERED: POTASSIUM CHLORIDE 20 MEQ TABLET PO STA (20:13)
[2020-12-25 22:28] VITALS: BP 160/73
--- NOTE | 2020-12-26 07:17 | Ultrasound Report ---
PROCEDURE: Duplex Ext Veins Bilateral INDICATIONS: Bilateral lower extremity swelling. TECHNIQUE: Real-time imaging, as well as color and pulse Doppler interrogation, were performed of the deep veins of both legs from the inguinal ligament to the popliteal fossa. COMPARISON: 09/28/2017 FINDINGS: The deep veins of the right and left lower extremities are normally compressible, and free of intraluminal thrombus. Color and pulse Doppler demonstrate normal phasic intravascular flow in t he deep veins of the right and left lower extremities. There is normal augmentation response to dist al compression maneuver in the deep veins of the right and left lower extremities. Nonspecific soft t issue edema noted in the lower extremities bilaterally. IMPRESSION: No evidence of deep vein thrombosis involving the right and left lower extremities. Reviewed by: Viviana Spear MD, PhD on 12/26/2020 7:16 AM PST Approved by: Viviana Spear MD, PhD on 12/26/2020 7:16 AM PST Station ID: [id number]
== END 2020-12-25 22:29 | disposition home or self-care (01) ==
LOC: ED 17:51
DX: R60.0 Localized edema (principal); E87.6 Hypokalemia; D64.9 Anemia, unspecified; C92.10 Chronic myeloid leukemia, BCR/ABL-positive, not having achieved remission; I10 Essential (primary) hypertension; G40.909 Epilepsy, unspecified, not intractable, without status epilepticus
CPT/HCPCS: 36415; 80053; 83690; 83880; 84484; 85025; 93005; 93970; 99284; A9270

== ENCOUNTER 2020-12-30 11:58 | Outpatient (CLI) | payer MEDICARE, BC ==
[2020-12-30 15:10] LABS: ALBUMIN 2.9 g/dL (3.2-5.5); BILIRUBIN,TOTAL 0.4 mg/dL (0.2-1.0); CREATININE 0.7 mg/dL (0.4-1.0); MAGNESIUM 1.5 mg/dL (1.7-2.8); TOTAL PROTEIN 5.9 g/dL (6.7-8.2)
== END 2020-12-30 11:59 | disposition home or self-care (01) ==
LOC: LAB.S 11:58
PROVIDERS: ATTEND Internal Medicine
DX: E87.6 Hypokalemia (principal)
CPT/HCPCS: 36415; 80053; 83735

== ENCOUNTER 2021-01-10 12:16 | Outpatient (CLI) | payer MEDICARE, BC ==
[2021-01-10 15:28] LABS: ALBUMIN 2.9 g/dL (3.2-5.5); BILIRUBIN,TOTAL 0.6 mg/dL (0.2-1.0); CREATININE 0.7 mg/dL (0.4-1.0); MAGNESIUM 1.8 mg/dL (1.7-2.8); TOTAL PROTEIN 5.9 g/dL (6.7-8.2)
== END 2021-01-10 12:17 | disposition home or self-care (01) ==
LOC: LAB.S 12:16
PROVIDERS: ATTEND Internal Medicine
DX: E87.6 Hypokalemia (principal)
CPT/HCPCS: 36415; 80053; 83735

== ENCOUNTER 2021-01-31 13:11 | Outpatient (CLI) | payer MEDICARE, BC ==
[2021-01-31 20:06] LABS: ALBUMIN 3.2 g/dL (3.2-5.5); ALBUMIN/GLOBULIN RATIO 1.1 (1.0-2.2); BILIRUBIN,TOTAL 0.5 mg/dL (0.2-1.0); CALCIUM 8.3 mg/dL (8.5-10.3); CREATININE 0.6 mg/dL (0.4-1.0); MAGNESIUM 1.9 mg/dL (1.7-2.8); POTASSIUM 3.8 mmol/L (3.5-5.0); TOTAL PROTEIN 6.2 g/dL (6.7-8.2)
== END 2021-01-31 13:12 | disposition home or self-care (01) ==
LOC: LAB.S 13:11
PROVIDERS: ATTEND Internal Medicine
DX: R19.7 Diarrhea, unspecified (principal); E87.6 Hypokalemia
CPT/HCPCS: 36415; 80053; 83735

== ENCOUNTER 2021-05-26 09:25 | Outpatient (CLI) | payer MEDICARE, BC ==
[2021-05-26 16:49] LABS: ALBUMIN/GLOBULIN RATIO 1.3 (1.0-2.2); BILIRUBIN,TOTAL 0.6 mg/dL (0.2-1.0); CALCIUM 8.7 mg/dL (8.5-10.3); CREATININE 0.7 mg/dL (0.4-1.0); POTASSIUM 4.1 mmol/L (3.5-5.0)
== END 2021-05-26 09:26 | disposition home or self-care (01) ==
LOC: LAB.S 09:25
PROVIDERS: ATTEND Internal Medicine
DX: E87.6 Hypokalemia (principal)
CPT/HCPCS: 36415; 80053

== ENCOUNTER 2021-11-25 12:40 | Outpatient (CLI) | payer MEDICARE, BC ==
[2021-11-25 15:27] LABS: THYROID STIMULATING HORMONE 5.81 uIU/mL (0.34-5.60)
[2021-11-25 16:11] LABS: FREE T4 (FREE THYROXINE) 0.67 ng/dL (0.58-1.64)
== END 2021-11-25 12:41 | disposition home or self-care (01) ==
LOC: LAB.S 12:40
PROVIDERS: ATTEND Internal Medicine
DX: E87.6 Hypokalemia (principal); E03.9 Hypothyroidism, unspecified
CPT/HCPCS: 36415; 84439; 84443

== ENCOUNTER 2021-12-29 09:56 | Outpatient (CLI) | payer MEDICARE, BC ==
--- NOTE | 2021-12-30 07:38 | Mammography Report ---
BILATERAL DIGITAL SCREENING MAMMOGRAM 3D/2D WITH EXAGGERATED CC: 12/29/2021 CLINICAL: Routine screening. Family history of breast cancer. Comparison is made to exams dated: 08/14/2019 mammogram, 10/18/2017 mammogram, and 09/24/2016 mammogra m - [facility]. The tissue of both breasts is heterogeneously dense. This may lowe r the sensitivity of mammography. No significant masses, calcifications, or other findings are seen in either breast. There has been no significant interval change. IMPRESSION: NEGATIVE There is no mammographic evidence of malignancy. A 1 year screening mammogram is recommended. This exam was interpreted at Station ID: [id number]. NOTE: For mammograms, a report in lay terms will be sent to the patient. Approximately 15% of breast malignancies will not be visualized mammographically. In the management of a palpable breast mass, a negative mammogram must not discourage biopsy of a clinically suspicious lesion. Electronically Signed By: Aris wong/korin:12/29/2021 12:18:25 ACR BI-RADS Category 1: Negative 3341F PARENCHYMAL PATTERN: (D) - The breast(s) demonstrate(s) heterogeneously dense fibroglandular joy joshi. BI-RADS CATEGORY: (1) - 1 RECOMMENDATION: (ANNUAL) - Recommend routine annual screening mammography. [id number] 1 year screening LATERALITY: (B)
== END 2021-12-29 09:57 | disposition home or self-care (01) ==
LOC: DI.S 09:56
PROVIDERS: ATTEND Internal Medicine
DX: Z12.31 Encounter for screening mammogram for malignant neoplasm of breast (principal); Z80.3 Family history of malignant neoplasm of breast

== ENCOUNTER 2022-06-09 10:25 | Outpatient (CLI) | payer MEDICARE, BC | END 2022-06-09 10:26 | disposition home or self-care (01) | LOC: LAB.S 10:25 | PROVIDERS: ATTEND Internal Medicine | DX: E89.0 Postprocedural hypothyroidism (principal) | CPT/HCPCS: 36415; 84443 ==

== ENCOUNTER 2023-07-06 10:53 | Outpatient (CLI) | payer MEDICARE, BC ==
--- NOTE | 2023-07-07 09:27 | Mammography Report ---
BILATERAL DIGITAL SCREENING MAMMOGRAM 3D/2D WITH EXAGGERATED CC: 07/06/2023 CLINICAL: Routine screening. Family history of breast cancer. Comparison is made to exams dated: 12/29/2021 mammogram, 08/14/2019 mammogram, and 10/18/2017 mammogram - [facility]. Both breasts are heterogeneously dense, which may obscure small masses (category c / 51-75% glandular tissue). There are benign vascular calcifications in both breasts. No significant masses, calcifications, or other findings are seen in either breast. There has been no significant interval change. IMPRESSION: BENIGN There is no mammographic evidence of malignancy. A 1 year screening mammogram is recommended. Based on the Tyrer Cuzick model (a risk assessment model) the patients lifetime risk is 8.4% and her 10 year risk is 0.0%. According to the ACR, ACS, and NCCN guidelines, an annual breast MRI exam gume g with mammogram is recommended if the patients lifetime risk is 20% or greater. This exam was interpreted at Station ID: [id number]. NOTE: For mammograms, a report in lay terms will be sent to the patient. Approximately 15% of breast malignancies will not be visualized mammographically. In the management of a palpable breast mass, a negative mammogram must not discourage biopsy of a clinically suspicious lesion. Electronically Signed By: Lizy foster/korin:07/07/2023 08:02:43 letter sent: No_Letter ACR BI-RADS Category 2: Benign Finding(s) 3342F PARENCHYMAL PATTERN: (D) - The breast(s) demonstrate(s) heterogeneously dense fibroglandular joy joshi. BI-RADS CATEGORY: (2) - 2 Mammogram [id number] 1 year screening LATERALITY: (B)
== END 2023-07-06 10:54 | disposition home or self-care (01) ==
LOC: DI.S 10:53
DX: Z12.31 Encounter for screening mammogram for malignant neoplasm of breast (principal); Z80.3 Family history of malignant neoplasm of breast

== ENCOUNTER 2023-08-19 11:33 | Outpatient (CLI) | payer MEDICARE, BC | END 2023-08-19 11:34 | disposition home or self-care (01) | LOC: LAB.S 11:33 | PROVIDERS: ATTEND Registered Nurse | DX: E55.9 Vitamin D deficiency, unspecified (principal); E53.8 Deficiency of other specified B group vitamins | CPT/HCPCS: 36415; 82306; 82607 ==

== ENCOUNTER 2023-09-08 10:19 | Day surgery (SDC) | payer MEDICARE, BC ==
[~2023-09-08 10:19] MED LIST: BUPIVACAINE 0.25% PF 30 ML VIAL ONE; VANCOMYCIN 1 GM VIAL ONE
[2023-09-08] MEDS ORDERED: LACTATED RINGERS 1,000 ML IV ONE (10:31)
[2023-09-08] MEDS ORDERED: ceFAZolin 2 GM VIAL ONE (10:47)
[2023-09-08] MEDS ORDERED: CELECOXIB 100 MG CAPSULE PO ONE (10:47)
[2023-09-08] MEDS ORDERED: DEXAMETHASONE 10 MG/ML VIAL ONE (10:47)
[2023-09-08] MEDS ORDERED: ACETAMINOPHEN 500 MG TABLET PO ONE (10:47)
--- NOTE | 2023-09-08 10:52 | ANESTHESIA ---
Pre-Anesthesia VS, & Labs - Diagnosis left hip osteoarthritis - Procedure left total hip arthroplasty Height: 5 ft 5 in - NPO >8 hours - Is Patient ?: No Home Medications and Allergies Home Medications: Ambulatory Orders Ferrous Sulfate 325 mg PO DAILY 09/06/23 Imatinib Mesylate [Gleevec] 400 mg PO QPM 09/06/23 ondansetron HCL [Zofran] 4 mg PO BID 09/06/23 Losartan [Cozaar] 25 mg PO BID 06/13/13 Pantoprazole [Protonix] 40 mg PO BID 03/17/16 Atorvastatin Calcium 20 mg PO QPM 04/19/17 Carbamazepine [Carbamazepine ER] 400 mg PO BID 04/19/17 Calcium Carbonate/Vitamin D3 [Calcium 600-Vit D3 400 Tablet] 2 tab PO QPM 09/28/17 Cholecalciferol (Vitamin D3) [Vitamin D3] 1,000 units PO BID 09/28/17 Multivitamin [Theragran] 1 tab PO DAILY 09/28/17 Levothyroxine [Synthroid] 88 mcg PO SUMOTUWETHFR 11/23/17 Cyanocobalamin (Vitamin B-12) [Vitamin B-12] 1,000 mcg PO UD 12/04/20 Lactobacillus Acidophilus [Probiotic Acidophilus] 1 each PO DAILY 12/04/20 Loperamide [Imodium] 2 mg PO PRN PRN 06/23/22 Imatinib Mesylate [Gleevec] 100 mg PO DAILY 10/15/22 Meloxicam 7.5 mg PO BID 07/27/23 Ferrous Sulfate 325 mg PO DAILY 09/06/23 Imatinib Mesylate [Gleevec] 400 mg PO QPM 09/06/23 ondansetron HCL [Zofran] 4 mg PO BID 09/06/23 Allergies/Adverse Reactions: Allergies Allergy/AdvReac Type Severity Reaction Status Date / Time tolterodine [From Detrol] AdvReac Nausea Verified 09/06/23 10:15 Anes History & Medical History - Anesthetic History Anesthesia Complications: reports: No previous complications - Medical History Cardiovascular: reports: Hypertension, High cholesterol Pulmonary: reports: None Gastrointestinal: reports: GERD, Colon polyps, Diverticulitis Urinary: reports: Incontinence, Nocturia Neuro: reports: Fainting Musculoskeletal: reports: Osteoarthritis Endocrine/Autoimmune: reports: HyPOthyroidism Blood Disorders: reports: Anemia Skin: reports: Other Smoking Status: Never smoker History of Cancer?: Yes - Surgical History General: reports: Bowel surgery, Colonoscopy, Other Eyes Ears Nose Throat (EENT): reports: Tonsil/Adenoidectomy Urologic: reports: Kidney stents, Bladder surgery Dermatologic: reports: Skin cancer surgery Exam General: Alert, Oriented x3 Dental: WNL Neck Mobility: Normal Mallampati classification: II Thyromental Distance: greater than 6 cm Respiratory: Lungs clear Cardiovascular: Regular rate Plan Anesthesia Type: Spinal, Fascia Iliaca Block Consent for Procedure(s) Verified and Reviewed: Yes Code Status: Attempt Resuscitation ASA classification: 2-Mild systemic disease Is this case an emergency?: No
[2023-09-08] MEDS ORDERED: ePHEDrine 50 MG/ML VIAL IVP PRN (10:53)
[2023-09-08] MEDS ORDERED: MORPHINE 2 MG/ML CARPUJECT IVP PRN (10:53)
[2023-09-08] MEDS ORDERED: fentaNYL 100 MCG/2 ML VIAL IVP PRN (10:53)
[2023-09-08] MEDS ORDERED: ONDANSETRON 4 MG/2 ML VIAL IVP PRN ×2 (10:53→14:33)
[2023-09-08] MEDS ORDERED: METOCLOPRAMIDE 10 MG/2 ML VIAL IVP PRN (10:53)
[2023-09-08] MEDS ORDERED: ATROPINE ABBOJECT 1 MG/10 ML SYRINGE IVP PRN (10:53)
[2023-09-08] MEDS ORDERED: NALOXONE 0.4 MG/ML VIAL IVP PRN (10:53)
[2023-09-08] MEDS ORDERED: HYDROmorphone 0.5 MG/0.5 ML SYRINGE IVP PRN (10:53)
[2023-09-08] MEDS ORDERED: LACTATED RINGERS 1,000 ML IV SCH (11:00)
[2023-09-08] MEDS ORDERED: BUPIVACAINE 0.5% PF 10 ML VIAL ONE (11:03)
[2023-09-08] MEDS ORDERED: MIDAZOLAM 2 MG/2 ML VIAL ONE (11:04)
[2023-09-08] MEDS ORDERED: TRANEXAMIC ACID 1,000 MG/10 ML VIAL ONE ×2 (12:24→13:04)
[2023-09-08] MEDS ORDERED: GLYCOPYRROLATE 1 MG/5 ML VIAL ONE (12:52)
[2023-09-08] MEDS ORDERED: VANCOMYCIN 1 GM VIAL MC ONE (12:59)
[2023-09-08] MEDS ORDERED: BUPIVACAINE 0.25% PF 30 ML VIAL SUBQ ONE ×2 (12:59)
[2023-09-08] MEDS ORDERED: PROPOFOL 500 MG/50 ML 1,000 MG/100 ML VIAL ONE (13:03)
[2023-09-08] MEDS ORDERED: ONDANSETRON 4 MG/2 ML VIAL ONE (13:04)
--- NOTE | 2023-09-08 13:08 | ANESTHESIA ---
Pre-Anesthesia VS, & Labs - Diagnosis L hip OA - Procedure L PRICE Vital Signs: Temp Pulse Resp BP Pulse Ox O2 Flow Rate 36.7 C 68 15 185/81 H 98 09/08/23 10:53 09/08/23 10:53 09/08/23 10:53 09/08/23 10:53 09/08/23 10:53 Height: 5 ft 5 in Weight (kg): 72.57 kg Body Mass Index: 26.6 BMI Classification: Overweight - NPO >8 hours - Is Patient ?: No - Lab Results Lab results reviewed: Yes Home Medications and Allergies Home Medications: Ambulatory Orders Ferrous Sulfate 325 mg PO DAILY 09/06/23 Imatinib Mesylate [Gleevec] 400 mg PO QPM 09/06/23 ondansetron HCL [Zofran] 4 mg PO BID 09/06/23 Active Medications Atropine Sulfate (Atropine Abboject 1 Mg/10 Ml Syringe) 0.5 mg IVP Q5M PRN PRN Reason: Bradycardia Stop: 09/09/23 10:53 Ephedrine Sulfate (Ephedrine 50 Mg/Ml Vial) 10 mg IVP Q5M PRN PRN Reason: HYPOTENSION Stop: 09/09/23 10:53 Fentanyl (Fentanyl 100 Mcg/2 Ml Vial) 25 - 50 mcg IVP Q5M PRN PRN Reason: BREAKTHROUGH PAIN (2nd Choice) Stop: 09/09/23 10:53 Hydromorphone HCl (Hydromorphone 0.5 Mg/0.5 Ml Syringe) 0.2 - 0.6 mg IVP Q5M PRN PRN Reason: PAIN (First Choice) Stop: 09/09/23 10:53 Lactated Ringer's (Lr) 1,000 mls @ 100 mls/hr IV .Q10H MICHELLE Stop: 09/08/23 20:59 Metoclopramide HCl (Metoclopramide 10 Mg/2 Ml Vial) 10 mg IVP Q6HR PRN PRN Reason: N/V not relieved by Zofran Morphine Sulfate (Morphine 2 Mg/Ml Carpuject) 2 - 4 mg IVP Q5M PRN PRN Reason: PAIN (3rd Choice) Stop: 09/09/23 10:53 Naloxone HCl (Naloxone 0.4 Mg/Ml Vial) 0.1 mg IVP Q2M PRN PRN Reason: RESP RATE <8 Stop: 09/09/23 10:53 Ondansetron HCl (Ondansetron 4 Mg/2 Ml Vial) 4 mg IVP ONCE PRN PRN Reason: N/V (First Choice) Stop: 09/09/23 10:53 Losartan [Cozaar] 25 mg PO BID 06/13/13 Pantoprazole [Protonix] 40 mg PO BID 03/17/16 Atorvastatin Calcium 20 mg PO QPM 04/19/17 Carbamazepine [Carbamazepine ER] 400 mg PO BID 04/19/17 Calcium Carbonate/Vitamin D3 [Calcium 600-Vit D3 400 Tablet] 2 tab PO QPM 09/28/17 Cholecalciferol (Vitamin D3) [Vitamin D3] 1,000 units PO BID 09/28/17 Multivitamin [Theragran] 1 tab PO DAILY 09/28/17 Levothyroxine [Synthroid] 88 mcg PO SUMOTUWETHFR 11/23/17 Cyanocobalamin (Vitamin B-12) [Vitamin B-12] 1,000 mcg PO UD 12/04/20 Lactobacillus Acidophilus [Probiotic Acidophilus] 1 each PO DAILY 12/04/20 Loperamide [Imodium] 2 mg PO PRN PRN 06/23/22 Imatinib Mesylate [Gleevec] 100 mg PO DAILY 10/15/22 Meloxicam 7.5 mg PO BID 07/27/23 Ferrous Sulfate 325 mg PO DAILY 09/06/23 Imatinib Mesylate [Gleevec] 400 mg PO QPM 09/06/23 ondansetron HCL [Zofran] 4 mg PO BID 09/06/23 Allergies/Adverse Reactions: Allergies Allergy/AdvReac Type Severity Reaction Status Date / Time tolterodine [From Detrol] AdvReac Nausea Verified 09/06/23 10:15 Anes History & Medical History - Anesthetic History Anesthesia Complications: reports: No previous complications Family history of Anesthesia Complications: Denies Family history of Malignant Hyperthermia: Denies - Medical History Cardiovascular: reports: Hypertension, High cholesterol Pulmonary: reports: None Gastrointestinal: reports: GERD (w/c), Colon polyps, Diverticulitis Urinary: reports: Incontinence, Nocturia Neuro: reports: Peripheral neuropathy (b/l feet L>R), Fainting Musculoskeletal: reports: Osteoarthritis Endocrine/Autoimmune: reports: HyPOthyroidism Blood Disorders: reports: Anemia Skin: reports: Other Smoking Status: Never smoker Psychosocial: reports: No issues indicated - Surgical History General: reports: Bowel surgery, Colonoscopy, Other Eyes Ears Nose Throat (EENT): reports: Tonsil/Adenoidectomy Urologic: reports: Kidney stents, Bladder surgery Dermatologic: reports: Skin cancer surgery Exam General: Alert, Oriented x3, Cooperative Dental: WNL Mouth Openin Fingerbreadth Neck Mobility: Normal Mallampati classification: II Thyromental Distance: 4-6 cm Respiratory: Lungs clear Cardiovascular: Regular rate Plan Anesthesia Type: Spinal Regional Block: Per Surgeon's request for Post Op pain control Consent for Procedure(s) Verified and Reviewed: Yes Code Status: Attempt Resuscitation ASA classification: 3-Severe systemic disease Is this case an emergency?: No
[2023-09-08] MEDS ORDERED: PHENYLEPHRINE HCL 0.5 MG/5 ML AMPULE ONE (13:12)
[2023-09-08] MEDS ORDERED: ROPIVACAINE 0.5% PF 20 ML VIAL ONE (13:57)
[2023-09-08] MEDS ORDERED: SODIUM CHLORIDE 0.9% 10 ML VIAL IVP ONE (13:57)
--- NOTE | 2023-09-08 14:16 | OPERATIVE REPORT ---
Operative Report - General Procedure Date: 09/08/23 Planned Procedure: Left total hip arthroplasty Pre-Op Diagnosis: Osteoarthritis left hip Procedure Performed: Left total hip arthroplasty: [employer]hew #7 anthology femoral component, 50 m m R3 acetabular press-fit cup, 30 mm acetabular screw, neutral polyethylene acetabular liner, 32 mm +0 Oxinium standard offset femoral head Post Op Diagnosis: , Same as preoperative diagnosis - Procedure Note Primary Surgeon: Sage Perez MD Secondary Surgeon: Arron Jenkins MD, Ele VALADEZ Anesthesia Provider: Mata Kumar CRNA Anesthesia Technique: Spinal Estimated Blood Loss (mL): 200 Indications: This is a 78-year-old woman with chronic and progressive left groin and left thigh pain associated with activity. She has not responded to nonoperative treatment. She has a history of chronic myelocytic leukemia that is apparently in remission. She is not immunosuppressed according to her oncologist. She has had preoperative valuation with medical providers including her oncologist. Her exam showed painful limited motion left hip, positive FADIR and Stinchfield test with antalgic gait, neurovascular intact. Her x-rays showed end-stage arthritis with [id number], cyst and irregularity of femoral head particular near the weightbearing dome. Cannot exclude avascular necrosis as part of her arthritic etiologyShe has signed informed consent, agreeing to the left total hip arthroplasty Findings: There was eburnation and loss of articular cartilage of the femoral head and a large portion of the weightbearing dome of the acetabulum. Complications: None - Other Other Information/Narrative: After satisfactory spinal anesthesia had been achieved, the patient was placed in a lateral decubitus position with the Left hip facing superiorly. The patient was secured in the lateral decubitus position using a pegboard with 2 post securing the torso and 2 posts securing the pelvis. The ;rgy hip and ;rgy lower extremity were prepped and draped in a sterile manner in the usual fashion. A timeout procedure was performed by the entire operating room team and all were in agreement. A longitudinal incision was made about the lateral right hip beginning at the vastus lateralis ridge of the proximal femur and extending it proximally approximately 3 fingerbreadths above the trochanter. The subcutaneous tissue and fascia karli were split in line with the incision. The anterior one third of the gluteus medius was incised at the myotendinous junction. The gluteus medius was retracted medially. The hip capsule was exposed and was split in a T-shaped fashion. Part of the anterior hip capsule was excised. The femoral head was dislocated with flexion, adduction and external rotation. An osteotomy was done to the femoral neck using a osteotomy guide. Retractors were placed behind the femoral neck to protect the soft tissues from the oscillating saw. The proximal femur was retracted. 2 acetabular retractors were placed one anteriorly directly against bone to reduce any soft tissue impingement to femoral nerve. The second retractor was placed more posteriorly directly against bone and preventing any impingement against sciatic nerve. The acetabulum was prepared with a large curette. Medialization of the acetabulum was performed with a small acetabular reamer and then widening was done up to a 49 mm reamer the final reamers were placed in approximately 20 degrees anteversion and 40 degrees of abduction. A trial acetabular component was inserted, 50 mm and this fit well. A permanent 50 mm R3 acetabular 3-hole component was then impacted in 40 degrees of abduction and approximately 20 degrees of anteversion. This had good fixation to push pull and rotation. A si ngle 30 mm superior acetabular screw was inserted. The stability of the acetabular cup was very good. A trial acetabular liner was inserted into the cup. The femoral canal was opened with a box osteotome, starting reamer and then a short broach. Broaching was carried out to a #7. Calcar reaming was performed. Good fit and stability to the #4 stem was achieved. Trial reduction was performed. Hip motion was very good and the hip was stable to dislocation maneuvers. The trial components were removed. A permanent acetabular liner was impacted into the acetabular cup. The #7 Anthology femoral stem was impacted and fully seated. The femoral head was impacted on the femoral trunnion. There was good stability to push pull and rotation. A 32 mm +0 head was impacted on the trunnion. The hip was reduced, had good leg length tension and good stability with dislocation maneuvers. 3-minute lavage with dilute Betadine was performed. Vancomycin 2 g, powder, was placed into the hip joint prior to the deep closure The hip abductors were repaired at the myotendinous junction with #1 Stratofix. The fascia karli was closed with #1 Stratofix. The subcutaneous tissue was closed with 2-0 Stratofix. The skin was closed with a 3-0 Monocryl subcuticular closure and Dermabond. The patient tolerated the procedure well. A physician curriculum assistant was utilized during the procedure to provide retraction and protection of neurovascular structures as well as to facilitate dislocation and reduction of the hip joint.
[2023-09-08] MEDS ORDERED: SODIUM CHLORIDE FLUSH 0.9% 10 ML SYRINGE IVP PRN (14:33)
[2023-09-08] MEDS ORDERED: DOCUSATE SODIUM 100 MG CAPSULE PO PRN (14:33)
[2023-09-08] MEDS ORDERED: LACTATED RINGERS 500 ML IV ONE ×2 (14:35)
[2023-09-08] MEDS ORDERED: fentaNYL 100 MCG/2 ML VIAL ONE (15:16)
--- NOTE | 2023-09-08 15:43 | XRAY Report ---
PROCEDURE: Pelvis 1 View INDICATIONS: post operative imaging TECHNIQUE: 2 view(s) of the pelvis acquired. COMPARISON: Hip X-ray 06/23/2023 FINDINGS: Bones: Postoperative changes from left hip arthroplasty. The hardware appears intact and in expected location without surrounding fracture or lucency. No suspicious bony lesions. Degenerative changes o f visualized lumbar spine. Soft tissues: Postoperative changes within the overlying soft tissues. IMPRESSION: Expected postoperative changes from left hip arthroplasty. Reviewed by: Jaquan Lynch MD on 09/08/2023 3:41 PM PDT Approved by: Jaquan Lynch MD on 09/08/2023 3:41 PM PDT Station ID: [id number]
[2023-09-08] MEDS: ACETAMINOPHEN 500 MG TABLET PO SCH ×2 (15:46→20:31)
[2023-09-08] MEDS: NS W/20 MEQ KCL 1,000 ML IV SCH (15:46)
[2023-09-08] MEDS: SODIUM CHLORIDE FLUSH 0.9% 10 ML SYRINGE IVP SCH (15:47)
[2023-09-08] MEDS: ceFAZolin (2G) 2 GM in SODIUM CHLORIDE 0.9% MINIBAG 100 ML IV SCH ×2 (15:47→22:28)
--- NOTE | 2023-09-08 17:01 | ANESTHESIA POST OP EVALUATION ---
Anesthesia Post Eval - Post Anesthesia Eval Vitals: Last Vital Signs Temp 36.0 C L 09/08/23 15:10 Pulse 57 L 09/08/23 15:30 Resp 14 09/08/23 15:30 BP 157/63 H 09/08/23 15:30 Pulse Ox 100 09/08/23 15:30 O2 Flow Rate CV Function Including HR & BP: Stable Pain Control: Satisfactory Nausea & Vomiting: Negative Mental Status: Baseline Respiratory Status: Airway Patent Hydration Status: Satisfactory Anesthesia Complications: None
[2023-09-08] MEDS: oxyCODONE 5 MG TABLET PO PRN (17:23)
[2023-09-08] MEDS: traMADol 50 MG TABLET PO PRN (18:56)
[2023-09-08] MEDS: CELECOXIB 100 MG CAPSULE PO SCH (20:31)
[2023-09-08] MEDS: ONDANSETRON ODT 4 MG TABLET TL PRN (20:44)
[2023-09-08] MEDS: ASPIRIN EC 81 MG TABLET PO SCH (20:44)
[2023-09-08] MEDS: PANTOPRAZOLE 40 MG TABLET PO SCH (20:45)
[2023-09-08] MEDS: ethyl alcohoL 62% SWAB AMPULE NAS SCH (20:45)
[2023-09-08] MEDS ORDERED: IMATINIB MESYLATE 400 MG PO SCH (21:00)
[2023-09-08] MEDS: fentaNYL 250 MCG/5 ML VIAL IVP PRN (22:25)
[2023-09-09] MEDS: oxyCODONE 5 MG TABLET PO PRN (00:56)
[2023-09-09] MEDS: SODIUM CHLORIDE FLUSH 0.9% 10 ML SYRINGE IVP SCH ×2 (00:57→08:27)
[2023-09-09] MEDS: ACETAMINOPHEN 500 MG TABLET PO SCH ×2 (01:59→08:38)
[2023-09-09] MEDS: traMADol 50 MG TABLET PO PRN (01:59)
[2023-09-09] MEDS: fentaNYL 250 MCG/5 ML VIAL IVP PRN (02:54)
[2023-09-09] MEDS ORDERED: fentaNYL 100 MCG/2 ML VIAL IVP PRN (02:55)
[2023-09-09] MEDS: NS W/20 MEQ KCL 1,000 ML IV SCH ×2 (03:03→10:35)
[2023-09-09 05:13] LABS: BASOPHILS % (AUTO) 0.2 %; HCT - HEMATOCRIT 34.2 % (37.0-47.0); HGB - HEMOGLOBIN 11.6 g/dL (12.0-16.0); LYMPHOCYTES % (AUTO) 11.9 %; MEAN CORPUSCULAR HEMOGLOBIN 32.6 pg (27.0-31.0); MEAN CORPUSCULAR HGB CONC 33.9 g/dL (32.0-36.0); MEAN CORPUSCULAR VOLUME 96.1 fL (81.0-99.0); MEAN PLATELET VOLUME 9.2 fL (7.9-10.8); MONOCYTES # (AUTO) 0.7 10^3/uL (0.0-1.0); MONOCYTES % (AUTO) 8.3 %; NEUTROPHILS # (AUTO) 6.9 10^3/uL (1.5-6.6); NEUTROPHILS % (AUTO) 79.1 %; PLT - PLATELET COUNT 175 10^3/uL (130-450); RED BLOOD COUNT 3.56 10^6/uL (4.20-5.40); WHITE BLOOD COUNT 8.8 x10^3/uL (4.8-10.8)
[2023-09-09] MEDS: PANTOPRAZOLE 40 MG TABLET PO SCH (08:25)
[2023-09-09] MEDS: ONDANSETRON ODT 4 MG TABLET TL PRN (08:26)
[2023-09-09] MEDS: ASPIRIN EC 81 MG TABLET PO SCH (08:26)
[2023-09-09] MEDS: CELECOXIB 100 MG CAPSULE PO SCH (08:26)
--- NOTE | 2023-09-09 08:59 | PROVIDER PROGRESS NOTE ---
Subjective - General Procedure Date: 09/08/23 Post Op Days: 1 Procedure Performed: Left total hip arthroplasty - Other Other Information/Narrative: Patient sitting semirecumbent in bed She reports anterior thigh pain that she states "feels like a spasm". She reports poorly controlled pain overnight She has not yet been out of bed with physical therapy No nausea, emesis, chest pain or dyspnea she endorses pain with movement of the left hip Objective - Patient Data Reviewed Vital Signs: Yes Vital Signs: Vital Signs x48h Temp Pulse Resp BP Pulse Ox 09/09/23 07:52 36.6 C 70 18 165/83 H 99 09/09/23 06:30 36.6 C 63 15 161/57 H 94 09/09/23 02:57 15 164/73 H 09/09/23 01:00 36.7 C 83 16 164/73 H 95 Weight: Weight 09/07/23 09/08/23 09/09/23 23:59 23:59 23:59 Weight (kg) 72.57 kg Intake & Output: Intake and Output Totals x24h 09/07/23 09/08/23 09/09/23 23:59 23:59 23:59 Intake Total 700 1050 Output Total 950 200 Balance -250 850 - Lab Results Lab Results: 09/09/23 04:35 Other Lab Results: Lab Results x24hrs 09/09/23 Range/Units 04:35 WBC 8.8 (4.8-10.8) x10^3/uL RBC 3.56 L (4.20-5.40) 10^6/uL Hgb 11.6 L (12.0-16.0) g/dL Hct 34.2 L (37.0-47.0) % MCV 96.1 (81.0-99.0) fL MCH 32.6 H (27.0-31.0) pg MCHC 33.9 (32.0-36.0) g/dL RDW 13.0 (12.0-15.0) % Plt Count 175 (130-450) 10^3/uL MPV 9.2 (7.9-10.8) fL Neut # (Auto) 6.9 H (1.5-6.6) 10^3/uL Lymph # (Auto) 1.0 L (1.5-3.5) 10^3/uL [place] # (Auto) 0.7 (0.0-1.0) 10^3/uL Eos # (Auto) 0.0 (0.0-0.7) 10^3/uL Baso # (Auto) 0.0 (0.0-0.1) 10^3/uL Absolute Nucleated RBC 0.00 x10^3/uL Nucleated RBC % 0.0 /100WBC - Imaging Results Radiology Imaging: positive: Final report received - Current Medications Current Medications: Current Medications Generic Name Dose Route Start Last Admin Trade Name Freq PRN Reason Stop Dose Admin Acetaminophen 1,000 mg 09/08/23 15:00 09/09/23 08:38 Acetaminophen 500 Mg Tablet PO 1,000 mg Q6H MICHELLE Administration Alcohol 1 amp 09/08/23 21:00 09/08/23 20:45 Ethyl Alcohol 62% Swab Ampule LISBETH 1 amp BID MICHELLE Administration Aspirin 81 mg 09/08/23 21:00 09/09/23 08:26 Aspirin Ec 81 Mg Tablet PO 81 mg BID MICHELLE Administration Celecoxib 200 mg 09/08/23 21:00 09/09/23 08:26 Celecoxib 100 Mg Capsule PO 200 mg BID MICHELLE Administration Potassium Chloride/Sodium Chloride 1,000 mls @ 100 mls/hr 09/08/23 15:00 09/09/23 03:03 Normal Saline 0.9% W/20 Meq Kcl IV 100 mls/hr .Q10H MICHELLE Administration Losartan Potassium 25 mg 09/09/23 09:00 09/09/23 08:26 Losartan 50 Mg Tablet PO 25 mg BID MICHELLE Administration Ondansetron HCl 4 mg 09/08/23 14:33 09/09/23 08:26 Ondansetron Odt 4 Mg Tablet TL 4 mg Q6HR PRN Administration Nausea / Vomiting Pantoprazole Sodium 40 mg 09/08/23 21:00 09/09/23 08:25 Pantoprazole 40 Mg Tablet PO 40 mg BID MICHELLE Administration Patient Own Med ( 1 each 09/09/23 09:00 09/09/23 08:26 Imatinib Mesylate [ PO 1 each Gleevec] 100 Mg DAILY MICHELLE Administration Tablet) Patient Own Med ( 1 each 09/08/23 21:00 09/08/23 20:47 Imatinib Mesylate [ PO 1 each Gleevec] 400 Mg QPM MICHELLE Administration Tablet) Sodium Chloride 10 ml 10/25/23 17:00 09/09/23 08:27 Sodium Chloride Flush 0.9% 10 Ml Syringe IVP Not Given 0100,0900,1700 [facility] - Physical Exam Comments/Other: Alert and oriented, appears comfortable no acute distress Neurovascular function to left lower extremity is intact the femoral and sciatic nerve distributions. Dressing is dry and intact to left hip without drainage or hematoma. ABX Reporting Has patient been on IV antibiotics over the past 48 hours?: Yes Impression/Plan - Problem List Problem List: 78-year-old female with a past medical history of chronic myelocytic leukemia (on Gleevec), hypothyroidism secondary to thyroidectomy, hypertension and GERD is postoperative day 1 from a left total hip arthroplasty by Dr. Perez at [facility]. Patient is recovering well with moderate pain control. She is awaiting evaluation from physical therapy but is tolerating oral intake without nausea or vomiting and is urinating via pure wick. Plan is for discharge to home today pending physical therapy evaluation. Plan: - DVT prophylaxis with 81 mg of aspirin twice daily for 6 weeks, SCDs in hospital - Physical and occupational therapy evaluation today and assessment for disch arge home - Pain control with scheduled tylenol (scheduled), celebrex (scheduled), tramadol (scheduled) and oxycodone (scheduled) and IV fentanyl as needed. Avoid IV narcotics in anticipation of discharge today. - Weight bearing as tolerated with front wheeled walker at all times - Follow up with orthopedic clinic in 5 days - Mepilex dressing to remain in place until follow up - Refer to OPS discharge instructions and call the orthopedic office with outstanding questions - Bowel regimen while in hospital - Normal diet, IV fluids to be discontinued when tolerating oral diet without nausea and emesis - Home medications restarted today
[2023-09-09] MEDS ORDERED: IMATINIB MESYLATE 100 MG PO SCH (09:00)
[2023-09-09] MEDS ORDERED: LOSARTAN 50 MG TABLET PO SCH (09:00)
[2023-09-09] MEDS: ethyl alcohoL 62% SWAB AMPULE NAS SCH (09:13)
[2023-09-09] MEDS ORDERED: carBAMazepine ER 200 MG TABLET PO SCH (10:00)
[2023-09-09] MEDS ORDERED: LEVOTHYROXINE 88 MCG TABLET PO SCH (11:00)
[2023-09-09] MEDS ORDERED: oxyCODONE 5 MG TABLET PO SCH ×2 (11:00→12:00)
--- NOTE | 2023-09-09 11:30 | PHARMACY PROGRESS NOTE ---
- Best Possible Medication History Admit Date and Time: Processed by: Nursing Secondary Source(s): Pharmacy records, Insurance records As the person ultimately responsible for medication therapy, providers are able to order a medication from an existing home medication list in [facility] via the "Reconcile Routine" prior to Confirmation of that medication by system support technician. Such practice is discouraged except when the physician, in their clinical judgment, deems that a medical need exists for a medication without regard to previous use.
[2023-09-09] MEDS ORDERED: traMADol 50 MG TABLET PO SCH (12:00)
[2023-09-09 16:37] VITALS: BP 129/98; O2SAT 97
== END 2023-09-09 12:58 | disposition home or self-care (01) ==
LOC: SDS 10:19 → MS3 14:49 → SDS 09-09 12:58
PROVIDERS: ATTEND Orthopaedic Surgery
DX: M16.12 Unilateral primary osteoarthritis, left hip (principal); C92.11 Chronic myeloid leukemia, BCR/ABL-positive, in remission; E89.0 Postprocedural hypothyroidism; I10 Essential (primary) hypertension; K21.9 Gastro-esophageal reflux disease without esophagitis
CPT/HCPCS: 27130; 36415; 72170; 85025; 97166; A9270; J2372; J2795; J3010; J3370; J7120; Q0162

== ENCOUNTER 2023-10-19 14:45 | Outpatient (CLI) | payer MEDICARE, BC ==
--- NOTE | 2023-10-19 21:29 | XRAY Report ---
PROCEDURE: Hip 2 View LT INDICATIONS: LEFT TOTAL HIP TECHNIQUE: 2 views of the hip were acquired. COMPARISON: Left hip radiograph on September 08, 2023 FINDINGS: Bones: Left total hip arthroplasty hardware is intact with no perihardware lucency to suggest hardwa re loosening. No fractures or dislocations. Stable alignment. No suspicious bony lesions. Soft tissues: No suspicious soft tissue calcifications or masses. Vascular calcifications. IMPRESSION: Left total hip arthroplasty hardware is intact without complication. Stable alignment. Reviewed by: Kanwal Novak MD on 10/19/2023 9:28 PM PST Approved by: Kanwal Novak MD on 10/19/2023 9:28 PM PST Station ID: [id number]
== END 2023-10-19 23:59 | disposition home or self-care (01) ==
LOC: DI.WOS 14:45
PROVIDERS: ATTEND Orthopaedic Surgery
DX: Z96.642 Presence of left artificial hip joint (principal)

== ENCOUNTER 2024-07-18 09:39 | Outpatient (CLI) | payer MEDICARE, BC ==
[2024-07-18 10:41] LABS: CHOL/HDL RATIO 2.5 (<4.4); CHOLESTEROL 154 mg/dL; HDL CHOLESTEROL 62 mg/dL; LDL CHOLESTEROL,CALCULATED 64 mg/dL; TRIGLYCERIDES 141 mg/dL; VLDL CHOLESTEROL 28 mg/dL
[2024-07-18 10:43] LABS: THYROID STIMULATING HORMONE 2.98 uIU/mL (0.34-5.60)
== END 2024-07-18 09:40 | disposition home or self-care (01) ==
LOC: LAB 09:39
PROVIDERS: ATTEND Registered Nurse
DX: I10 Essential (primary) hypertension (principal); Z13.228 Encounter for screening for other metabolic disorders; Z13.220 Encounter for screening for lipoid disorders; Z13.29 Encounter for screening for other suspected endocrine disorder; Z13.0 Encounter for screening for diseases of the blood and blood-forming organs and certain disorders involving the immune mechanism
CPT/HCPCS: 36415; 80061; 83721; 84443